=== PATIENT | female | born 1960 | race Caucasian/White ===

== ENCOUNTER 2018-09-28 08:53 | Inpatient (IN) | payer MEDICAID, SELFPAY ==
[2018-09-28] VITALS (32 sets, daily range): BP systolic 98–123; BP diastolic 48–86; PULSE 101–116; RESP 12–26; TEMP 36.4–37.6; O2SAT 93–100; BMI 28.3; BMI 30.1
[2018-09-28] MEDS: 0.9% Normal Saline 1,000 ML 1000 ML IV (09:18)
[2018-09-28 09:33] LABS: Absolute Lymphocyte Count 1.28 X10^3/ul (0.83-4.51); Absolute Neutrophil Count 3.4 X10^3/uL (2.0-7.7); Basophil# 0.02 X10^3/uL; Basophil% 0.4 % (0-1); Eosinophil# 0.06 X10^3/uL; Eosinophils% 1.1 % (0-5); Hematocrit 12.3 % (37-47); Hemoglobin 3.5 g/dl (12.0-15.0); Lymphocyte # 1.28 X10^3/ul (4.0); Lymphocyte % 23.2 % (19-41); Mean Corp Hgb Conc 28.5 g/gl (32-36); Mean Corpuscular Hgb 27.6 pg (27.0-32.0); Mean Corpuscular Volume 96.9 fL (81-99); Monocyte# 0.67 X10^3/uL; Monocyte% 12.1 % (0-10); Neutrophil # 3.36 X10^3/uL (2.7-7.7); Neutrophil % 60.8 % (47-70); Platelet Count 246 K/mm3 (150-450); RBC Distribution Width CV 21.1 % (11.6-14.6); RBC Distribution Width SD 72.6 fl (35.1-43.9); Red Blood Count 1.27 M/mm3 (4.2-5.4); White Blood Count 5.5 K/mm3 (4.4-11.0)
[2018-09-28 09:34] LABS: Differential Indicated SCAN CRITERIA MET; POSITIVE COUNT YES; POSITIVE DIFFERENTIAL NO; POSITIVE MORPHOLOGY YES
[2018-09-28 09:53] LABS: ALB/GLOB Ratio 0.3 RATIO (0.9-2.4); AST(SGOT) 17 U/L (15-37); Alanine Aminotransfer ALT/SGPT 12 U/L (13-56); Albumin, Serum 2.1 g/dL (3.2-5.0); Alkaline Phosphatase 119 U/L (45-117); Anion Gap 10 (5-15); BUN 9 mg/dL (7-18); BUN/Creat Ratio 10.1 RATIO (10-20); Calcium,Total 8.8 mg/dL (8.5-10.1); Chloride 101 mmol/L (98-107); Creatinine, Serum 0.89 mg/dL (0.55-1.02); EST Glomerular Filtration Rate 69 mL/min (>60); Est Glom Filt Rate - Afr Amer 83 mL/min (>60); Estimated Creatinine Clearance 57.69 ml/min; Globulin 6.6 g/dL (2.2-4.2); Glucose 105 mg/dL (74-106); Potassium 3.6 mmol/L (3.5-5.1); Protein, Total 8.7 g/dL (6.4-8.2); Sodium Level 137 mmol/L (136-145)
--- NOTE | 2018-09-28 09:57 | PCM.HP.STD ---
Problem List (1) Severe anemia Status: Acute (2) Iron deficiency anemia Status: Chronic Qualifiers: Iron deficiency anemia type: unspecified iron deficiency Qualified Code(s): D50.9 - Iron deficiency anemia, unspecified History of Present Illness Date of Admission: 09/28/18 Chief Complaint: Fatigued, weakness, decreased Hgb The patient is a 57 y/o F w/ PMHx: Remote Fe deficiency anemia noting regularly taking supplementation, menopausal associated night sweats otherwise per her report healthy who presents to the [facility] ED on 09/28/18 with history of progressively worsening fatigue, weakness, pale pallor, dyspnea with exertion since May with UC evaluation at that time and rx given for outpatient CBC which she had completed on 09/27/18 secondary to her worsening symptoms with call back to her noting severe anemia and recommendation to present to the ED. patient denied any recent hematuria, hemoptysis, dark black stools or red blood per rectum. She denies having had endoscopy evaluation prior but has been on Fe supplementation in the past. In the ED work-up included T 98, heart rate 116, BP 122/54, respiratory rate 18, 99% on room air, CBC with WBC 5.5, hemoglobin 3.1, platelet 246, CMP unremarkable aside alk phos 119, stool guaiac negative, type and cross performed per ED with 4 unit PRBC requested. In the ED patient administered normal saline. Past Medical History Past Medical History (Chronic Problems): Chronic Problems Iron deficiency anemia (Chronic) Allergies No Known Allergies Allergy (Verified 09/28/18 08:56) Home Medications: Ambulatory Orders Medication Instructions Recorded Iron 09/28/18 Multivitamin [Multiple Vitamins] 1 each PO 09/28/18 Surgical History: - - x2. 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 Smoking Status: Never smoker Tobacco Use: Non-smoker Alcohol: None Drugs: None - *Family History Maternal History Items: - - She denies any marked maternal or paternal family history including heart disease, diabetes, cancer. Paternal History Items: - - She denies any marked maternal or paternal family history including heart disease, diabetes, cancer. Review of Systems Constitutional: Reports: Malaise, Weakness, Fatigue. Denies: Chills, Fever, Weight Change HEENT: Denies: Head Aches, Sinus Congestion, Sinus Drainage Cardiovascular: Denies: Chest Pain, Palpitations Respiratory: Reports: Shortness of breath upon exertion. Denies: Cough, Shortness of breath at rest, Sputum production Gastrointestinal: Denies: Abdominal Pain, Nausea, Vomiting Genitourinary: Denies: Dysuria Musculoskeletal: Denies: Joint Pain, Joint Tenderness Skin: Denies: Rash, Wounds Neurological: Denies: Numbness, Tingling, Focal weakness Psychiatric: Denies: Anxiety, Depression, Homicidal Ideations, Suicidal Ideations Hematologic/ Lymphatic: Reports: Anemia. Denies: Easy Bruising, Easy Bleeding VTE Information - Inpt Only VTE Present on Admission: No VTE Mechan Device Prophylaxis: SCD's VTE Pharm Prophylaxis ordered?: No Reason prophylaxis not ordered:: Medical Contraindication Patient Problems: Active and Suspected Problems Severe anemia (Acute) Subjective: Seated upright in the ICU bed, pale pallor, fatigued appearance, NAD otherwise. Objective: Physical Examination: General: awake, alert, oriented x 3 and cooperative, seated upright in the ICU bed in no apparent distress, fatigued appearance. Skin: pale color, turgor, no icterus, cyanosis. HEENT: AT/NC, EOMI, PERRLA, MMM, no carotid bruits or JVD noted. Lungs: CTA bilaterally, moderate effort, mild decrease BL bases, no rales, ronchi or wheezing. Heart: Tachycardic with regular rhythm; no gallop, rub audible. Abdomen: soft, obese, NTTP, ND, normal BS, no HSM. Extremities: no cyanosis, clubbing, or edema. Neurological: patient awake, alert, oriented x 3; cognitive function intact; pupils equally reactive to light and accomodation; cranial nerves II-XII grossly normal, moving all 4 extremities, no focal deficits, strength moderately to severely globally decreased given acute presentation. Psychiatric: affect appears mildly flat, fatigued, no acute evidence of depressive or anxiety feelings. - Physical Exam Vital Signs Temp Pulse Resp BP Pulse Ox 98.8 F 112 H 18 110/57 L 98 09/28/18 09:08 09/28/18 09:08 09/28/18 09:08 09/28/18 09:08 09/28/18 09:08 Oxygen Delivery Method Room Air Weight: 160 lb Body Mass Index (BMI) 28.3 Microbiology Past 72 Hours 09/28/18 09:15 Stool Occult Blood (KG) - Final Stool Laboratory Tests Past 24 Hrs 09/28/18 09/28/18 09/28/18 09:15 09:15 09:15 WBC 5.5 RBC 1.27 L Hgb 3.5 L* Hct 12.3 L MCV 96.9 MCH 27.6 MCHC 28.5 L RDW 21.1 H RDW Differential 72.6 H Plt Count 246 MPV 8.0 Immature Gran % (Auto) 2.400 H Neut % (Auto) 60.8 Lymph % (Auto) 23.2 [place] % (Auto) 12.1 H Eos % (Auto) 1.1 Baso % (Auto) 0.4 Absolute Neuts (auto) 3.4 Absolute Lymphs (auto) 1.28 Total Counted Pending Sodium 137 Potassium 3.6 Chloride 101 Carbon Dioxide 26.0 Anion Gap 10 BUN 9 Creatinine 0.89 Estim Creat Clear Calc 57.69 Est GFR (MDRD) Af Amer 83 Est GFR (MDRD) Non-Af 69 BUN/Creatinine Ratio 10.1 Glucose 105 Calcium 8.8 Total Bilirubin 0.70 AST 17 ALT 12 L Alkaline Phosphatase 119 H Total Protein 8.7 H Albumin 2.1 L Globulin 6.6 H Albumin/Globulin Ratio 0.3 L Blood Type Cancelled Antibody Screen Cancelled Crossmatch See Detail 09/28/18 09:35 WBC RBC Hgb Hct MCV MCH MCHC RDW RDW Differential Plt Count MPV Immature Gran % (Auto) Neut % (Auto) Lymph % (Auto) [place] % (Auto) Eos % (Auto) Baso % (Auto) Absolute Neuts (auto) Absolute Lymphs (auto) Total Counted Sodium Potassium Chloride Carbon Dioxide Anion Gap BUN Creatinine Estim Creat Clear Calc Est GFR (MDRD) Af Amer Est GFR (MDRD) Non-Af BUN/Creatinine Ratio Glucose Calcium Total Bilirubin AST ALT Alkaline Phosphatase Total Protein Albumin Globulin Albumin/Globulin Ratio Blood Type Pending Antibody Screen Pending Crossmatch See Detail Assessment/Plan All Active Problems Severe anemia (Acute) The patient is a 57 y/o F w/ PMHx: Remote Fe deficiency anemia noting regularly taking supplementation, menopausal associated night sweats otherwise per her report healthy who presents to the [facility] ED on 09/28/18 with history of progressively worsening fatigue, weakness, pale pallor, dyspnea with exertion since May with UC evaluation at that time and rx given for outpatient CBC,completed on 09/27/18, Hgb 3.5. (1) Acute Normocytic Anemia, Possible secondary to GI Bleed and Underlying Severe Fe Deficiency Anemia although Possible Hemolysis: Given VS, only noted tachycardia with her severe anemia suspect ongoing slow decrease otherwise would have expected worsened appearance. Admission Hgb 3.5, will admit to ICU per facility protocol, maintain on IVFs, obtain serial H+H q 6 hours, continue 4 u PRBC administration, maintain on IV PPI. Allow clears initially until evaluation per Surgery for consideration for endoscopies with additionally Oncology/Hematology evaluation. ICU consultation per ICU protocol. Fe panel, ferritin, vitamin B12, folic acid and retic count pending prior to initiation of transfusions. (2) Obesity: Weight loss and lifestyle changes encouraged. (3) GERD: IV PPI. (4) DVT Prophylaxis: SCDs, defer chemoprophylaxis given acute presentation #1. Code Visit Inpatient E&M: 23180 Init Hosp L3
[2018-09-28 10:02] LABS: Anisocytosis 2+; Hypochromasia 3+; Microcytosis RARE; Platelet Estimate ADEQUATE (ADEQ); Polychromasia RARE
--- NOTE | 2018-09-28 10:04 | ED.DCSUM_ITS ---
- ER Visit Summary Date of Service: 09/28/18 Chief Complaint: [Anemia] History of Present Illness: The patient is a 57 F presents to the emergency department with complaint of fatigue. Patient's had fatigue and exertional dyspnea for the last 4-5 months. Patient states she was seen at urgent care for 5 months ago and had blood work ordered however she just followed up and went to have her blood drawn yesterday. Patient was noted to have a hemoglobin of 3.5 and therefore was instructed to come to the emergency department. Patient denies any blood in her stool or black tarry stools. Patient states she does not eat much red meat. Patient denied history of anemia in the past. She denies any vaginal bleeding or bleeding in the urine. 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 She denies any weight loss. No family history of colon cancer.] Physical Examination: [HEENT-PERRLA, EOMI. Cranial nerves II through XII grossly intact. TMs clear. Mucous membranes moist. No adenopathy. Cardiovascular-regular rate and rhythm without murmur or ectopy Lungs-clear to auscultation, chest wall stable without crepitus or subcu emphysema Abdomen-normoactive bowel sounds, soft, nontender, no rebound or rigidity, no peritoneal signs. Rectal exam-no masses palpated in the rectal vault and she had brown stool that was Hemoccult negative. Extremities-intact ?4, normal range of motion, normal pulses, atraumatic] Test Results: [CBC with differential obtained showed a white blood cell count of 5.5, hemoglobin 3.5, hematocrit 12.3, platelets 246. Chemistries were unremarkable. LFTs unremarkable.] Emergency Department Course and Treatment: Patient was typed and crossed for 4 units packed red blood cells] Treatment Plan: [Admit for blood transfusions and further evaluation of her anemia.] Disposition: [Admit] Impression: [Anemia] This note was generated with [employer] dictation software. It may contain incorrect words, spelling, and punctuation that were not noted in review of the chart prior to signing ED Disposition - Plan for ED Patient: Chief Complaint: Abn Labs Referrals: Care Physician,No Primary [Primary Care Provider] -
[2018-09-28 11:04] LABS: Hematocrit 10.9 % (37-47); Hemoglobin 3.1 g/dl (12.0-15.0)
[2018-09-28 11:34] LABS: Ferritin 174 ng/mL (8-252); Iron 82 ug/dL (50-170); Iron Binding Capacity,Total 278 ug/dL (250-450); PERCENT IRON SATURATION 29.5 % (15.0-55.0)
--- NOTE | 2018-09-28 11:45 | NURSING ---
to engineering laboratory technician per bed mother present
[2018-09-28 12:01] LABS: Vitamin B12 905 pg/mL (211-911)
--- NOTE | 2018-09-28 12:51 | CON.PCM_ITS ---
Reason for Consult Date of Consultation: 09/28/18 Reason for Consultation: Blood loss anemia History of Present Illness: The patient is a 57-year-old female, with a history as outlined below, who presented to the emergency department on September 28 with gradually worsening fatigue. The patient states she initially noticed her symptoms beginning in May. Apparently she was evaluated in an urgent care and blood work was ordered. However, the patient did not have her blood drawn until just recently. She denies a history of prior gastrointestinal bleeding. She has never undergone an upper or lower endoscopy previously. She states that her bowel movements have been normal and denies the presence of bright red blood per rectum, melena, hematochezia or hematemesis. A CBC drawn as a consequence of the aforementioned blood work revealed a hemoglobin of 3.5. The patient does have a documented hemoglobin of 8.7 in October 2015 in our system. She reports that she has become so fatigued that she has been unable to keep up with her two year-old granddaughter. On presentation to the emergency department, the patient was noted to be afebrile and hemodynamically stable. She was, nevertheless tachycardic. She was maintaining appropriate oxygen saturations on room air. A repeat CBC did reveal a hemoglobin of 3.1 g/dL with normocytic blood indices. Chemistry profile was largely unrevealing. Iron studies were within normal limits. The patient did receive 1 L of supplemental IV fluid hydration. She was started on Protonix twice daily and underwent a type and screen for 4 units of packed red blood cells. The patient was subsequently transferred to the medical intensive care unit for ongoing management. Past Medical History Past Medical History (Chronic Problems): Chronic Problems Iron deficiency anemia (Chronic) Allergies No Known Allergies Allergy (Verified 09/28/18 08:56) Home Medications: Ambulatory Orders Medication Instructions Recorded Iron 09/28/18 Multivitamin [Multiple Vitamins] 1 each PO 09/28/18 Venlafaxine HCl [Venlafaxine HCl 75 mg PO DAILY 09/28/18 ER] Smoking Status: Never smoker - *Family History Maternal History Items: - - She denies any marked maternal or paternal family history including heart disease, diabetes, cancer. Paternal History Items: - - She denies any marked maternal or paternal family history including heart disease, diabetes, cancer. Review of Systems Constitutional: Reports: Weakness, Fatigue Eyes: Denies: Blurred vision, Double vision HEENT: Denies: Head Aches, Sinus Congestion, Sinus Drainage Cardiovascular: Denies: Chest Pain, Palpitations Respiratory: Denies: Cough, Shortness of breath at rest, Sputum production Gastrointestinal: Denies: Abdominal Pain, Nausea, Vomiting Genitourinary: Denies: Dysuria Musculoskeletal: Denies: Joint Pain, Joint Tenderness Skin: Denies: Rash, Wounds Neurological: Denies: Numbness, Tingling, Focal weakness Psychiatric: Denies: Anxiety, Depression, Homicidal Ideations, Suicidal Ideations Hematologic/ Lymphatic: Reports: Anemia. Denies: Hx of blood transfusion Patient Problems: Active and Suspected Problems Severe anemia (Acute) Objective: The patient's most recent lab work, culture data and imaging studies have all been personally reviewed. - Physical Exam General: Alert, Oriented x3, Cooperative, No apparent distress HEENT: Atraumatic, PERRLA, Normocephalic Oral: No Gingival or Mucosal Lesions/ Ulcerations Neck: Supple, No Nodes, Trachea Midline Lungs: Normal air movement, No rhonchi, No wheeze, No rales Cardiovascular: Normal S1, Normal S2, No murmurs, Tachycardic Abdomen: Bowel Sounds Present, Soft, Non Tender Extremities: No clubbing, No cyanosis, No edema Skin: No rashes, No breakdown Musculoskeletal: No Tenderness to Palpation of Joints or Extremities, No Muscle Wasting Lymphatic: No Cervical, Supraclavicular, or Inguinal Adenopathy Neurological: Cranial nerves II-XII grossly intact, Neuro grossly intact Psych/Mental Status: Alert and oriented to time, place, person, mood and affect Vital Signs Temp Pulse Resp BP Pulse Ox 36.7 C 106 H 18 105/66 97 09/28/18 11:22 09/28/18 12:00 09/28/18 12:00 09/28/18 12:00 09/28/18 12:00 Oxygen Delivery Method Room Air Weight: 169 lb 15.622 oz Body Mass Index (BMI) 30.1 Intake and Output for Last 24 Hours 09/26/18 09/27/18 09/28/18 23:59 23:59 23:59 Intake Total 400 / 400 Output Total 0 / 0 Balance 400 / 400 Microbiology Past 72 Hours 09/28/18 09:15 Stool Occult Blood (KG) - Final Stool Laboratory Tests Past 24 Hrs 09/28/18 09/28/18 09/28/18 09:15 09:15 09:15 WBC 5.5 RBC 1.27 L Hgb 3.5 L* Hct 12.3 L MCV 96.9 MCH 27.6 MCHC 28.5 L RDW 21.1 H RDW Differential 72.6 H Plt Count 246 MPV 8.0 Immature Gran % (Auto) 2.400 H Neut % (Auto) 60.8 Lymph % (Auto) 23.2 [place] % (Auto) 12.1 H Eos % (Auto) 1.1 Baso % (Auto) 0.4 Absolute Neuts (auto) 3.4 Absolute Lymphs (auto) 1.28 Total Counted Not Reportable Diff Path Review May foll Platelet Estimate ADEQUATE Polychromasia RARE Hypochromasia 3+ Anisocytosis 2+ Microcytosis RARE Sodium 137 Potassium 3.6 Chloride 101 Carbon Dioxide 26.0 Anion Gap 10 BUN 9 Creatinine 0.89 Estim Creat Clear Calc 57.69 Est GFR (MDRD) Af Amer 83 Est GFR (MDRD) Non-Af 69 BUN/Creatinine Ratio 10.1 Glucose 105 Calcium 8.8 Iron TIBC Iron Saturation Ferritin Total Bilirubin 0.70 AST 17 ALT 12 L Alkaline Phosphatase 119 H Total Protein 8.7 H Albumin 2.1 L Globulin 6.6 H Albumin/Globulin Ratio 0.3 L Vitamin B12 Folate Blood Type Cancelled Antibody Screen Cancelled Crossmatch See Detail 09/28/18 09/28/18 09/28/18 09:15 09:15 09:35 WBC RBC Hgb Hct MCV MCH MCHC RDW RDW Differential Plt Count MPV Immature Gran % (Auto) Neut % (Auto) Lymph % (Auto) [place] % (Auto) Eos % (Auto) Baso % (Auto) Absolute Neuts (auto) Absolute Lymphs (auto) Total Counted Diff Path Review Platelet Estimate Polychromasia Hypochromasia Anisocytosis Microcytosis Sodium Potassium Chloride Carbon Dioxide Anion Gap BUN Creatinine Estim Creat Clear Calc Est GFR (MDRD) Af Amer Est GFR (MDRD) Non-Af BUN/Creatinine Ratio Glucose Calcium Iron 82 TIBC 278 Iron Saturation 29.5 Ferritin 174 Total Bilirubin AST ALT Alkaline Phosphatase Total Protein Albumin Globulin Albumin/Globulin Ratio Vitamin B12 905 Folate 46.30 Blood Type AB POSITIVE Antibody Screen NEGATIVE Crossmatch See Detail 09/28/18 10:00 WBC RBC Hgb 3.1 L* Hct 10.9 L MCV MCH MCHC RDW RDW Differential Plt Count MPV Immature Gran % (Auto) Neut % (Auto) Lymph % (Auto) [place] % (Auto) Eos % (Auto) Baso % (Auto) Absolute Neuts (auto) Absolute Lymphs (auto) Total Counted Diff Path Review Platelet Estimate Polychromasia Hypochromasia Anisocytosis Microcytosis Sodium Potassium Chloride Carbon Dioxide Anion Gap BUN Creatinine Estim Creat Clear Calc Est GFR (MDRD) Af Amer Est GFR (MDRD) Non-Af BUN/Creatinine Ratio Glucose Calcium Iron TIBC Iron Saturation Ferritin Total Bilirubin AST ALT Alkaline Phosphatase Total Protein Albumin Globulin Albumin/Globulin Ratio Vitamin B12 Folate Blood Type Antibody Screen Crossmatch Assessment/Plan Active and Suspected Problems Severe anemia (Acute) RECOMMENDATIONS: 1. Agree with blood transfusions. Goal to achieve and maintain a hemoglobin of 7 g/dL. 2. Check reticulocyte panel prior to initiation of transfusion. 3. Continue PPI therapy as ordered. 4. Await evaluation by general surgery. 5. Maintain appropriate IV access. 6. Patient to be maintained n.p.o. for now. IMPRESSIONS: 1. Anemia Unclear etiology for the patient's presenting anemia. Her iron studies appear to be normal. She reports no history of prior gastrointestinal hemorrhage. In addition, she has normocytic blood indices. Plan at this time will include transfusion of packed red blood cells to achieve a hemoglobin of 7 g/dL or greater. The patient will be continued on a PPI twice daily. Serial H&H's will be monitored. Appropriate peripheral IV access will be established. Consultation has been placed to general surgery and consideration for potential endoscopy. 2. Obesity Weight loss through dietary modification and a graded exercise regimen is strongly encouraged. This note was generated with [employer] software. It may contain incorrect words, spelling, and punctuation that were not noted in checking the note before signing. Code Visit Inpatient E&M: 90746 Init Hosp L3
[2018-09-28 13:19] LABS: Immature Platelet Fraction 2.2 % (1.0-7.9)
--- NOTE | 2018-09-28 14:41 | ONC.CONS.INP ---
Subjective Date of Service:: 09/28/18 Chief Complaint: Anemia History of Present Illness: Ms. Bill Braswell is a pleasant 57 year old woman who developed fatigue May 2018. As a result she presented to a local urgent care and received orders for lab work which included a CBC, which she just now completed. Found to have a Hgb of just above 3 and patient was encouraged to seek immediate medical attention at [facility] ED. Upon presentation, Hgb 3.5 and expected exertional dyspnea. Specifically she denies weight loss, dysphagia, hematemesis, CP, abd pain, changes in her bowel habits, melena/hematochezia and swelling/pain of her extremities. Has never undergone screening cscope or upper endoscopy. Admits she was evaluated in ED in approx 2015 with c/o palpitations and was found to be anemic at that time. As a result, she began taking otc iron supplements per self. She does not have a pcp. Endorses 1.5 year h/o drenching night sweats, modestly controlled with low dose Effexor (provided by her gyn physician) but otherwise no outstanding complaints. Other screenings up to date. Family history negative for ca and hematologic disorders. Past Medical History: Chronic Problems Iron deficiency anemia (Chronic) Past Medical/Surgical History: Past Medical History - Most Recent Inpatient Visit Past Medical History Start: 09/28/18 10:25 Text: Status: Complete Freq: ONCE Protocol: Document 09/28/18 10:25 LW (Rec: 09/28/18 10:46 LW [id number]) BMI Required to complete PMH What is Patient's BMI 28.3 Neurologic Medical History Hx Stroke/TIA No Hx Dementia/Alzheimer's No Hx Parkinson's Disease No Hx Seizures No Hx Multiple Sclerosis No Hx Migraines No Cardiac Medical History VTE Present on Admission No Hx of Deep Vein Thrombosis/VTE/PE No Hx Hypertension No Hx Chest Pain/Angina No Hx Heart Attack No Hx Cardiac Surgery/Stents/Etc. No Hx Heart Failure No Hx Pacemaker/AICD No Hx Irregular Heartbeat and/or Afib No Hx Anticoagulant Therapy No Query Text:(Coumadin, Aspirin, Plavix, Xarelto, etc.) Hx Pain in Legs when Walking/Leg Cramps No Respiratory Medical History Hx COPD No Hx Emphysema No Hx Smoking No Smoking Status Never smoker Hx Smoking Exposure No Hx Tobacco Use in last 12 months Yes Sent to [facility] Yes Hx Sleep Apnea No Do you snore loudly (louder than talking No or can be heard through closed doors)? Do you often feel tired/ fatigued/ No sleepy during daytime? Has anyone observed you stop breathing No during sleep? STOP Results Negative GI Medical History Hx Ulcer No Hx Hepatitis No Hx Cirrhosis No Hx GI Bleed No Hx Unplanned Weight Loss No Genitourinary Medical History Indwelling Catheter in Place on Arrival/ No Admission Hx Renal Disease No Hx Dialysis No Musculoskeletal History Hx Arthritis No Hx Rheumatoid Arthritis No Endocrine Medical History Hx Diabetes No Hx Thyroid Disease No Hematologic Medical History Hx of Blood Transfusion No Hx of Transfusion in last 3 Months No Ever experience any problems with No transfusion(s)? Hx of Preganancy in last 3 Months No Nurse Filling Out Transfusion & LWOHLFORD Questions: Date: 09/28/18 Time: 10:41 Psycho/Social Medical History Hx Depression No Hx Anxiety No Hx Behavior Disorder No Hx Alcohol Use No Hx Substance Use No Other Medical History Hx Blood Disorders No Hx Anemia Yes Hx Cancer No Hx Drug Resistant Organism No Wound/Pressure Injury Present on Arrival No /Admission Query Text:If yes, chart assessment in Shift/Clinical Findings Central Line/PICC/VAD Present on Arrival No /Admission Antibiotics within last 7 days? No Methicillin Resistant Staphylococcus aureus Screening Active MRSA No Risk for Readmission Number of Risk Factors 1 At Risk for Readmission Patient is Not at Risk Patient is eligible for Call Back N Maternal Family History: - - She denies any marked maternal or paternal family history including heart disease, diabetes, cancer. Paternal Family History: - - She denies any marked maternal or paternal family history including heart disease, diabetes, cancer. - Social History Smoking Status: Never smoker Allergies/Adverse Reactions: Allergy/AdvReac Type Severity Reaction Status Date / Time No Known Allergies Allergy Verified 09/28/18 08:56 Review of Systems Constitutional:: Reports: Weakness, Fatigue, Sweats - see HPI. Denies: Fever, Weight loss, Appetite change, Chills Cardiovascular:: Reports: Dyspnea on exertion - she describes as mild. Denies: Chest pain, Palpitations, Orthopnea, PND, Shortness of breath Respiratory: Denies: Cough, Hemoptysis, Shortness of Breath, Wheezing Gastrointestinal:: Denies: Abdominal pain, Nausea, Vomiting, Diarrhea, Constipation, Melena, Hematochezia, Gas/bloating, Reflux, Dysphagia Genitourinary: Denies: Dysuria, Hematuria, Abnormal vaginal bleeding, Flank pain Musculoskeletal:: Denies: Back pain, Myalgia, Arthralgia Skin: Denies: Rash, Skin Changes, Wounds Neurological:: Denies: Headache, Dizziness, Numbness, Tingling, Visual changes, Tinnitus, Hearing loss Psychiatric: Denies: Anxiety, Depression, Homicidal Ideations, Suicidal Ideations Vital Signs Height 5 ft 3 in Weight: 169 lb 15.622 oz Weight in Pounds 170.0 lbs Pulse Ox 99 Temperature 97.5 F Pulse Rate [Bilateral Radial] 112 Pulse Rate 106 Respiratory Rate 17 Blood Pressure [BP] 115/62 Blood Pressure [Right Arm] 110/57 Blood Pressure 107/48 Blood Pressure Position [BP] Semi-Fowlers Blood Pressure Position Semi-Fowlers - Physical Exam General: Alert, Oriented x3, No apparent distress, - - pale HEENT: Atraumatic, Normocephalic Oropharynx:: Negative for: Dry mucosa, Ulcerated lesions Neck:: Supple, Trachea midline. Negative for: JVD, bilateral Cardiac:: Regular rhythm, Normal S1, Normal S2, Tachycardia. Negative for: Murmur Lungs: Clear to auscultation, Excusion symmetrical. Negative for: Rhonchi, Wheezes Abdomen:: Bowel sounds x 4, Soft, Non-tender, Non-distended. Negative for: Hepatosplenomegaly Extremities:: Negative for: Cyanosis, Edema Neurological: Neuro grossly intact Skin:: Negative for: Lesions, Rash, Petechiae, Ecchymosis Psychiatric:: Appropriate affect, Euthymic Lymphatics:: Negative for: Cervical lymphadenopathy, Supraclavicular lymphadenopathy, Axillary lymphadenopathy Laboratory Data: Microbiology 09/28/18 09:15 Stool Occult Blood (KG) - Final Stool Laboratory Tests 09/28/18 09/28/18 09/28/18 Range/Units 10:00 10:00 09:35 WBC (4.4-11.0) K/mm3 RBC (4.2-5.4) M/mm3 Hgb 3.1 L* (12.0-15.0) g/dl Hct 10.9 L (37-47) % MCV (81-99) fL MCH (27.0-32.0) pg MCHC (32-36) g/gl RDW (11.6-14.6) % RDW Differential (35.1-43.9) fl Plt Count (150-450) K/mm3 MPV (6.2-12.0) fl Immature Gran % (Auto) (0.0-0.9) % Neut % (Auto) (47-70) % Lymph % (Auto) (19-41) % [place] % (Auto) (0-10) % Eos % (Auto) (0-5) % Baso % (Auto) (0-1) % Absolute Neuts (auto) (2.0-7.7) X10^3/uL Absolute Lymphs (auto) (0.83-4.51) X10^3/ul Total Counted Diff Path Review Platelet Estimate (ADEQ) Immature Plt Fraction 2.2 (1.0-7.9) % Polychromasia Hypochromasia Anisocytosis Microcytosis Retic Count 4.50 H (0.5-1.5) % Immature Retic Fraction 32.40 H (3.00-15.90) % Retic Hgb Equivalent 24.0 L (30-35) pg Sodium (136-145) mmol/L Potassium (3.5-5.1) mmol/L Chloride (98-107) mmol/L Carbon Dioxide (21.0-32.0) mmol/L Anion Gap (5-15) BUN (7-18) mg/dL Creatinine (0.55-1.02) mg/dL Estim Creat Clear Calc ml/min Est GFR (MDRD) Af Amer (>60) mL/min Est GFR (MDRD) Non-Af (>60) mL/min BUN/Creatinine Ratio (10-20) RATIO Glucose (74-106) mg/dL Calcium (8.5-10.1) mg/dL Iron (50-170) ug/dL TIBC (250-450) ug/dL Iron Saturation (15.0-55.0) % Ferritin (8-252) ng/mL Total Bilirubin (0.20-1.00) mg/dL AST (15-37) U/L ALT (13-56) U/L Alkaline Phosphatase (45-117) U/L Total Protein (6.4-8.2) g/dL Albumin (3.2-5.0) g/dL Globulin (2.2-4.2) g/dL Albumin/Globulin Ratio (0.9-2.4) RATIO Vitamin B12 (211-911) pg/mL Folate (3.1-55.4) ng/mL Blood Type AB POSITIVE Antibody Screen NEGATIVE Crossmatch See Detail 09/28/18 09/28/18 09/28/18 Range/Units 09:15 09:15 09:15 WBC (4.4-11.0) K/mm3 RBC (4.2-5.4) M/mm3 Hgb (12.0-15.0) g/dl Hct (37-47) % MCV (81-99) fL MCH (27.0-32.0) pg MCHC (32-36) g/gl RDW (11.6-14.6) % RDW Differential (35.1-43.9) fl Plt Count (150-450) K/mm3 MPV (6.2-12.0) fl Immature Gran % (Auto) (0.0-0.9) % Neut % (Auto) (47-70) % Lymph % (Auto) (19-41) % [place] % (Auto) (0-10) % Eos % (Auto) (0-5) % Baso % (Auto) (0-1) % Absolute Neuts (auto) (2.0-7.7) X10^3/uL Absolute Lymphs (auto) (0.83-4.51) X10^3/ul Total Counted Diff Path Review Platelet Estimate (ADEQ) Immature Plt Fraction (1.0-7.9) % Polychromasia Hypochromasia Anisocytosis Microcytosis Retic Count (0.5-1.5) % Immature Retic Fraction (3.00-15.90) % Retic Hgb Equivalent (30-35) pg Sodium (136-145) mmol/L Potassium (3.5-5.1) mmol/L Chloride (98-107) mmol/L Carbon Dioxide (21.0-32.0) mmol/L Anion Gap (5-15) BUN (7-18) mg/dL Creatinine (0.55-1.02) mg/dL Estim Creat Clear Calc ml/min Est GFR (MDRD) Af Amer (>60) mL/min Est GFR (MDRD) Non-Af (>60) mL/min BUN/Creatinine Ratio (10-20) RATIO Glucose (74-106) mg/dL Calcium (8.5-10.1) mg/dL Iron 82 (50-170) ug/dL TIBC 278 (250-450) ug/dL Iron Saturation 29.5 (15.0-55.0) % Ferritin 174 (8-252) ng/mL Total Bilirubin (0.20-1.00) mg/dL AST (15-37) U/L ALT (13-56) U/L Alkaline Phosphatase (45-117) U/L Total Protein (6.4-8.2) g/dL Albumin (3.2-5.0) g/dL Globulin (2.2-4.2) g/dL Albumin/Globulin Ratio (0.9-2.4) RATIO Vitamin B12 905 (211-911) pg/mL Folate 46.30 (3.1-55.4) ng/mL Blood Type Cancelled Antibody Screen Cancelled Crossmatch See Detail 09/28/18 09/28/18 Range/Units 09:15 09:15 WBC 5.5 (4.4-11.0) K/mm3 RBC 1.27 L (4.2-5.4) M/mm3 Hgb 3.5 L* (12.0-15.0) g/dl Hct 12.3 L (37-47) % MCV 96.9 (81-99) fL MCH 27.6 (27.0-32.0) pg MCHC 28.5 L (32-36) g/gl RDW 21.1 H (11.6-14.6) % RDW Differential 72.6 H (35.1-43.9) fl Plt Count 246 (150-450) K/mm3 MPV 8.0 (6.2-12.0) fl Immature Gran % (Auto) 2.400 H (0.0-0.9) % Neut % (Auto) 60.8 (47-70) % Lymph % (Auto) 23.2 (19-41) % [place] % (Auto) 12.1 H (0-10) % Eos % (Auto) 1.1 (0-5) % Baso % (Auto) 0.4 (0-1) % Absolute Neuts (auto) 3.4 (2.0-7.7) X10^3/uL Absolute Lymphs (auto) 1.28 (0.83-4.51) X10^3/ul Total Counted Not Reportable Diff Path Review May foll Platelet Estimate ADEQUATE (ADEQ) Immature Plt Fraction (1.0-7.9) % Polychromasia RARE Hypochromasia 3+ Anisocytosis 2+ Microcytosis RARE Retic Count (0.5-1.5) % Immature Retic Fraction (3.00-15.90) % Retic Hgb Equivalent (30-35) pg Sodium 137 (136-145) mmol/L Potassium 3.6 (3.5-5.1) mmol/L Chloride 101 (98-107) mmol/L Carbon Dioxide 26.0 (21.0-32.0) mmol/L Anion Gap 10 (5-15) BUN 9 (7-18) mg/dL Creatinine 0.89 (0.55-1.02) mg/dL Estim Creat Clear Calc 57.69 ml/min Est GFR (MDRD) Af Amer 83 (>60) mL/min Est GFR (MDRD) Non-Af 69 (>60) mL/min BUN/Creatinine Ratio 10.1 (10-20) RATIO Glucose 105 (74-106) mg/dL Calcium 8.8 (8.5-10.1) mg/dL Iron (50-170) ug/dL TIBC (250-450) ug/dL Iron Saturation (15.0-55.0) % Ferritin (8-252) ng/mL Total Bilirubin 0.70 (0.20-1.00) mg/dL AST 17 (15-37) U/L ALT 12 L (13-56) U/L Alkaline Phosphatase 119 H (45-117) U/L Total Protein 8.7 H (6.4-8.2) g/dL Albumin 2.1 L (3.2-5.0) g/dL Globulin 6.6 H (2.2-4.2) g/dL Albumin/Globulin Ratio 0.3 L (0.9-2.4) RATIO Vitamin B12 (211-911) pg/mL Folate (3.1-55.4) ng/mL Blood Type Antibody Screen Crossmatch Assessment and Plan 57 year old woman with relatively unremarkable PMH presenting with severe anemia. 1. Severe anemia- As evidenced by Hgb 3.5, normocytic. Other lines are preserved. Surprisingly, iron studies reveal adequate iron stores and retic count is high indicating aplastic anemia is unlikely, thus hemolysis is on the list of differentials. Orders placed for direct Harley, haptoglobin, LDH. Certainly await surgical recommendations for direction visualization via upper and lower GI. 2. Elevated globulin level- total protein and globulin level are both elevated. Will obtain serum protein electrophoresis with immunofixation and serum free light chain assay. No hypercalcemia or renal dysfunction is noted. Case discussed with Dr. Diaz who was also in agreement with aforementioned plan. Lindsey Andrews, MSN, [employer], AOCNP Medications: Prescriptions This Visit Medication Instructions Recorded Iron 09/28/18 Multivitamin [Multiple Vitamins] 1 each PO 09/28/18 Medications Added to Medication List This Visit Category Date Time Status 0.9% Saline Lock Med 09/28/18 11:30 Active 5 - 15 ml IV UD PRN Magnesium Hydroxide [Milk Of Magnesia] Med 09/28/18 10:27 Active 30 ml PO DAILY PRN PRN Ondansetron [Zofran] Med 09/28/18 10:27 Active 4 mg IV Q8H PRN PRN Pantoprazole Sodium [Protonix] 40 mg Med 09/28/18 11:00 Active 0.9% Normal Saline 100 ml IV Q12 proMETHazine [Phenergan] Med 09/28/18 10:27 Active 12.5 mg IV Q6H PRN PRN Primary Care Provider: No Primary Care Phys Referring Provider:
--- NOTE | 2018-09-28 16:10 | PCM.PN.BLA ---
Progress Note Plan for upper and lower endoscopy
[2018-09-28] MEDS: Venlafaxine XR 75 MG Capsule PO (20:08)
[2018-09-28] MEDS: 0.9% NaCl Peripheral Flush Adult/Peds IV (21:07)
[2018-09-29] VITALS (25 sets, daily range): BP systolic 108–129; BP diastolic 51–66; PULSE 93–106; RESP 10–20; TEMP 36.7–37.4; O2SAT 93–100
[2018-09-29 00:18] LABS: Hematocrit 20.2 % (37-47); Hemoglobin 6.3 g/dl (12.0-15.0)
[2018-09-29] MEDS: 0.9% NaCl Peripheral Flush Adult/Peds IV (01:03)
[2018-09-29 03:15] LABS: LDH 197 U/L (84-246)
--- NOTE | 2018-09-29 06:56 | PN_ITS ---
Subjective: The patient was seen and examined at the bedside this morning. Events from the last 24 hours have been reviewed. The patient is currently afebrile, hemodynamically stable and maintaining appropriate oxygen saturations on room air. The patient was transfused 4 units of packed red blood cells yesterday. Her last hemoglobin check revealed a level of 6.3 g/dL. She is currently receiving an additional 2 units of packed red blood cells. There are tentative plans for both upper and lower endoscopies tomorrow morning. Objective: The patient's most recent lab work, culture data and imaging studies have all been personally reviewed. General: Alert, Oriented x3, Cooperative, No apparent distress HEENT: Atraumatic, PERRLA, Normocephalic Oral: No Gingival or Mucosal Lesions/ Ulcerations Neck: Supple, No Nodes, Trachea Midline Lungs: Normal air movement, No rhonchi, No wheeze, No rales Cardiovascular: Regular rate, Regular Rhythm, Normal S1, Normal S2, No murmurs Abdomen: Bowel Sounds Present, Soft, Non Tender Extremities: No clubbing, No cyanosis, No edema Skin: No breakdown Musculoskeletal: No Tenderness to Palpation of Joints or Extremities, No Muscle Wasting Lymphatic: No Cervical, Supraclavicular, or Inguinal Adenopathy Neurological: Cranial nerves II-XII grossly intact, Neuro grossly intact Psych/Mental Status: Alert and oriented to time, place, person, mood and affect Vital Signs Temp Pulse Resp BP Pulse Ox 36.9 C 97 14 118/63 95 09/29/18 06:30 09/29/18 06:30 09/29/18 06:30 09/29/18 06:30 09/29/18 06:30 Oxygen Delivery Method Room Air Weight: 170 lb 10.205 oz Body Mass Index (BMI) 30.1 Intake and Output for Last 24 Hours 09/27/18 09/28/18 09/29/18 23:59 23:59 23:59 Intake Total 2985 / 2985 600 / 600 Output Total 1450 / 1450 500 / 500 Balance 1535 / 1535 100 / 100 Labs (Last 48 Hours) 09/28/18 09/28/18 09/28/18 09:15 09:15 09:15 WBC 5.5 RBC 1.27 L Hgb 3.5 L* Hct 12.3 L MCV 96.9 MCH 27.6 MCHC 28.5 L RDW 21.1 H RDW Differential 72.6 H Plt Count 246 MPV 8.0 Immature Gran % (Auto) 2.400 H Neut % (Auto) 60.8 Lymph % (Auto) 23.2 [place] % (Auto) 12.1 H Eos % (Auto) 1.1 Baso % (Auto) 0.4 Absolute Neuts (auto) 3.4 Absolute Lymphs (auto) 1.28 Total Counted Not Reportable Diff Path Review May foll Platelet Estimate ADEQUATE Immature Plt Fraction Polychromasia RARE Hypochromasia 3+ Anisocytosis 2+ Microcytosis RARE Retic Count Immature Retic Fraction Retic Hgb Equivalent Haptoglobin Sodium 137 Potassium 3.6 Chloride 101 Carbon Dioxide 26.0 Anion Gap 10 BUN 9 Creatinine 0.89 Estim Creat Clear Calc 57.69 Est GFR (MDRD) Af Amer 83 Est GFR (MDRD) Non-Af 69 BUN/Creatinine Ratio 10.1 Glucose 105 Calcium 8.8 Iron TIBC Iron Saturation Ferritin Total Bilirubin 0.70 AST 17 ALT 12 L Alkaline Phosphatase 119 H Lactate Dehydrogenase Total Protein 8.7 H Total Protein (PEP) Albumin 2.1 L Globulin 6.6 H Albumin/Globulin Ratio 0.3 L Vitamin B12 Folate IgG IgA IgM Albumin (SERENA) Albumin/Globulin (SERENA) Aihjq-8-Nedlnvyoy SERENA Kppnn-4-Koafzyhmq SERENA Beta-Globulins (SERENA) Gamma Globulins (SERENA) SERENA M-Nestor Free [place] LC, Quant Free Lambda LC, Quant Free [place]/Lambda Ratio Blood Type Cancelled Antibody Screen Cancelled Direct Antiglob Test Crossmatch See Detail 09/28/18 09/28/18 09/28/18 09:15 09:15 09:35 WBC RBC Hgb Hct MCV MCH MCHC RDW RDW Differential Plt Count MPV Immature Gran % (Auto) Neut % (Auto) Lymph % (Auto) [place] % (Auto) Eos % (Auto) Baso % (Auto) Absolute Neuts (auto) Absolute Lymphs (auto) Total Counted Diff Path Review Platelet Estimate Immature Plt Fraction Polychromasia Hypochromasia Anisocytosis Microcytosis Retic Count Immature Retic Fraction Retic Hgb Equivalent Haptoglobin Sodium Potassium Chloride Carbon Dioxide Anion Gap BUN Creatinine Estim Creat Clear Calc Est GFR (MDRD) Af Amer Est GFR (MDRD) Non-Af BUN/Creatinine Ratio Glucose Calcium Iron 82 TIBC 278 Iron Saturation 29.5 Ferritin 174 Total Bilirubin AST ALT Alkaline Phosphatase Lactate Dehydrogenase Total Protein Total Protein (PEP) Albumin Globulin Albumin/Globulin Ratio Vitamin B12 905 Folate 46.30 IgG IgA IgM Albumin (SERENA) Albumin/Globulin (SERENA) Hdbhd-3-Jspsbutpq SERENA Wrjog-9-Swaeljjnx SERENA Beta-Globulins (SERENA) Gamma Globulins (SERENA) SERENA M-[place] Free [place] LC, Quant Free Lambda LC, Quant Free [place]/Lambda Ratio Blood Type AB POSITIVE Antibody Screen NEGATIVE Direct Antiglob Test Crossmatch See Detail 09/28/18 09/28/18 09/28/18 09:35 10:00 10:00 WBC RBC Hgb 3.1 L* Hct 10.9 L MCV MCH MCHC RDW RDW Differential Plt Count MPV Immature Gran % (Auto) Neut % (Auto) Lymph % (Auto) [place] % (Auto) Eos % (Auto) Baso % (Auto) Absolute Neuts (auto) Absolute Lymphs (auto) Total Counted Diff Path Review Platelet Estimate Immature Plt Fraction 2.2 Polychromasia Hypochromasia Anisocytosis Microcytosis Retic Count 4.50 H Immature Retic Fraction 32.40 H Retic Hgb Equivalent 24.0 L Haptoglobin Sodium Potassium Chloride Carbon Dioxide Anion Gap BUN Creatinine Estim Creat Clear Calc Est GFR (MDRD) Af Amer Est GFR (MDRD) Non-Af BUN/Creatinine Ratio Glucose Calcium Iron TIBC Iron Saturation Ferritin Total Bilirubin AST ALT Alkaline Phosphatase Lactate Dehydrogenase Total Protein Total Protein (PEP) Albumin Globulin Albumin/Globulin Ratio Vitamin B12 Folate IgG IgA IgM Albumin (SERENA) Albumin/Globulin (SERENA) Htcic-0-Xwkbydqpp SERENA Ybdab-2-Mdjmyyirb SERENA Beta-Globulins (SERENA) Gamma Globulins (SERENA) SERENA M-[place] Free [place] LC, Quant Free Lambda LC, Quant Free [place]/Lambda Ratio Blood Type Antibody Screen Direct Antiglob Test Crossmatch See Detail 09/28/18 09/29/18 09/29/18 10:00 00:05 00:05 WBC RBC Hgb 6.3 L Hct 20.2 L MCV MCH MCHC RDW RDW Differential Plt Count MPV Immature Gran % (Auto) Neut % (Auto) Lymph % (Auto) [place] % (Auto) Eos % (Auto) Baso % (Auto) Absolute Neuts (auto) Absolute Lymphs (auto) Total Counted Diff Path Review Platelet Estimate Immature Plt Fraction Polychromasia Hypochromasia Anisocytosis Microcytosis Retic Count Immature Retic Fraction Retic Hgb Equivalent Haptoglobin Sodium Potassium Chloride Carbon Dioxide Anion Gap BUN Creatinine Estim Creat Clear Calc Est GFR (MDRD) Af Amer Est GFR (MDRD) Non-Af BUN/Creatinine Ratio Glucose Calcium Iron TIBC Iron Saturation Ferritin Total Bilirubin AST ALT Alkaline Phosphatase Lactate Dehydrogenase 197 Total Protein Total Protein (PEP) Albumin Globulin Albumin/Globulin Ratio Vitamin B12 Folate IgG IgA IgM Albumin (SERNEA) Albumin/Globulin (SERENA) Xbkbz-3-Ezlwklvig SERENA Vjojt-7-Tglrhwefz SERENA Beta-Globulins (SERENA) Gamma Globulins (SERENA) SERENA M-[place] Free [place] LC, Quant Free Lambda LC, Quant Free [place]/Lambda Ratio Blood Type Antibody Screen Direct Antiglob Test NEG w/POLYSPECIFIC Crossmatch 09/29/18 00:05 WBC RBC Hgb Hct MCV MCH MCHC RDW RDW Differential Plt Count MPV Immature Gran % (Auto) Neut % (Auto) Lymph % (Auto) [place] % (Auto) Eos % (Auto) Baso % (Auto) Absolute Neuts (auto) Absolute Lymphs (auto) Total Counted Diff Path Review Platelet Estimate Immature Plt Fraction Polychromasia Hypochromasia Anisocytosis Microcytosis Retic Count Immature Retic Fraction Retic Hgb Equivalent Haptoglobin Pending Sodium Potassium Chloride Carbon Dioxide Anion Gap BUN Creatinine Estim Creat Clear Calc Est GFR (MDRD) Af Amer Est GFR (MDRD) Non-Af BUN/Creatinine Ratio Glucose Calcium Iron TIBC Iron Saturation Ferritin Total Bilirubin AST ALT Alkaline Phosphatase Lactate Dehydrogenase Total Protein Total Protein (PEP) Pending Albumin Globulin Albumin/Globulin Ratio Vitamin B12 Folate IgG Pending IgA Pending IgM Pending Albumin (SERENA) Pending Albumin/Globulin (SERENA) Pending Elzva-2-Bflzcccbv SERENA Pending Ponmn-8-Djnfyysrr SERENA Pending Beta-Globulins (SERENA) Pending Gamma Globulins (SERENA) Pending SERENA M-[place] Pending Free [place] LC, Quant Pending Free Lambda LC, Quant Pending Free [place]/Lambda Ratio Pending Blood Type Antibody Screen Direct Antiglob Test Crossmatch Microbiology 09/28/18 09:15 Stool Stool Occult Blood (KG) - Final Medical Necessity - Tobacco Use Smoking Status: Never smoker Tobacco Use: Non-smoker Assessment/Plan All Active Problems Severe anemia (Acute) RECOMMENDATIONS: 1. Agree with blood transfusions. Goal to achieve and maintain a hemoglobin of 7 g/dL. 2. Continue PPI therapy as ordered. 3. Planned endoscopy tomorrow morning 4. Maintain appropriate IV access. 5. Recheck H&H at 1400 hrs. IMPRESSIONS: 1. Anemia Unclear etiology for the patient's presenting anemia. Her iron studies appear to be normal. She reports no history of prior gastrointestinal hemorrhage. In addition, she has normocytic blood indices. Plan at this time will include transfusion of packed red blood cells to achieve a hemoglobin of 7 g/dL or greater. The patient will be continued on a PPI twice daily. Appropriate peripheral IV access will be continued. There are plans for the patient to undergo both lower and upper endoscopies tomorrow morning. We will recheck her H&H today at 1400 hrs. 2. Obesity Weight loss through dietary modification and a graded exercise regimen is strongly encouraged. This note was generated with [employer] dictation software. It may contain incorrect words, spelling, and punctuation that were not noted in checking the note before signing. Code Visit Inpatient E&M: 01376 Subs Hosp L3
--- NOTE | 2018-09-29 06:57 | PCM.PN.HOSP ---
Patient Problems: Active and Suspected Problems Severe anemia (Acute) Subjective: Patient with no acute events overnight per self and per nursing report. This morning hemoglobin had improved with an additional 2 unit PRBC currently ongoing with repeat hemoglobin following. Patient appearance improved, less pale pallor. Patient states she feels less weak. Patient denies fevers, chills, nausea, emesis, abdominal pain, chest pain or dyspnea. Objective: Physical Examination: General: awake, alert, oriented x 3 and cooperative, seated upright in the ICU bed in no apparent distress. Skin: improved color, turgor, no icterus, cyanosis. HEENT: AT/NC, EOMI, PERRLA, MMM. Lungs: CTA bilaterally, moderate effort, mild decrease BL bases, no rales, ronchi or wheezing. Heart: Regular rate and rhythm; no gallop, rub audible. Abdomen: soft, obese, NTTP, ND, normal BS. Extremities: no cyanosis, clubbing, or edema. Neurological: patient awake, alert, oriented x 3; cognitive function intact; pupils equally reactive to light and accomodation; cranial nerves II-XII grossly normal, moving all 4 extremities, no focal deficits, strength improved, mildly globally decreased. Psychiatric: affect appears improved, less fatigued, no acute evidence of depressive or anxiety feelings. Vitals/I&O's: Vital Signs Temp Pulse Resp BP Pulse Ox 98.2 F 98 20 H 119/63 95 09/29/18 06:56 09/29/18 06:56 09/29/18 06:56 09/29/18 06:56 09/29/18 06:56 Oxygen Delivery Method Room Air Weight: 170 lb 10.205 oz Body Mass Index (BMI) 30.1 Intake and Output for Last 24 Hours 09/27/18 09/28/18 09/29/18 23:59 23:59 23:59 Intake Total 2985 / 2985 1000 / 1000 Output Total 1450 / 1450 500 / 500 Balance 1535 / 1535 500 / 500 Microbiology Past 72 Hours 09/28/18 09:15 Stool Stool Occult Blood (KG) - Final Laboratory Results 09/28/18 09:15: WBC 5.5, RBC 1.27 L, Hgb 3.5 L*, Hct 12.3 L, MCV 96.9, MCH 27.6, MCHC 28.5 L, RDW 21.1 H, RDW Differential 72.6 H, Plt Count 246, MPV 8.0, Immature Gran % (Auto) 2.400 H, Neut % (Auto) 60.8, Lymph % (Auto) 23.2, [place] % (Auto) 12.1 H, Eos % (Auto) 1.1, Baso % (Auto) 0.4, Absolute Neuts (auto) 3.4, Absolute Lymphs (auto) 1.28, Total Counted Not Reportable, Diff Path Review May foll, Platelet Estimate ADEQUATE, Polychromasia RARE, Hypochromasia 3+, Anisocytosis 2+, Microcytosis RARE 09/28/18 09:15: Sodium 137, Potassium 3.6, Chloride 101, Carbon Dioxide 26.0, Anion Gap 10, BUN 9, Creatinine 0.89, Estim Creat Clear Calc 57.69, Est GFR (MDRD) Af Amer 83, Est GFR (MDRD) Non-Af 69, BUN/Creatinine Ratio 10.1, Glucose 105, Calcium 8.8, Total Bilirubin 0.70, AST 17, ALT 12 L, Alkaline Phosphatase 119 H, Total Protein 8.7 H, Albumin 2.1 L, Globulin 6.6 H, Albumin/Globulin Ratio 0.3 L 09/28/18 09:15: Blood Type Cancelled, Antibody Screen Cancelled, Crossmatch See Detail 09/28/18 09:15: Vitamin B12 905 09/28/18 09:15: Iron 82, TIBC 278, Iron Saturation 29.5, Ferritin 174, Folate 46.30 09/28/18 09:35: Blood Type AB POSITIVE, Antibody Screen NEGATIVE, Crossmatch See Detail 09/28/18 09:35: Crossmatch See Detail 09/28/18 10:00: Hgb 3.1 L*, Hct 10.9 L 09/28/18 10:00: Immature Plt Fraction 2.2, Retic Count 4.50 H, Immature Retic Fraction 32.40 H, Retic Hgb Equivalent 24.0 L 09/28/18 10:00: Direct Antiglob Test NEG w/POLYSPECIFIC 09/29/18 00:05: Hgb 6.3 L, Hct 20.2 L 09/29/18 00:05: Lactate Dehydrogenase 197 09/29/18 00:05: Haptoglobin Pending, Total Protein (PEP) Pending, IgG Pending, IgA Pending, IgM Pending, Albumin (SERENA) Pending, Albumin/Globulin (SERENA) Pending, Dmpbk-2-Imddmxkje SERENA Pending, Zywfq-0-Wieyimlen SERENA Pending, Beta-Globulins (SERENA) Pending, Gamma Globulins (SERENA) Pending, SERENA M-Nestor Pending, Free [place] LC, Quant Pending, Free Lambda LC, Quant Pending, Free [place]/Lambda Ratio Pending Current Medications Pantoprazole Sodium 40 mg/ (Sodium Chloride) 110 mls @ 330 mls/hr IV Q12 MICHI Last Admin: 09/28/18 21:07 Dose: 330 mls/hr Magnesium Hydroxide (Milk Of Magnesia) 30 ml PO DAILY PRN PRN PRN Reason: Constipation Ondansetron HCl (Zofran) 4 mg IV Q8H PRN PRN PRN Reason: NAUSEA Promethazine HCl (Phenergan) 12.5 mg IV Q6H PRN PRN PRN Reason: NAUSEA/VOMITING Sodium Chloride () 5 - 15 ml IV UD PRN PRN Reason: SALINE FLUSH Last Admin: 09/29/18 01:03 Dose: 10 ml Venlafaxine HCl (Effexor Xr) 75 mg PO DAILY@2200 [facility] Last Admin: 09/28/18 20:08 Dose: 75 mg Medical Necessity - Tobacco Use Smoking Status: Never smoker Tobacco Use: Non-smoker Assessment/Plan All Active Problems Severe anemia (Acute) The patient is a 57 y/o F w/ PMHx: Remote Fe deficiency anemia noting regularly taking supplementation, menopausal associated night sweats otherwise per her report healthy who presents to the [facility] ED on 09/28/18 with history of progressively worsening fatigue, weakness, pale pallor, dyspnea with exertion since May with UC evaluation at that time and rx given for outpatient CBC,completed on 09/27/18, Hgb 3.5. (1) Acute Normocytic Anemia, Possible secondary to GI Bleed, History of Fe Deficiency Anemia although Possible Hemolysis: Given VS, only noted tachycardia with her severe anemia suspect ongoing slow decrease otherwise would have expected worsened appearance. Admission Hgb 3.5, admitted to ICU per facility protocol, maintain on IVFs, serial H+H q 6 hours, 4 u PRBC administration initiated upon admission, follow-up Hgb 6.3, receiving an additional 2 u PRBC currently, maintain on IV PPI. Surgery consulted w/ planned endoscopy 09/30/18. Fe panel, ferritin not severe appearing. Retic count not low. Normal level vitamin B12, folic acid. Given these findings Oncology obtained direct Harley, haptoglobin, LDH and well as PEP w/ immunofixation, serum free light chair assay secondary to concurrently elevated globin levels. Given improvement, will transfer to [place] w/ telemetry from ICU status. (2) Obesity: Weight loss and lifestyle changes encouraged. (3) GERD: IV PPI. (4) DVT Prophylaxis: SCDs, defer chemoprophylaxis given acute presentation #1. Code Visit Inpatient E&M: 22230 Subs Hosp L2
--- NOTE | 2018-09-29 07:03 | PN_ITS ---
Patient Problems: Active and Suspected Problems Severe anemia (Acute) Subjective: Patient with no acute events overnight per self and per nursing report. This morning hemoglobin had improved with an additional 2 unit PRBC currently ongoing with repeat hemoglobin following. Patient appearance improved, less pale pallor. Patient states she feels less weak. Patient denies fevers, chills, nausea, emesis, abdominal pain, chest pain or dyspnea. Objective: Physical Examination: General: awake, alert, oriented x 3 and cooperative, seated upright in the ICU bed in no apparent distress. Skin: improved color, turgor, no icterus, cyanosis. HEENT: AT/NC, EOMI, PERRLA, MMM. Lungs: CTA bilaterally, moderate effort, mild decrease BL bases, no rales, ronchi or wheezing. Heart: Regular rate and rhythm; no gallop, rub audible. Abdomen: soft, obese, NTTP, ND, normal BS. Extremities: no cyanosis, clubbing, or edema. Neurological: patient awake, alert, oriented x 3; cognitive function intact; pupils equally reactive to light and accomodation; cranial nerves II-XII grossly normal, moving all 4 extremities, no focal deficits, strength improved, mildly globally decreased. Psychiatric: affect appears improved, less fatigued, no acute evidence of depressive or anxiety feelings. Vitals/I&O's: Vital Signs Temp Pulse Resp BP Pulse Ox 98.2 F 98 20 H 119/63 95 09/29/18 06:56 09/29/18 06:56 09/29/18 06:56 09/29/18 06:56 09/29/18 06:56 Oxygen Delivery Method Room Air Weight: 170 lb 10.205 oz Body Mass Index (BMI) 30.1 Intake and Output for Last 24 Hours 09/27/18 09/28/18 09/29/18 23:59 23:59 23:59 Intake Total 2985 / 2985 1000 / 1000 Output Total 1450 / 1450 500 / 500 Balance 1535 / 1535 500 / 500 Microbiology Past 72 Hours 09/28/18 09:15 Stool Stool Occult Blood (KG) - Final Laboratory Results 09/28/18 09:15: WBC 5.5, RBC 1.27 L, Hgb 3.5 L*, Hct 12.3 L, MCV 96.9, MCH 27.6, MCHC 28.5 L, RDW 21.1 H, RDW Differential 72.6 H, Plt Count 246, MPV 8.0, Immature Gran % (Auto) 2.400 H, Neut % (Auto) 60.8, Lymph % (Auto) 23.2, [place] % (Auto) 12.1 H, Eos % (Auto) 1.1, Baso % (Auto) 0.4, Absolute Neuts (auto) 3.4, Absolute Lymphs (auto) 1.28, Total Counted Not Reportable, Diff Path Review May foll, Platelet Estimate ADEQUATE, Polychromasia RARE, Hypochromasia 3+, Anisocytosis 2+, Microcytosis RARE 09/28/18 09:15: Sodium 137, Potassium 3.6, Chloride 101, Carbon Dioxide 26.0, Anion Gap 10, BUN 9, Creatinine 0.89, Estim Creat Clear Calc 57.69, Est GFR (MDRD) Af Amer 83, Est GFR (MDRD) Non-Af 69, BUN/Creatinine Ratio 10.1, Glucose 105, Calcium 8.8, Total Bilirubin 0.70, AST 17, ALT 12 L, Alkaline Phosphatase 119 H, Total Protein 8.7 H, Albumin 2.1 L, Globulin 6.6 H, Albumin/Globulin Ratio 0.3 L 09/28/18 09:15: Blood Type Cancelled, Antibody Screen Cancelled, Crossmatch See Detail 09/28/18 09:15: Vitamin B12 905 09/28/18 09:15: Iron 82, TIBC 278, Iron Saturation 29.5, Ferritin 174, Folate 46.30 09/28/18 09:35: Blood Type AB POSITIVE, Antibody Screen NEGATIVE, Crossmatch See Detail 09/28/18 09:35: Crossmatch See Detail 09/28/18 10:00: Hgb 3.1 L*, Hct 10.9 L 09/28/18 10:00: Immature Plt Fraction 2.2, Retic Count 4.50 H, Immature Retic Fraction 32.40 H, Retic Hgb Equivalent 24.0 L 09/28/18 10:00: Direct Antiglob Test NEG w/POLYSPECIFIC 09/29/18 00:05: Hgb 6.3 L, Hct 20.2 L 09/29/18 00:05: Lactate Dehydrogenase 197 09/29/18 00:05: Haptoglobin Pending, Total Protein (PEP) Pending, IgG Pending, IgA Pending, IgM Pending, Albumin (SERENA) Pending, Albumin/Globulin (SERENA) Pending, Pihma-1-Icgzfaxhc SERENA Pending, Vkvxd-5-Jidmkuube SERENA Pending, Beta-Globulins (SERENA) Pending, Gamma Globulins (SERENA) Pending, SERENA M-Nestor Pending, Free [place] LC, Quant Pending, Free Lambda LC, Quant Pending, Free [place]/Lambda Ratio Pendi ng Current Medications Pantoprazole Sodium 40 mg/ (Sodium Chloride) 110 mls @ 330 mls/hr IV Q12 MICHI Last Admin: 09/28/18 21:07 Dose: 330 mls/hr Magnesium Hydroxide (Milk Of Magnesia) 30 ml PO DAILY PRN PRN PRN Reason: Constipation Ondansetron HCl (Zofran) 4 mg IV Q8H PRN PRN PRN Reason: NAUSEA Promethazine HCl (Phenergan) 12.5 mg IV Q6H PRN PRN PRN Reason: NAUSEA/VOMITING Sodium Chloride () 5 - 15 ml IV UD PRN PRN Reason: SALINE FLUSH Last Admin: 09/29/18 01:03 Dose: 10 ml Venlafaxine HCl (Effexor Xr) 75 mg PO DAILY@2200 [facility] Last Admin: 09/28/18 20:08 Dose: 75 mg Medical Necessity - Tobacco Use Smoking Status: Never smoker Tobacco Use: Non-smoker Assessment/Plan All Active Problems Severe anemia (Acute) The patient is a 57 y/o F w/ PMHx: Remote Fe deficiency anemia noting regularly taking supplementation, menopausal associated night sweats otherwise per her report healthy who presents to the [facility] ED on 09/28/18 with history of progressively worsening fatigue, weakness, pale pallor, dyspnea with exertion si may with UC evaluation at that time and rx given for outpatient CBC,completed on 09/27/18, Hgb 3.5. (1) Acute Normocytic Anemia, Possible secondary to GI Bleed, History of Fe Deficiency Anemia although Possible Hemolysis: Given VS, only noted tachycardia with her severe anemia suspect ongoing slow decrease otherwise would have expected worsened appearance. Admission Hgb 3.5, admitted to ICU per facility protocol, maintain on IVFs, serial H+H q 6 hours, 4 u PRBC administration initiated upon admission, follow-up Hgb 6.3, receiving an additional 2 u PRBC currently, maintain on IV PPI. Surgery consulted w/ planned endoscopy 09/30/18. Fe panel, ferritin not severe appearing. Retic count not low. Normal level vitamin B12, folic acid. Given these findings Oncology obtained direct [place], h aptoglobin, LDH and well as PEP w/ immunofixation, serum free light chair assay secondary to concurrently elevated globin levels. Given improvement, will transfer to [place] w/ telemetry from ICU status. (2) Obesity: Weight loss and lifestyle changes encouraged. (3) GERD: IV PPI. (4) DVT Prophylaxis: SCDs, defer chemoprophylaxis given acute presentation #1. Code Visit Inpatient E&M: 31436 Subs Hosp L2
[2018-09-29 07:57] LABS: Hematocrit 24.4 % (37-47)
[2018-09-29 08:09] LABS: Anion Gap 10 (5-15); BUN 9 mg/dL (7-18); BUN/Creat Ratio 11.1 RATIO (10-20); Calcium,Total 8.3 mg/dL (8.5-10.1); Chloride 105 mmol/L (98-107); Creatinine, Serum 0.81 mg/dL (0.55-1.02); EST Glomerular Filtration Rate 77 mL/min (>60); Est Glom Filt Rate - Afr Amer 93 mL/min (>60); Estimated Creatinine Clearance 63.39 ml/min; Glucose 100 mg/dL (74-106); Potassium 3.5 mmol/L (3.5-5.1); Sodium Level 141 mmol/L (136-145)
--- NOTE | 2018-09-29 09:46 | PCM.CONS.GEN ---
Problem List (1) Severe anemia Status: Acute Reason for Consult Date of Consultation: 09/29/18 Reason for Consultation: Anemia History of Present Illness: The patient is a 57 year old F who presented to the emergency room after having an outpatient labs show severe anemia of 3.1 hemoglobin. The patient reports that she was feeling dizzy and tired. She reports that she has never had a colonoscopy or EGD. She is not having any blood in her stool. She has no black tarry stools. She is having no abdominal pain. She is not vomiting any blood. Past Medical History Past Medical History (Chronic Problems): Chronic Problems Iron deficiency anemia (Chronic) Allergies No Known Allergies Allergy (Verified 09/28/18 08:56) Home Medications: Ambulatory Orders Medication Instructions Recorded Iron 09/28/18 Multivitamin [Multiple Vitamins] 1 each PO 09/28/18 Venlafaxine HCl [Venlafaxine HCl 75 mg PO DAILY 09/28/18 ER] Surgical History: - - x2. 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 Smoking Status: Never smoker Tobacco Use: Non-smoker Alcohol: None Drugs: None - *Family History Maternal History Items: - - She denies any marked maternal or paternal family history including heart disease, diabetes, cancer. Paternal History Items: - - She denies any marked maternal or paternal family history including heart disease, diabetes, cancer. Review of Systems Constitutional: Denies: Anorexia, Chills, Fever HEENT: Denies: Difficulty Swallowing Cardiovascular: Denies: Chest Pain Respiratory: Denies: Cough Gastrointestinal: Denies: Abdominal Pain, Hematemesis, Hematochezia, Nausea, Melena, Vomiting Genitourinary: Denies: Dysuria Musculoskeletal: Denies: Joint stiffness Skin: Denies: Jaundice Neurological: Denies: Balance problems Hematologic/ Lymphatic: Reports: Anemia. Denies: Easy Bruising Patient Problems: Active and Suspected Problems Severe anemia (Acute) - Physical Exam General: Alert, Oriented x3, Cooperative, No apparent distress HEENT: Atraumatic Neck: Supple Lungs: Clear to auscultation, Normal air movement, No rales Cardiovascular: Regular rate, Regular Rhythm Abdomen: Soft, Non Tender, Non-Distended Extremities: No clubbing Skin: No rashes Musculoskeletal: No Muscle Wasting Neurological: Cranial nerves II-XII grossly intact Psych/Mental Status: Normal Affect Vital Signs Temp Pulse Resp BP Pulse Ox 98.2 F 96 17 122/66 H 97 09/29/18 06:56 09/29/18 07:56 09/29/18 07:56 09/29/18 07:56 09/29/18 07:56 Oxygen Delivery Method Room Air Weight: 170 lb 10.205 oz Body Mass Index (BMI) 30.1 Intake and Output for Last 24 Hours 09/27/18 09/28/18 09/29/18 23:59 23:59 23:59 Intake Total 2985 / 2985 1000 / 1000 Output Total 1450 / 1450 500 / 500 Balance 1535 / 1535 500 / 500 Microbiology Past 72 Hours 09/28/18 09:15 Stool Occult Blood (KG) - Final Stool Laboratory Tests Past 24 Hrs 09/28/18 09/28/18 09/28/18 09:15 09:15 09:15 Hgb Hct Total Counted Not Reportable Diff Path Review May foll Platelet Estimate ADEQUATE Immature Plt Fraction Polychromasia RARE Hypochromasia 3+ Anisocytosis 2+ Microcytosis RARE Retic Count Immature Retic Fraction Retic Hgb Equivalent Haptoglobin Sodium 137 Potassium 3.6 Chloride 101 Carbon Dioxide 26.0 Anion Gap 10 BUN 9 Creatinine 0.89 Estim Creat Clear Calc 57.69 Est GFR (MDRD) Af Amer 83 Est GFR (MDRD) Non-Af 69 BUN/Creatinine Ratio 10.1 Glucose 105 Calcium 8.8 Iron TIBC Iron Saturation Ferritin Total Bilirubin 0.70 AST 17 ALT 12 L Alkaline Phosphatase 119 H Lactate Dehydrogenase Total Protein 8.7 H Total Protein (PEP) Albumin 2.1 L Globulin 6.6 H Albumin/Globulin Ratio 0.3 L Vitamin B12 905 Folate IgG IgA IgM Albumin (SERENA) Albumin/Globulin (SERENA) Mygfu-9-Pwdetnhug SERENA Qevtv-7-Boczhbndj SERENA Beta-Globulins (SERENA) Gamma Globulins (SERENA) SERENA M-Nestor Free [place] LC, Quant Free Lambda LC, Quant Free [place]/Lambda Ratio Blood Type Antibody Screen Direct Antiglob Test Crossmatch 09/28/18 09/28/18 09/28/18 09:15 09:35 09:35 Hgb Hct Total Counted Diff Path Review Platelet Estimate Immature Plt Fraction Polychromasia Hypochromasia Anisocytosis Microcytosis Retic Count Immature Retic Fraction Retic Hgb Equivalent Haptoglobin Sodium Potassium Chloride Carbon Dioxide Anion Gap BUN Creatinine Estim Creat Clear Calc Est GFR (MDRD) Af Amer Est GFR (MDRD) Non-Af BUN/Creatinine Ratio Glucose Calcium Iron 82 TIBC 278 Iron Saturation 29.5 Ferritin 174 Total Bilirubin AST ALT Alkaline Phosphatase Lactate Dehydrogenase Total Protein Total Protein (PEP) Albumin Globulin Albumin/Globulin Ratio Vitamin B12 Folate 46.30 IgG IgA IgM Albumin (SERENA) Albumin/Globulin (SERENA) Scgvn-0-Arhdinwnw SERENA Sxzvt-4-Agurbfhzu SERENA Beta-Globulins (SERENA) Gamma Globulins (SERENA) SERENA M-Nestor Free [place] LC, Quant Free Lambda LC, Quant Free [place]/Lambda Ratio Blood Type AB POSITIVE Antibody Screen NEGATIVE Direct Antiglob Test Crossmatch See Detail See Detail 09/28/18 09/28/18 09/28/18 10:00 10:00 10:00 Hgb 3.1 L* Hct 10.9 L Total Counted Diff Path Review Platelet Estimate Immature Plt Fraction 2.2 Polychromasia Hypochromasia Anisocytosis Microcytosis Retic Count 4.50 H Immature Retic Fraction 32.40 H Retic Hgb Equivalent 24.0 L Haptoglobin Sodium Potassium Chloride Carbon Dioxide Anion Gap BUN Creatinine Estim Creat Clear Calc Est GFR (MDRD) Af Amer Est GFR (MDRD) Non-Af BUN/Creatinine Ratio Glucose Calcium Iron TIBC Iron Saturation Ferritin Total Bilirubin AST ALT Alkaline Phosphatase Lactate Dehydrogenase Total Protein Total Protein (PEP) Albumin Globulin Albumin/Globulin Ratio Vitamin B12 Folate IgG IgA IgM Albumin (SERENA) Albumin/Globulin (SERENA) Sghge-2-Bugfxfxpq SERENA Kgwnv-2-Uzmqwltkw SERENA Beta-Globulins (SERENA) Gamma Globulins (SERENA) SERENA M-[place]estor Free [place] LC, Quant Free Lambda LC, Quant Free [place]/Lambda Ratio Blood Type Antibody Screen Direct Antiglob Test NEG w/POLYSPECIFIC Crossmatch 09/29/18 09/29/18 09/29/18 00:05 00:05 00:05 Hgb 6.3 L Hct 20.2 L Total Counted Diff Path Review Platelet Estimate Immature Plt Fraction Polychromasia Hypochromasia Anisocytosis Microcytosis Retic Count Immature Retic Fraction Retic Hgb Equivalent Haptoglobin Pending Sodium Potassium Chloride Carbon Dioxide Anion Gap BUN Creatinine Estim Creat Clear Calc Est GFR (MDRD) Af Amer Est GFR (MDRD) Non-Af BUN/Creatinine Ratio Glucose Calcium Iron TIBC Iron Saturation Ferritin Total Bilirubin AST ALT Alkaline Phosphatase Lactate Dehydrogenase 197 Total Protein Total Protein (PEP) Pending Albumin Globulin Albumin/Globulin Ratio Vitamin B12 Folate IgG Pending IgA Pending IgM Pending Albumin (SERENA) Pending Albumin/Globulin (SERENA) Pending Qybrm-4-Tpwjutpvn SERENA Pending Rqbhj-5-Upwjottma SERENA Pending Beta-Globulins (SERENA) Pending Gamma Globulins (SERENA) Pending SERENA M-Nestor Pending Free [place] LC, Quant Pending Free Lambda LC, Quant Pending Free [place]/Lambda Ratio Pending Blood Type Antibody Screen Direct Antiglob Test Crossmatch 09/29/18 09/29/18 07:45 07:45 Hgb 8.0 L Hct 24.4 L Total Counted Diff Path Review Platelet Estimate Immature Plt Fraction Polychromasia Hypochromasia Anisocytosis Microcytosis Retic Count Immature Retic Fraction Retic Hgb Equivalent Haptoglobin Sodium 141 Potassium 3.5 Chloride 105 Carbon Dioxide 26.0 Anion Gap 10 BUN 9 Creatinine 0.81 Estim Creat Clear Calc 63.39 Est GFR (MDRD) Af Amer 93 Est GFR (MDRD) Non-Af 77 BUN/Creatinine Ratio 11.1 Glucose 100 Calcium 8.3 L Iron TIBC Iron Saturation Ferritin Total Bilirubin AST ALT Alkaline Phosphatase Lactate Dehydrogenase Total Protein Total Protein (PEP) Albumin Globulin Albumin/Globulin Ratio Vitamin B12 Folate IgG IgA IgM Albumin (SERENA) Albumin/Globulin (SERENA) Pfomb-8-Zseumwjhw SERENA Guzxr-6-Rgyxncttq SERENA Beta-Globulins (SERENA) Gamma Globulins (SERENA) SERENA M-Nestor Free [place] LC, Quant Free Lambda LC, Quant Free [place]/Lambda Ratio Blood Type Antibody Screen Direct Antiglob Test Crossmatch Assessment/Plan All Active Problems Severe anemia (Acute) 57-year-old female with severe anemia 1. Patient has severe anemia. She received 6 units of blood and her hemoglobin trevor by 5 g. She is not having any active signs of bleeding but she has never had an upper or lower endoscopy and I was consulted to rule out GI malignancy. 2. Plan for EGD and colonoscopy tomorrow. We will bowel prep this afternoon. 3. I explained endoscopy in detail to the patient. I explained the risks including but not limited to stroke or heart attack with anesthesia, perforation of the GI tract, bleeding, infection. I explained that any of these could necessitate further emergency surgery. The patient understands and all questions were answered sufficiently. The patient wishes to proceed with procedure. Sam Garnica MD Pager: [facility] [address] [place] [address] [address] [place] [address] Office:
--- NOTE | 2018-09-29 09:49 | CON.PCM_ITS ---
Problem List (1) Severe anemia Status: Acute Reason for Consult Date of Consultation: 09/29/18 Reason for Consultation: Anemia History of Present Illness: The patient is a 57 year old F who presented to the emergency room after having an outpatient labs show severe anemia of 3.1 hemoglobin. The patient reports that she was feeling dizzy and tired. She reports that she has never had a colonoscopy or EGD. She is not having any blood in her stool. She has no black tarry stools. She is having no abdominal pain. She is not vomiting any blood. Past Medical History Past Medical History (Chronic Problems): Chronic Problems Iron deficiency anemia (Chronic) Allergies No Known Allergies Allergy (Verified 09/28/18 08:56) Home Medications: Ambulatory Orders Medication Instructions Recorded Iron 09/28/18 Multivitamin [Multiple Vitamins] 1 each PO 09/28/18 Venlafaxine HCl [Venlafaxine HCl 75 mg PO DAILY 09/28/18 ER] Surgical History: - - x2. 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 Smoking Status: Never smoker Tobacco Use: Non-smoker Alcohol: None Drugs: None - *Family History Maternal History Items: - - She denies any marked maternal or paternal family history including heart disease, diabetes, cancer. Paternal History Items: - - She denies any marked maternal or paternal family history including heart disease, diabetes, cancer. Review of Systems Constitutional: Denies: Anorexia, Chills, Fever HEENT: Denies: Difficulty Swallowing Cardiovascular: Denies: Chest Pain Respiratory: Denies: Cough Gastrointestinal: Denies: Abdominal Pain, Hematemesis, Hematochezia, Nausea, Melena, Vomiting Genitourinary: Denies: Dysuria Musculoskeletal: Denies: Joint stiffness Skin: Denies: Jaundice Neurological: Denies: Balance problems Hematologic/ Lymphatic: Reports: Anemia. Denies: Easy Bruising Patient Problems: Active and Suspected Problems Severe anemia (Acute) - Physical Exam General: Alert, Oriented x3, Cooperative, No apparent distress HEENT: Atraumatic Neck: Supple Lungs: Clear to auscultation, Normal air movement, No rales Cardiovascular: Regular rate, Regular Rhythm Abdomen: Soft, Non Tender, Non-Distended Extremities: No clubbing Skin: No rashes Musculoskeletal: No Muscle Wasting Neurological: Cranial nerves II-XII grossly intact Psych/Mental Status: Normal Affect Vital Signs Temp Pulse Resp BP Pulse Ox 98.2 F 96 17 122/66 H 97 09/29/18 06:56 09/29/18 07:56 09/29/18 07:56 09/29/18 07:56 09/29/18 07:56 Oxygen Delivery Method Room Air Weight: 170 lb 10.205 oz Body Mass Index (BMI) 30.1 Intake and Output for Last 24 Hours 09/27/18 09/28/18 09/29/18 23:59 23:59 23:59 Intake Total 2985 / 2985 1000 / 1000 Output Total 1450 / 1450 500 / 500 Balance 1535 / 1535 500 / 500 Microbiology Past 72 Hours 09/28/18 09:15 Stool Occult Blood (KG) - Final Stool Laboratory Tests Past 24 Hrs 09/28/18 09/28/18 09/28/18 09:15 09:15 09:15 Hgb Hct Total Counted Not Reportable Diff Path Review May foll Platelet Estimate ADEQUATE Immature Plt Fraction Polychromasia RARE Hypochromasia 3+ Anisocytosis 2+ Microcytosis RARE Retic Count Immature Retic Fraction Retic Hgb Equivalent Haptoglobin Sodium 137 Potassium 3.6 Chloride 101 Carbon Dioxide 26.0 Anion Gap 10 BUN 9 Creatinine 0.89 Estim Creat Clear Calc 57.69 Est GFR (MDRD) Af Amer 83 Est GFR (MDRD) Non-Af 69 BUN/Creatinine Ratio 10.1 Glucose 105 Calcium 8.8 Iron TIBC Iron Saturation Ferritin Total Bilirubin 0.70 AST 17 ALT 12 L Alkaline Phosphatase 119 H Lactate Dehydrogenase Total Protein 8.7 H Total Protein (PEP) Albumin 2.1 L Globulin 6.6 H Albumin/Globulin Ratio 0.3 L Vitamin B12 905 Folate IgG IgA IgM Albumin (SERENA) Albumin/Globulin (SERENA) Jzgzp-7-Hfypbdgys SERENA Brsfm-0-Bbycltfmx SERENA Beta-Globulins (SERENA) Gamma Globulins (SERENA) SERENA M-Nestor Free Mingus LC, Quant Free Lambda LC, Quant Free Mingus/Lambda Ratio Blood Type Antibody Screen Direct Antiglob Test Crossmatch 09/28/18 09/28/18 09/28/18 09:15 09:35 09:35 Hgb Hct Total Counted Diff Path Review Platelet Estimate Immature Plt Fraction Polychromasia Hypochromasia Anisocytosis Microcytosis Retic Count Immature Retic Fraction Retic Hgb Equivalent Haptoglobin Sodium Potassium Chloride Carbon Dioxide Anion Gap BUN Creatinine Estim Creat Clear Calc Est GFR (MDRD) Af Amer Est GFR (MDRD) Non-Af BUN/Creatinine Ratio Glucose Calcium Iron 82 TIBC 278 Iron Saturation 29.5 Ferritin 174 Total Bilirubin AST ALT Alkaline Phosphatase Lactate Dehydrogenase Total Protein Total Protein (PEP) Albumin Globulin Albumin/Globulin Ratio Vitamin B12 Folate 46.30 IgG IgA IgM Albumin (SERENA) Albumin/Globulin (SERENA) Xvnsx-9-Yxwbrxopu SERENA Dgfsy-3-Dskdxfosf SERENA Beta-Globulins (SERENA) Gamma Globulins (SERENA) SERENA M-Nestor Free Mingus LC, Quant Free Lambda LC, Quant Free Mingus/Lambda Ratio Blood Type AB POSITIVE Antibody Screen NEGATIVE Direct Antiglob Test Crossmatch See Detail See Detail 09/28/18 09/28/18 09/28/18 10:00 10:00 10:00 Hgb 3.1 L* Hct 10.9 L Total Counted Diff Path Review Platelet Estimate Immature Plt Fraction 2.2 Polychromasia Hypochromasia Anisocytosis Microcytosis Retic Count 4.50 H Immature Retic Fraction 32.40 H Retic Hgb Equivalent 24.0 L Haptoglobin Sodium Potassium Chloride Carbon Dioxide Anion Gap BUN Creatinine Estim Creat Clear Calc Est GFR (MDRD) Af Amer Est GFR (MDRD) Non-Af BUN/Creatinine Ratio Glucose Calcium Iron TIBC Iron Saturation Ferritin Total Bilirubin AST ALT Alkaline Phosphatase Lactate Dehydrogenase Total Protein Total Protein (PEP) Albumin Globulin Albumin/Globulin Ratio Vitamin B12 Folate IgG IgA IgM Albumin (SERENA) Albumin/Globulin (SERENA) Awhyx-3-Bfcuhsaqi SERENA Qhsnt-8-Yxallzlkv SERENA Beta-Globulins (SERENA) Gamma Globulins (SERENA) SERENA M-Nestor Free Mingus LC, Quant Free Lambda LC, Quant Free Mingus/Lambda Ratio Blood Type Antibody Screen Direct Antiglob Test NEG w/POLYSPECIFIC Crossmatch 09/29/18 09/29/18 09/29/18 00:05 00:05 00:05 Hgb 6.3 L Hct 20.2 L Total Counted Diff Path Review Platelet Estimate Immature Plt Fraction Polychromasia Hypochromasia Anisocytosis Microcytosis Retic Count Immature Retic Fraction Retic Hgb Equivalent Haptoglobin Pending Sodium Potassium Chloride Carbon Dioxide Anion Gap BUN Creatinine Estim Creat Clear Calc Est GFR (MDRD) Af Amer Est GFR (MDRD) Non-Af BUN/Creatinine Ratio Glucose Calcium Iron TIBC Iron Saturation Ferritin Total Bilirubin AST ALT Alkaline Phosphatase Lactate Dehydrogenase 197 Total Protein Total Protein (PEP) Pending Albumin Globulin Albumin/Globulin Ratio Vitamin B12 Folate IgG Pending IgA Pending IgM Pending Albumin (SERENA) Pending Albumin/Globulin (SERENA) Pending Mgotj-8-Ycfjurdrs SERENA Pending Cayxd-2-Ifhssecjk SERENA Pending Beta-Globulins (SERENA) Pending Gamma Globulins (SERENA) Pending SERENA M-Nestor Pending Free Mingus LC, Quant Pending Free Lambda LC, Quant Pending Free Mingus/Lambda Ratio Pending Blood Type Antibody Screen Direct Antiglob Test Crossmatch 09/29/18 09/29/18 07:45 07:45 Hgb 8.0 L Hct 24.4 L Total Counted Diff Path Review Platelet Estimate Immature Plt Fraction Polychromasia Hypochromasia Anisocytosis Microcytosis Retic Count Immature Retic Fraction Retic Hgb Equivalent Haptoglobin Sodium 141 Potassium 3.5 Chloride 105 Carbon Dioxide 26.0 Anion Gap 10 BUN 9 Creatinine 0.81 Estim Creat Clear Calc 63.39 Est GFR (MDRD) Af Amer 93 Est GFR (MDRD) Non-Af 77 BUN/Creatinine Ratio 11.1 Glucose 100 Calcium 8.3 L Iron TIBC Iron Saturation Ferritin Total Bilirubin AST ALT Alkaline Phosphatase Lactate Dehydrogenase Total Protein Total Protein (PEP) Albumin Globulin Albumin/Globulin Ratio Vitamin B12 Folate IgG IgA IgM Albumin (SERENA) Albumin/Globulin (SERENA) Pbenn-9-Gurzazkbf SERENA Igdtc-6-Sjrnxfndv SERENA Beta-Globulins (SERENA) Gamma Globulins (SERENA) SERENA M-Nestor Free Mingus LC, Quant Free Lambda LC, Quant Free Mingus/Lambda Ratio Blood Type Antibody Screen Direct Antiglob Test Crossmatch Assessment/Plan All Active Problems Severe anemia (Acute) 57-year-old female with severe anemia 1. Patient has severe anemia. She received 6 units of blood and her hemoglobin trevor by 5 g. She is not having any active signs of bleeding but she has never had an upper or lower endoscopy and I was consulted to rule out GI malignancy. 2. Plan for EGD and colonoscopy tomorrow. We will bowel prep this afternoon. 3. I explained endoscopy in detail to the patient. I explained the risks including but not limited to stroke or heart attack with anesthesia, perforation of the GI tract, bleeding, infection. I explained that any of these could necessitate further emergency surgery. The patient understands and all questions were answered sufficiently. The patient wishes to proceed with procedure. Sam Garnica MD Pager: [facility] [address] [place] [address] [address] [place] [address] Office:
--- NOTE | 2018-09-29 10:37 | NURSING ---
report called to med-surg transferred per wheelchair with belongings to room 217
--- NOTE | 2018-09-29 11:39 | ONC.OV1 ---
Subjective - Chief Complaint Anemia - History of Present Illness Ms. Bill Braswell is a pleasant 57 year old woman who developed fatigue May 2018. As a result she presented to a local urgent care and received orders for lab work which included a CBC, which she just now completed. Found to have a Hgb of just above 3 and patient was encouraged to seek immediate medical attention at [facility] ED. Upon presentation, Hgb 3.5 and expected exertional dyspnea. Specifically she denies weight loss, dysphagia, hematemesis, CP, abd pain, changes in her bowel habits, melena/hematochezia and swelling/pain of her extremities. Has never undergone screening cscope or upper endoscopy. Admits she was evaluated in ED in approx 2015 with c/o palpitations and was found to be anemic at that time. As a result, she began taking otc iron supplements per self. She does not have a pcp. Endorses 1.5 year h/o drenching night sweats, modestly controlled with low dose Effexor (provided by her seconds grader) but otherwise no outstanding complaints. Other screenings up to date. Family history negative for ca and hematologic disorders. - Past Medical/Social History Social History Smoking Status Never smoker Vital Signs Height 5 ft 3 in Weight: 170 lb 10.205 oz Weight in Pounds 170.6 lbs Pulse Ox 98 Temperature 98.2 F Pulse Rate [Bilateral Radial] 112 Pulse Rate 98 Respiratory Rate 16 Blood Pressure [BP] 108/59 Blood Pressure [Right Arm] 110/57 Blood Pressure 119/63 Blood Pressure Position [BP] Semi-Fowlers Blood Pressure Position Semi-Fowlers Laboratory Data: Microbiology 09/28/18 09:15 Stool Occult Blood (KG) - Final Stool Laboratory Tests 09/29/18 09/29/18 09/29/18 Range/Units 07:45 07:45 00:05 Hgb 8.0 L (12.0-15.0) g/dl Hct 24.4 L (37-47) % Immature Plt Fraction (1.0-7.9) % Retic Count (0.5-1.5) % Immature Retic Fraction (3.00-15.90) % Retic Hgb Equivalent (30-35) pg Sodium 141 (136-145) mmol/L Potassium 3.5 (3.5-5.1) mmol/L Chloride 105 (98-107) mmol/L Carbon Dioxide 26.0 (21.0-32.0) mmol/L Anion Gap 10 (5-15) BUN 9 (7-18) mg/dL Creatinine 0.81 (0.55-1.02) mg/dL Estim Creat Clear Calc 63.39 ml/min Est GFR (MDRD) Af Amer 93 (>60) mL/min Est GFR (MDRD) Non-Af 77 (>60) mL/min BUN/Creatinine Ratio 11.1 (10-20) RATIO Glucose 100 (74-106) mg/dL Calcium 8.3 L (8.5-10.1) mg/dL Lactate Dehydrogenase 197 (84-246) U/L Vitamin B12 (211-911) pg/mL Blood Type Antibody Screen Direct Antiglob Test (NEGATIVE) Crossmatch 09/29/18 09/28/18 09/28/18 Range/Units 00:05 10:00 10:00 Hgb 6.3 L (12.0-15.0) g/dl Hct 20.2 L (37-47) % Immature Plt Fraction 2.2 (1.0-7.9) % Retic Count 4.50 H (0.5-1.5) % Immature Retic Fraction 32.40 H (3.00-15.90) % Retic Hgb Equivalent 24.0 L (30-35) pg Sodium (136-145) mmol/L Potassium (3.5-5.1) mmol/L Chloride (98-107) mmol/L Carbon Dioxide (21.0-32.0) mmol/L Anion Gap (5-15) BUN (7-18) mg/dL Creatinine (0.55-1.02) mg/dL Estim Creat Clear Calc ml/min Est GFR (MDRD) Af Amer (>60) mL/min Est GFR (MDRD) Non-Af (>60) mL/min BUN/Creatinine Ratio (10-20) RATIO Glucose (74-106) mg/dL Calcium (8.5-10.1) mg/dL Lactate Dehydrogenase (84-246) U/L Vitamin B12 (211-911) pg/mL Blood Type Antibody Screen Direct Antiglob Test NEG w/POLYSPECIFIC (NEGATIVE) Crossmatch 09/28/18 09/28/18 09/28/18 Range/Units 09:35 09:35 09:15 Hgb (12.0-15.0) g/dl Hct (37-47) % Immature Plt Fraction (1.0-7.9) % Retic Count (0.5-1.5) % Immature Retic Fraction (3.00-15.90) % Retic Hgb Equivalent (30-35) pg Sodium (136-145) mmol/L Potassium (3.5-5.1) mmol/L Chloride (98-107) mmol/L Carbon Dioxide (21.0-32.0) mmol/L Anion Gap (5-15) BUN (7-18) mg/dL Creatinine (0.55-1.02) mg/dL Estim Creat Clear Calc ml/min Est GFR (MDRD) Af Amer (>60) mL/min Est GFR (MDRD) Non-Af (>60) mL/min BUN/Creatinine Ratio (10-20) RATIO Glucose (74-106) mg/dL Calcium (8.5-10.1) mg/dL Lactate Dehydrogenase (84-246) U/L Vitamin B12 905 (211-911) pg/mL Blood Type AB POSITIVE Antibody Screen NEGATIVE Direct Antiglob Test (NEGATIVE) Crossmatch See Detail See Detail Assessment and Plan 57 year old woman with relatively unremarkable PMH presenting with severe anemia. 1. Severe anemia- As evidenced by Hgb 3.5, normocytic. Other lines are preserved. Surprisingly, iron studies reveal adequate iron stores and retic count is high indicating aplastic anemia is unlikely, thus hemolysis is on the list of differentials. Orders placed for direct Harley, haptoglobin, LDH. Certainly await surgical recommendations for direction visualization via upper and lower GI. 2. Elevated globulin level- total protein and globulin level are both elevated. Will obtain serum protein electrophoresis with immunofixation and serum free light chain assay. No hypercalcemia or renal dysfunction is noted. Case discussed with Dr. Diaz who was also in agreement with aforementioned plan. Lindsey Andrews, MSN, GUEST SERVICE HOST, AOCNP Medications: Prescriptions This Visit Medication Instructions Recorded Iron 09/28/18 Multivitamin [Multiple Vitamins] 1 each PO 09/28/18 Venlafaxine HCl [Venlafaxine HCl 75 mg PO DAILY 09/28/18 ER] Medications Added to Medication List This Visit Category Date Time Status Electrolyte Solution/Peg's [Nulytely] Med 09/29/18 14:49 Once 4,000 ml PO X1 ONE Primary Care Provider: No Primary Care Phys Referring Provider:
--- NOTE | 2018-09-29 13:10 | CASEMGMT ---
SW met w/pt in room in regard to prior level of function and any discharge needs. Pt is alert and oriented X3. PCP: None, SW gave pt a list of PCP's in area Specialists: None [facility]erred [facility]: [facility] Insurance/Prescription Coverage: [facility] Living Will/POA: daughter Inna is POA, will bring in papers when able LNOK: daughter Inna and granddaughter who is two, son who is 22 Living arrangements: Lives w/daughter and two year old granddaughter Pt was fully independent prior to this admission, no DME needed prior and no DME anticipated at discharge. Pt plans to return home at discharge. No homegoing needs are anticipated, though SW remains available should any needs arise. SW did give pt a list of PCP's in the area and encouraged pt to get established with a PCP. KATI Villegas, LEARNING STRATEGIST
--- NOTE | 2018-09-29 13:17 | NURSING ---
This RN called lab and verified that they are aware that the 1400 H&H will need to be drawn, as pt is no longer in ICU. Understanding verified.
--- NOTE | 2018-09-29 13:18 | CASEMGMT ---
POA/LW not on chart, SW asked pt, she will bring the papers in next time she is here. KATI Villegas, WATER PLANT MAINTENANCE MECHANIC
[2018-09-29 13:36] LABS: Pathologist Review Reviewed
--- NOTE | 2018-09-29 14:39 | NURSING ---
pt reports that 1400 h&h has not been drawn. This RN called lab and notified Gila that it still needs to be drawn- verbalized understanding.
[2018-09-29 15:11] LABS: Hematocrit 25.3 % (37-47); Hemoglobin 8.1 g/dl (12.0-15.0)
[2018-09-29] MEDS: Electrolyte Solution/Peg's 4000 ML PO (15:15)
--- NOTE | 2018-09-29 16:15 | ONC.PN.INPT ---
- Problem List (1) Severe anemia Status: Acute Subjective Date of Service:: 09/29/18 Anemia Ms. Bill Braswell is a pleasant 57 year old woman who developed fatigue May 2018. As a result she presented to a local urgent care and received orders for lab work which included a CBC, which she just now completed. Found to have a Hgb of just above 3 and patient was encouraged to seek immediate medical attention at [facility] ED. Upon presentation, Hgb 3.5 and expected exertional dyspnea. Specifically she denies weight loss, dysphagia, hematemesis, CP, abd pain, changes in her bowel habits, melena/hematochezia and swelling/pain of her extremities. Has never undergone screening cscope or upper endoscopy. Admits she was evaluated in ED in approx 2015 with c/o palpitations and was found to be anemic at that time. As a result, she began taking otc iron supplements per self. She does not have a pcp. Endorses 1.5 year h/o drenching night sweats, modestly controlled with low dose Effexor (provided by her clinical care manager) but otherwise no outstanding complaints. Other screenings up to date. Family history negative for ca and hematologic disorders. Upon entering patient room, she is up in chair. Reports full resolution of exertional dyspnea subsequent to 4 units PRBCs and denies any outstanding complaints since her interview yesterday. States she met with surgery and upper and lower endoscopies are planned for tomorrow morning. Past Medical History: Chronic Problems Iron deficiency anemia (Chronic) Past Medical History - Most Recent Inpatient Visit Past Medical History Start: 09/28/18 10:25 Text: Status: Complete Freq: ONCE Protocol: Document 09/28/18 10:25 LW (Rec: 09/28/18 10:46 LW [id number]) BMI Required to complete PMH What is Patient's BMI 28.3 Neurologic Medical History Hx Stroke/TIA No Hx Dementia/Alzheimer's No Hx Parkinson's Disease No Hx Seizures No Hx Multiple Sclerosis No Hx Migraines No Cardiac Medical History VTE Present on Admission No Hx of Deep Vein Thrombosis/VTE/PE No Hx Hypertension No Hx Chest Pain/Angina No Hx Heart Attack No Hx Cardiac Surgery/Stents/Etc. No Hx Heart Failure No Hx Pacemaker/AICD No Hx Irregular Heartbeat and/or Afib No Hx Anticoagulant Therapy No Query Text:(Coumadin, Aspirin, Plavix, Xarelto, etc.) Hx Pain in Legs when Walking/Leg Cramps No Respiratory Medical History Hx COPD No Hx Emphysema No Hx Smoking No Smoking Status Never smoker Hx Smoking Exposure No Hx Tobacco Use in last 12 months Yes Sent to [facility] Yes Hx Sleep Apnea No Do you snore loudly (louder than talking No or can be heard through closed doors)? Do you often feel tired/ fatigued/ No sleepy during daytime? Has anyone observed you stop breathing No during sleep? STOP Results Negative GI Medical History Hx Ulcer No Hx Hepatitis No Hx Cirrhosis No Hx GI Bleed No Hx Unplanned Weight Loss No Genitourinary Medical History Indwelling Catheter in Place on Arrival/ No Admission Hx Renal Disease No Hx Dialysis No Musculoskeletal History Hx Arthritis No Hx Rheumatoid Arthritis No Endocrine Medical History Hx Diabetes No Hx Thyroid Disease No Hematologic Medical History Hx of Blood Transfusion No Hx of Transfusion in last 3 Months No Ever experience any problems with No transfusion(s)? Hx of Preganancy in last 3 Months No Nurse Filling Out Transfusion & LWOHLFORD Questions: Date: 09/28/18 Time: 10:41 Psycho/Social Medical History Hx Depression No Hx Anxiety No Hx Behavior Disorder No Hx Alcohol Use No Hx Substance Use No Other Medical History Hx Blood Disorders No Hx Anemia Yes Hx Cancer No Hx Drug Resistant Organism No Wound/Pressure Injury Present on Arrival No /Admission Query Text:If yes, chart assessment in Shift/Clinical Findings Central Line/PICC/VAD Present on Arrival No /Admission Antibiotics within last 7 days? No Methicillin Resistant Staphylococcus aureus Screening Active MRSA No Risk for Readmission Number of Risk Factors 1 At Risk for Readmission Patient is Not at Risk Patient is eligible for Call Back N Maternal Family History: - - She denies any marked maternal or paternal family history including heart disease, diabetes, cancer. Paternal Family History: - - She denies any marked maternal or paternal family history including heart disease, diabetes, cancer. - Social History Lives: With Family - Patient lives with her daughter and granddaughter whom she helps care for. Smoking Status: Never smoker Tobacco Use: Non-smoker Alcohol: None Drugs: None Review of Systems Constitutional:: Reports: Fatigue - Improved. Denies: Fever, Sweats, Weight loss, Appetite change, Chills Cardiovascular:: Denies: Chest pain, Palpitations, Dyspnea on exertion, Orthopnea, PND, Shortness of breath Respiratory: Denies: Cough, Hemoptysis, Shortness of Breath, Wheezing Gastrointestinal:: Denies: Abdominal pain, Nausea, Vomiting, Diarrhea, Constipation, Hematochezia Genitourinary: Denies: Dysuria, Hematuria, 15, Flank pain Musculoskeletal:: Denies: Back pain, Myalgia, Arthralgia Skin: Denies: Rash, Skin Changes, Wounds Neurological:: Denies: Headache, Dizziness, Visual changes, Tinnitus, Hearing loss Psychiatric: Denies: Anxiety, Depression, Homicidal Ideations, Suicidal Ideations Vital Signs Height 5 ft 3 in Weight: 170 lb 10.205 oz Weight in Pounds 170.6 lbs Pulse Ox 98 Temperature 98.2 F Pulse Rate [Bilateral Radial] 112 Pulse Rate 93 Respiratory Rate 16 Blood Pressure [BP] 108/59 Blood Pressure [Right Arm] 110/57 Blood Pressure 119/63 Blood Pressure Position [BP] Semi-Fowlers Blood Pressure Position Semi-Fowlers - Physical Exam General: Alert, Oriented x3, No apparent distress HEENT: Atraumatic, PERRLA, EOMI, Normocephalic Oropharynx:: Negative for: Dry mucosa, Ulcerated lesions Neck:: Supple, Trachea midline. Negative for: JVD, bilateral Cardiac:: Regular rate, Regular rhythm, Normal S1, Normal S2. Negative for: Murmur Lungs: Clear to auscultation, Excusion symmetrical. Negative for: Rhonchi, Wheezes Abdomen:: Bowel sounds x 4, Soft, Non-tender, Non-distended. Negative for: Hepatosplenomegaly Extremities:: Negative for: Cyanosis, Edema Neurological: Neuro grossly intact Skin:: Negative for: Lesions, Rash, Petechiae, Ecchymosis Psychiatric:: Appropriate affect, Euthymic Lymphatics:: Negative for: Cervical lymphadenopathy, Supraclavicular lymphadenopathy, Axillary lymphadenopathy Laboratory Data: Microbiology 09/28/18 09:15 Stool Occult Blood (KG) - Final Stool Laboratory Tests 09/29/18 09/29/18 09/29/18 Range/Units 15:02 07:45 07:45 Hgb 8.1 L 8.0 L (12.0-15.0) g/dl Hct 25.3 L 24.4 L (37-47) % Diff Path Review Sodium 141 (136-145) mmol/L Potassium 3.5 (3.5-5.1) mmol/L Chloride 105 (98-107) mmol/L Carbon Dioxide 26.0 (21.0-32.0) mmol/L Anion Gap 10 (5-15) BUN 9 (7-18) mg/dL Creatinine 0.81 (0.55-1.02) mg/dL Estim Creat Clear Calc 63.39 ml/min Est GFR (MDRD) Af Amer 93 (>60) mL/min Est GFR (MDRD) Non-Af 77 (>60) mL/min BUN/Creatinine Ratio 11.1 (10-20) RATIO Glucose 100 (74-106) mg/dL Calcium 8.3 L (8.5-10.1) mg/dL Lactate Dehydrogenase (84-246) U/L Blood Type Antibody Screen Direct Antiglob Test (NEGATIVE) Crossmatch 09/29/18 09/29/18 09/28/18 Range/Units 00:05 00:05 10:00 Hgb 6.3 L (12.0-15.0) g/dl Hct 20.2 L (37-47) % Diff Path Review Sodium (136-145) mmol/L Potassium (3.5-5.1) mmol/L Chloride (98-107) mmol/L Carbon Dioxide (21.0-32.0) mmol/L Anion Gap (5-15) BUN (7-18) mg/dL Creatinine (0.55-1.02) mg/dL Estim Creat Clear Calc ml/min Est GFR (MDRD) Af Amer (>60) mL/min Est GFR (MDRD) Non-Af (>60) mL/min BUN/Creatinine Ratio (10-20) RATIO Glucose (74-106) mg/dL Calcium (8.5-10.1) mg/dL Lactate Dehydrogenase 197 (84-246) U/L Blood Type Antibody Screen Direct Antiglob Test NEG w/POLYSPECIFIC (NEGATIVE) Crossmatch 09/28/18 09/28/18 09/28/18 Range/Units 09:35 09:35 09:15 Hgb (12.0-15.0) g/dl Hct (37-47) % Diff Path Review Reviewed Sodium (136-145) mmol/L Potassium (3.5-5.1) mmol/L Chloride (98-107) mmol/L Carbon Dioxide (21.0-32.0) mmol/L Anion Gap (5-15) BUN (7-18) mg/dL Creatinine (0.55-1.02) mg/dL Estim Creat Clear Calc ml/min Est GFR (MDRD) Af Amer (>60) mL/min Est GFR (MDRD) Non-Af (>60) mL/min BUN/Creatinine Ratio (10-20) RATIO Glucose (74-106) mg/dL Calcium (8.5-10.1) mg/dL Lactate Dehydrogenase (84-246) U/L Blood Type AB POSITIVE Antibody Screen NEGATIVE Direct Antiglob Test (NEGATIVE) Crossmatch See Detail See Detail Assessment and Plan 57 year old woman with relatively unremarkable PMH presenting with severe anemia. 1. Severe anemia- Hgb 3.5, normocytic on admission. Hemoglobin 8 today subsequent to 4 units PRBCs. Other lines are preserved. Surprisingly, iron studies reveal adequate iron stores and retic count is high indicating aplastic anemia is unlikely. LDH within normal limits, antibody screen negative. It appears patient is scheduled for upper and lower endoscopies tomorrow morning. 2. Elevated globulin level- total protein and globulin level are both elevated. Serum protein electrophoresis with immunofixation and serum free light chain assay are pending. No hypercalcemia or renal dysfunction is noted. Case discussed with Dr. Diaz who was also in agreement with aforementioned plan. Lindsey Andrews, MSN, [employer], AOCNP Medications: Prescriptions This Visit Medication Instructions Recorded Iron 09/28/18 Multivitamin [Multiple Vitamins] 1 each PO 09/28/18 Venlafaxine HCl [Venlafaxine HCl 75 mg PO DAILY 09/28/18 ER] Primary Care Provider: No Primary Care Phys Referring Provider:
[2018-09-29] MEDS: Venlafaxine XR 75 MG Capsule PO (22:03)
[2018-09-29 23:31] LABS: Hematocrit 26.7 % (37-47); Hemoglobin 8.7 g/dl (12.0-15.0)
[2018-09-30] VITALS (21 sets, daily range): BP systolic 112–130; BP diastolic 53–69; PULSE 98–110; RESP 14–18; TEMP 36.7–37.3; O2SAT 92–978
--- NOTE | 2018-09-30 | MASS_PTH ---
PATIENT: TRELL DENT LOC: [facility]3 U#:[id number] AGE/SX: 57/F ROOM: MS319 RE09/28/[address]: Dr. Autumn Islas MD : [id number] BED: 1 DIS: 10/04/2018 SPEC #: [id number] RECD: 09/30/18 09:26 STATUS: WALTER CHRISTY #: [id number] DANIELA: 09/30/18 00:[address]: Sam Garnica DEPT: SURGICAL PATHOLOGY RECD BY: Maia Arnold ENTERED: 09/30/18 09:56 SP TYPE: Mass OTHR DR: MD Dr. Carroll Solorio, DO No Primary Care Phys BENJAMIN FortuneC Tissues: A - Ascending colon B - Ascending colon C - Gastric mucous membrane D - Cecum, NOS Procedures: Frozen Section (charge) Surgery Specimen Level IV Frozen (no charge) HEADER OPERATION: [place] [place] DIAGNOSIS: Anemia TISSUE SUBMITTED: A - Mass ascending colon biopsy, FS at 0920, B - Mass ascending colon, C - Gastric polyps x2, D - Cecal polyp FROZEN SECTION DIAGNOSIS A. Mass ascending colon, biopsy: Tubulovillous adenoma. Negative for carcinoma. SJ:kateryna 09/30/18 MICROSCOPIC DIAGNOSIS A. Mass ascending colon, biopsy: Tubular villous adenoma. Negative for carcinoma. B. Mass ascending colon, biopsy: Tubular villous adenoma. Negative for carcinoma. C. Gastric polyps x2, biopsy: Fragments of fundic gland polyp. See comment. D. Cecal polyp, biopsy: Fragments of tubular adenoma. Fragments of fecal material. SJ:kateryna 10/01/18 COMMENT C. Immunohistochemistry for Helicobacter pylori can be performed if clinically indicated. Please notify the Laboratory if it is needed. MICROSCOPIC DESCRIPTION Slides are reviewed. GROSS DESCRIPTION A - Received fresh for frozen section diagnosis labeled with the patient's name is a specimen designated mass ascending colon. The specimen consists of a polypoid piece of marrero-pink soft tissue measuring 1.7 x 1.5 x 1 cm. The specimen is bisected and submitted entirely for frozen section diagnosis in one cassette. B - Received in fixative is one container labeled with the patient's name and designated ascending colon mass. The specimen consists of a pink-red polyp measuring 2.5 x 1.5 x 1.2 cm. The apparent base is inked. The specimen is serially sectioned and submitted entirely in one cassette. C - Received in fixative is one container labeled with the patient's name and designated gastric polyps x2. The specimen consists of three pieces of marrero-pink polyp measuring 0.5 to 0.8 cm in greatest dimension. The largest polypoid pieces are bisected. The entire specimen is submitted in one cassette. D - Received in fixative is one container labeled with the patient's name and designated cecal polyp. The specimen consists of multiple irregular fragments of marrero-pink soft tissue mixed with fecal material that in aggregate measure 1.5 x 0.5 x 0.1 cm. The specimen is totally submitted in one cassette. / SJ:kateryna 09/30/18 TC:1 CPT: 36316 x4, 27820
--- NOTE | 2018-09-30 05:55 | EKG12_ITS ---
Test Reason : PREOP Blood Pressure : / mmHG Vent. Rate : 109 BPM Atrial Rate : 109 BPM P-R Int : 142 ms QRS Dur : 080 ms QT Int : 340 ms P-R-T Axes : 048 002 055 degrees QTc Int : 457 ms Sinus tachycardia Nonspecific ST abnormality Abnormal ECG When compared with ECG of 30-SEP-2018 05:17, MANUAL COMPARISON REQUIRED, DATA IS UNCONFIRMED Confirmed by CARA FLOREZ, KULWINDER ([id number]), legal editor ELEANOR GAMEZ ([id number]) on 10/04/2018 2:56:30 PM Referred By: No Primary Care Physician Confirmed By:KULWINDER MARROQUIN MD
[2018-09-30 06:35] LABS: International Normalized Ratio 1.1; Prothrombin Time (Protime)PT. 14.6 SECONDS (11.7-14.9)
[2018-09-30 06:40] LABS: Hematocrit 27.2 % (37-47); Hemoglobin 8.6 g/dl (12.0-15.0); Mean Corp Hgb Conc 31.6 g/gl (32-36); Mean Corpuscular Hgb 29.3 pg (27.0-32.0); Mean Corpuscular Volume 92.5 fL (81-99); Mean Platelet Vol. 8.8 fl (6.2-12.0); Platelet Count 238 K/mm3 (150-450); RBC Distribution Width CV 18.3 % (11.6-14.6); RBC Distribution Width SD 53.8 fl (35.1-43.9); Red Blood Count 2.94 M/mm3 (4.2-5.4); White Blood Count 4.5 K/mm3 (4.4-11.0)
[2018-09-30 06:43] LABS: Differential Indicated MANUAL DIFF; POSITIVE COUNT YES; POSITIVE DIFFERENTIAL NO; POSITIVE MORPHOLOGY YES
[2018-09-30 06:49] LABS: BUN 10 mg/dL (7-18); Calcium,Total 8.4 mg/dL (8.5-10.1); Chloride 106 mmol/L (98-107); Creatinine, Serum 0.77 mg/dL (0.55-1.02); EST Glomerular Filtration Rate 82 mL/min (>60); Est Glom Filt Rate - Afr Amer 99 mL/min (>60); Estimated Creatinine Clearance 66.68 ml/min; Glucose 91 mg/dL (74-106); Potassium 3.1 mmol/L (3.5-5.1); Sodium Level 141 mmol/L (136-145)
[2018-09-30 06:50] LABS: Anion Gap 9 (5-15)
--- NOTE | 2018-09-30 07:00 | PN_ITS ---
Patient Problems: Active and Suspected Problems Severe anemia (Acute) Subjective: The patient was seen and examined at the bedside this morning. Events from the last 24 hours have been reviewed. The patient is currently afebrile, hemodynamically stable and maintaining appropriate oxygen saturations on room air. The patient has been transfused a total of 6 units of packed red blood cells to date. She did have a presenting hemoglobin of 3.5 g/dL, which has increased to 8.6 g/dL this morning. Potassium is low at 3.1. Objective: The patient's most recent lab work, culture data and imaging studies have all been personally reviewed. - Physical Exam General: Alert, Cooperative, No apparent distress HEENT: Atraumatic, PERRLA, Normocephalic Oral: No Gingival or Mucosal Lesions/ Ulcerations Neck: Supple, No Nodes, Trachea Midline Lungs: Normal air movement, No rhonchi, No wheeze, No rales Cardiovascular: Regular rate, Regular Rhythm, Normal S1, Normal S2, No murmurs Abdomen: Bowel Sounds Present, Soft, Non Tender Extremities: No clubbing, No cyanosis, No edema Skin: No breakdown Musculoskeletal: No Tenderness to Palpation of Joints or Extremities, No Muscle Wasting Lymphatic: No Cervical, Supraclavicular, or Inguinal Adenopathy Neurological: Cranial nerves II-XII grossly intact, Neuro grossly intact Psych/Mental Status: Alert and oriented to time, place, person, mood and affect Vital Signs Temp Pulse Resp BP Pulse Ox 37.1 C 106 H 16 120/53 L 96 09/30/18 02:04 09/30/18 04:00 09/30/18 02:04 09/30/18 02:04 09/30/18 02:04 Oxygen Delivery Method Room Air Weight: 176 lb 5.917 oz Body Mass Index (BMI) 30.1 Intake and Output for Last 24 Hours 09/28/18 09/29/18 09/30/18 23:59 23:59 23:59 Intake Total 2985 / 2985 6020 / 6020 0 / 0 Output Total 1450 / 1450 500 / 500 Balance 1535 / 1535 5520 / 5520 0 / 0 Microbiology Past 72 Hours 09/28/18 09:15 Stool Occult Blood (KG) - Final Stool Laboratory Tests Past 24 Hrs 12/04/18 12/04/18 12/05/18 09:15 09:35 07:45 WBC RBC Hgb Hct MCV MCH MCHC RDW RDW Differential Plt Count MPV Neut % (Auto) Absolute Neuts (auto) Total Counted Diff Path Review Reviewed PT INR Sodium 141 Potassium 3.5 Chloride 105 Carbon Dioxide 26.0 Anion Gap 10 BUN 9 Creatinine 0.81 Estim Creat Clear Calc 63.39 Est GFR (MDRD) Af Amer 93 Est GFR (MDRD) Non-Af 77 BUN/Creatinine Ratio 11.1 Glucose 100 Calcium 8.3 L Crossmatch See Detail 09/29/18 09/29/18 09/29/18 07:45 15:02 23:18 WBC RBC Hgb 8.0 L 8.1 L 8.7 L Hct 24.4 L 25.3 L 26.7 L MCV MCH MCHC RDW RDW Differential Plt Count MPV Neut % (Auto) Absolute Neuts (auto) Total Counted Diff Path Review PT INR Sodium Potassium Chloride Carbon Dioxide Anion Gap BUN Creatinine Estim Creat Clear Calc Est GFR (MDRD) Af Amer Est GFR (MDRD) Non-Af BUN/Creatinine Ratio Glucose Calcium Crossmatch 09/30/18 09/30/18 09/30/18 05:55 05:55 05:55 WBC 4.5 RBC 2.94 L Hgb 8.6 L Hct 27.2 L MCV 92.5 MCH 29.3 MCHC 31.6 L RDW 18.3 H RDW Differential 53.8 H Plt Count 238 MPV 8.8 Neut % (Auto) Not Reportable Absolute Neuts (auto) Not Reportable Total Counted Pending Diff Path Review PT 14.6 INR 1.1 Sodium 141 Potassium 3.1 L Chloride 106 Carbon Dioxide 26.0 Anion Gap 9 BUN 10 Creatinine 0.77 Estim Creat Clear Calc 66.68 Est GFR (MDRD) Af Amer 99 Est GFR (MDRD) Non-Af 82 BUN/Creatinine Ratio 13.0 Glucose 91 Calcium 8.4 L Crossmatch Medical Necessity - Tobacco Use Smoking Status: Never smoker Tobacco Use: Non-smoker Assessment/Plan All Active Problems Severe anemia (Acute) RECOMMENDATIONS: 1. Monitor H&H daily. Transfuse for a hemoglobin less than 7 g/dL. 2. Continue PPI therapy as ordered. 3. Planned endoscopy this morning. 4. Maintain appropriate IV access. 5. Potassium repletion as ordered. Check serum magnesium level. IMPRESSIONS: 1. Anemia Unclear etiology for the patient's presenting anemia. Her iron studies appear to be normal. She reports no history of prior gastrointestinal hemorrhage. In addition, she has normocytic blood indices. The patient has now been transfused a total of 6 units of packed red blood cells throughout her hospital admission. Her hemoglobin has stabilized at this point. She is currently scheduled to undergo an upper and lower endoscopy this morning. Plan to continue to check H&H daily. Transfuse if hemoglobin drops below 7 g/dL. Continue twice daily PPI therapy. Continue appropriate peripheral IV access. 2. Hypokalemia Electrolyte repletion has been ordered. We will also check magnesium level as well. 3. Obesity Weight loss through dietary modification and a graded exercise regimen is strongly encouraged. This note was generated with [employer] dictation software. It may contain incorrect words, spelling, and punctuation that were not noted in checking the note before signing. Code Visit Inpatient E&M: 34553 Subs Hosp L2
[2018-09-30 07:11] LABS: Magnesium 2.1 mg/dL (1.6-2.6)
[2018-09-30 07:28] LABS: Anisocytosis 1+; Eosinophil 3 % (0-5); Hypochromasia 1+; Lymphocyte 21 % (19-41); Metamyelocyte 2 % (0-1); Monocyte 7 % (0-10); Neutrophil-Band 3 % (0-5); Neutrophil-Segmented 64 % (47-70); Platelet Estimate ADEQUATE (ADEQ); Polychromasia 1+; Total Cells Counted 100 (MANUAL DIFF)
[2018-09-30 07:30] LABS: Absolute Lymphocyte Count 0.95 X10^3/ul (0.83-4.51)
--- NOTE | 2018-09-30 07:35 | PN_ITS ---
Patient Problems: Active and Suspected Problems Severe anemia (Acute) Subjective: Patient with no acute events overnight per self and per nursing report. Patient underwent endoscopy this AM per Dr. Lyons to with noted ascending colon mass nearly at the hepatic flexure with biopsies obtained and possibility of obtaining path in the next 24 hours. Per discussion with Dr. sepulveda patient will undergo CT of the abdomen and pelvis and CEA will be obtained today for possible staging for operative intervention. Surgeon preference for continuation of clears only at this time in case any noted free air on the imaging. Patient currently noting that she does feel bloated and has some mild discomfort in the right lower quadrant but otherwise no acute complaints. Patient denies fevers, chills, nausea, emesis, chest pain or dyspnea. Objective: Physical Examination: General: awake, alert, oriented x 3 and cooperative, seated upright in the PACU bed, in no apparent distress. Skin: improved color, turgor, no icterus, cyanosis. HEENT: AT/NC, EOMI, PERRLA, dry MM. Lungs: CTA bilaterally, moderate effort, mild decrease BL bases, no rales, ronchi or wheezing. Heart: Regular rate and rhythm; no gallop, rub audible. Abdomen: soft, obese,mildly to moderately descended with recent endoscopies, mild TTP generalized, RLQ primarily, mildly hyperactive BS. Extremities: no cyanosis, clubbing, or edema. Neurological: patient awake, alert, oriented x 3; cognitive function intact; pupils equally reactive to light and accomodation; cranial nerves II-XII grossly normal, moving all 4 extremities, no focal deficits, strength currently moderately globally decreased given recent intervention. Psychiatric: affect appears fatigued, tearful occasionally with discussions of colon mass, no acute evidence of anxiety feelings. Vitals/I&O's: Vital Signs Temp Pulse Resp BP Pulse Ox 98.8 F 106 H 16 120/53 L 95 09/30/18 02:04 09/30/18 04:00 09/30/18 02:04 09/30/18 02:04 09/30/18 07:33 Oxygen Delivery Method Room Air Weight: 176 lb 5.917 oz Body Mass Index (BMI) 30.1 Intake and Output for Last 24 Hours 09/28/18 09/29/18 09/30/18 23:59 23:59 23:59 Intake Total 2985 / 2985 6020 / 6020 0 / 0 Output Total 1450 / 1450 500 / 500 Balance 1535 / 1535 5520 / 5520 0 / 0 Microbiology Past 72 Hours 09/28/18 09:15 Stool Stool Occult Blood (KG) - Final Laboratory Results 09/28/18 09:15: Diff Path Review Reviewed 09/29/18 07:45: Sodium 141, Potassium 3.5, Chloride 105, Carbon Dioxide 26.0, Anion Gap 10, BUN 9, Creatinine 0.81, Estim Creat Clear Calc 63.39, Est GFR (MDRD) Af Amer 93, Est GFR (MDRD) Non-Af 77, BUN/Creatinine Ratio 11.1, Glucose 100, Calcium 8.3 L 09/29/18 07:45: Hgb 8.0 L, Hct 24.4 L 09/29/18 15:02: Hgb 8.1 L, Hct 25.3 L 09/29/18 23:18: Hgb 8.7 L, Hct 26.7 L 09/30/18 05:55: WBC 4.5, RBC 2.94 L, Hgb 8.6 L, Hct 27.2 L, MCV 92.5, MCH 29.3, MCHC 31.6 L, RDW 18.3 H, RDW Differential 53.8 H, Plt Count 238, MPV 8.8, Neut % (Auto) Not Reportable, Absolute Neuts (auto) 3.0, Absolute Lymphs (auto) 0.95, Total Counted 100, Neutrophils % (Manual) 64, Band Neutrophils % 3, Lymphocytes % (Manual) 21, Monocytes % (Manual) 7, Eosinophils % (Manual) 3, Metamyelocytes % 2 H, Diff Path Review May foll, Platelet Estimate ADEQUATE, Polychromasia 1+, Hypochromasia 1+, Anisocytosis 1+ 09/30/18 05:55: Sodium 141, Potassium 3.1 L, Chloride 106, Carbon Dioxide 26.0, Anion Gap 9, BUN 10, Creatinine 0.77, Estim Creat Clear Calc 66.68, Est GFR (MDRD) Af Amer 99, Est GFR (MDRD) Non-Af 82, BUN/Creatinine Ratio 13.0, Glucose 91, Calcium 8.4 L 09/30/18 05:55: PT 14.6, INR 1.1 09/30/18 05:55: Magnesium 2.1 Current Medications Pantoprazole Sodium 40 mg/ (Sodium Chloride) 110 mls @ 330 mls/hr IV Q12 MICHI Last Admin: 09/29/18 22:03 Dose: 330 mls/hr Potassium Chloride (Kcl 10meq/100ml) 10 meq in 100 mls @ 100 mls/hr IV BOLUS Q1H MICHI Stop: 09/30/18 11:29 Magnesium Hydroxide (Milk Of Magnesia) 30 ml PO DAILY PRN PRN PRN Reason: Constipation Ondansetron HCl (Zofran) 4 mg IV Q8H PRN PRN PRN Reason: NAUSEA Promethazine HCl (Phenergan) 12.5 mg IV Q6H PRN PRN PRN Reason: NAUSEA/VOMITING Sodium Chloride () 5 - 15 ml IV UD PRN PRN Reason: SALINE FLUSH Last Admin: 09/29/18 01:03 Dose: 10 ml Venlafaxine HCl (Effexor Xr) 75 mg PO DAILY@2200 MICHI Last Admin: 09/29/18 22:03 Dose: 75 mg Medical Necessity - Tobacco Use Smoking Status: Never smoker Tobacco Use: Non-smoker Assessment/Plan All Active Problems Severe anemia (Acute) The patient is a 57 y/o F w/ PMHx: Remote Fe deficiency anemia noting regularly taking supplementation, menopausal associated night sweats otherwise per her report healthy who presents to the [facility] ED on 09/28/18 with history of progressively worsening fatigue, weakness, pale pallor, dyspnea with exertion since May with UC evaluation at that time and rx given for outpatient CBC,completed on 09/27/18, Hgb 3.5. (1) Acute Normocytic Anemia, Possible secondary to GI Bleed, History of Fe Deficiency Anemia although Possible Hemolysis w/ Ascending Colon Mass: Admission admission, given VS w/ only noted tachycardia with her severe anemia suspect ongoing slow decrease otherwise would have expected worsened appearance. Admission Hgb 3.5, admitted to ICU per facility protocol initially with transiti on to MS w/ telemetry following Hgb improvement after PRBC and repeat HH stable, s/p 6 u PRBC, Hgb 8.6, will continue to obtain CBC q AM, currently s/p endoscopies per Dr. Garnica w/ newly found ascending colon mass status post aggressive biopsies and pending CT abdomen pelvis as well as CEA with possibility of pathology return within 24 hours for staging for operative intervention. Per discussions with Dr. sepulveda patient will maintain on clear liquids pending imaging secondary to aggressiveness of biopsies with possibility of perforation, continue IV PPI. Fe panel, ferritin not severe appearing. Retic count not low. Normal level vitamin B12, folic acid. Given these findings, Oncology obtained direct Harley pending, haptoglobin pending, LDH normal level, and well as PEP w/ immunofixation pending, serum free light chair assay pending secondary to concurrently elevated globin levels. (2) Obesity: Weight loss and lifestyle changes encouraged. (3) GERD: IV PPI. (4) DVT Prophylaxis: SCDs, defer chemoprophylaxis given acute presentation #1. Code Visit Inpatient E&M: 60041 Subs Hosp L3
--- NOTE | 2018-09-30 07:45 | EKG12_ITS ---
Test Reason : A Blood Pressure : / mmHG Vent. Rate : 107 BPM Atrial Rate : 107 BPM P-R Int : 164 ms QRS Dur : 088 ms QT Int : 336 ms P-R-T Axes : 050 021 050 degrees QTc Int : 448 ms Sinus tachycardia Nonspecific ST abnormality Abnormal ECG Confirmed by CARA FLOREZ, KULWINDER ([id number]), photo editor ELEANOR GAMEZ ([id number]) on 10/08/2018 11:12:33 AM Referred By: No Primary Care Physician Confirmed By:KULWINDER MARROQUIN MD
--- NOTE | 2018-09-30 09:19 | CT_ITS ---
STUDY: CT ABDOMEN AND PELVIS WITH CONTRAST REASON FOR EXAM: Female, 57 years old. Mass of the ascending colon on colonoscopy. RADIATION DOSAGE (If Supplied By Facility): CTDIvol = ( 11.28 ) mGy, DLP = ( 622.19 ) mGycm TECHNIQUE: Transaxial images were obtained from the dome of the diaphragm to the symphysis pubis with oral contrast. 100 ml of Isovue 300 contrast was administered. Sagittal and coronal images were reconstructed. Individualized dose optimization techniques were used for this CT. COMPARISON: None. FINDINGS: Bilateral lower lung consolidation. Small pleural effusions. The visualized portions of the heart are within normal limits. There is hepatomegaly with diffuse hepatic enlargement. There is a solitary gallstone. There is severe splenomegaly. Normal pancreas. Normal bilateral adrenal glands. Normal right kidney. Normal left kidney. Normal visualized stomach. Normal small intestine. Wall thickening consistent with mass of the right colon, series 2 images 69/118 through 72/118. There is non-visualization of the appendix. Normal abdominal aorta. Normal inferior vena cava. There is retroperitoneal lymphadenopathy with enlarged nodes greater than 10-15mm in the short axis. There is 2.6 cm left para-aortic node, series 2 image 46/118. Normal urinary bladder. Calcified uterine fibroid. Mild fluid in the abdomen and pelvis. Normal abdominal wall. Normal osseous structures. CT/Abdomen/Pelvis WITH Contrast IMPRESSION: Wall thickening of the right colon consistent with described mass. No obstruction. Retroperitoneal lymphadenopathy. Hepatosplenomegaly. Cholelithiasis. No biliary dilatation. Free fluid. There are pleural effusions and lower lung consolidation.. Electronically Signed: Yogesh Ervin MD at 14:50 EST , Service support ,
--- NOTE | 2018-09-30 09:24 | OP.ENDO_ITS ---
Patient Name: Bill Braswell Procedure Date: 09/30/2018 7:29 AM Date of : 1960 Age: 57 Procedure: Upper GI endoscopy Indications: Unexplained iron deficiency anemia Providers: Sam Garnica MD Referring MD: No Primary Care Physician Medicines: Monitored Anesthesia Care Patient Profile: This is a 57 year old female. Refer to note in patient chart for documentation of history and physical. Complications: No immediate complications. Estimated blood loss: Minimal. Procedure: Pre-Anesthesia Assessment: - Prior to the procedure, a History and Physical was performed, and patient medications and allergies were reviewed. The patient's tolerance of previous anesthesia was also reviewed. The risks and benefits of the procedure and the sedation options and risks were discussed with the patient. All questions were answered, and informed consent was obtained. Prior Anticoagulants: The patient has taken no previous anticoagulant or antiplatelet agents. After reviewing the risks and benefits, the patient was deemed in satisfactory condition to undergo the procedure. After obtaining informed consent, the endoscope was passed under direct vision. Throughout the procedure, the patient's blood pressure, pulse, and oxygen saturations were monitored continuously. The gastroscope was introduced through the mouth, and advanced to the second part of duodenum. The upper GI endoscopy was accomplished without difficulty. The patient tolerated the procedure well. Scope In: 8:14:18 AM Scope Out: 8:20:10 AM Total Procedure Duration Time 0 hours 5 minutes 52 seconds Findings: Multiple pedunculated polyps with no bleeding and no stigmata of recent bleeding were found in the stomach. 2 of these polyps were removed with a hot snare. Resection and retrieval were complete. The exam was otherwise without abnormality. Impression: - Multiple gastric polyps. Resected and retrieved. - The examination was otherwise normal. Recommendation: - [facility]. - Clear liquid diet. - Continue present medications. - Await pathology results. Procedure Code(s): --- Professional --- 95077, Esophagogastroduodenoscopy, flexible, transoral; with removal of tumor(s), polyp(s), or other lesion(s) by snare technique Diagnosis Code(s): --- Professional --- K31.7, Polyp of stomach and duodenum D50.9, Iron deficiency anemia, unspecified CPT copyright 2017 [employer]. All rights reserved. The codes documented in this report are preliminary and upon nursery technician review may be revised to meet current compliance requirements. Sam Garnica MD 09/30/2018 9:24:28 AM This report has been signed electronically. Number of Addenda: 0 Note Initiated On: 09/30/2018 7:29 AM
--- NOTE | 2018-09-30 09:33 | OP.ENDO_ITS ---
Patient Name: Bill Braswell Procedure Date: 09/30/2018 8:21 AM Date of : 1960 Age: 57 Procedure: Colonoscopy Indications: Unexplained iron deficiency anemia Providers: Sam Garnica MD Referring MD: No Primary Care Physician Medicines: Monitored Anesthesia Care Patient Profile: This is a 57 year old female. Refer to note in patient chart for documentation of history and physical. Last Colonoscopy: none. The patient's first colonoscopy is today. Complications: No immediate complications. Estimated blood loss: Minimal. Procedure: Pre-Anesthesia Assessment: - Prior to the procedure, a History and Physical was performed, and patient medications and allergies were reviewed. The patient's tolerance of previous anesthesia was also reviewed. The risks and benefits of the procedure and the sedation options and risks were discussed with the patient. All questions were answered, and informed consent was obtained. Prior Anticoagulants: The patient has taken no previous anticoagulant or antiplatelet agents. After reviewing the risks and benefits, the patient was deemed in satisfactory condition to undergo the procedure. After I obtained informed consent, the scope was passed under direct vision. Throughout the procedure, the patient's blood pressure, pulse, and oxygen saturations were monitored continuously. The Colonoscope was introduced through the anus and advanced to the cecum, identified by the appendiceal orifice, ileocecal valve and palpation. The colonoscopy was performed without difficulty. The patient tolerated the procedure well. The quality of the bowel preparation was adequate. Scope In: 8:22:54 AM Scope Withdrawal Time 0 hours 27 minutes 48 seconds Scope Out: 9:08:28 AM Total Procedure Duration Time 0 hours 45 minutes 34 seconds Findings: A polyp was found in the cecum. The polyp was removed with a hot snare. Resection and retrieval were complete. A fungating non-obstructing large mass was found in the distal ascending colon. The mass was partially circumferential (involving one-half of the lumen circumference). No bleeding was present. This was biopsied with a hot snare for histology. For location marking, two hemostatic clips were successfully placed. There was no bleeding during, or at the end, of the procedure. Area was tattooed with an injection of Denisa ink. The exam was otherwise without abnormality. Impression: - One polyp in the cecum, removed with a hot snare. Resected and retrieved. - Likely malignant tumor in the distal ascending colon. Biopsied. Clips were placed. Tattooed. - The examination was otherwise normal. Recommendation: - [facility]. - Clear liquid diet. - Await pathology results. - Repeat colonoscopy after studies are complete for surveillance based on pathology results. - Perform CT scan (computed tomography) of the abdomen with contrast today. - Continue present medications. Procedure Code(s): --- Professional --- 80989, Colonoscopy, flexible; with removal of tumor(s), polyp(s), or other lesion(s) by snare technique 28467, 51, Colonoscopy, flexible; with directed submucosal injection(s), any substance Diagnosis Code(s): --- Professional --- D12.0, Benign neoplasm of cecum D49.0, Neoplasm of unspecified behavior of digestive system D50.9, Iron deficiency anemia, unspecified CPT copyright 2017 [employer]. All rights reserved. The codes documented in this report are preliminary and upon diesel mechanic helper review may be revised to meet current compliance requirements. Sma Garnica MD 09/30/2018 9:32:58 AM This report has been signed electronically. Number of Addenda: 0 Note Initiated On: 09/30/2018 8:21 AM
[2018-09-30 10:24] LABS: Pathologist Review Reviewed
[2018-09-30] MEDS: 0.9% NaCl Peripheral Flush Adult/Peds IV ×2 (13:55→18:55)
--- NOTE | 2018-09-30 14:54 | PCM.PN.SRG ---
Patient Problems: Active and Suspected Problems Severe anemia (Acute) Subjective: Patient doing well after colonoscopy - Physical Exam General: Alert, Oriented x3, Cooperative Neck: No JVD Lungs: Normal air movement Cardiovascular: Regular rate, Regular Rhythm Abdomen: Soft, Non Tender, Non-Distended Extremities: No clubbing Neurological: Cranial nerves II-XII grossly intact Psych/Mental Status: Normal Affect Vital Signs Temp Pulse Resp BP Pulse Ox 98.5 F 110 H 18 115/60 92 09/30/18 11:14 09/30/18 11:17 09/30/18 11:14 09/30/18 11:14 09/30/18 11:14 Oxygen Flow Rate (L/min) 3 Oxygen Delivery Method Room Air Weight: 176 lb 5.917 oz Body Mass Index (BMI) 30.1 Intake and Output for Last 24 Hours 09/28/18 09/29/18 09/30/18 23:59 23:59 23:59 Intake Total 2985 / 2985 6020 / 6020 1373 / 1373 Output Total 1450 / 1450 500 / 500 630 / 630 Balance 1535 / 1535 5520 / 5520 743 / 743 Microbiology Past 72 Hours 09/28/18 09:15 Stool Occult Blood (KG) - Final Stool Laboratory Tests Past 24 Hrs 09/29/18 09/29/18 09/29/18 00:05 15:02 23:18 WBC RBC Hgb 8.1 L 8.7 L Hct 25.3 L 26.7 L MCV MCH MCHC RDW RDW Differential Plt Count MPV Neut % (Auto) Absolute Neuts (auto) Absolute Lymphs (auto) Total Counted Neutrophils % (Manual) Band Neutrophils % Lymphocytes % (Manual) Monocytes % (Manual) Eosinophils % (Manual) Metamyelocytes % Diff Path Review Platelet Estimate Polychromasia Hypochromasia Anisocytosis PT INR Sodium Potassium Chloride Carbon Dioxide Anion Gap BUN Creatinine Estim Creat Clear Calc Est GFR (MDRD) Af Amer Est GFR (MDRD) Non-Af BUN/Creatinine Ratio Glucose Calcium Magnesium Carcinoembryonic Ag Pending 09/30/18 09/30/18 09/30/18 05:55 05:55 05:55 WBC 4.5 RBC 2.94 L Hgb 8.6 L Hct 27.2 L MCV 92.5 MCH 29.3 MCHC 31.6 L RDW 18.3 H RDW Differential 53.8 H Plt Count 238 MPV 8.8 Neut % (Auto) Not Reportable Absolute Neuts (auto) 3.0 Absolute Lymphs (auto) 0.95 Total Counted 100 Neutrophils % (Manual) 64 Band Neutrophils % 3 Lymphocytes % (Manual) 21 Monocytes % (Manual) 7 Eosinophils % (Manual) 3 Metamyelocytes % 2 H Diff Path Review Reviewed Platelet Estimate ADEQUATE Polychromasia 1+ Hypochromasia 1+ Anisocytosis 1+ PT 14.6 INR 1.1 Sodium 141 Potassium 3.1 L Chloride 106 Carbon Dioxide 26.0 Anion Gap 9 BUN 10 Creatinine 0.77 Estim Creat Clear Calc 66.68 Est GFR (MDRD) Af Amer 99 Est GFR (MDRD) Non-Af 82 BUN/Creatinine Ratio 13.0 Glucose 91 Calcium 8.4 L Magnesium Carcinoembryonic Ag 09/30/18 05:55 WBC RBC Hgb Hct MCV MCH MCHC RDW RDW Differential Plt Count MPV Neut % (Auto) Absolute Neuts (auto) Absolute Lymphs (auto) Total Counted Neutrophils % (Manual) Band Neutrophils % Lymphocytes % (Manual) Monocytes % (Manual) Eosinophils % (Manual) Metamyelocytes % Diff Path Review Platelet Estimate Polychromasia Hypochromasia Anisocytosis PT INR Sodium Potassium Chloride Carbon Dioxide Anion Gap BUN Creatinine Estim Creat Clear Calc Est GFR (MDRD) Af Amer Est GFR (MDRD) Non-Af BUN/Creatinine Ratio Glucose Calcium Magnesium 2.1 Carcinoembryonic Ag Clinical Impression(s) from Imaging Studies Abdomen/Pelvis CT 09/30/18 09:19 IMPRESSION: Wall thickening of the right colon consistent with described mass. No obstruction. Retroperitoneal lymphadenopathy. Hepatosplenomegaly. Cholelithiasis. No biliary dilatation. Free fluid. There are pleural effusions and lower lung consolidation.. Electronically Signed: Yogesh Ervin MD at 14:50 EST , Service support , Medical Necessity - Tobacco Use Smoking Status: Never smoker Tobacco Use: Non-smoker Assessment/Plan All Active Problems Severe anemia (Acute) 57-year-old female with right colonic mass and anemia 1. I perform an EGD and colonoscopy on the patient this morning. The patient had small gastric polyps. In the colon the patient had a large right colonic mass. Majority of this mass was taken with hot snare and half was sent for frozen section and half was sent for permanent. 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 The permanent section should be coming back tomorrow morning. The mass was very large and I was unable to fully remove this. 2. Patient had CT scan and the mass was localized in the distal ascending colon. The patient had retroperitoneal lymphadenopathy as well as hepatosplenomegaly. No metastasis noted. 3. I showed the patient's the photos of the mass and I explained that I was unable to fully remove it endoscopically. I explained that I would recommend right hemicolectomy for full excision of this whether it comes back as tubovillous adenoma or malignancy. I explained that since she was prepped and her hemoglobin adequately responded I could do this tomorrow. I also explained that I could do it next week electively if she did not want to have surgery immediately. The patient would rather have surgery during this hospitalization. 4. I explained laparoscopic assisted right hemicolectomy to the patient in detail. I explained the risks benefits and alternatives to this procedure. I explained the risks including but not limited to bleeding, infection, anastomotic leak, conversion to open, injury to surrounding organs such as the bowels, liver, spleen, duodenum, bladder and ureter. The patient understands the risks and is willing to proceed with surgery tomorrow. 5. I will order 1 more unit to be transfused to get her hemoglobin as close to 10 as possible for surgery. She may have clears today and n.p.o. after midnight. CEA level was ordered to be drawn prior to surgery. Sam Garnica MD Pager: [facility] [address] [place] [address], [address] [place] [address] Office:
--- NOTE | 2018-09-30 15:05 | PN.SURG_ITS ---
Patient Problems: Active and Suspected Problems Severe anemia (Acute) Subjective: Patient doing well after colonoscopy - Physical Exam General: Alert, Oriented x3, Cooperative Neck: No JVD Lungs: Normal air movement Cardiovascular: Regular rate, Regular Rhythm Abdomen: Soft, Non Tender, Non-Distended Extremities: No clubbing Neurological: Cranial nerves II-XII grossly intact Psych/Mental Status: Normal Affect Vital Signs Temp Pulse Resp BP Pulse Ox 98.5 F 110 H 18 115/60 92 09/30/18 11:14 09/30/18 11:17 09/30/18 11:14 09/30/18 11:14 09/30/18 11:14 Oxygen Flow Rate (L/min) 3 Oxygen Delivery Method Room Air Weight: 176 lb 5.917 oz Body Mass Index (BMI) 30.1 Intake and Output for Last 24 Hours 09/28/18 09/29/18 09/30/18 23:59 23:59 23:59 Intake Total 2985 / 2985 6020 / 6020 1373 / 1373 Output Total 1450 / 1450 500 / 500 630 / 630 Balance 1535 / 1535 5520 / 5520 743 / 743 Microbiology Past 72 Hours 09/28/18 09:15 Stool Occult Blood (KG) - Final Stool Laboratory Tests Past 24 Hrs 09/29/18 09/29/18 09/29/18 00:05 15:02 23:18 WBC RBC Hgb 8.1 L 8.7 L Hct 25.3 L 26.7 L MCV MCH MCHC RDW RDW Differential Plt Count MPV Neut % (Auto) Absolute Neuts (auto) Absolute Lymphs (auto) Total Counted Neutrophils % (Manual) Band Neutrophils % Lymphocytes % (Manual) Monocytes % (Manual) Eosinophils % (Manual) Metamyelocytes % Diff Path Review Platelet Estimate Polychromasia Hypochromasia Anisocytosis PT INR Sodium Potassium Chloride Carbon Dioxide Anion Gap BUN Creatinine Estim Creat Clear Calc Est GFR (MDRD) Af Amer Est GFR (MDRD) Non-Af BUN/Creatinine Ratio Glucose Calcium Magnesium Carcinoembryonic Ag Pending 09/30/18 09/30/18 09/30/18 05:55 05:55 05:55 WBC 4.5 RBC 2.94 L Hgb 8.6 L Hct 27.2 L MCV 92.5 MCH 29.3 MCHC 31.6 L RDW 18.3 H RDW Differential 53.8 H Plt Count 238 MPV 8.8 Neut % (Auto) Not Reportable Absolute Neuts (auto) 3.0 Absolute Lymphs (auto) 0.95 Total Counted 100 Neutrophils % (Manual) 64 Band Neutrophils % 3 Lymphocytes % (Manual) 21 Monocytes % (Manual) 7 Eosinophils % (Manual) 3 Metamyelocytes % 2 H Diff Path Review Reviewed Platelet Estimate ADEQUATE Polychromasia 1+ Hypochromasia 1+ Anisocytosis 1+ PT 14.6 INR 1.1 Sodium 141 Potassium 3.1 L Chloride 106 Carbon Dioxide 26.0 Anion Gap 9 BUN 10 Creatinine 0.77 Estim Creat Clear Calc 66.68 Est GFR (MDRD) Af Amer 99 Est GFR (MDRD) Non-Af 82 BUN/Creatinine Ratio 13.0 Glucose 91 Calcium 8.4 L Magnesium Carcinoembryonic Ag 09/30/18 05:55 WBC RBC Hgb Hct MCV MCH MCHC RDW RDW Differential Plt Count MPV Neut % (Auto) Absolute Neuts (auto) Absolute Lymphs (auto) Total Counted Neutrophils % (Manual) Band Neutrophils % Lymphocytes % (Manual) Monocytes % (Manual) Eosinophils % (Manual) Metamyelocytes % Diff Path Review Platelet Estimate Polychromasia Hypochromasia Anisocytosis PT INR Sodium Potassium Chloride Carbon Dioxide Anion Gap BUN Creatinine Estim Creat Clear Calc Est GFR (MDRD) Af Amer Est GFR (MDRD) Non-Af BUN/Creatinine Ratio Glucose Calcium Magnesium 2.1 Carcinoembryonic Ag Clinical Impression(s) from Imaging Studies Abdomen/Pelvis CT 09/30/18 09:19 IMPRESSION: Wall thickening of the right colon consistent with described mass. No obstruction. Retroperitoneal lymphadenopathy. Hepatosplenomegaly. Cholelithiasis. No biliary dilatation. Free fluid. There are pleural effusions and lower lung consolidation.. Electronically Signed: Yogesh Ervin MD at 14:50 EST , Service support , Medical Necessity - Tobacco Use Smoking Status: Never smoker Tobacco Use: Non-smoker Assessment/Plan All Active Problems Severe anemia (Acute) 57-year-old female with right colonic mass and anemia 1. I perform an EGD and colonoscopy on the patient this morning. The patient had small gastric polyps. In the colon the patient had a large right colonic mass. Majority of this mass was taken with hot snare and half was sent for frozen section and half was sent for permanent. 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 The permanent section should be coming back tomorrow morning. The mass was very large and I was unable to fully remove this. 2. Patient had CT scan and the mass was localized in the distal ascending colon. The patient had retroperitoneal lymphadenopathy as well as hepatosplenomegaly. No metastasis noted. 3. I showed the patient's the photos of the mass and I explained that I was unable to fully remove it endoscopically. I explained that I would recommend right hemicolectomy for full excision of this whether it comes back as tubovillous adenoma or malignancy. I explained that since she was prepped and her hemoglobin adequately responded I could do this tomorrow. I also explained that I could do it next week electively if she did not want to have surgery immediately. The patient would rather have surgery during this hospitalization. 4. I explained laparoscopic assisted right hemicolectomy to the patient in detail. I explained the risks benefits and alternatives to this procedure. I explained the risks including but not limited to bleeding, infection, anastomotic leak, conversion to open, injury to surrounding organs such as the bowels, liver, spleen, duodenum, bladder and ureter. The patient understands the risks and is willing to proceed with surgery tomorrow. 5. I will order 1 more unit to be transfused to get her hemoglobin as close to 10 as possible for surgery. She may have clears today and n.p.o. after midnight. CEA level was ordered to be drawn prior to surgery. Sam Garnica MD Pager: [facility] [address] [place] [address], [address] [place] [address] Office:
--- NOTE | 2018-09-30 16:00 | ONC.PN.INPT ---
- Problem List (1) Severe anemia Status: Acute Subjective Date of Service:: 09/30/18 Anemia Patient underwent EGD and colonoscopy earlier this morning. Gastric polyps were noted along with a large fungating colonic mass located in the distal ascending colon. She is aware of this finding. Plans colectomy tomorrow per Dr. Hill. Reports mild bloating although is passing gas. Past Medical History: Chronic Problems Iron deficiency anemia (Chronic) Past Medical History - Most Recent Inpatient Visit Past Medical History Start: 09/28/18 10:25 Text: Status: Complete Freq: ONCE Protocol: Document 09/28/18 10:25 LW (Rec: 09/28/18 10:46 LW [id number]) BMI Required to complete PMH What is Patient's BMI 28.3 Neurologic Medical History Hx Stroke/TIA No Hx Dementia/Alzheimer's No Hx Parkinson's Disease No Hx Seizures No Hx Multiple Sclerosis No Hx Migraines No Cardiac Medical History VTE Present on Admission No Hx of Deep Vein Thrombosis/VTE/PE No Hx Hypertension No Hx Chest Pain/Angina No Hx Heart Attack No Hx Cardiac Surgery/Stents/Etc. No Hx Heart Failure No Hx Pacemaker/AICD No Hx Irregular Heartbeat and/or Afib No Hx Anticoagulant Therapy No Query Text:(Coumadin, Aspirin, Plavix, Xarelto, etc.) Hx Pain in Legs when Walking/Leg Cramps No Respiratory Medical History Hx COPD No Hx Emphysema No Hx Smoking No Smoking Status Never smoker Hx Smoking Exposure No Hx Tobacco Use in last 12 months Yes Sent to [facility] Yes Hx Sleep Apnea No Do you snore loudly (louder than talking No or can be heard through closed doors)? Do you often feel tired/ fatigued/ No sleepy during daytime? Has anyone observed you stop breathing No during sleep? STOP Results Negative GI Medical History Hx Ulcer No Hx Hepatitis No Hx Cirrhosis No Hx GI Bleed No Hx Unplanned Weight Loss No Genitourinary Medical History Indwelling Catheter in Place on Arrival/ No Admission Hx Renal Disease No Hx Dialysis No Musculoskeletal History Hx Arthritis No Hx Rheumatoid Arthritis No Endocrine Medical History Hx Diabetes No Hx Thyroid Disease No Hematologic Medical History Hx of Blood Transfusion No Hx of Transfusion in last 3 Months No Ever experience any problems with No transfusion(s)? Hx of Preganancy in last 3 Months No Nurse Filling Out Transfusion & LWOHLFORD Questions: Date: 09/28/18 Time: 10:41 Psycho/Social Medical History Hx Depression No Hx Anxiety No Hx Behavior Disorder No Hx Alcohol Use No Hx Substance Use No Other Medical History Hx Blood Disorders No Hx Anemia Yes Hx Cancer No Hx Drug Resistant Organism No Wound/Pressure Injury Present on Arrival No /Admission Query Text:If yes, chart assessment in Shift/Clinical Findings Central Line/PICC/VAD Present on Arrival No /Admission Antibiotics within last 7 days? No Methicillin Resistant Staphylococcus aureus Screening Active MRSA No Risk for Readmission Number of Risk Factors 1 At Risk for Readmission Patient is Not at Risk Patient is eligible for Call Back N Maternal Family History: - - She denies any marked maternal or paternal family history including heart disease, diabetes, cancer. Paternal Family History: - - She denies any marked maternal or paternal family history including heart disease, diabetes, cancer. - Social History Lives: With Family - Patient lives with her daughter and granddaughter whom she helps care for. Smoking Status: Never smoker Tobacco Use: Non-smoker Alcohol: None Drugs: None Review of Systems Constitutional:: Denies: Fever, Sweats, Weight loss, Appetite change, Chills Cardiovascular:: Denies: Chest pain, Palpitations, Dyspnea on exertion, Orthopnea, PND, Shortness of breath Respiratory: Denies: Cough, Hemoptysis, Shortness of Breath, Wheezing Gastrointestinal:: Denies: Abdominal pain, Nausea, Vomiting, Diarrhea, Constipation, Hematochezia Genitourinary: Denies: Dysuria, Hematuria, 15, Flank pain Musculoskeletal:: Denies: Back pain, Myalgia, Arthralgia Skin: Denies: Rash, Skin Changes, Wounds Neurological:: Denies: Headache, Dizziness, Numbness, Tingling, Visual changes, Tinnitus, Hearing loss Psychiatric: Denies: Anxiety, Depression, Homicidal Ideations, Suicidal Ideations Vital Signs Height 5 ft 3 in Weight: 176 lb 5.917 oz Weight in Pounds 176.4 lbs Pulse Ox 92 Temperature 98.5 F Pulse Rate [Bilateral Radial] 112 Pulse Rate 110 Respiratory Rate 18 Blood Pressure [BP] 126/66 Blood Pressure [Right Arm] 110/57 Blood Pressure 115/60 Blood Pressure Position [BP] Semi-Fowlers Blood Pressure Position Semi-Fowlers - Physical Exam General: Alert, Oriented x3, No apparent distress HEENT: Atraumatic, Normocephalic Oropharynx:: Negative for: Dry mucosa, Ulcerated lesions Neck:: Supple, Trachea midline. Negative for: JVD, bilateral Cardiac:: Regular rate, Regular rhythm, Normal S1, Normal S2. Negative for: Murmur Lungs: Clear to auscultation, Excusion symmetrical. Negative for: Rhonchi, Wheezes Abdomen:: Bowel sounds x 4, Soft, Non-tender, Non-distended. Negative for: Hepatosplenomegaly Extremities:: Negative for: Cyanosis, Edema Neurological: Neuro grossly intact Skin:: Negative for: Lesions, Rash, Petechiae, Ecchymosis Psychiatric:: Appropriate affect, Euthymic Lymphatics:: Negative for: Cervical lymphadenopathy, Supraclavicular lymphadenopathy, Axillary lymphadenopathy Laboratory Data: Microbiology 09/28/18 09:15 Stool Occult Blood (KG) - Final Stool Laboratory Tests 09/30/18 09/30/18 09/30/18 Range/Units 05:55 05:55 05:55 WBC (4.4-11.0) K/mm3 RBC (4.2-5.4) M/mm3 Hgb (12.0-15.0) g/dl Hct (37-47) % MCV (81-99) fL MCH (27.0-32.0) pg MCHC (32-36) g/gl RDW (11.6-14.6) % RDW Differential (35.1-43.9) fl Plt Count (150-450) K/mm3 MPV (6.2-12.0) fl Neut % (Auto) Absolute Neuts (auto) (2.0-7.7) X10^3/uL Absolute Lymphs (auto) (0.83-4.51) X10^3/ul Total Counted (MANUAL DIFF) Neutrophils % (Manual) (47-70) % Band Neutrophils % (0-5) % Lymphocytes % (Manual) (19-41) % Monocytes % (Manual) (0-10) % Eosinophils % (Manual) (0-5) % Metamyelocytes % (0-1) % Diff Path Review Platelet Estimate (ADEQ) Polychromasia Hypochromasia Anisocytosis PT 14.6 (11.7-14.9) SECONDS INR 1.1 Sodium 141 (136-145) mmol/L Potassium 3.1 L (3.5-5.1) mmol/L Chloride 106 (98-107) mmol/L Carbon Dioxide 26.0 (21.0-32.0) mmol/L Anion Gap 9 (5-15) BUN 10 (7-18) mg/dL Creatinine 0.77 (0.55-1.02) mg/dL Estim Creat Clear Calc 66.68 ml/min Est GFR (MDRD) Af Amer 99 (>60) mL/min Est GFR (MDRD) Non-Af 82 (>60) mL/min BUN/Creatinine Ratio 13.0 (10-20) RATIO Glucose 91 (74-106) mg/dL Calcium 8.4 L (8.5-10.1) mg/dL Magnesium 2.1 (1.6-2.6) mg/dL Crossmatch 09/30/18 09/29/18 09/28/18 Range/Units 05:55 23:18 09:35 WBC 4.5 (4.4-11.0) K/mm3 RBC 2.94 L (4.2-5.4) M/mm3 Hgb 8.6 L 8.7 L (12.0-15.0) g/dl Hct 27.2 L 26.7 L (37-47) % MCV 92.5 (81-99) fL MCH 29.3 (27.0-32.0) pg MCHC 31.6 L (32-36) g/gl RDW 18.3 H (11.6-14.6) % RDW Differential 53.8 H (35.1-43.9) fl Plt Count 238 (150-450) K/mm3 MPV 8.8 (6.2-12.0) fl Neut % (Auto) Not Reportable Absolute Neuts (auto) 3.0 (2.0-7.7) X10^3/uL Absolute Lymphs (auto) 0.95 (0.83-4.51) X10^3/ul Total Counted 100 (MANUAL DIFF) Neutrophils % (Manual) 64 (47-70) % Band Neutrophils % 3 (0-5) % Lymphocytes % (Manual) 21 (19-41) % Monocytes % (Manual) 7 (0-10) % Eosinophils % (Manual) 3 (0-5) % Metamyelocytes % 2 H (0-1) % Diff Path Review Reviewed Platelet Estimate ADEQUATE (ADEQ) Polychromasia 1+ Hypochromasia 1+ Anisocytosis 1+ PT (11.7-14.9) SECONDS INR Sodium (136-145) mmol/L Potassium (3.5-5.1) mmol/L Chloride (98-107) mmol/L Carbon Dioxide (21.0-32.0) mmol/L Anion Gap (5-15) BUN (7-18) mg/dL Creatinine (0.55-1.02) mg/dL Estim Creat Clear Calc ml/min Est GFR (MDRD) Af Amer (>60) mL/min Est GFR (MDRD) Non-Af (>60) mL/min BUN/Creatinine Ratio (10-20) RATIO Glucose (74-106) mg/dL Calcium (8.5-10.1) mg/dL Magnesium (1.6-2.6) mg/dL Crossmatch See Detail Diagnostic Data: Diagnostic Data Abdomen/Pelvis CT 09/30/18 09:19 IMPRESSION: Wall thickening of the right colon consistent with described mass. No obstruction. Retroperitoneal lymphadenopathy. Hepatosplenomegaly. Cholelithiasis. No biliary dilatation. Free fluid. There are pleural effusions and lower lung consolidation.. Electronically Signed: Yogesh Ervin MD at 14:50 EST , Service support , Assessment and Plan 57 year old woman with relatively unremarkable PMH presenting with severe anemia. 1. Severe anemia-when today 8.6 EGD revealed multiple gastric polyps. Pathology pending. Colonoscopy showed large fungating mass in the distal ascending colon. Plans colectomy tomorrow morning. CEA pending. 2. Elevated globulin level- total protein and globulin level are both elevated. Serum protein electrophoresis with immunofixation and serum free light chain assay are still pending. No hypercalcemia or renal dysfunction is noted. Recommended patient follow-up with Dr. Diaz at [facility] upon discharge in approximately 3 weeks. Lindsey Andrews, MSN, [employer], AOCNP Medications: Prescriptions This Visit Medication Instructions Recorded Iron 09/28/18 Multivitamin [Multiple Vitamins] 1 each PO 09/28/18 Venlafaxine HCl [Venlafaxine HCl 75 mg PO DAILY 09/28/18 ER] Primary Care Provider: No Primary Care Phys Referring Provider:
[2018-09-30 20:06] LABS: Albumin 2.4 g/dL (2.9-4.4); Alpha-1-Globulins 0.4 g/dL (0.0-0.4); Alpha-2-Globulins 0.8 g/dL (0.4-1.0); Free Kappa Light Chains 1176.5 mg/L (3.3-19.4); Free Lambda Light Chains 2.6 mg/L (5.7-26.3); Gamma Globulin 2.8 g/dL (0.4-1.8); PROEL- TOTAL PROTEIN 7.2 g/dL (6.0-8.5)
[2018-09-30] MEDS: Venlafaxine XR 75 MG Capsule PO (22:11)
[2018-10-01] VITALS (13 sets, daily range): BP systolic 120–149; BP diastolic 53–77; PULSE 98–107; RESP 16–18; TEMP 36.1–36.9; O2SAT 94–97; BMI 30.2
--- NOTE | 2018-10-01 | IMM_PTH ---
PATIENT: TRELL DENT LOC: MS3 U#:[id number] AGE/SX: 57/F ROOM: DC319 RE09/28/[address]: Dr. Autumn Islas MD : 1960 BED: 1 DIS: 10/04/2018 SPEC #: [id number] RECD: 10/05/18 14:07 STATUS: WALTER REQ #: [id number] DANIELA: 10/01/18 00:[address]: Sam Garnica DEPT: IMMUNOHISTOCHEMISTRY RECD BY: Maia Arnold ENTERED: 10/05/18 14:08 SP TYPE: IMMUNO OTHR DR: MD Dr. Autumn Joaquin MD Dr. Autumn L White, MD Dr. Derek Brown, DO No Primary Care Phys JAMILA Fortune Tissues: Right colon Procedures: BCL-2 (add) BCL-6 (add) CD10 (add) CD138 (add) CD20 (add) CD23 (add) CD43 (add) CD45 (add) CD5 (add) CD79A (add) CYCLIN (add) KI-67 (add) MUM1 (add) CD3 (initial) Comments: @ Ordering doctor for CD3 edited from to @ by RGOJODIE at 10/05/18 1418 @ Ordering doctor for CD138. edited from to @ by RGOJODIE at 10/05/18 1418 @ Ordering doctor for CD20. edited from to @ by RGOJODIE at 10/05/18 1418 @ Ordering doctor for CD45. edited from to @ by LESLIE at 10/05/18 1418 @ Ordering doctor for CD5. edited from to @ by RGOJODIE at 10/05/18 141 @ Ordering doctor for CD79A. edited from to DR.ACALAB Arnett by LESLIE at 10/05/18 1412 @ Submitting doctor edited from to @ by RGOOD at 10/05/18 1413 PHYSICIAN & [place] [id number] SPECIMEN INFORMATION: Tissue Source: Right colon Clinical Info: Anemia Specimen Number: [id number] #8 CPT code: 98631, 01455 x13 METHODOLOGY: Deparaffinized sections of prefer/formalin-fixed tissue or PAP/DQ stained slides are incubated with monoclonal/polyclonal antibodies/oligonucleotide probes. Localization is made via biotin free immunoperoxidase method. Appropriate controls are performed and reacted as expected. Results on target cell population are indicated in the following table: RESULTS: ANTIBODY / CLONE RESULT Block 8 CD3 (PS1) negative CD5 (SP10) negative CD20 (L26) positive CD79a (11E3) positive CD45 (RP2/18) positive CD138 (B-A38) negative CD23 (1B12) positive, focal CD10 (56C6) negative BCL-2 (bcl-2/100/D5) positive BCL-6 (NV463B/A8) negative CD43 (L60) negative Cyclin D1/BCL-1 (SP4) negative MUM1 (MRQ-43) positive, <50% Ki-67 (30-9) positive, low These tests were developed and their performance characteristics determined by [facility]. They may not have been cleared or approved by the U.S. Food and Drug Administration. The FDA has determined that such clearance or approval is not necessary. INTERPRETATION: Right colon, hemicolectomy: Lymph node - consistent with involvement by non-Hodgkin B-cell lymphoma, low grade. See comment. Comment: IHC profile and morphology do not favor small lymphocytic lymphoma, mantle cell lymphoma or follicular lymphoma. By exclusion, this may represent marginal zone lymphoma or lymphoplasmacytic lymphoma. Clinical correlation is necessary. This case has been reviewed in consultation with Dr. Martin who concurs with the above diagnosis.. SJ:kateryna 10/07/18
--- NOTE | 2018-10-01 | COL_PTH ---
PATIENT: TRELL DENT LOC: MS3 U#:[id number] AGE/SX: 57/F ROOM: MS319 RE09/28/[address]: Dr. Autumn Islas MD : 1960 BED: 1 DIS: 10/04/2018 SPEC #: [id number] RECD: 10/01/18 12:08 STATUS: WALTER REGlenn #: [id number] DANIELA: 10/01/18 00:[address]: Sam Garnica DEPT: SURGICAL PATHOLOGY RECD BY: Rashard Inman ENTERED: 10/04/18 08:51 SP TYPE: COLON OTHR DR: MD Dr. Autumn Joaquin MD Dr. Autumn L White, MD Dr. 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 Lymph nodes - consistent with involvement by non-Hodgkin B-cell lymphoma, low-grade type. Appendix with focal hyperplastic changes. See comment. SJ:kateryna 10/07/18 COMMENT Thirteen lymph nodes are identified. Lymphocytic infiltrates are also noted in the perinodal adipose tissue. Lymphocytes are predominantly small in morphology. Significant plasmacytic infiltrates are not seen. Immunohistochemistry ([id number]) supports the above diagnosis. The Immunohistochemistry and morphology does not favor small lymphocytic lymphoma, mantle cell lymphoma or follicular lymphoma. By exclusion, this may represent marginal zone lymphoma or lymphoplasmacytic lymphoma.. Please make reference to previous specimen ([id number] A & B) mass ascending colon with diagnosis of tubulovillous adenoma and (D) cecal polyp with diagnosis of fragments of tubular adenoma. Clinical correlation and appropriate follow up are necessary. This case is discussed with Drs. Garnica and Emily 10/07/18. Case has been reviewed in consultation with Dr. Martin who concurs with the above diagnosis. IDC:AM MICROSCOPIC DESCRIPTION Slides are reviewed. GROSS DESCRIPTION Received in fixative is one container labeled with the patient's name and designated right colon. The specimen consists of a right hemicolectomy specimen consisting of cecum with ascending colon and attached adipose tissue, segment of small intestine and appendix. The cecum with ascending colon measures 17 cm in length. The small segment of small intestine measures 3 cm in length and the appendix measures 6 cm in length. Both resection margins are stapled. 5 cm away from the ileocecal valve and 12 cm away from the distal resection margin there is a pink, congested polypoid mass measuring 2.5 x 1 x 1 cm. Two metallic clips are noted adjacent to this mass. The rest of the mucosa is unremarkable. The pericolonic adipose tissue is fixed in lymph node revealing solution. More dictation will follow after additional fixation. / SJ:kateryna 10/01/18 Sections of the appendix reveal pinpoint lumen. Sections of the polypoid lesion reveal it is limited into the lumen. Invasion into the underlying bowel wall is not identified. Sections of the pericolonic adipose tissue reveal multiple lymph nodes. The largest lymph node measures 4.0 cm in greatest dimension. Insecticide Sprayer sections are submitted in 16 cassettes as follows: 1 - proximal and distal resections margins, 2 - appendix, 35 - entire polyp, 6 - motor vehicle field representative section of ileocecal valve, small intestine and large intestine, 7 - one bisected lymph node, 8-12 - largest lymph node, entirely submitted, 13 & 14 - multiple lymph nodes, 15 & 16 - possible lymph nodes. / SJ:kateryna 10/04/18 TC:0 CPT: 06130
[2018-10-01 06:02] LABS: Anion Gap 10 (5-15); BUN 8 mg/dL (7-18); BUN/Creat Ratio 10.3 RATIO (10-20); Calcium,Total 8.7 mg/dL (8.5-10.1); Chloride 107 mmol/L (98-107); Creatinine, Serum 0.77 mg/dL (0.55-1.02); EST Glomerular Filtration Rate 81 mL/min (>60); Est Glom Filt Rate - Afr Amer 99 mL/min (>60); Estimated Creatinine Clearance 66.68 ml/min; Glucose 88 mg/dL (74-106); Potassium 3.7 mmol/L (3.5-5.1); Sodium Level 141 mmol/L (136-145)
[2018-10-01 06:03] LABS: Partial Thromboplast Time 27.6 Seconds (24.1-36.2)
[2018-10-01 06:35] LABS: Basophil# 0.02 X10^3/uL; Basophil% 0.4 % (0-1); Eosinophil# 0.08 X10^3/uL; Eosinophils% 1.8 % (0-5); Hematocrit 29.5 % (37-47); Hemoglobin 9.2 g/dl (12.0-15.0); Lymphocyte % 17.9 % (19-41); Mean Corp Hgb Conc 31.2 g/gl (32-36); Mean Corpuscular Hgb 29.3 pg (27.0-32.0); Mean Corpuscular Volume 93.9 fL (81-99); Mean Platelet Vol. 8.9 fl (6.2-12.0); Monocyte# 0.51 X10^3/uL; Monocyte% 11.4 % (0-10); Neutrophil # 2.96 X10^3/uL (2.7-7.7); Platelet Count 215 K/mm3 (150-450); RBC Distribution Width SD 55.8 fl (35.1-43.9); Red Blood Count 3.14 M/mm3 (4.2-5.4); White Blood Count 4.5 K/mm3 (4.4-11.0)
[2018-10-01 06:51] LABS: POSITIVE COUNT YES; POSITIVE DIFFERENTIAL NO; POSITIVE MORPHOLOGY YES
--- NOTE | 2018-10-01 07:17 | PCM.PN.HOSP ---
Patient Problems: Active and Suspected Problems Mass of colon (Acute) Severe anemia (Acute) Subjective: Patient with no acute events overnight per self and per nursing report. Patient notes abdominal discomfort following endoscopy as well as abdominal distention have resolved. Discussed plan of care for the day and patient understands planned operative intervention this morning per Dr. Garnica to for hemicolectomy. Discussed pulmonary pathology which appears benign at this time but final is pending and she understands this. Discussed that suspect anemia is secondary to an alternate etiology and this workup is ongoing. Patient denies fevers, chills, nausea, emesis, abdominal pain, chest pain or dyspnea. Objective: Physical Examination: General: awake, alert, oriented x 3 and cooperative, seated upright in bed in no apparent distress. Skin: normal color, turgor, no icterus, cyanosis. HEENT: AT/NC, EOMI, PERRLA, MMM. Lungs: CTA bilaterally, moderate effort, mild decrease BL bases, no rales, ronchi or wheezing. Heart: Regular rate and rhythm; no gallop, rub audible. Abdomen: soft, obese, NTTP, ND, mildly hyperactive BS. Extremities: no cyanosis, clubbing, or edema. Neurological: patient awake, alert, oriented x 3; cognitive function intact; pupils equally reactive to light and accomodation; cranial nerves II-XII grossly normal, moving all 4 extremities, no focal deficits, strength mildly globally decreased. Psychiatric: affect appears mildly fatigued, no acute evidence of depressive or anxiety feelings. Vitals/I&O's: Vital Signs Temp Pulse Resp BP Pulse Ox 97.9 F 106 H 18 135/59 H 96 10/01/18 04:18 10/01/18 04:59 10/01/18 04:18 10/01/18 04:18 10/01/18 04:18 Oxygen Flow Rate (L/min) 3 Oxygen Delivery Method Room Air Weight: 176 lb 5.917 oz Body Mass Index (BMI) 30.1 Intake and Output for Last 24 Hours 09/29/18 09/30/18 10/01/18 23:59 23:59 23:59 Intake Total 6020 / 6020 2042 / 2042 510 / 510 Output Total 500 / 500 630 / 630 Balance 5520 / 5520 1412 / 1412 510 / 510 Microbiology Past 72 Hours 09/28/18 09:15 Stool Stool Occult Blood (KG) - Final Laboratory Results 09/28/18 09:35: Crossmatch See Detail 09/29/18 00:05: Carcinoembryonic Ag Pending 09/30/18 05:55: Absolute Neuts (auto) 3.0, Absolute Lymphs (auto) 0.95, Total Counted 100, Neutrophils % (Manual) 64, Band Neutrophils % 3, Lymphocytes % (Manual) 21, Monocytes % (Manual) 7, Eosinophils % (Manual) 3, Metamyelocytes % 2 H, Diff Path Review Reviewed, Platelet Estimate ADEQUATE, Polychromasia 1+, Hypochromasia 1+, Anisocytosis 1+ 10/01/18 05:20: WBC 4.5, RBC 3.14 L, Hgb 9.2 L, Hct 29.5 L, MCV 93.9, MCH 29.3, MCHC 31.2 L, RDW 18.0 H, RDW Differential 55.8 H, Plt Count 215, MPV 8.9, Immature Gran % (Auto) 2.500 H, Neut % (Auto) 66.0, Lymph % (Auto) 17.9 L, [place] % (Auto) 11.4 H, Eos % (Auto) 1.8, Baso % (Auto) 0.4, Absolute Neuts (auto) 3.0, Absolute Lymphs (auto) 0.80 L, Total Counted Not Reportable, Diff Path Review February10/01/18 05:20: Sodium 141, Potassium 3.7, Chloride 107, Carbon Dioxide 24.0, Anion Gap 10, BUN 8, Creatinine 0.77, Estim Creat Clear Calc 66.68, Est GFR (MDRD) Af Amer 99, Est GFR (MDRD) Non-Af 81, BUN/Creatinine Ratio 10.3, Glucose 88, Calcium 8.7 10/01/18 05:20: APTT 27.6 Current Medications Pantoprazole Sodium 40 mg/ (Sodium Chloride) 110 mls @ 330 mls/hr IV Q12 MICHI Last Admin: 09/30/18 22:11 Dose: 330 mls/hr Magnesium Hydroxide (Milk Of Magnesia) 30 ml PO DAILY PRN PRN PRN Reason: Constipation Ondansetron HCl (Zofran) 4 mg IV Q8H PRN PRN PRN Reason: NAUSEA Promethazine HCl (Phenergan) 12.5 mg IV Q6H PRN PRN PRN Reason: NAUSEA/VOMITING Sodium Chloride () 5 - 15 ml IV UD PRN PRN Reason: SALINE FLUSH Last Admin: 09/30/18 18:55 Dose: 10 ml Venlafaxine HCl (Effexor Xr) 75 mg PO DAILY@2200 MICHI Last Admin: 09/30/18 22:11 Dose: 75 mg Medical Necessity - Tobacco Use Smoking Status: Never smoker Tobacco Use: Non-smoker Assessment/Plan All Active Problems Mass of colon (Acute) Severe anemia (Acute) The patient is a 57 y/o F w/ PMHx: Remote Fe deficiency anemia noting regularly taking supplementation, menopausal associated night sweats otherwise per her report healthy who presents to the [facility] ED on 09/28/18 with history of progressively worsening fatigue, weakness, pale pallor, dyspnea with exertion since May with UC evaluation at that time and rx given for outpatient CBC,completed on 09/27/18, Hgb 3.5. (1) Acute Normocytic Anemia, Possible secondary to GI Bleed, History of Fe Deficiency Anemia although Possible Hemolysis w/ Ascending Colon Mass: Admission admission, given VS w/ only noted tachycardia with her severe anemia suspect ongoing slow decrease otherwise would have expected worsened appearance. Admission Hgb 3.5, admitted to ICU per facility protocol initially with transition to MS w/ telemetry following Hgb improvement after PRBC and repeat HH stable, s/p 6 u PRBC, Hgb 8.6 and additional 1 u following endoscopy findings w/ planned OR on 09/30/18, Hgb 9.2. 09/30/18 Endoscopies w/ noted R sided large colonic mass consistent with tubovillous adenoma with no malignancy with permanent section likely returning this AM. CT scan obtained w/ mass localized to the distal ascending colon with retroperitoneal lymphadenopathy as well as hepatosplenomegaly. Planned 10/01/18 AM lap hemicolectomy. Fe panel, ferritin not severe appearing. Retic count not low. Normal level vitamin B12, folic acid. Given these findings, Oncology obtained direct Har[place] pending, haptoglobin pending, LDH normal level, and well as PEP w/ immunofixation pending, serum free light chair assay pending secondary to concurrently elevated globin levels. Discussed these plans and also recent discussions w/ Surgery and Hem/Onc re: anemia, felt likely alternate etiology for her anemia concurrently with ongoing evaluation. IV PPI. (2) Obesity: Weight loss and lifestyle changes encouraged. (3) GERD: IV PPI. (4) DVT Prophylaxis: SCDs, defer chemoprophylaxis given acute presentation #1. Code Visit Inpatient E&M: 22791 Subs Hosp L2
--- NOTE | 2018-10-01 07:30 | PCM.PROGNOTE ---
Patient Problems: Active and Suspected Problems Severe anemia (Acute) Subjective: The patient was seen and examined at the bedside this morning. Events from the last 24 hours have been reviewed. The patient is currently afebrile, hemodynamically stable and maintaining appropriate oxygen saturations on room air. The patient did undergo both upper and lower endoscopies yesterday. She was noted to have small gastric polyps along with a large right colonic mass. Currently, there are tentative plans for the patient to be taken for laparoscopic hemicolectomy this morning. Her blood counts remain stable. Objective: The patient's most recent lab work, culture data and imaging studies have all been personally reviewed. - Physical Exam General: Alert, Cooperative, No apparent distress HEENT: Atraumatic, PERRLA, Normocephalic Oral: Moist Mucosa, No Gingival or Mucosal Lesions/ Ulcerations Neck: Supple, No Nodes, Trachea Midline Lungs: Normal air movement, No rhonchi, No wheeze, No rales Cardiovascular: Regular rate, Regular Rhythm, Normal S1, Normal S2, No murmurs Abdomen: Bowel Sounds Present, Soft, Non Tender Extremities: No clubbing, No cyanosis, No edema Skin: No breakdown Musculoskeletal: No Tenderness to Palpation of Joints or Extremities, No Muscle Wasting Lymphatic: No Cervical, Supraclavicular, or Inguinal Adenopathy Neurological: Cranial nerves II-XII grossly intact, Neuro grossly intact Psych/Mental Status: Normal Affect, Appropriate Vital Signs Temp Pulse Resp BP Pulse Ox 36.6 C 106 H 18 135/59 H 96 10/01/18 04:18 10/01/18 04:59 10/01/18 04:18 10/01/18 04:18 10/01/18 04:18 Oxygen Flow Rate (L/min) 3 Oxygen Delivery Method Room Air Weight: 176 lb 5.917 oz Body Mass Index (BMI) 30.1 Intake and Output for Last 24 Hours 09/29/18 09/30/18 10/01/18 23:59 23:59 23:59 Intake Total 6020 / 6020 2042 / 2042 510 / 510 Output Total 500 / 500 630 / 630 Balance 5520 / 5520 1412 / 1412 510 / 510 Microbiology Past 72 Hours 09/28/18 09:15 Stool Occult Blood (KG) - Final Stool Laboratory Tests Past 24 Hrs 09/28/18 09/29/18 09/30/18 09:35 00:05 05:55 WBC RBC Hgb Hct MCV MCH MCHC RDW RDW Differential Plt Count MPV Immature Gran % (Auto) Neut % (Auto) Lymph % (Auto) [place] % (Auto) Eos % (Auto) Baso % (Auto) Absolute Neuts (auto) 3.0 Absolute Lymphs (auto) 0.95 Total Counted 100 Neutrophils % (Manual) 64 Band Neutrophils % 3 Lymphocytes % (Manual) 21 Monocytes % (Manual) 7 Eosinophils % (Manual) 3 Metamyelocytes % 2 H Diff Path Review Reviewed Platelet Estimate ADEQUATE Polychromasia 1+ Hypochromasia 1+ Anisocytosis 1+ APTT Sodium Potassium Chloride Carbon Dioxide Anion Gap BUN Creatinine Estim Creat Clear Calc Est GFR (MDRD) Af Amer Est GFR (MDRD) Non-Af BUN/Creatinine Ratio Glucose Calcium Carcinoembryonic Ag Pending Crossmatch See Detail 10/01/18 10/01/18 10/01/18 05:20 05:20 05:20 WBC 4.5 RBC 3.14 L Hgb 9.2 L Hct 29.5 L MCV 93.9 MCH 29.3 MCHC 31.2 L RDW 18.0 H RDW Differential 55.8 H Plt Count 215 MPV 8.9 Immature Gran % (Auto) 2.500 H Neut % (Auto) 66.0 Lymph % (Auto) 17.9 L [place] % (Auto) 11.4 H Eos % (Auto) 1.8 Baso % (Auto) 0.4 Absolute Neuts (auto) 3.0 Absolute Lymphs (auto) 0.80 L Total Counted Not Reportable Neutrophils % (Manual) Band Neutrophils % Lymphocytes % (Manual) Monocytes % (Manual) Eosinophils % (Manual) Metamyelocytes % Diff Path Review May foll Platelet Estimate Polychromasia Hypochromasia Anisocytosis APTT 27.6 Sodium 141 Potassium 3.7 Chloride 107 Carbon Dioxide 24.0 Anion Gap 10 BUN 8 Creatinine 0.77 Estim Creat Clear Calc 66.68 Est GFR (MDRD) Af Amer 99 Est GFR (MDRD) Non-Af 81 BUN/Creatinine Ratio 10.3 Glucose 88 Calcium 8.7 Carcinoembryonic Ag Crossmatch Clinical Impression(s) from Imaging Studies Abdomen/Pelvis CT 09/30/18 09:19 IMPRESSION: Wall thickening of the right colon consistent with described mass. No obstruction. Retroperitoneal lymphadenopathy. Hepatosplenomegaly. Cholelithiasis. No biliary dilatation. Free fluid. There are pleural effusions and lower lung consolidation.. Electronically Signed: Yogesh Ervin MD at 14:50 EST , Service support , Medical Necessity - Tobacco Use Smoking Status: Never smoker Tobacco Use: Non-smoker Assessment/Plan All Active Problems Mass of colon (Acute) Severe anemia (Acute) RECOMMENDATIONS: 1. Monitor H&H daily. Transfuse for a hemoglobin less than 7 g/dL. 2. Continue PPI therapy as ordered. 3. Planned surgical intervention this morning. 4. Maintain appropriate IV access. IMPRESSIONS: 1. Anemia Likely related to colonic mass noted on lower endoscopy. However, her iron studies appear to be normal. She reports no history of prior gastrointestinal hemorrhage. In addition, she has normocytic blood indices. The patient has now been transfused a total of 6 units of packed red blood cells throughout her hospital admission. Her hemoglobin has stabilized at this point. She is currently scheduled to undergo a laparoscopic hemicolectomy this morning. Plan to continue to check H&H daily. Transfuse if hemoglobin drops below 7 g/dL. Continue twice daily PPI therapy. Continue appropriate peripheral IV access. 2. Obesity Weight loss through dietary modification and a graded exercise regimen is strongly encouraged. This note was generated with [employer] dictation software. It may contain incorrect words, spelling, and punctuation that were not noted in checking the note before signing. DISPOSITION: Given the lack of ongoing ICU/pulmonary needs, will sign off. Please call with any additional questions. Code Visit Inpatient E&M: 47237 Subs Hosp L2
--- NOTE | 2018-10-01 09:07 | NURSING ---
Report given to Daily in AC- pt off floor for surgery with Dr. Garnica.
[2018-10-01] MEDS: Bupiv/Epi 0.5% Mpf 30 ML Vial (11:10)
[2018-10-01 11:42] LABS: Haptoglobin 198 mg/dL (34-200); Immunoglobulin A 13 mg/dL (87-352); Immunoglobulin G 198 mg/dL (700-1600); Immunoglobulin M 3874 mg/dL (26-217)
--- NOTE | 2018-10-01 11:45 | PCM.OPRPT ---
Problem List (1) Severe anemia Status: Acute Report of Operation Date of Procedure: 10/01/18 Pre-Operative Diagnosis: Right colon mass Post-Operative Diagnosis: Same Surgery/Procedure Performed:: Laparoscopic right berta-colectomy Specimen's removed: Right colon Estimated Blood Loss (mL): Minimal Description of Procedure: Patient was brought back to the operating room and general anesthesia was induced. A Tenorio catheter was placed. The abdomen was prepped and draped in usual sterile fashion. A midline incision was made just superior to the emboli been down to the fascia. The fascia was elevated and incised and a finger sweep was performed. A balloon port was placed in the abdomen and the abdomen was insufflated to 15 mmHg. A left lower quadrant 5 mm port was placed under direct visualization as well as the suprapubic 5 mm port. The abdomen was inspected and the patient had severe hepatosplenomegaly but the liver and spleen appeared normal in contour and color. There was no peritoneal studding. Next the tattooed portion of the right colon was elevated and the peritoneal attachments laterally were lysed. Once the colon was mobilized laterally it was reflected medially. The hepatic flexure was also mobilized. Next a scalpel was used to make a midline incision from the umbilical incision down to just below the umbilicus. The incision was deepened down to the fascia using electrocautery and the fascia was incised. Next a large wound protector was placed into the abdomen. The right colon was delivered into the incision. The colon appeared adequately mobilized. The right middle colic was identified and just distal to this a small window was made below the transverse colon and the transverse colon was stapled with a linear stapler. Next the terminal ileum was identified and approximately 10 cm proximal to the ileocecal valve a window was made in the mesentery and the terminal ileum was stapled with a linear stapler. Next the peritoneum was scored down to the origin of the right colic vessel and back up to the transverse colon window. The Enseal was used to take the mesentery of the hepatic flexure and terminal ileum until the right colic pedicle was reached. The patient had lymphadenopathy around the pedicle of the right colon. The right colic vein was identified and suture-ligated. The artery was then isolated and suture ligated in the same fashion. There was a very large lymph node that was also taken adjacent to the vessels. The specimen was sent for pathology. Next anastomosis was fashioned. A small window was made in the antimesenteric side of the staple line of the small bowel as well as on the tenia of the transverse colon. Each piece of the SPENCER stapler was placed into the respective part of the bowel and the antimesenteric side of the small bowel was stapled to the tenia of the transverse colon. The inside of the anastomosis was inspected and there was no bleeding. Next the staple lines were brought together and stapled across with a TL 60 stapler to complete the anastomosis. There is good hemostasis and a good sized lumen was palpated. Next a suture was placed just distal to the staple line from the tenia to the antimesenteric small bowel with 3-0 silk. Next the abdomen was irrigated and suctioned dry. The mesentery was reapproximated with a running 3-0 Vicryl suture. The omentum was placed down into the pelvis covering the anterior abdominal wall and it appeared that there was good hemostasis. Next the fascia was closed with running #1 PDS suture from either side meeting in the middle. Next the incision was irrigated copiously and anesthetized with Marcaine. Next the midline incision was closed with interrupted 4-0 Monocryl sutures as was the suprapubic port and the left lower quadrant port. All incisions were closed with Steri-Strips and bandaged. The Tenorio was removed at the end of the case. The patient tolerated the procedure well and was brought back in stable condition. - Admit VTE Documentation VTE Mechan Device Prophylaxis: SCD's
[2018-10-01 12:03] LABS: Carcinoembryonic Antigen 0.6
[2018-10-01] MEDS: 0.9% NaCl Peripheral Flush Adult/Peds IV (12:51)
[2018-10-01] MEDS: Morphine 2 MG/ML Syringe IV (12:51)
--- NOTE | 2018-10-01 12:58 | NURSING ---
full bag of NS running- and used for new order 100cc/hr. Infusing at this time.
[2018-10-01 14:10] LABS: Pathologist Review Reviewed
[2018-10-01] MEDS: Venlafaxine XR 75 MG Capsule PO (20:54)
[2018-10-01] MEDS: HYDROcodone Bitartrate/Apap 5/325 Tablet PO (20:54)
--- NOTE | 2018-10-01 20:55 | NURSING ---
pt ambulated in hallway x1 lap with this RN.
[2018-10-01] MEDS: 0.9% Normal Saline 1,000 ML 100 ML IV (23:44)
[2018-10-02] MEDS: HYDROcodone Bitartrate/Apap 5/325 Tablet PO ×3 (02:05→21:13)
[2018-10-02 02:07] VITALS: BP 138/69; PULSE 105; RESP 18; TEMP 36.8; O2SAT 94
[2018-10-02 07:29] VITALS: O2SAT 98
[2018-10-02 07:53] LABS: Absolute Neutrophil Count 3.9 X10^3/uL (2.0-7.7); Basophil# 0.01 X10^3/uL; Basophil% 0.2 % (0-1); Eosinophil# 0.02 X10^3/uL; Eosinophils% 0.4 % (0-5); Hematocrit 31.7 % (37-47); Hemoglobin 9.7 g/dl (12.0-15.0); Lymphocyte % 11.5 % (19-41); Mean Corp Hgb Conc 30.6 g/gl (32-36); Mean Corpuscular Hgb 28.5 pg (27.0-32.0); Mean Corpuscular Volume 93.2 fL (81-99); Mean Platelet Vol. 8.7 fl (6.2-12.0); Monocyte# 0.59 X10^3/uL; Monocyte% 11.3 % (0-10); Neutrophil # 3.94 X10^3/uL (2.7-7.7); Neutrophil % 75.8 % (47-70); Platelet Count 209 K/mm3 (150-450); RBC Distribution Width CV 17.6 % (11.6-14.6); RBC Distribution Width SD 57.7 fl (35.1-43.9); White Blood Count 5.2 K/mm3 (4.4-11.0)
[2018-10-02 08:05] LABS: Differential Indicated SCAN CRITERIA MET; POSITIVE COUNT NO; POSITIVE DIFFERENTIAL YES; POSITIVE MORPHOLOGY NO
[2018-10-02 08:09] LABS: Anion Gap 10 (5-15); BUN 11 mg/dL (7-18); BUN/Creat Ratio 13.7 RATIO (10-20); Calcium,Total 8.4 mg/dL (8.5-10.1); Chloride 108 mmol/L (98-107); EST Glomerular Filtration Rate 78 mL/min (>60); Est Glom Filt Rate - Afr Amer 95 mL/min (>60); Estimated Creatinine Clearance 61.36 ml/min; Glucose 103 mg/dL (74-106); Potassium 3.6 mmol/L (3.5-5.1); Sodium Level 142 mmol/L (136-145)
[2018-10-02 08:54] LABS: Differential Comment SCANNED
--- NOTE | 2018-10-02 09:44 | PCM.PN.HOSP ---
Patient Problems: Active and Suspected Problems Severe anemia (Acute) Subjective: Patient doing well, notes pain improved, more so when she is up and ambulating. She notes minimal flatus and no bowel movement since operative intervention. She states still some mild abdominal distention but this has been improving. Discussed recent evaluations including operative interventions as well as pending oncology/otology workup and noted that Dr. Diaz would be here to review labs with her and further plan of care. Pending evaluation per surgery this morning for possible diet advancement. Patient denies fevers, chills, nausea, emesis, abdominal pain, chest pain or dyspnea. Objective: Physical Examination: General: awake, alert, oriented x 3 and cooperative, seated upright in bed in no apparent distress. Skin: normal color, turgor, no icterus, cyanosis except noted incision, clean bandage currently in place, no drainage. HEENT: AT/NC, EOMI, PERRLA, MMM. Lungs: Mildly diminished bases, moderate effort, no rales, ronchi or wheezing. Heart: Regular rate and rhythm; no gallop, rub audible. Abdomen: soft, expected TTP near incision, dressing in place, no marked drainage, mildly distended, mildly hypoactive BS. Extremities: no cyanosis, clubbing, or edema. Neurological: patient awake, alert, oriented x 3; cognitive function intact; pupils equally reactive to light and accomodation; cranial nerves II-XII grossly normal, moving all 4 extremities, no focal deficits, strength moderately globally decreased. Psychiatric: affect appears normal, no acute evidence of depressive or anxiety feelings. Vitals/I&O's: Vital Signs Temp Pulse Resp BP Pulse Ox 98.3 F 105 H 18 138/69 H 98 10/02/18 02:07 10/02/18 02:07 10/02/18 02:07 10/02/18 02:07 10/02/18 07:29 Oxygen Flow Rate (L/min) 2 Oxygen Delivery Method Nasal Cannula Weight: 170 lb 10.205 oz Body Mass Index (BMI) 30.2 Intake and Output for Last 24 Hours 09/30/18 10/01/18 10/02/18 23:59 23:59 23:59 Intake Total 2042 / 2042 5083 / 5083 880 / 880 Output Total 630 / 630 600 / 600 700 / 700 Balance 1412 / 1412 4483 / 4483 180 / 180 Laboratory Results 09/29/18 00:05: Haptoglobin 198, Total Protein (PEP) 7.2, IgG 198 L, IgA 13 L, IgM 3874 H, Immunofixation Screen Comment, Albumin (SERENA) 2.4 L, Albumin/Globulin (SERENA) 0.6 L, [id number] SERENA 0.4, Zczfl-[id number] SERENA 0.8, Beta-Globulins (SERENA) 0.7, Gamma Globulins (SERENA) 4.8 H, SERENA M-[place] 2.6 H, SERENA Comments Comment, Free [place] LC, Quant 1176.5 H, Free Lambda LC, Quant 2.6 L, Free [place]/Lambda Ratio 452.50 H 09/29/18 00:05: Carcinoembryonic Ag 0.6 10/01/18 05:20: Diff Path Review Reviewed 10/02/18 07:06: WBC 5.2, RBC 3.40 L, Hgb 9.7 L, Hct 31.7 L, MCV 93.2, MCH 28.5, MCHC 30.6 L, RDW 17.6 H, RDW Differential 57.7 H, Plt Count 209, MPV 8.7, Immature Gran % (Auto) 0.800, Neut % (Auto) 75.8 H, Lymph % (Auto) 11.5 L, [place] % (Auto) 11.3 H, Eos % (Auto) 0.4, Baso % (Auto) 0.2, Absolute Neuts (auto) 3.9, Absolute Lymphs (auto) 0.60 L, Total Counted Not Reportable, Differential Comment SCANNED 10/02/18 07:06: Sodium 142, Potassium 3.6, Chloride 108 H, Carbon Dioxide 24.0, Anion Gap 10, BUN 11, Creatinine 0.80, Estim Creat Clear Calc 61.36, Est GFR (MDRD) Af Amer 95, Est GFR (MDRD) Non-Af 78, BUN/Creatinine Ratio 13.7, Glucose 103, Calcium 8.4 L Current Medications Acetaminophen (Tylenol) 650 mg PO Q6H PRN PRN PRN Reason: PAIN Hydrocodone Bitart/Acetaminophen ([place] 5mg-325mg) 1 - 2 tablet PO Q4H PRN PRN PRN Reason: SEVERE PAIN (6-10/10) Last Admin: 10/02/18 02:05 Dose: 2 tablet Pantoprazole Sodium 40 mg/ (Sodium Chloride) 110 mls @ 330 mls/hr IV Q12 MICHI Last Admin: 10/01/18 20:54 Dose: 330 mls/hr Sodium Chloride () 1,000 mls @ 100 mls/hr IV .Q10H MICHI Last Admin: 10/01/18 23:44 Dose: 100 mls/hr Magnesium Hydroxide (Milk Of Magnesia) 30 ml PO DAILY PRN PRN PRN Reason: Constipation Morphine Sulfate () 2 - 4 mg IV Q2H PRN PRN PRN Reason: SEVERE PAIN (6-10/10) Last Admin: 10/01/18 12:51 Dose: 2 mg Morphine Sulfate () 2 - 4 mg IV Q2H PRN PRN PRN Reason: SEVERE PAIN (6-10/10) Ondansetron HCl (Zofran) 4 mg IV Q8H PRN PRN PRN Reason: NAUSEA Promethazine HCl (Phenergan) 12.5 mg IV Q6H PRN PRN PRN Reason: NAUSEA/VOMITING Sodium Chloride () 5 - 15 ml IV UD PRN PRN Reason: SALINE FLUSH Last Admin: 10/01/18 12:51 Dose: 10 ml Venlafaxine HCl (Effexor Xr) 75 mg PO DAILY@2200 MICHI Last Admin: 10/01/18 20:54 Dose: 75 mg Medical Necessity - Tobacco Use Smoking Status: Never smoker Tobacco Use: Non-smoker Assessment/Plan All Active Problems Mass of colon (Acute) Severe anemia (Acute) The patient is a 57 y/o F w/ PMHx: Remote Fe deficiency anemia noting regularly taking supplementation, menopausal associated night sweats otherwise per her report healthy who presents to the [facility] ED on 09/28/18 with history of progressively worsening fatigue, weakness, pale pallor, dyspnea with exertion since May with UC evaluation at that time and rx given for outpatient CBC,completed on 09/27/18, Hgb 3.5. (1) Acute Normocytic Anemia, History of Fe Deficiency Anemia although Possible Hemolysis w/ Ascending Colon Mass, pathology currently c/w Tubovillous Adenoma: Admission admission, given VS w/ only noted tachycardia with her severe anemia suspect ongoing slow decrease otherwise would have expected worsened appearance. Admission Hgb 3.5, admitted to ICU per facility protocol initially with transition to MS w/ telemetry following Hgb improvement after PRBC and repeat HH stable, s/p 6 u PRBC, Hgb 8.6 and additional 1 u following endoscopy findings w/ planned OR on 09/30/18, Hgb 9.20-->07/03/18 Hgb 9.7, stable. 09/30/18 Endoscopies w/ noted R sided large colonic mass consistent with tubovillous adenoma with no malignancy with permanent section likely returning this AM. CT scan obtained w/ mass localized to the distal ascending colon with retroperitoneal lymphadenopathy as well as hepatosplenomegaly. 10/01/18 AM lap hemicolectomy, tolerating clears well, awaiting AM surgery evaluation for possible further diet advancement. Patent up and ambulating, pain controlled. Hematology evaluation w/ Fe panel, ferritin not severe appearing, retic count not low, normal level vitamin B12, folic acid, LDH normal level, haptoglobin normal, PEP w/ immunofixation pending scan to follow w/ SERENA M spike 2.6, IgG and IgA low with elevated IgM 3874, serum free light chair assay w/ free kappa/lambda ratio elevated 452.50. Discussed these results w/ Hem/Oncology and noted plan to await Surgical Pathology and follow-up on PEP final results this coming week in the office. Possible discharge this weekend pending surgery re-evaluation given this Oncology plan. If patient has increased flatus through day per discussion with Dr. Garnica would consider transition to fulls. Discharge plan once appropriate would be follow-up Oncology 1 week, follow-up surgery 2 weeks. (2) Obesity: Weight loss and lifestyle changes encouraged. (3) GERD: IV PPI-->oral PPI. (4) DVT Prophylaxis: SCDs, defer chemoprophylaxis given acute presentation #1. Code Visit Inpatient E&M: 89050 Subs Hosp L2
--- NOTE | 2018-10-02 09:48 | PN_ITS ---
Patient Problems: Active and Suspected Problems Severe anemia (Acute) Subjective: Patient doing well, notes pain improved, more so when she is up and ambulating. She notes minimal flatus and no bowel movement since operative intervention. She states still some mild abdominal distention but this has been improving. Discussed recent evaluations including operative interventions as well as pending oncology/otology workup and noted that Dr. Diaz would be here to review labs with her and further plan of care. Pending evaluation per surgery this morning for possible diet advancement. Patient denies fevers, chills, nausea, emesis, abdominal pain, chest pain or dyspnea. Objective: Physical Examination: General: awake, alert, oriented x 3 and cooperative, seated upright in bed in no apparent distress. Skin: normal color, turgor, no icterus, cyanosis except noted incision, clean bandage currently in place, no drainage. HEENT: AT/NC, EOMI, PERRLA, MMM. Lungs: Mildly diminished bases, moderate effort, no rales, ronchi or wheezing. Heart: Regular rate and rhythm; no gallop, rub audible. Abdomen: soft, expected TTP near incision, dressing in place, no marked drainage, mildly distended, mildly hypoactive BS. Extremities: no cyanosis, clubbing, or edema. Neurological: patient awake, alert, oriented x 3; cognitive function intact; pupils equally reactive to light and accomodation; cranial nerves II-XII grossly normal, moving all 4 extremities, no focal deficits, strength moderately quang bally decreased. Psychiatric: affect appears normal, no acute evidence of depressive or anxiety feelings. Vitals/I&O's: Vital Signs Temp Pulse Resp BP Pulse Ox 98.3 F 105 H 18 138/69 H 98 10/02/18 02:07 10/02/18 02:07 10/02/18 02:07 10/02/18 02:07 10/02/18 07:29 Oxygen Flow Rate (L/min) 2 Oxygen Delivery Method Nasal Cannula Weight: 170 lb 10.205 oz Body Mass Index (BMI) 30.2 Intake and Output for Last 24 Hours 09/30/18 10/01/18 10/02/18 23:59 23:59 23:59 Intake Total 2042 / 2042 5083 / 5083 880 / 880 Output Total 630 / 630 600 / 600 700 / 700 Balance 1412 / 1412 4483 / 4483 180 / 180 Laboratory Results 09/29/18 00:05: Haptoglobin 198, Total Protein (PEP) 7.2, IgG 198 L, IgA 13 L, IgM 3874 H, Immunofixation Screen Comment, Albumin (SERENA) 2.4 L, Albumin/Globulin (SERENA) 0.6 L, Uohmj-4-Bgvhynxyc SERENA 0.4, Nbplg-5-Nwtpalvsp SERENA 0.8, Beta- Globulins (SERENA) 0.7, Gamma Globulins (SERENA) 4.8 H, SERENA M-[place] 2.6 H, SERENA Comments Comment, Free [place] LC, Quant 1176.5 H, Free Lambda LC, Quant 2.6 L, Free [place]/Lambda Ratio 452.50 H 09/29/18 00:05: Carcinoembryonic Ag 0.6 10/01/18 05:20: Diff Path Review Reviewed 10/02/18 07:06: WBC 5.2, RBC 3.40 L, Hgb 9.7 L, Hct 31.7 L, MCV 93.2, MCH 28.5, MCHC 30.6 L, RDW 17.6 H, RDW Differential 57.7 H, Plt Count 209, MPV 8.7, Immature Gran % (Auto) 0.800, Neut % (Auto) 75.8 H, Lymph % (Auto) 11.5 L, [place] % (Auto) 11.3 H, Eos % (Auto) 0.4, Baso % (Auto) 0.2, Absolute Neuts (auto) 3.9, Absolute Lymphs (auto) 0.60 L, Total Counted Not Reportable, Differential Comment SCANNED 10/02/18 07:06: Sodium 142, Potassium 3.6, Chloride 108 H, Carbon Dioxide 24.0, Anion Gap 10, BUN 11, Creatinine 0.80, Estim Creat Clear Calc 61.36, Est GFR (MDRD) Af Amer 95, Est GFR (MDRD) Non-Af 78, BUN/Creatinine Ratio 13.7, Glucose 103, Calcium 8.4 L Current Medications Acetaminophen (Tylenol) 650 mg PO Q6H PRN PRN PRN Reason: PAIN Hydrocodone Bitart/Acetaminophen ([place] 5mg-325mg) 1 - 2 tablet PO Q4H PRN PRN PRN Reason: SEVERE PAIN (6-10/10) Last Admin: 10/02/18 02:05 Dose: 2 tablet Pantoprazole Sodium 40 mg/ (Sodium Chloride) 110 mls @ 330 mls/hr IV Q12 MICHI Last Admin: 10/01/18 20:54 Dose: 330 mls/hr Sodium Chloride () 1,000 mls @ 100 mls/hr IV .Q10H MICHI Last Admin: 10/01/18 23:44 Dose: 100 mls/hr Magnesium Hydroxide (Milk Of Magnesia) 30 ml PO DAILY PRN PRN PRN Reason: Constipation Morphine Sulfate () 2 - 4 mg IV Q2H PRN PRN PRN Reason: SEVERE PAIN (6-10/10) Last Admin: 10/01/18 12:51 Dose: 2 mg Morphine Sulfate () 2 - 4 mg IV Q2H PRN PRN PRN Reason: SEVERE PAIN (6-10/10) Ondansetron HCl (Zofran) 4 mg IV Q8H PRN PRN PRN Reason: NAUSEA Promethazine HCl (Phenergan) 12.5 mg IV Q6H PRN PRN PRN Reason: NAUSEA/VOMITING Sodium Chloride () 5 - 15 ml IV UD PRN PRN Reason: SALINE FLUSH Last Admin: 10/01/18 12:51 Dose: 10 ml Venlafaxine HCl (Effexor Xr) 75 mg PO DAILY@2200 MICHI Last Admin: 10/01/18 20:54 Dose: 75 mg Medical Necessity - Tobacco Use Smoking Status: Never smoker Tobacco Use: Non-smoker Assessment/Plan All Active Problems Mass of colon (Acute) Severe anemia (Acute) The patient is a 57 y/o F w/ PMHx: Remote Fe deficiency anemia noting regularly taking supplementation, menopausal associated night sweats otherwise per her report healthy who presents to the [facility] ED on 09/28/18 with history of progressively worsening fatigue, weakness, pale pallor, dyspnea with exertion since May with UC evaluation at that time and rx given for outpatient CBC,completed on 09/27/18, Hgb 3.5. (1) Acute Normocytic Anemia, History of Fe Deficiency Anemia although Possible Hemolysis w/ Ascending Colon Mass, pathology currently c/w Tubovillous Adenoma: Admission admission, given VS w/ only noted tachycardia with her severe anemia suspect ongoing slow decrease otherwise would have expected worsened appearance. Admission Hgb 3.5, admitted to ICU per facility protocol initially with transition to [place] w/ telemetry following Hgb improvement after PRBC and repeat HH stable, s/p 6 u PRBC, Hgb 8.6 and additional 1 u following endoscopy findings w/ planned OR on 09/30/18, Hgb 9.20-->07/03/18 Hgb 9.7, stable. 09/30/18 Endoscopies w/ noted R sided large colonic mass consistent with tubovillous adenoma with no malignancy with permanent section likely returning this AM. CT scan obtained w/ mass localized to the distal ascending colon with retroperitoneal lymphadenopathy as well as hepatosplenomegaly. 10/01/18 AM lap hemicolectomy, tolerating clears well, awaiting AM surgery evaluation for possible further diet advancement. Patent up and ambulating, pain controlled. Hematology evaluation w/ Fe panel, ferritin not severe appearing, retic count not low, normal level vitamin B12, folic acid, LDH normal level, haptoglobin normal, PEP w/ i mmunofixation pending scan to follow w/ SERENA M spike 2.6, IgG and IgA low with elevated IgM 3874, serum free light chair assay w/ free kappa/lambda ratio elevated 452.50. Discussed these results w/ Hem/Oncology and noted plan to await Surgical Pathology and follow-up on PEP final results this coming week in the office. Possible discharge this weekend pending surgery re-evaluation given this Oncology plan. If patient has increased flatus through day per discussion with Dr. Garnica would consider transition to fulls. Discharge plan once appropriate would be follow-up Oncology 1 week, follow-up surgery 2 weeks. (2) Obesity: Weight loss and lifestyle changes encouraged. (3) GERD: IV PPI-->oral PPI. (4) DVT Prophylaxis: SCDs, defer chemoprophylaxis given acute presentation #1. Code Visit Inpatient E&M: 74240 Subs Hosp L2
[2018-10-02 10:00] VITALS: BP 135/68; PULSE 108; RESP 18; TEMP 37; O2SAT 98
[2018-10-02] MEDS: Pantoprazole Sodium 20 MG Tablet PO ×2 (10:07→21:13)
--- NOTE | 2018-10-02 11:31 | CASEMGMT ---
SW spoke w/pt in regard to how she is doing, given the new diagnosis. Pt states she is doing well, all things considered. She states that it's just life, one more blip in the road. Pt states has had a difficult 4 months, so this is just one more thing to deal with. Pt offered support to pt, pt states feels she is doing okay at this time. SW explained that when she follow up with oncology, if she needs anything from SW to let them know and one of us can follow up w/her. Pt states understanding. No further needs anticipated at this time. KATI Villegas, [employer]
[2018-10-02] MEDS: 0.9% Normal Saline 1,000 ML 80 ML IV ×2 (12:11→21:13)
[2018-10-02 14:43] VITALS: BP 121/70; PULSE 102; RESP 18; TEMP 36.7; O2SAT 98
[2018-10-02] MEDS: Venlafaxine XR 75 MG Capsule PO (21:13)
[2018-10-02 21:17] VITALS: BP 133/67; PULSE 106; RESP 18; TEMP 36.9; O2SAT 96
[2018-10-03 03:20] VITALS: BP 135/63; PULSE 100; RESP 18; TEMP 36.5; O2SAT 94
--- NOTE | 2018-10-03 06:43 | PN_ITS ---
Patient Problems: Active and Suspected Problems Severe anemia (Acute) Subjective: The patient is a 57 y/o F w/ PMHx: Remote Fe deficiency anemia noting regularly taking supplementation, menopausal associated night sweats otherwise per her report healthy who presents to the [facility] ED on 09/28/18 with history of progressively worsening fatigue, weakness, pale pallor, dyspnea with exertion since May with UC evaluation at that time and rx given for outpatient CBC,completed on 09/27/18, Hgb 3.5. Admission admission, given VS w/ only noted tachycardia with her severe anemia suspect ongoing slow decrease otherwise would have expected worsened appearance. Admission Hgb 3.5, admitted to ICU per facility protocol initially with transition to [place] w/ telemetry following Hgb improvement after PRBC and repeat HH stable, s/p 6 u PRBC, Hgb 8.6 and additional 1 u following endoscopy findings w/ planned OR on 09/30/18, Hgb 9.20-->07/03/18 Hgb 9.7, stable. 09/30/18 Endoscopies w/ noted R sided large colonic mass consistent with tubovillous adenoma with no malignancy with permanent section likely returning this AM. CT scan obtained w/ mass localized to the distal ascending colon with retroperitoneal lymphadenopathy as well as hepatosplenomegaly. 10/01/18 AM lap hemicolectomy, tolerating clears well, awaiting AM surgery evaluation for possible further diet advancement. Patent up and ambulating, pain controlled. Hematology evaluation w/ Fe panel, ferritin not severe appearing, retic count not low, normal level vitamin B12, folic acid, LDH normal level, haptoglobin normal, PEP w/ immunofixation pending scan to follow w/ SERENA M spike 2.6, IgG and IgA low with elevated IgM 3874, serum free light chair assay w/ free kappa/lambda ratio elevated 452.50. Discussed these results w/ Hem/Oncology and noted plan to await Surgical Pathology and follow-up on PEP final results this coming week in the office. Possible discharge this weekend p ending surgery re-evaluation given this Oncology plan. If patient has increased flatus per discussion with Dr. Garnica would consider transition to fulls and further diet advancement; however, no marked flatus, awaiting prior to diet increase. Discharge plan once appropriate would be follow-up Oncology 1 week, follow-up surgery 2 weeks. Patient with no acute events overnight per self and per nursing report. Patient is tolerating clears without event. Patient denies any improvement in flatus. She has been up and ambulating. Patient eager for discharge to home but understands need to await improvement of bowel function with then diet advancement and toleration prior to discharge to home. Patient denies fevers, chills, nausea, emesis, worsened abdominal pain, chest pain or dyspnea. Objective: Physical Examination: General: awake, alert, oriented x 3 and cooperative, seated upright in bed in no apparent distress. Skin: normal color, turgor, no icterus, cyanosis except noted incision, clean bandage currently in place, no drainage. HEENT: AT/NC, EOMI, PERRLA, MMM. Lungs: Mildly diminished bases, moderate effort, no rales, ronchi or wheezing. Heart: Regular rate and rhythm; no gallop, rub audible. Abdomen: soft, expected TTP near incision, dressing in place, no drainage, improved lessened distention, hyperactive BS. Extremities: no cyanosis, clubbing, or edema. Neurological: patient awake, alert, oriented x 3; cognitive function intact; pupils equally reactive to light and accomodation; cranial nerves II-XII grossly normal, moving all 4 extremities, no focal deficits, strength improving, mildly to moderately globally decreased. Psychiatric: affect appears normal, no acute evidence of depressive or anxiety feelings. Vitals/I&O's: Vital Signs Temp Pulse Resp BP Pulse Ox 97.7 F L 100 18 135/63 H 94 10/03/18 03:20 10/03/18 03:20 10/03/18 03:20 10/03/18 03:20 10/03/18 03:20 Oxygen Flow Rate (L/min) 2 Oxygen Delivery Method Room Air Weight: 170 lb 10.205 oz Body Mass Index (BMI) 30.2 Intake and Output for Last 24 Hours 10/01/18 10/02/18 10/03/18 23:59 23:59 23:59 Intake Total 5083 / 5083 4551 / 4551 250 / 250 Output Total 600 / 600 1300 / 1300 Balance 4483 / 4483 3251 / 3251 250 / 250 Laboratory Results 10/02/18 07:06: WBC 5.2, RBC 3.40 L, Hgb 9.7 L, Hct 31.7 L, MCV 93.2, MCH 28.5, MCHC 30.6 L, RDW 17.6 H, RDW Differential 57.7 H, Plt Count 209, MPV 8.7, Immature Gran % (Auto) 0.800, Neut % (Auto) 75.8 H, Lymph % (Auto) 11.5 L, [place] % (Auto) 11.3 H, Eos % (Auto) 0.4, Baso % (Auto) 0.2, Absolute Neuts (auto) 3.9, Absolute Lymphs (auto) 0.60 L, Total Counted Not Reportable, Differential Comment SCANNED 10/02/18 07:06: Sodium 142, Potassium 3.6, Chloride 108 H, Carbon Dioxide 24.0, Anion Gap 10, BUN 11, Creatinine 0.80, Estim Creat Clear Calc 61.36, Est GFR (MDRD) Af Amer 95, Est GFR (MDRD) Non-Af 78, BUN/Creatinine Ratio 13.7, Glucose 103, Calcium 8.4 L 10/03/18 06:00: Sodium Pending, Potassium Pending, Chloride Pending, Carbon Dioxide Pending, Anion Gap Pending, BUN Pending, Creatinine Pending, Est GFR (MDRD) Af Amer Pending, Est GFR (MDRD) Non-Af Pending, BUN/Creatinine Ratio Pending, Glucose Pending, Calcium Pending Current Medications Acetaminophen (Tylenol) 650 mg PO Q6H PRN PRN PRN Reason: PAIN Hydrocodone Bitart/Acetaminophen ([place] 5mg-325mg) 1 - 2 tablet PO Q4H PRN PRN PRN Reason: SEVERE PAIN (6-10/10) Last Admin: 10/02/18 21:13 Dose: 2 tablet Sodium Chloride () 1,000 mls @ 80 mls/hr IV .[id number] MICHI Last Admin: 10/02/18 21:13 Dose: 80 mls/hr Magnesium Hydroxide (Milk Of Magnesia) 30 ml PO DAILY PRN PRN PRN Reason: Constipation Morphine Sulfate () 2 - 4 mg IV Q2H PRN PRN PRN Reason: SEVERE PAIN (6-10/10) Last Admin: 10/01/18 12:51 Dose: 2 mg Morphine Sulfate () 2 - 4 mg IV Q2H PRN PRN PRN Reason: SEVERE PAIN (6-10/10) Ondansetron HCl (Zofran) 4 mg IV Q8H PRN PRN PRN Reason: NAUSEA Pantoprazole Sodium (Protonix) 20 mg PO BID [facility] Last Admin: 10/02/18 21:13 Dose: 20 mg Promethazine HCl (Phenergan) 12.5 mg IV Q6H PRN PRN PRN Reason: NAUSEA/VOMITING Sodium Chloride () 5 - 15 ml IV UD PRN PRN Reason: SALINE FLUSH Last Admin: 10/01/18 12:51 Dose: 10 ml Venlafaxine HCl (Effexor Xr) 75 mg PO DAILY@2200 [facility] Last Admin: 10/02/18 21:13 Dose: 75 mg Medical Necessity - Tobacco Use Smoking Status: Never smoker Tobacco Use: Non-smoker Assessment/Plan All Active Problems Mass of colon (Acute) Severe anemia (Acute) The patient is a 57 y/o F w/ PMHx: Remote Fe deficiency anemia noting regularly taking supplementation, menopausal associated night sweats otherwise per her report healthy who presents to the [facility] ED on 09/28/18 with history of progressively worsening fatigue, weakness, pale pallor, dyspnea with exertion since May with UC evaluation at that time and rx given for outpatient CBC,completed on 09/27/18, Hgb 3.5. (1) Acute Normocytic Anemia, History of Fe Deficiency Anemia although Possible Hemolysis w/ Ascending Colon Mass, pathology currently c/w Tubovillous Adenoma: Admission admission, given VS w/ only noted tachycardia with her severe anemia suspect ongoing slow decrease otherwise would have expected worsened appearance. Admission Hgb 3.5, admitted to ICU per facility protocol initially with transition to [place] w/ telemetry following Hgb improvement after PRBC and repeat HH stable, s/p 6 u PRBC, Hgb 8.6 and additional 1 u following endoscopy findings w/ planned OR on 09/30/18, Hgb 9.20-->07/03/18 Hgb 9.7, stable-->10/03/18 Hgb pending. 09/30/18 Endoscopies w/ noted R sided large colonic mass consistent with tubovillous adenoma with no malignancy with permanent section likely returning this AM. CT scan obtained w/ mass localized to the distal ascending colon with retroperitoneal lymphadenopathy as well as hepatosplenomegaly. 12/7/18 AM lap hemicolectomy, tolerating clears well, awaiting AM surgery evaluation for possible further diet advancement. Patent up and ambulating, pain controlled. Hematology evaluation w/ Fe panel, ferritin not severe appearing, retic count not low, normal level vitamin B12, folic acid, LDH normal level, haptoglobin normal, PEP w/ immunofixation pending scan to follow w/ SERENA M spike 2.6, IgG and IgA low with elevated IgM 3874, serum free light chair assay w/ free kappa/lambda ratio elevated 452.50. Discussed these results w/ Hem/Oncology and noted plan to await Surgical Pathology and follow-up on PEP final results this coming week in the office. Discharge plan once appropriate would be follow-up Oncology 1 week, follow-up surgery 2 weeks. Minimal flatus, not improved, will continue clears until improved with then diet advancement and if tolerated once appropriate to discharge to home. (2) Obesity: Weight loss and lifestyle changes encouraged. (3) GERD: IV PPI-->oral PPI. (4) DVT Prophylaxis: SCDs, defer chemoprophylaxis given acute presentation #1, stable currently, ambulating well. Code Visit Inpatient E&M: 39283 Subs Hosp L2
[2018-10-03 06:52] VITALS: O2SAT 97
[2018-10-03 06:53] LABS: Absolute Lymphocyte Count 0.88 X10^3/ul (0.83-4.51); Absolute Neutrophil Count 3.3 X10^3/uL (2.0-7.7); Basophil# 0.02 X10^3/uL; Basophil% 0.4 % (0-1); Hematocrit 32.1 % (37-47); Hemoglobin 10.1 g/dl (12.0-15.0); Lymphocyte # 0.88 X10^3/ul (4.0); Mean Corp Hgb Conc 31.5 g/gl (32-36); Mean Corpuscular Hgb 29.2 pg (27.0-32.0); Mean Corpuscular Volume 92.8 fL (81-99); Mean Platelet Vol. 8.9 fl (6.2-12.0); Monocyte# 0.56 X10^3/uL; Monocyte% 11.4 % (0-10); Neutrophil # 3.31 X10^3/uL (2.7-7.7); Neutrophil % 67.6 % (47-70); Platelet Count 218 K/mm3 (150-450); RBC Distribution Width CV 17.4 % (11.6-14.6); RBC Distribution Width SD 57.3 fl (35.1-43.9); Red Blood Count 3.46 M/mm3 (4.2-5.4); White Blood Count 4.9 K/mm3 (4.4-11.0)
[2018-10-03 06:54] LABS: Differential Indicated SCAN CRITERIA MET; POSITIVE COUNT NO; POSITIVE DIFFERENTIAL NO; POSITIVE MORPHOLOGY YES
[2018-10-03 07:04] LABS: Anion Gap 9 (5-15); BUN 8 mg/dL (7-18); BUN/Creat Ratio 11.6 RATIO (10-20); Calcium,Total 8.5 mg/dL (8.5-10.1); Chloride 106 mmol/L (98-107); Creatinine, Serum 0.69 mg/dL (0.55-1.02); EST Glomerular Filtration Rate 93 mL/min (>60); Est Glom Filt Rate - Afr Amer 113 mL/min (>60); Estimated Creatinine Clearance 71.15 ml/min; Glucose 79 mg/dL (74-106); Potassium 3.5 mmol/L (3.5-5.1); Sodium Level 138 mmol/L (136-145)
[2018-10-03 08:01] LABS: Differential Comment SCANNED
--- NOTE | 2018-10-03 08:18 | PCM.PN.SRG ---
Patient Problems: Active and Suspected Problems Severe anemia (Acute) Subjective: Patient is tolerating clears, denies any flatus, pain controlled with pain meds, ambulating - Physical Exam Lungs: Normal air movement Abdomen: Soft, Distended - Mild, Tender - Near incision, appropriate, incisions clean dry and intact Extremities: No clubbing, No cyanosis, No edema Vital Signs Temp Pulse Resp BP Pulse Ox 97.7 F L 100 18 135/63 H 97 10/03/18 03:20 10/03/18 03:20 10/03/18 03:20 10/03/18 03:20 10/03/18 06:52 Oxygen Flow Rate (L/min) 2 Oxygen Delivery Method Nasal Cannula Weight: 170 lb 10.205 oz Body Mass Index (BMI) 30.2 Intake and Output for Last 24 Hours 10/01/18 10/02/18 10/03/18 23:59 23:59 23:59 Intake Total 5083 / 5083 4551 / 4551 250 / 250 Output Total 600 / 600 1300 / 1300 Balance 4483 / 4483 3251 / 3251 250 / 250 Laboratory Tests Past 24 Hrs 10/02/18 10/03/18 10/03/18 07:06 06:00 06:00 WBC 4.9 RBC 3.46 L Hgb 10.1 L Hct 32.1 L MCV 92.8 MCH 29.2 MCHC 31.5 L RDW 17.4 H RDW Differential 57.3 H Plt Count 218 MPV 8.9 Immature Gran % (Auto) 0.600 Neut % (Auto) 67.6 Lymph % (Auto) 18.0 L [place] % (Auto) 11.4 H Eos % (Auto) 2.0 Baso % (Auto) 0.4 Absolute Neuts (auto) 3.3 Absolute Lymphs (auto) 0.88 Total Counted Not Reportable Not Reportable Differential Comment SCANNED SCANNED Sodium 138 Potassium 3.5 Chloride 106 Carbon Dioxide 23.0 Anion Gap 9 BUN 8 Creatinine 0.69 Estim Creat Clear Calc 71.15 Est GFR (MDRD) Af Amer 113 Est GFR (MDRD) Non-Af 93 BUN/Creatinine Ratio 11.6 Glucose 79 Calcium 8.5 Medical Necessity - Tobacco Use Smoking Status: Never smoker Tobacco Use: Non-smoker Assessment/Plan All Active Problems Mass of colon (Acute) Severe anemia (Acute) 57-year-old female status post right hemicolectomy due to a tubulovillous adenoma, retroperitoneal lymphadenopathy 1. Patient is doing well tolerating clears. Await flatus then okay to advance diet 2. Continue ambulation 3. Continue pain control Myrna Fletcher M.D. Pager: [phone] [facility] [address] [place] [address], [address] [place] [id number] Office: [phone]
--- NOTE | 2018-10-03 08:21 | PCM.PN.BLA ---
Progress Note Late entry from yesterday AM. Postop 1 status post right berta-colectomy due to tubulovillous adenoma. Patient was doing well tolerated some clears pain was controlled with pain meds, no flatus. Positive ambulation, abdomen soft, nondistended, appropriately tender near incision, incision dressed clean dry and intact, no peritoneal signs Continue clears await flatus.
[2018-10-03 08:47] VITALS: BP 132/66; PULSE 113; RESP 18; TEMP 37.1; O2SAT 93
[2018-10-03] MEDS: 0.9% Normal Saline 1,000 ML 80 ML IV ×2 (08:56→21:39)
[2018-10-03] MEDS: Pantoprazole Sodium 20 MG Tablet PO ×2 (08:58→22:07)
[2018-10-03 14:45] VITALS: BP 133/68; PULSE 105; RESP 16; TEMP 36.9; O2SAT 97
[2018-10-03] MEDS: Venlafaxine XR 75 MG Capsule PO (22:07)
[2018-10-03 22:08] VITALS: BP 124/58; PULSE 109; RESP 18; TEMP 37.1; O2SAT 95
[2018-10-04 04:00] VITALS: BP 135/69; PULSE 105; RESP 16; TEMP 36.7; O2SAT 95
[2018-10-04 06:08] LABS: Absolute Lymphocyte Count 0.63 X10^3/ul (0.83-4.51); Absolute Neutrophil Count 2.4 X10^3/uL (2.0-7.7); Basophil# 0.01 X10^3/uL; Basophil% 0.3 % (0-1); Eosinophil# 0.08 X10^3/uL; Eosinophils% 2.1 % (0-5); Hematocrit 30.1 % (37-47); Hemoglobin 9.2 g/dl (12.0-15.0); Lymphocyte # 0.63 X10^3/ul (4.0); Lymphocyte % 16.6 % (19-41); Mean Corp Hgb Conc 30.6 g/gl (32-36); Mean Corpuscular Hgb 28.8 pg (27.0-32.0); Mean Corpuscular Volume 94.4 fL (81-99); Mean Platelet Vol. 8.8 fl (6.2-12.0); Monocyte# 0.62 X10^3/uL; Monocyte% 16.4 % (0-10); Neutrophil # 2.42 X10^3/uL (2.7-7.7); Neutrophil % 63.8 % (47-70); Platelet Count 210 K/mm3 (150-450); RBC Distribution Width SD 55.6 fl (35.1-43.9); Red Blood Count 3.19 M/mm3 (4.2-5.4); White Blood Count 3.8 K/mm3 (4.4-11.0)
[2018-10-04 06:14] LABS: POSITIVE COUNT NO; POSITIVE DIFFERENTIAL NO; POSITIVE MORPHOLOGY NO
[2018-10-04 06:31] VITALS: O2SAT 94
[2018-10-04 06:35] LABS: Anion Gap 10 (5-15); BUN 5 mg/dL (7-18); BUN/Creat Ratio 7.9 RATIO (10-20); Calcium,Total 8.3 mg/dL (8.5-10.1); Chloride 107 mmol/L (98-107); Creatinine, Serum 0.63 mg/dL (0.55-1.02); EST Glomerular Filtration Rate 103 mL/min (>60); Est Glom Filt Rate - Afr Amer 125 mL/min (>60); Estimated Creatinine Clearance 77.92 ml/min; Glucose 95 mg/dL (74-106); Potassium 2.9 mmol/L (3.5-5.1); Sodium Level 142 mmol/L (136-145)
--- NOTE | 2018-10-04 08:12 | PN.SURG_ITS ---
Patient Problems: Active and Suspected Problems Severe anemia (Acute) Subjective: Patient is passing flatus and she is not having any abdominal pain requiring narcotics. No nausea or vomiting and tolerating clear liquids. - Physical Exam General: Alert, Oriented x3, Cooperative Lungs: Normal air movement Cardiovascular: Regular rate, Regular Rhythm Abdomen: Soft, Non Tender, Non-Distended, - - Incisions are clean dry and intact Vital Signs Temp Pulse Resp BP Pulse Ox 98.1 F 105 H 16 135/69 H 94 10/04/18 04:00 10/04/18 04:00 10/04/18 04:00 10/04/18 04:00 10/04/18 06:31 Oxygen Flow Rate (L/min) 2 Oxygen Delivery Method Room Air Weight: 170 lb 10.205 oz Body Mass Index (BMI) 30.2 Intake and Output for Last 24 Hours 10/02/18 10/03/18 10/04/18 23:59 23:59 23:59 Intake Total 4551 / 4551 1734 / 1734 2171 / 2171 Output Total 1300 / 1300 Balance 3251 / 3251 1734 / 1734 2171 / 2171 Laboratory Tests Past 24 Hrs 10/04/18 10/04/18 05:47 05:47 WBC 3.8 L RBC 3.19 L Hgb 9.2 L Hct 30.1 L MCV 94.4 MCH 28.8 MCHC 30.6 L RDW 17.0 H RDW Differential 55.6 H Plt Count 210 MPV 8.8 Immature Gran % (Auto) 0.800 Neut % (Auto) 63.8 Lymph % (Auto) 16.6 L [place] % (Auto) 16.4 H Eos % (Auto) 2.1 Baso % (Auto) 0.3 Absolute Neuts (auto) 2.4 Absolute Lymphs (auto) 0.63 L Total Counted Not Reportable Sodium 142 Potassium 2.9 L Chloride 107 Carbon Dioxide 25.0 Anion Gap 10 BUN 5 L Creatinine 0.63 Estim Creat Clear Calc 77.92 Est GFR (MDRD) Af Amer 125 Est GFR (MDRD) Non-Af 103 BUN/Creatinine Ratio 7.9 L Glucose 95 Calcium 8.3 L Medical Necessity - Tobacco Use Smoking Status: Never smoker Tobacco Use: Non-smoker Assessment/Plan All Active Problems Mass of colon (Acute) Severe anemia (Acute) 57-year-old female status post right berta-colectomy 1. Patient is doing well today. I will advance her diet. She is okay for discharge from my standpoint. 2. Follow-up with me in 2 weeks. Okay to shower. Okay to drive as long is not taking narcotics. No lifting over 20 pounds for 4 weeks. Sam Garnica MD Pager: [facility] [address] [place] [address] [address] [place] [address] Office:
[2018-10-04] MEDS: Pantoprazole Sodium 20 MG Tablet PO (08:38)
[2018-10-04] MEDS: 0.9% Normal Saline 1,000 ML 80 ML IV (08:40)
[2018-10-04 08:46] VITALS: BP 137/68; PULSE 101; RESP 18; TEMP 36.8; O2SAT 94
--- NOTE | 2018-10-04 09:20 | PCM.DC ---
- Discharge Diagnoses Current Active Problems: Current Active and Chronic Problems Severe anemia (Acute) Iron deficiency anemia (Chronic) Reason(s) for Visit for Discharge Instructions: Anemia, status post hemicolectomy You will use the following diet at home:: Regular Your food should be the consistency of: Regular Your liquids should be the consistency of: Regular/Thin Discharge Activity: Return to Normal Activity, May Not Drive, May not drive while taking narcotic pain medications., May Shower, - - No lifting over 20 pounds for 4 weeks. Call your doctor if your incision/area has: Continuous Slow Oozing, Sudden Increased Bleeding, Increased Pain/ Swelling, Increased Redness Call your doctor if you observe: Fever of 101 or Higher, Coldness, Increased Pain, Shortness of breath, Chest pain, Uncontrolled pain Additional Instructions: Continue to advance your diet every 2 days until you are eating a regular diet. Continue wound instructions per Dr. Garnica's recommendations. Continue to take your medications. Use narcotic medications only if in severe pain. May take tylenol 500mg-1000mg up to 3x/day. Continue to remain active. Follow-up with Dr. Garnica as scheduled. You need to have a primary care doctor- choose from the list given. You will need repeat blood work to follow-up on your potassium levels. Allergies/Adverse Reactions: Allergies No Known Allergies Allergy (Verified 09/28/18 08:56) Medications to take at Discharge Iron 09/28/18 Multivitamin [Multiple Vitamins] 1 each PO 09/28/18 Venlafaxine HCl [Venlafaxine HCl ER] 75 mg PO DAILY 09/28/18 Bisacodyl [Dulcolax] 5 mg PO DAILY PRN #30 tablet 10/04/18 Ferrous Sulfate 325 mg PO BIDCM #60 tablet 10/04/18 Hydrocodone Bitart/Apap 5-325 [[place] 5/325] 1 tablet PO Q4H PRN PRN 5 Days #20 tablet 10/04/18 Pantoprazole Sodium [Protonix] 20 mg PO BID #60 tablet 10/04/18 Senna/Docusate Sodium [Senokot-S] 1 tablet PO BID PRN #60 tablet 10/04/18 The following prescriptions were given: Hydrocodone Bitart/Apap 5-325 [[place] 5/325] 1 tablet PO Q4H PRN PRN 5 Days #20 tablet PRN Reason: Severe Pain (6-10) Bisacodyl [Dulcolax] 5 mg PO DAILY PRN #30 tablet PRN Reason: Constipation Ferrous Sulfate 325 mg PO BIDCM #60 tablet Pantoprazole Sodium [Protonix] 20 mg PO BID #60 tablet Senna/Docusate Sodium [Senokot-S] 1 tablet PO BID PRN #60 tablet PRN Reason: Constipation Orders to be completed after discharge: Basic Metabolic Profile (BMP) Time Frame: 3 Days, Location: Laboratory Basic Metabolic Profile (BMP) Time Frame: 2 Weeks, Location: Laboratory CBC W/Diff, Automated Time Frame: 2 Weeks, Location: Laboratory Primary Care Physician: Care Physician,No Primary [Primary Care Provider] - Please follow up with your Primary Care Physician in: within 1-2 weeks; choose from list given Test Results: Test results from this visit will be discussed in further detail at your follow-up appointment, if applicable. Please Follow Up With: Sam Garnica MD When: within 2 weeks; call for appointment Proposed Discharge Date: 10/04/18
--- NOTE | 2018-10-04 09:31 | PCM.DC.SUM ---
Discharge Date and Diagnosis - Problem List Patient Problems: Active and Suspected Problems Severe anemia (Acute) Date of Admission: 09/28/18 Date of Discharge: 10/04/18 - Primary Discharge Diagnosis Active and Suspected Problems Severe anemia (Acute) Tubulovillous adenoma Status post hemicolectomy - Secondary Discharge Diagnosis Chronic Problems Iron deficiency anemia (Chronic) GERD Obesity Hospital Course and Treatment Imaging Results: Clinical Impression(s) from Imaging Studies Abdomen/Pelvis CT 09/30/18 09:19 IMPRESSION: Wall thickening of the right colon consistent with described mass. No obstruction. Retroperitoneal lymphadenopathy. Hepatosplenomegaly. Cholelithiasis. No biliary dilatation. Free fluid. There are pleural effusions and lower lung consolidation.. Electronically Signed: Yogesh Ervin MD at 14:50 EST , Service support , General surgery Oncology Operations: - - Laparoscopic right hemicolectomy Summary of Care Provided: The patient is a 57 year old F past medical history of iron deficiency anemia, on oral supplement who comes in with complaints of progressively worsening fatigue and weakness. Patient denied any recent hematuria, hemoptysis, dark stools or bright red bleeding per rectum. Her hemoglobin in the emergency room was 3.1. Her globulin level was elevated on admission also. She was transfused with 6 units of packed RBCs. Was consulted. Patient was managed initially in ICU. Had an EGD and colonoscopy done. Findings show small gastric polyps. There was a large right colonic mass. CT scan of the abdomen showed a colonic mass in the distal ascending colon. She had retroperitoneal lymph adenopathy as well as hepatosplenomegaly. Patient underwent a laparoscopic right hemicolectomy on 10/01/18. Pathology showed a tubulovillous adenoma. 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 Oncology was consulted. Patient will follow up with them in the outpatient in 2 weeks possible bone marrow biopsy. Patient was found to be hypokalemic on day of discharge, potassium was replaced, she would need to follow-up on [facility] within 3 days. She will follow-up with general surgery in 2 weeks Patient Problems: Active and Suspected Problems Severe anemia (Acute) Subjective: On the day of discharge, patient denied any pain. Denied any fever or chills. No diarrhea or nausea or vomiting. - Physical Exam General: Alert, Oriented x3, Cooperative, No apparent distress HEENT: Atraumatic, PERRLA, EOMI, Normocephalic Oral: Moist Mucosa Neck: Supple, No JVD, Negative Carotid Bruits Lungs: Clear to auscultation, Normal air movement Cardiovascular: Regular rate, Regular Rhythm, Normal S1, Normal S2, No murmurs Abdomen: Bowel Sounds Present, Soft, Non-Distended, No Hepato-splenomegaly, Tender - antoinette-incisional area, midline incision with mild erythema, no discharge, steri-strips in situ Extremities: No edema Skin: No rashes, No breakdown Musculoskeletal: No Tenderness to Palpation of Joints or Extremities Lymphatic: No Cervical, Supraclavicular, or Inguinal Adenopathy Neurological: Cranial nerves II-XII grossly intact, Neuro grossly intact Psych/Mental Status: Normal Affect, Appropriate Vital Signs Temp Pulse Resp BP Pulse Ox 98.2 F 101 H 18 137/68 H 94 10/04/18 08:46 10/04/18 08:46 10/04/18 08:46 10/04/18 08:46 10/04/18 08:46 Oxygen Flow Rate (L/min) 2 Oxygen Delivery Method Room Air Weight: 77.4 kg Body Mass Index (BMI) 30.2 Intake and Output for Last 24 Hours 10/02/18 10/03/18 10/04/18 23:59 23:59 23:59 Intake Total 4551 / 4551 1734 / 1734 2171 / 2171 Output Total 1300 / 1300 Balance 3251 / 3251 1734 / 1734 2171 / 2171 Laboratory Tests Past 24 Hrs 10/04/18 10/04/18 05:47 05:47 WBC 3.8 L RBC 3.19 L Hgb 9.2 L Hct 30.1 L MCV 94.4 MCH 28.8 MCHC 30.6 L RDW 17.0 H RDW Differential 55.6 H Plt Count 210 MPV 8.8 Immature Gran % (Auto) 0.800 Neut % (Auto) 63.8 Lymph % (Auto) 16.6 L [place] % (Auto) 16.4 H Eos % (Auto) 2.1 Baso % (Auto) 0.3 Absolute Neuts (auto) 2.4 Absolute Lymphs (auto) 0.63 L Total Counted Not Reportable Sodium 142 Potassium 2.9 L Chloride 107 Carbon Dioxide 25.0 Anion Gap 10 BUN 5 L Creatinine 0.63 Estim Creat Clear Calc 77.92 Est GFR (MDRD) Af Amer 125 Est GFR (MDRD) Non-Af 103 BUN/Creatinine Ratio 7.9 L Glucose 95 Calcium 8.3 L Discharge Diet: No Restrictions Discharge Activity: Return to Normal Activity, May Not Drive, May not drive while taking narcotic pain medications., May Shower, - - No lifting over 20 pounds for 4 weeks. Call your doctor if your incision/area has: Continuous Slow Oozing, Sudden Increased Bleeding, Increased Pain/ Swelling, Increased Redness Call your doctor if you observe: Fever of 101 or Higher, Coldness, Increased Pain, Shortness of breath, Chest pain, Uncontrolled pain Home Medications: Medications to take at Discharge Iron 09/28/18 Multivitamin [Multiple Vitamins] 1 each PO 09/28/18 Venlafaxine HCl [Venlafaxine HCl ER] 75 mg PO DAILY 09/28/18 Bisacodyl [Dulcolax] 5 mg PO DAILY PRN #30 tablet 10/04/18 Ferrous Sulfate 325 mg PO BIDCM #60 tablet 10/04/18 Hydrocodone Bitart/Apap 5-325 [[place] 5/325] 1 tablet PO Q4H PRN PRN 5 Days #20 tablet 10/04/18 Pantoprazole Sodium [Protonix] 20 mg PO BID #60 tablet 10/04/18 Senna/Docusate Sodium [Senokot-S] 1 tablet PO BID PRN #60 tablet 10/04/18 Following Prescrptions Were Given to Patient: Hydrocodone Bitart/Apap 5-325 [[place] 5/325] 1 tablet PO Q4H PRN PRN 5 Days #20 tablet PRN Reason: Severe Pain (-08/04) Bisacodyl [Dulcolax] 5 mg PO DAILY PRN #30 tablet PRN Reason: Constipation Ferrous Sulfate 325 mg PO BIDCM #60 tablet Pantoprazole Sodium [Protonix] 20 mg PO BID #60 tablet Senna/Docusate Sodium [Senokot-S] 1 tablet PO BID PRN #60 tablet PRN Reason: Constipation Other Amb Orders: Basic Metabolic Profile (BMP) Time Frame: 3 Days, Location: Laboratory Basic Metabolic Profile (BMP) Time Frame: 2 Weeks, Location: Laboratory CBC W/Diff, Automated Time Frame: 2 Weeks, Location: Laboratory Primary Care Physician: Care Physician,No Primary [Primary Care Provider] - Please follow up with your Primary Care Physician in: within 1-2 weeks; choose from list given Please Follow Up With: Sam Garnica MD When: within 2 weeks; call for appointment Disposition: Home Minutes spent on discharge:: 40 Patient Condition:: Stable Medical Necessity - Tobacco Use Smoking Status: Never smoker Tobacco Use: Non-smoker Meaningful Use Info Meaningful Use Diagnoses (Choose all that apply): None applicable Code Visit Inpatient E&M: 27665 Disch Hosp
--- NOTE | 2018-10-04 11:02 | ONC.PN.INPT ---
- Problem List (1) Splenomegaly Status: Acute (2) Macroglobulinemia of [place] Status: Acute (3) Mass of colon Status: Acute (4) Severe anemia Status: Acute (5) Iron deficiency anemia Status: Chronic Qualifiers: Iron deficiency anemia type: unspecified iron deficiency Qualified Code(s): D50.9 - Iron deficiency anemia, unspecified Subjective Date of Service:: 10/04/18 Anemia Patient presented with severe symptomatic anemia, hemoglobin 3 g/dl and was started on oral iron prior to admission for a diagnosis of iron deficiency anemia. Workup in the hospital revealed: 1. Colonoscopy revealed a large right colon mass, biopsy showed tubulovillous adenoma. Patient underwent right hemicolectomy October 01, 2018 pathology is pending. 2. No laboratory evidence for hemolysis and iron studies (on oral iron replacement started prior to admission) showed no evidence of residual iron deficiency. 3. SPEP SPIF revealed an IgM monoclonal protein with an M spike of 2.6 g /DL. #4 CT abdomen revealed splenomegaly and retroperitoneal lymphadenopathy. Past Medical History: Chronic Problems Iron deficiency anemia (Chronic) Past Medical History - Most Recent Inpatient Visit Past Medical History Start: 09/28/18 10:25 Text: Status: Complete Freq: ONCE Protocol: Document 09/28/18 10:25 LW (Rec: 09/28/18 10:46 LW [id number]) BMI Required to complete PMH What is Patient's BMI 28.3 Neurologic Medical History Hx Stroke/TIA No Hx Dementia/Alzheimer's No Hx Parkinson's Disease No Hx Seizures No Hx Multiple Sclerosis No Hx Migraines No Cardiac Medical History VTE Present on Admission No Hx of Deep Vein Thrombosis/VTE/PE No Hx Hypertension No Hx Chest Pain/Angina No Hx Heart Attack No Hx Cardiac Surgery/Stents/Etc. No Hx Heart Failure No Hx Pacemaker/AICD No Hx Irregular Heartbeat and/or Afib No Hx Anticoagulant Therapy No Query Text:(Coumadin, Aspirin, Plavix, Xarelto, etc.) Hx Pain in Legs when Walking/Leg Cramps No Respiratory Medical History Hx COPD No Hx Emphysema No Hx Smoking No Smoking Status Never smoker Hx Smoking Exposure No Hx Tobacco Use in last 12 months Yes Sent to [facility] Yes Hx Sleep Apnea No Do you snore loudly (louder than talking No or can be heard through closed doors)? Do you often feel tired/ fatigued/ No sleepy during daytime? Has anyone observed you stop breathing No during sleep? STOP Results Negative GI Medical History Hx Ulcer No Hx Hepatitis No Hx Cirrhosis No Hx GI Bleed No Hx Unplanned Weight Loss No Genitourinary Medical History Indwelling Catheter in Place on Arrival/ No Admission Hx Renal Disease No Hx Dialysis No Musculoskeletal History Hx Arthritis No Hx Rheumatoid Arthritis No Endocrine Medical History Hx Diabetes No Hx Thyroid Disease No Hematologic Medical History Hx of Blood Transfusion No Hx of Transfusion in last 3 Months No Ever experience any problems with No transfusion(s)? Hx of Preganancy in last 3 Months No Nurse Filling Out Transfusion & LWOHLFORD Questions: Date: 09/28/18 Time: 10:41 Psycho/Social Medical History Hx Depression No Hx Anxiety No Hx Behavior Disorder No Hx Alcohol Use No Hx Substance Use No Other Medical History Hx Blood Disorders No Hx Anemia Yes Hx Cancer No Hx Drug Resistant Organism No Wound/Pressure Injury Present on Arrival No /Admission Query Text:If yes, chart assessment in Shift/Clinical Findings Central Line/PICC/VAD Present on Arrival No /Admission Antibiotics within last 7 days? No Methicillin Resistant Staphylococcus aureus Screening Active MRSA No Risk for Readmission Number of Risk Factors 1 At Risk for Readmission Patient is Not at Risk Patient is eligible for Call Back N Maternal Family History: - - She denies any marked maternal or paternal family history including heart disease, diabetes, cancer. Paternal Family History: - - She denies any marked maternal or paternal family history including heart disease, diabetes, cancer. - Social History Lives: With Family - Patient lives with her daughter and granddaughter whom she helps care for. Smoking Status: Never smoker Tobacco Use: Non-smoker Alcohol: None Drugs: None Review of Systems Constitutional:: Reports: Weakness, Fatigue - Much improved after blood transfusion Cardiovascular:: Reports: Dyspnea on exertion - Much improved after blood transfusion. Denies: Chest pain, Palpitations, Orthopnea, PND, Shortness of breath Respiratory: Reports: Shortness of breath upon exertion. Denies: Cough, Hemoptysis, Shortness of Breath, Wheezing Gastrointestinal:: Reports: Abdominal pain - As expected from recent abdominal surgery Skin: Denies: Rash, Skin Changes, Wounds Vital Signs Height 5 ft 2.99 in Weight: 77.4 kg Weight in Pounds 170.6 lbs Pulse Ox 94 Temperature 98.2 F Pulse Rate [Bilateral Radial] 112 Pulse Rate 101 Respiratory Rate 18 Blood Pressure [BP] 126/66 Blood Pressure [Right Arm] 110/57 Blood Pressure 137/68 Blood Pressure Position [BP] Semi-Fowlers Blood Pressure Position Semi-Fowlers - Physical Exam General: Alert, Oriented x3, No apparent distress, - - Overweight ECOG 1-2 Laboratory Data: Laboratory Tests 10/04/18 10/04/18 Range/Units 05:47 05:47 WBC 3.8 L (4.4-11.0) K/mm3 RBC 3.19 L (4.2-5.4) M/mm3 Hgb 9.2 L (12.0-15.0) g/dl Hct 30.1 L (37-47) % MCV 94.4 (81-99) fL MCH 28.8 (27.0-32.0) pg MCHC 30.6 L (32-36) g/gl RDW 17.0 H (11.6-14.6) % RDW Differential 55.6 H (35.1-43.9) fl Plt Count 210 (150-450) K/mm3 MPV 8.8 (6.2-12.0) fl Immature Gran % (Auto) 0.800 (0.0-0.9) % Neut % (Auto) 63.8 (47-70) % Lymph % (Auto) 16.6 L (19-41) % [place] % (Auto) 16.4 H (0-10) % Eos % (Auto) 2.1 (0-5) % Baso % (Auto) 0.3 (0-1) % Absolute Neuts (auto) 2.4 (2.0-7.7) X10^3/uL Absolute Lymphs (auto) 0.63 L (0.83-4.51) X10^3/ul Total Counted Not Reportable Sodium 142 (136-145) mmol/L Potassium 2.9 L (3.5-5.1) mmol/L Chloride 107 (98-107) mmol/L Carbon Dioxide 25.0 (21.0-32.0) mmol/L Anion Gap 10 (5-15) BUN 5 L (7-18) mg/dL Creatinine 0.63 (0.55-1.02) mg/dL Estim Creat Clear Calc 77.92 ml/min Est GFR (MDRD) Af Amer 125 (>60) mL/min Est GFR (MDRD) Non-Af 103 (>60) mL/min BUN/Creatinine Ratio 7.9 L (10-20) RATIO Glucose 95 (74-106) mg/dL Calcium 8.3 L (8.5-10.1) mg/dL Diagnostic Data: Diagnostic Data Abdomen/Pelvis CT 09/30/18 09:19 IMPRESSION: Wall thickening of the right colon consistent with described mass. No obstruction. Retroperitoneal lymphadenopathy. Hepatosplenomegaly. Cholelithiasis. No biliary dilatation. Free fluid. There are pleural effusions and lower lung consolidation.. Electronically Signed: Yogesh Ervin MD at 14:50 EST , Service support , Assessment and Plan 57-year-old female who presented with severe symptomatic anemia and found to have: 1. A large premalignant (at least) tubulovillous adenoma (as per biopsy) of the right colon status post right hemicolectomy October 01, 2018, final pathology on the resection is pending. 2. 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 Patient needs a bone marrow biopsy. She is still too sensitive to lay down in the left lateral position or a prone position from her recent surgery for a CT guided bone marrow biopsy and therefore this will be scheduled in an outpatient in approximately 2 weeks from now. 3. Severe anemia probably due to bone marrow involvement with lymphoplasmacytic lymphoma and treated iron deficiency anemia. Patient has been transfused and was instructed to continue with oral iron supplement 1 tablet daily at least 3 months. Patient was seen impression and plan discussed Medications: Prescriptions This Visit Medication Instructions Recorded Iron 09/28/18 Multivitamin [Multiple Vitamins] 1 each PO 09/28/18 Venlafaxine HCl [Venlafaxine HCl 75 mg PO DAILY 09/28/18 ER] Bisacodyl [Dulcolax] 5 mg PO DAILY PRN #30 tablet 10/04/18 Ferrous Sulfate 325 mg PO BIDCM #60 tablet 10/04/18 Hydrocodone Bitart/Apap 5-325 1 tablet PO Q4H PRN PRN 5 Days #20 10/04/18 [[place] 5/325] tablet Pantoprazole Sodium [Protonix] 20 mg PO BID #60 tablet 10/04/18 Senna/Docusate Sodium [Senokot-S] 1 tablet PO BID PRN #60 tablet 10/04/18 Medications Added to Medication List This Visit Category Date Time Status Potassium Chloride IVPB [KCl 10Meq/100Ml] Med 10/04/18 08:00 Active 10 meq in 100 ml IV BOLUS Q1H Primary Care Provider: No Primary Care Phys Referring Provider:
[2018-10-04 12:28] VITALS: BP 127/65; PULSE 99; RESP 18; TEMP 36.9; O2SAT 97
== END 2018-10-04 12:50 | disposition home or self-care (01) | DRG 950 ==
LOC: ED 09:38 → ICU 10:08 → MS2 09-29 10:58 → MS3 10-01 17:36
PROVIDERS: Anesthesiology; Internal Medicine Critical Care Medicine; Nurse Practitioner Family; Surgery; Admitting Provider Family Medicine; Emergency Provider Emergency Medicine; Visit Provider Internal Medicine
PROC: 0DJD8ZZ Inspection of Lower Intestinal Tract, Via Natural or Artificial Opening Endoscopic (ICD-10-PCS; CPT 45378; principal; 2018-09-30 07:55)
PROC: 0DTF4ZZ Resection of Right Large Intestine, Percutaneous Endoscopic Approach (ICD-10-PCS; CPT 44205; principal; 2018-10-01 09:10)
DX: D64.9 Anemia, unspecified (principal); K21.9 Gastro-esophageal reflux disease without esophagitis; E66.9 Obesity, unspecified; K31.7 Polyp of stomach and duodenum; D12.2 Benign neoplasm of ascending colon; K63.5 Polyp of colon; Z68.30 Body mass index [BMI] 30.0-30.9, adult; E87.6 Hypokalemia
CPT/HCPCS: 36415; 74177; 80048; 80053; 82274; 82378; 82607; 82728; 82746; 82784; 83010; 83540; 83550; 83615; 83735; 83883; 84165; 85014; 85018; 85025; 85045; 85610; 85730; 86334; 86850; 86880; 86900; 86920; 86922; 88305; 88307; 88309; 88331; 88341; 88342; 93005; 97802; 99285; 99406; J7030; J7040; P9016; Q9967; A4216; A4648; C1760; J2405

== ENCOUNTER → 2018-10-15 15:15 | Outpatient (CLI) | payer MEDICAID, SELFPAY ==
[2018-10-07 12:05] VITALS: BMI 30.2
== END ==
PROVIDERS: Referring Provider Surgery; Visit Provider Surgery
DX: T81.49XA Infection following a procedure, other surgical site, initial encounter (principal)
CPT/HCPCS: 87070; 87075; 87205

== ENCOUNTER → 2018-10-18 09:28 | Outpatient (CLI) | payer MEDICAID, SELFPAY ==
[2018-10-07 12:05] VITALS: BMI 30.2
[2018-10-18 09:54] LABS: Absolute Lymphocyte Count 1.28 X10^3/ul (0.83-4.51); Absolute Neutrophil Count 3.6 X10^3/uL (2.0-7.7); Basophil# 0.04 X10^3/uL; Basophil% 0.7 % (0-1); Eosinophil# 0.17 X10^3/uL; Eosinophils% 2.8 % (0-5); Hemoglobin 9.6 g/dl (12.0-15.0); Lymphocyte # 1.28 X10^3/ul (4.0); Lymphocyte % 21.2 % (19-41); Mean Corpuscular Hgb 28.8 pg (27.0-32.0); Mean Corpuscular Volume 93.1 fL (81-99); Mean Platelet Vol. 8.3 fl (6.2-12.0); Monocyte# 0.92 X10^3/uL; Monocyte% 15.2 % (0-10); Neutrophil # 3.56 X10^3/uL (2.7-7.7); Neutrophil % 58.9 % (47-70); Platelet Count 386 K/mm3 (150-450); RBC Distribution Width CV 15.8 % (11.6-14.6); RBC Distribution Width SD 53.3 fl (35.1-43.9); Red Blood Count 3.33 M/mm3 (4.2-5.4)
[2018-10-18 09:56] LABS: POSITIVE COUNT NO; POSITIVE DIFFERENTIAL NO; POSITIVE MORPHOLOGY YES
[2018-10-18 09:57] LABS: Differential Indicated SCAN CRITERIA MET
[2018-10-18 10:25] LABS: Anion Gap 10 (5-15); BUN 14 mg/dL (7-18); BUN/Creat Ratio 13.3 RATIO (10-20); Calcium,Total 9.5 mg/dL (8.5-10.1); Chloride 100 mmol/L (98-107); Creatinine, Serum 1.05 mg/dL (0.55-1.02); EST Glomerular Filtration Rate 57 mL/min (>60); Est Glom Filt Rate - Afr Amer 69 mL/min (>60); Glucose 120 mg/dL (74-106); Potassium 4.1 mmol/L (3.5-5.1); Sodium Level 139 mmol/L (136-145)
[2018-10-18 17:41] LABS: Xtra Tube EP Lab EXTRA TUBE
== END ==
PROVIDERS: Referring Provider Internal Medicine; Visit Provider Internal Medicine
DX: D50.9 Iron deficiency anemia, unspecified (principal); E87.6 Hypokalemia
CPT/HCPCS: 36415; 80048; 85025

== ENCOUNTER → 2018-10-29 08:40 | Outpatient (CLI) | payer MEDICAID, SELFPAY ==
[2018-10-07 12:05] VITALS: BMI 30.2
[2018-10-29] VITALS (10 sets, daily range): BP systolic 98–115; BP diastolic 34–72; PULSE 97–113; RESP 12–20; O2SAT 95–100; BMI 27.4
--- NOTE | 2018-10-29 | BMB_PTH ---
PATIENT: TRELL DENT LOC: CT U#:[id number] AGE/SX: 64/F ROOM: RE10/29/[address]: Dr. Montana Diaz MD : [id number] BED: DIS: SPEC #: [id number] RECD: 10/29/18 11:22 STATUS: JAMEHardeep REGlenn #: [id number] DANIELA: 10/29/18 00:[address]: Montana Diaz DEPT: BONE MARROW RECD BY: William Desai ENTERED: 10/29/18 11:22 SP TYPE: BMB OT DR: No Primary Care Phys Tissues: A - Bone marrow, NOS B - Bone marrow, NOS C - Bone marrow, NOS Procedures: Decalcification bone/plaque Bone Marrow Aspiration Special Stain Group II PAS Stain (control) Retic (control) Iron Stain (control) [place] Stain (control) Bone Marrow Core Biopsy Iron Stain Bone Marrow HEADER OPERATION: Bone marrow biopsy and aspiration PRE-OP DIAGNOSIS: 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 Bone marrow biopsy, right hip: Atypical lymphocytic population consistent with low-grade B-cell lymphoproliferative disorder. See comment. B. Bone marrow biopsy, right hip, aspiration: Mostly blood with rare maturing bone marrow elements. C. Bone marrow biopsy, right hip, aspiration: Markedly hemodilute specimen, aspicular with scattered maturing bone marrow elements. AM:kateryna 11/03/18 COMMENT Sections show a minute fragment of hypercellular bone marrow (80-90%). Immunohistochemistry ([id number]) reveals a significant population of cells staining for CD45, CD20, CD79a and BCL-2. BCL-6 is negative. MUM1 is positive in a small minority (10%) of the cells. CD23 shows focal positivity. CD138 shows scattered plasma cells but no definite collection of plasma cells is seen. CD15 and CD30 are negative. 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 A typical phenotype for CLL/SLL, mantle cell lymphoma or follicular center cell lymphoma is not detected. The peripheral smear is reviewed as is as reported. Flow cytometry analysis reveals rare dim/partial CD5 positive, CD10 negative, clonal B cell population which is consistent with a monoclonal B cell population of nonspecific phenotype. The complete flow cytometry analysis report is viewable in patient's EMR. Reticulin stain with matched control reveals increased reticulin fibers. Iron stain with matched control reveals the presence of stainable iron. PAS stain with matched control supports the above diagnosis. Reference is made to the patient's right colectomy ([id number]) in which lymph nodes contain lymphoproliferative disorder consistent with non-Hodgkin's B-cell lymphoma, low grade lymphoma. Case has been reviewed in consultation with Dr. Brooks who concurs with the above diagnosis. IDC:JACINTA BONE MARROW STUDY Slides are reviewed. BONE MARROW GROSS A - Received is a container labeled with the patient's name and designated bone marrow right hip. The specimen consists of multiple fragments of blood clot mixed with minute fragments of bone measuring in aggregate 1 x 0.5 x 0.1 cm. The specimen is totally submitted in one cassette after decalcification. B - Received labeled with the patient's name and designated bone marrow right hip is a specimen that consists of approximately 5 cc of bloody fluid that is submitted for cell block preparation. C - Also received are 16 unstained and 1 peripheral stained slides. The unstained slides are submitted for appropriate staining. Also received are two green top tubes which are sent to our reference lab for flow and cytogenetics. / JACINTA:kateryna 10/29/18 TC:? CPT: 90198, 33725, 11653 x2, 75295 x3, 19966 ADDENDUM ADDENDUM ADDENDUM ADDENDUM ADDENDUM ADDENDUM ADDENDUM ADDENDUM ADDENDUM 11/10/2018 14:11 ADDENDUM 11/10/2018 14:11 ADDENDUM 11/10/2018 14:11 ADDENDUM 11/10/2018 14:11 ADDENDUM 11/10/2018 14:11 CYTOGENETICS REPORT FROM [facility] CYTOGENETIC RESULT: [id number]] INTERPRETATION: Normal female karyotype was observed in twenty metaphases analyzed. Please see complete report in e-chart or EMR for further details
--- NOTE | 2018-10-29 | IMM_PTH ---
PATIENT: TRELL DENT LOC: CT U#:[id number] AGE/SX: 64/F ROOM: RE10/29/[address]: Dr. Montana Diaz MD : 1960 BED: DIS: SPEC #: [id number] RECD: 11/01/18 10:27 STATUS: WALTER REQ #: [id number] DANIELA: 10/29/18 00:[address]: Montana Diaz DEPT: IMMUNOHISTOCHEMISTRY RECD BY: Maia Arnold ENTERED: 11/01/18 10:31 SP TYPE: IMMUNO OTHR DR: No Primary Care Phys Tissues: A - Bone marrow of iliac crest Procedures: BCL-2 (add) BCL-6 (add) CD10 (add) CD138 (add) CD15 (add) CD20 (add) CD23 (add) CD30 (add) CD43 (add) CD45 (add) CD5 (add) CD79A (add) CYCLIN (add) KAPPA (add) KI-67 (add) LAMBDA (add) MUM1 (add) C-MYC (add) CD3 (initial) PHYSICIAN & [place] [id number] SPECIMEN INFORMATION: Tissue Source: A - Bone marrow core Clinical Info: 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 Localization is made via biotin free immunoperoxidase method. Appropriate controls are performed and reacted as expected. Results on target cell population are indicated in the following table: RESULTS: ANTIBODY / CLONE RESULT Block A CD3 (PS1) positive CD5 (SP10) positive CD10 (56C6) negative CD15 (MMA) negative CD20 (L26) positive CD23 (1B12) negative, focal CD30 ([place]-H2) negative CD43 (L60) positive CD45 (RP2/18) positive CD79a (11E3) positive CD138 (B-A38) negative BCL-2 (bcl-2/100/D5) positive, focal BCL-6 (WN810N/A8) negative [place] D1/BCL-1 (SP4) negative MUM1 (MRQ-43) positive, 10% [place] (polyclonal) negative Lambda (polyclonal) negative C-MYC (Y69) negative Ki-67 (30-9) positive These tests were developed and their performance characteristics determined by [facility]. They may not have been cleared or approved by the U.S. Food and Drug Administration. The FDA has determined that such clearance or approval is not necessary. INTERPRETATION: A. 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 AM:kateryna 11/03/18 Comment: Please see previous surgical specimen [id number] / [id number]. Case has been reviewed in consultation with Dr. Brooks who concurs with the above diagnosis. IDC:[id number]
--- NOTE | 2018-10-29 08:53 | CT_ITS ---
PROCEDURE: CT GUIDED BONE marrow biopsy of the right posterior iliac bone. DATE: October 29, 2018 INDICATION: Female, 57 years old. History of lymphoma. PHYSICIAN: Dung Meek M.D. RADIATION DOSAGE (If Supplied By Facility): CTDIvol = ( 15 ) mGy, DLP = ( 360.31 ) mGycm. Individualized dose optimization techniques were utilized. PROCEDURE: The risks, benefits, and alternatives to the procedure were explained to the patient. The specific risk of hemorrhage requiring further treatment or intervention was detailed and accepted. Follow-up instructions were discussed with the patient as well. Written informed consent was obtained. The patient was brought into the CT suite and placed in the prone position. . An appropriate entry site was identified. The overlying skin was prepped and draped in the usual sterile fashion. 1% lidocaine was administered subcutaneously for local anesthesia. Conscious sedation protocol was performed. Conscious sedation was started at 10:03 AM and terminated at 10:23 AM. The patient received 2 mg of Versed and 50 mcg of fentanyl intravenously. The patient was monitored by the department nurse. Under CT guidance, a a bone marrow aspirate and bone marrow biopsy of the posterior aspect of the right iliac bone was performed. The specimens were then placed in the appropriate fluid and transported to the laboratory for analysis. Hemostasis was obtained. The patient tolerated the procedure well without immediate complications. CT/Biopsy/Inj or Needle Placement IMPRESSION: Successful CT guided bone marrow biopsy, as described above. The patient tolerated the procedure well. Electronically Signed: Dung Meek MD at 10:49 EST Tel [phone], Service support ,
[2018-10-29 09:00] LABS: Absolute Lymphocyte Count 1.18 X10^3/ul (0.83-4.51); Basophil# 0.03 X10^3/uL; Basophil% 0.6 % (0-1); Differential Indicated SCAN CRITERIA MET; Eosinophil# 0.09 X10^3/uL; Eosinophils% 1.8 % (0-5); Hematocrit 26.4 % (37-47); Hemoglobin 8.1 g/dl (12.0-15.0); Lymphocyte # 1.18 X10^3/ul (4.0); Lymphocyte % 23.2 % (19-41); Mean Corp Hgb Conc 30.7 g/gl (32-36); Mean Corpuscular Hgb 28.7 pg (27.0-32.0); Mean Corpuscular Volume 93.6 fL (81-99); Mean Platelet Vol. 8.2 fl (6.2-12.0); Monocyte# 0.71 X10^3/uL; POSITIVE COUNT NO; POSITIVE DIFFERENTIAL NO; POSITIVE MORPHOLOGY YES; Platelet Count 332 K/mm3 (150-450); RBC Distribution Width CV 16.8 % (11.6-14.6); RBC Distribution Width SD 57.1 fl (35.1-43.9); Red Blood Count 2.82 M/mm3 (4.2-5.4); White Blood Count 5.1 K/mm3 (4.4-11.0)
[2018-10-29 09:14] LABS: ALB/GLOB Ratio 0.3 RATIO (0.9-2.4); AST(SGOT) 15 U/L (15-37); Alanine Aminotransfer ALT/SGPT 20 U/L (13-56); Albumin, Serum 2.3 g/dL (3.2-5.0); Alkaline Phosphatase 187 U/L (45-117); Anion Gap 8 (5-15); BUN 13 mg/dL (7-18); BUN/Creat Ratio 14.4 RATIO (10-20); Chloride 103 mmol/L (98-107); EST Glomerular Filtration Rate 68 mL/min (>60); Est Glom Filt Rate - Afr Amer 83 mL/min (>60); Globulin 6.7 g/dL (2.2-4.2); Glucose 111 mg/dL (74-106); Potassium 3.5 mmol/L (3.5-5.1); Sodium Level 139 mmol/L (136-145)
[2018-10-29] MEDS: fentaNYL 100 MCG/2 ML Ampul IV (10:02)
[2018-10-29] MEDS: Midazolam 2 MG/2 ML Syringe IV (10:03)
[2018-10-30 16:11] LABS: HEPATITIS B SURFACE AG Negative (Negative); Hepatitis B Core AB IgM Negative (Negative); Hepatitis B Core Ab Total Negative (Negative); Hepatitis Be Ab Negative (Negative); Hepatitis Be Ag Negative (Negative); Hepatitis C Ab <0.1 s/co ratio (0.0-0.9)
[2018-11-01 08:15] LABS: Hep B Surface Antibodies Non Reactive (.)
[2018-11-01 14:06] LABS: Albumin 2.9 g/dL (2.9-4.4); Alpha-1-Globulins 0.5 g/dL (0.0-0.4); Alpha-2-Globulins 1.2 g/dL (0.4-1.0); PROEL- TOTAL PROTEIN 8.3 g/dL (6.0-8.5)
[2018-11-01 16:21] LABS: Immunoglobulin A 8 mg/dL (87-352); Immunoglobulin G 219 mg/dL (700-1600); Immunoglobulin M 4347 mg/dL (26-217)
== END ==
PROVIDERS: Referring Provider Internal Medicine Hematology & Oncology; Visit Provider Internal Medicine Hematology & Oncology
DX: C85.90 Non-Hodgkin lymphoma, unspecified, unspecified site (principal); C88.0 Waldenstrom macroglobulinemia; D50.9 Iron deficiency anemia, unspecified; R16.1 Splenomegaly, not elsewhere classified
CPT/HCPCS: 38221; 36415; 77012; 80053; 82784; 84165; 85025; 86334; 86704; 86705; 86706; 86707; 86803; 87340; 87350; 88305; 88311; 88313; 88341; 88342; 99156; 99157; J7040; A4216

== ENCOUNTER 2018-11-10 08:35 | Day surgery (SDC) | payer MEDICAID, SELFPAY ==
[2018-11-08 13:38] VITALS: BMI 27.8
[2018-11-10 08:55] VITALS: BP 103/60; PULSE 125; RESP 16; TEMP 37.2; O2SAT 100; BMI 28.0
--- NOTE | 2018-11-10 09:49 | PCM.HP.STD ---
Problem List (1) Encounter for adjustment or management of vascular access device Status: Acute (2) Lymphoma Status: Acute Qualifiers: Lymphoma type: unspecified type Lymphoma site: unspecified region Qualified Code(s): C85.90 - Non-Hodgkin lymphoma, unspecified, unspecified site History of Present Illness Date of Admission: 11/10/18 Chief Complaint: Need for vascular access for chemotherapy The patient is a 57 year old F who is here for vascular access port placement. The patient has lymphoma and is requiring chemotherapy. Past Medical History Past Medical History (Chronic Problems): Chronic Problems (Last Reviewed 11/08/18 @ 13:53 by Radha Black) Iron deficiency anemia (Chronic) Medical History: Medical History (Last Reviewed 11/08/18 @ 13:53 by Radha Black) Lymphoma (Acute) C85.90 Mass of colon (Resolved) K63.9 Large villous adenoma, status post right hemicolectomy September 2018 Macroglobulinemia of Waldenstrom (Acute) C88.0 Splenomegaly (Acute) R16.1 Anemia D64.9 Allergies No Known Allergies Allergy (Verified 11/09/18 15:24) Home Medications: Ambulatory Orders Medication Instructions Recorded Multivitamin [Multiple Vitamins] 1 ea PO DAILY 09/28/18 Venlafaxine HCl [Venlafaxine HCl 75 mg PO DAILY 09/28/18 ER] Pantoprazole Sodium [Protonix] 20 mg PO BID #60 tab 10/04/18 Ferrous Sulfate 325 mg PO DAILY 10/07/18 Surgical History: Surgical History (Last Reviewed 11/08/18 @ 13:53 by Radha Black) History of section Z98.891 S/P right hemicolectomy Z90.49 Surgical History: - - x2. Right hemicolectomy Psychiatric History: No pertinent psych hx DIP BRAZIER History: No pertinent DIP BRAZIER history Smoking Status: Never smoker - *Family History Maternal Family History: Family History (Last Updated 11/08/18 @ 13:55 by Radha Black) Other no prevalent family history History Items: - Paternal Family History: Family History (Last Updated 11/08/18 @ 13:55 by Radha Black) Other no prevalent family history History Items: - Review of Systems Constitutional: Denies: Anorexia, Chills, Fever HEENT: Denies: Difficulty Swallowing Cardiovascular: Denies: Chest Pain Respiratory: Denies: Cough Gastrointestinal: Denies: Abdominal Pain Genitourinary: Denies: Dysuria Musculoskeletal: Denies: Joint Tenderness Neurological: Denies: Balance problems Psychiatric: Denies: Depression VTE Information - Inpt Only VTE Present on Admission: No VTE Mechan Device Prophylaxis: SCD's Patient Problems: Active and Suspected Problems (Last Reviewed 11/08/18 @ 13:53 by Radha Black) Encounter for adjustment or management of vascular access device (Acute) Lymphoma (Acute) Severe anemia (Acute) Macroglobulinemia of Waldenstrom (Acute) Splenomegaly (Acute) - Physical Exam General: Alert, Oriented x3, Cooperative HEENT: Atraumatic, PERRLA, EOMI Neck: No JVD Lungs: Normal air movement Cardiovascular: Regular rate, Regular Rhythm Abdomen: Soft, Non Tender, Non-Distended Vital Signs Temp Pulse Resp BP Pulse Ox 98.9 F 125 H 16 103/60 100 11/10/18 08:55 11/10/18 08:55 11/10/18 08:55 11/10/18 08:55 11/10/18 08:55 Oxygen Delivery Method Room Air Weight: 158 lb 1.143 oz Body Mass Index (BMI) 28.0 Assessment/Plan All Active Problems (Last Reviewed 11/08/18 @ 13:53 by Radha Black) Encounter for adjustment or management of vascular access device (Acute) Lymphoma (Acute) Severe anemia (Acute) Mass of colon (Resolved) Macroglobulinemia of Waldenstrom (Acute) Splenomegaly (Acute) 57-year-old female with lymphoma and need for vascular access port 1. I explained the procedure in detail with the patient. I expand the risks including but not limited to bleeding, infection, pneumothorax, line infection, DVT. The patient consents to proceed with procedure. The patient is getting a blood transfusion tomorrow and I will leave the port accessed for that. Sam Garnica MD Pager: [facility] [address] [place] [address], [address] [place] [address] Office:
--- NOTE | 2018-11-10 09:52 | HP.PCM_ITS ---
Problem List (1) Encounter for adjustment or management of vascular access device Status: Acute (2) Lymphoma Status: Acute Qualifiers: Lymphoma type: unspecified type Lymphoma site: unspecified region Qualified Code(s): C85.90 - Non-Hodgkin lymphoma, unspecified, unspecified site History of Present Illness Date of Admission: 11/10/18 Chief Complaint: Need for vascular access for chemotherapy The patient is a 57 year old F who is here for vascular access port placement. The patient has lymphoma and is requiring chemotherapy. Past Medical History Past Medical History (Chronic Problems): Chronic Problems (Last Reviewed 11/08/18 @ 13:53 by Radha Black) Iron deficiency anemia (Chronic) Medical History: Medical History (Last Reviewed 11/08/18 @ 13:53 by Radha Black) Lymphoma (Acute) C85.90 Mass of colon (Resolved) K63.9 Large villous adenoma, status post right hemicolectomy September 2018 Macroglobulinemia of Waldenstrom (Acute) C88.0 Splenomegaly (Acute) R16.1 Anemia D64.9 Allergies No Known Allergies Allergy (Verified 11/09/18 15:24) Home Medications: Ambulatory Orders Medication Instructions Recorded Multivitamin [Multiple Vitamins] 1 ea PO DAILY 09/28/18 Venlafaxine HCl [Venlafaxine HCl 75 mg PO DAILY 09/28/18 ER] Pantoprazole Sodium [Protonix] 20 mg PO BID #60 tab 10/04/18 Ferrous Sulfate 325 mg PO DAILY 10/07/18 Surgical History: Surgical History (Last Reviewed 11/08/18 @ 13:53 by Radha Black) History of section Z98.891 S/P right hemicolectomy Z90.49 Surgical History: - - x2. Right hemicolectomy Psychiatric History: No pertinent psych hx [employer]ATE History: No pertinent [employer] history Smoking Status: Never smoker - *Family History Maternal Family History: Family History (Last Updated 11/08/18 @ 13:55 by Radha Black) Other no prevalent family history History Items: - Paternal Family History: Family History (Last Updated 11/08/18 @ 13:55 by Radha Black) Other no prevalent family history History Items: - Review of Systems Constitutional: Denies: Anorexia, Chills, Fever HEENT: Denies: Difficulty Swallowing Cardiovascular: Denies: Chest Pain Respiratory: Denies: Cough Gastrointestinal: Denies: Abdominal Pain Genitourinary: Denies: Dysuria Musculoskeletal: Denies: Joint Tenderness Neurological: Denies: Balance problems Psychiatric: Denies: Depression VTE Information - Inpt Only VTE Present on Admission: No VTE Mechan Device Prophylaxis: SCD's Patient Problems: Active and Suspected Problems (Last Reviewed 11/08/18 @ 13:53 by Radha Black) Encounter for adjustment or management of vascular access device (Acute) Lymphoma (Acute) Severe anemia (Acute) Macroglobulinemia of Waldenstrom (Acute) Splenomegaly (Acute) - Physical Exam General: Alert, Oriented x3, Cooperative HEENT: Atraumatic, PERRLA, EOMI Neck: No JVD Lungs: Normal air movement Cardiovascular: Regular rate, Regular Rhythm Abdomen: Soft, Non Tender, Non-Distended Vital Signs Temp Pulse Resp BP Pulse Ox 98.9 F 125 H 16 103/60 100 11/10/18 08:55 11/10/18 08:55 11/10/18 08:55 11/10/18 08:55 11/10/18 08:55 Oxygen Delivery Method Room Air Weight: 158 lb 1.143 oz Body Mass Index (BMI) 28.0 Assessment/Plan All Active Problems (Last Reviewed 11/08/18 @ 13:53 by Radha Black) Encounter for adjustment or management of vascular access device (Acute) Lymphoma (Acute) Severe anemia (Acute) Mass of colon (Resolved) Macroglobulinemia of Waldenstrom (Acute) Splenomegaly (Acute) 57-year-old female with lymphoma and need for vascular access port 1. I explained the procedure in detail with the patient. I expand the risks including but not limited to bleeding, infection, pneumothorax, line infection, DVT. The patient consents to proceed with procedure. The patient is getting a blood transfusion tomorrow and I will leave the port accessed for that. Sam Garnica MD Pager: [facility] [address] [place] [address], [address] [place] [address] Office:
[2018-11-10] MEDS: Cefazolin 2 GM in 0.9% Normal Saline 100 ML IV (10:10)
[2018-11-10] MEDS: Bupiv/Epi 0.5% Mpf 30 ML Vial (10:23)
[2018-11-10 10:48] VITALS: BP 103/60; BP 85/49; PULSE 95; RESP 16; TEMP 36.3; O2SAT 97
--- NOTE | 2018-11-10 10:52 | OP.PCM_ITS ---
Problem List (1) Encounter for adjustment or management of vascular access device Status: Acute (2) Lymphoma Status: Acute Qualifiers: Lymphoma type: unspecified type Lymphoma site: unspecified region Qualified Code(s): C85.90 - Non-Hodgkin lymphoma, unspecified, unspecified site Report of Operation Date of Procedure: 11/10/18 Pre-Operative Diagnosis: Lymphoma need for vascular access port for chemotherapy Post-Operative Diagnosis: Same Surgery/Procedure Performed:: Ultrasound-guided and fluoroscopy-guided right chest port placement using right IJ Description of Procedure: After obtaining informed consent patient was brought back to the operating room MAC anesthesia was induced and the right chest and neck were prepped in normal sterile fashion. Ultrasound was used to evaluate both IJs and the right IJ was selected. Next, using a needle, the right IJ was accessed and a guidewire was passed on into the superior vena cava under fluoroscopy guidance. A small incision was made over the puncture site and the dilator introducer was placed over the guidewire. Next this was capped and the pocket was made for the port. 1% lidocaine with epinephrine was injected in the proposed port site. An incision was made with scalpel. Electrocautery was used to make a pocket under the skin and subcutaneous tissue. Hemostasis was obtained. Next, the catheter was tunneled up to the neck incision site and placed through the introducer. The peel-away introducer was removed and the position of the catheter was confirmed on fluoroscopy. Next, the catheter was trimmed and attached to the port with the locking device. Interrupted 2-0 Vicryl sutures were used to anchor the port to the chest wall and then the port was placed inside the pocket. The pocket was then flushed with saline and the port irrigated with saline. There was good blood return and the port flushed easily. The port was accessed and caps were placed on the catheter and it was flushed with saline. Next, heparin was injected into the port. The skin was closed with subcutaneous interrupted 3-0 Vicryl sutures. A single 3-0 Vicryl sutures placed under the skin at the neck incision site. Steri-Strips were placed as well as op sites. Patient tolerated procedure well, was taken to PACU in stable condition. Chest x-ray will be obtained. Grafts/Implants Used: 8 [place] PowerPort - Admit VTE Documentation VTE Present on Admission: No VTE Mechan Device Prophylaxis: SCD's
--- NOTE | 2018-11-10 10:53 | RAD_ITS ---
STUDY: X-RAY CHEST REASON FOR EXAM: Female, 57 years old. Post line placement TECHNIQUE: Single AP portable view of the chest. COMPARISON: Chest x-ray October 30, 2015 FINDINGS: There is a right-sided Port-A-Cath with its tip in the region of the superior vena cava projecting just above the level of the pulmonary artery on the right. The lungs are clear and expanded. There is no demonstrated pleural abnormality. No pneumothorax. There is borderline cardiomegaly. Normal mediastinum and reji. Normal visualized pulmonary arteries. Normal visualized aortic arch and descending thoracic aorta. Normal visualized thoracic spine. Normal visualized ribs, clavicles, and shoulders. There is no demonstrated abnormality of the visualized soft tissue structures of the upper abdomen. RAD/CXR for Line Placement IMPRESSION: There is a right-sided Port-A-Cath with its tip in the region of the superior vena cava projecting just above the level of the pulmonary artery on the right. No pneumothorax. Electronically Signed: Tasneem Fernandez MD at 12:54 EST , Service support ,
--- NOTE | 2018-11-10 10:53 | DCINST_ITS ---
Discharge Diet: No Restrictions - Pain medication may cause nausea. You should typically eat light foods as you take your pain medication. Discharge Activity: Return to Normal Activity, May Shower - with your bandage in place in 1-2 days after surgery. DO NOT SHOWER WHEN YOUR PORT IS ACCESSED. Call your doctor if your incision/area has: Continuous Slow Oozing, Sudden Increased Bleeding, Increased Pain/ Swelling, Increased Redness Call your doctor if you observe: Fever of 101 or Higher Remove Dressing in (days):: 3 - When you remove the bandage, leave the steri- strips intact until they fall off. Allergies/Adverse Reactions: Allergies No Known Allergies Allergy (Verified 11/09/18 15:24) Medications to take at Discharge Multivitamin [Multiple Vitamins] 1 ea PO DAILY 09/28/18 Venlafaxine HCl [Venlafaxine HCl ER] 75 mg PO DAILY 09/28/18 Pantoprazole Sodium [Protonix] 20 mg PO BID #60 tab 10/04/18 Ferrous Sulfate 325 mg PO DAILY 10/07/18 Primary Care Physician: Care Physician,No Primary [Primary Care Provider] - Test Results: Test results from this visit will be discussed in further detail at your follow- up appointment, if applicable. Please Follow Up With: Sam Garnica MD When: Please call to schedule 2 week follow up appointment. [phone]
[2018-11-10 10:55] VITALS: BP 103/60; BP 83/42; PULSE 90; RESP 16; O2SAT 99
[2018-11-10 11:00] VITALS: BP 103/60; BP 91/53; PULSE 90; RESP 16; O2SAT 97
[2018-11-10 11:05] VITALS: BP 103/60; BP 88/49; PULSE 92; RESP 16; TEMP 36.7; O2SAT 95
[2018-11-10 13:18] VITALS: BP 103/60
== END 2018-11-10 13:20 | disposition home or self-care (01) ==
LOC: SDC 08:36 → AC 08:37
PROVIDERS: Referring Provider Surgery; Visit Provider Surgery
PROC: (CPT 36561; principal; 2018-11-10 10:05)
DX: Z45.2 Encounter for adjustment and management of vascular access device (principal); C85.90 Non-Hodgkin lymphoma, unspecified, unspecified site; D50.9 Iron deficiency anemia, unspecified
CPT/HCPCS: 00532; 36561; 71045; 77001; J7120; C1788

== ENCOUNTER → 2019-02-21 08:05 | Outpatient (CLI) | payer MEDICAID, SELFPAY ==
[2019-01-10 10:01] VITALS: BMI 28.1
[2019-02-14 09:14] VITALS: BMI 29.7
--- NOTE | 2019-02-21 08:07 | CT_ITS ---
STUDY: CT ABDOMEN AND PELVIS WITH CONTRAST REASON FOR EXAM: Female, 58 years old. Restaging non-Hodgkin's lymphoma RADIATION DOSAGE (If Supplied By Facility): CTDIvol = ( 14.76 ) mGy, DLP = ( 1851.65 ) mGycm TECHNIQUE: Transaxial images were obtained from the dome of the diaphragm to the symphysis pubis without oral contrast. 100mL IV Isovue 300 was administered. Sagittal and coronal images were reconstructed. Individualized dose optimization techniques were used for this CT. COMPARISON: CT dated 10/25/[address] abdomen and pelvis dated 09/30/2018 FINDINGS: The visualized lung bases are unremarkable. The visualized portions of the heart are within normal limits. Normal liver. Stable gallstone without evidence of acute cholecystitis. Normal spleen. Normal pancreas. Normal bilateral adrenal glands. Normal right kidney. Normal left kidney. Normal visualized stomach. Normal small intestine. Postsurgical changes of the right hemicolon with chain sutures in the right lower quadrant There is non-visualization of the appendix. There is diffuse atherosclerotic calcification of the abdominal aorta, without a demonstrated aneurysm. Normal inferior vena cava. Previously identified bulky retroperitoneal lymphadenopathy as compared to exam from September 2018 has significantly decreased in size and appearance. There remain several mildly prominent lymph nodes however. This represents favorable response to treatment Normal urinary bladder. There are prostatic calcifications. Normal abdominal wall. Normal osseous structures. CT/Abdomen/Pelvis W IV Cont ONLY IMPRESSION: Demonstration of significant favorable response to treatment as compared to exam from September 2018. Previously identified bulky retroperitoneal lymphadenopathy has essentially resolved several small lymph nodes remaining. Remainder is essentially within normal limits Electronically Signed: Luther Lira DO at 8:49 EDT Tel , Service support ,
--- NOTE | 2019-02-21 08:07 | CT_ITS ---
HISTORY: Restaging NHL on chemotherapy, immunotherapy. Non-smoker, partial colectomy, x 2. EXAMINATION: CT Soft Tissue Neck W/ Contrast TECHNIQUE: Helically acquired images were obtained of the neck following IV contrast. A radiation dose optimization technique was used for this scan. IV Contrast dosage and agent: 100mL Isovue 300 COMPARISON: PET/CT 10/25/2018 report but not images FINDINGS: No cervical lymph node enlargement or suspicious lesion. The parotid and submandibular glands are symmetrical and show no CT abnormality. Negative tonsils and tongue base. Laryngeal and pharyngeal structures show no CT abnormality. The trachea is midline. Thyroid gland is not enlarged. 5 mm rounded hypodense nodule, upper pole right thyroid lobe. C4-5 through C6-7 disc space narrowing. C6-7 posterior disc-osteophyte complex with foraminal narrowing on the left at this level secondary to uncovertebral spurring. Right internal jugular Port-A-Cath in place. CT/Soft Tissue Neck WITH Contrast IMPRESSION: 1. No cervical lymph node enlargement, acute disease, or suspicious lesion. 2. Right thyroid lobe subcentimeter nodule. 3. Lower cervical degenerative disc disease and spondylosis. Individualized dose optimization techniques were used for this CT. at 0531 Reported and signed by: Jeff Chaves MD Electronically Signed: Jeff Chaves, at 5:30 EDT Tel , Service support ,
--- NOTE | 2019-02-21 08:07 | CT_ITS ---
HISTORY: Restaging NHL on chemotherapy, immunotherapy. Non-smoker, partial colectomy, x 2. EXAMINATION: CT Chest W/ Contrast TECHNIQUE: Helically acquired images were obtained of the chest following IV contrast. A radiation dose optimization technique was used for this scan. IV Contrast dosage and agent: 100mL Isovue 300 COMPARISON: PET/CT 10/25/2018 FINDINGS: Focal infiltrate, atelectasis, or scar which is pleural-based within the superior segment of the left lower lobe. This area is roughly wedge-shaped and previous pulmonary infarct would also be included in the differential. The left lower lobe finding is new compared to previous PET CT. The lungs are otherwise clear. No central obstructing lesion seen. No pulmonary nodule or mass identified. No pleural effusion. No hilar, mediastinal, or axillary lymph node enlargement. No central or major PE. Thoracic aorta is normal in caliber. No pericardial effusion. Right jugular Port-A-Cath in place. Bones: Mild dorsal kyphosis. No acute osseous abnormality. No suspicious bony lesion seen. CT/Chest WITH Contrast IMPRESSION: 1. Superior segment left lower lobe focal infiltrate, atelectasis, or scar. This finding is new compared to previous and could be reassessed with follow-up CT chest in 4-6 months. 2. No lymphadenopathy or suspicious lesion seen. Individualized dose optimization techniques were used for this CT. at 0820 Reported and signed by: Jeff Chaves MD Electronically Signed: Jeff Chaves, at 8:19 EDT Tel , Service support ,
== END ==
PROVIDERS: Referring Provider Internal Medicine Hematology & Oncology; Visit Provider Internal Medicine Hematology & Oncology
DX: C88.0 Waldenstrom macroglobulinemia (principal); C85.90 Non-Hodgkin lymphoma, unspecified, unspecified site
CPT/HCPCS: 70491; 71260; 74177; 85025; Q9967; A4216

== ENCOUNTER → 2019-07-21 13:18 | Outpatient (CLI) | payer MEDICAID, SELFPAY ==
[2019-04-21 08:38] VITALS: BMI 32.5
--- NOTE | 2019-07-21 13:00 | CT_ITS ---
STUDY: CT CHEST WITH CONTRAST REASON FOR EXAM: Female, 58 years old. Follow-up chemotherapy for lymphoma RADIATION DOSAGE (If Supplied By Facility): CTDIvol = ( 13.91 ) mGy, DLP = ( 1487.67 ) mGycm TECHNIQUE: Transaxial imaging was performed following intravenous administration of IV Isovue 300 100mL. Individualized dose optimization techniques were used for this CT. COMPARISON: Prior study of 02/21/2019 FINDINGS: There is a right-sided Mediport with catheter tip at the atriocaval junction. The lungs are normal. There has been complete interval resolution of previously noted left lower lobe focal infiltrate/atelectasis. There is interval resolution of left pleural nodularity seen previously. Normal heart and pericardium. There is a precarinal node measuring 9 mm in short axis. This is stable in the interval. Normal hilar regions. Normal enhanced pulmonary arteries. Normal aorta arch and descending thoracic aorta. There is mild endplate spondylosis of the thoracic spine. Abdominal findings are reported separately. CT/Chest WITH Contrast IMPRESSION: 1. There has been complete interval resolution of previously noted left lower lobe focal infiltrate/atelectasis. 2. There is interval resolution of left pleural nodularity seen previously. 3. There is a precarinal node measuring 9 mm in short axis, stable in the interval. There is no new hilar or mediastinal adenopathy. 4. Right-sided MediPort with catheter tip at the atriocaval junction. Electronically Signed: Dk Hernandez MD at 18:44 EDT , Service support ,
--- NOTE | 2019-07-21 13:00 | CT_ITS ---
STUDY: CT ABDOMEN AND PELVIS WITH CONTRAST REASON FOR EXAM: Female, 58 years old. Follow-up chemotherapy for lymphoma RADIATION DOSAGE (If Supplied By Facility): CTDIvol = ( 13.91 ) mGy, DLP = ( 1487.67 ) mGycm TECHNIQUE: Transaxial images were obtained from the dome of the diaphragm to the symphysis pubis without oral contrast. IV Isovue 300 100mL was administered. Sagittal and coronal images were reconstructed. Individualized dose optimization techniques were used for this CT. COMPARISON: Prior study of 02/21/2019 FINDINGS: Chest findings are reported separately. Normal liver. There is a solitary gallstone. The spleen is borderline in size. Normal pancreas. Normal bilateral adrenal glands. Normal right kidney. Normal left kidney. Normal visualized stomach. Normal small intestine. Status post right hemicolectomy changes are noted. There is non-visualization of the appendix. There are calcified plaques of the abdominal aorta. Normal inferior vena cava. There is mild hazy density of the retroperitoneal fat. No pathologically enlarged retroperitoneal nodes are identified. Several subcentimeter retroperitoneal nodes are seen appearing similar to the previous study. Normal urinary bladder. Uterine calcifications are noted consistent with degenerative fibroids. There is a small umbilical hernia containing fat. Normal osseous structures. CT/Abdomen/Pelvis W IV Cont ONLY IMPRESSION: 1. Cholelithiasis. 2. The spleen is borderline in size. 3. Status post right hemicolectomy. 4. There is mild hazy density of the retroperitoneal fat. No pathologically enlarged retroperitoneal nodes are identified. There are several subcentimeter retroperitoneal nodes appearing similar to the previous study. 5. Uterine calcifications consistent with degenerative fibroids. 6. Small fat-containing umbilical hernia. Electronically Signed: Dk Hernandez MD at 18:36 EDT , Service support ,
[2019-07-21] MEDS: 0.9% Saline Lock 10 ML Syringe IV (13:27)
== END ==
PROVIDERS: Referring Provider Internal Medicine Hematology & Oncology; Visit Provider Internal Medicine Hematology & Oncology
DX: C85.90 Non-Hodgkin lymphoma, unspecified, unspecified site (principal)
CPT/HCPCS: 71260; 74177; 80053; 82607; 82728; 82784; 83540; 83550; 83615; 83883; 84165; 85025; 86334; Q9967; A4216

== ENCOUNTER 2019-10-03 05:18 | Inpatient (IN) | payer MEDICAID, SELFPAY ==
[2019-07-26 10:57] VITALS: BMI 35.4
[2019-10-03] VITALS (14 sets, daily range): BP systolic 108–157; BP diastolic 48–107; PULSE 75–123; RESP 15–24; TEMP 36.8–37.3; O2SAT 93–100; BMI 37.6; BMI 37.3; BMI 37.4
--- NOTE | 2019-10-03 05:27 | EKG12_ITS ---
Test Reason : CP REPEAT Blood Pressure : / mmHG Vent. Rate : 095 BPM Atrial Rate : 095 BPM P-R Int : 152 ms QRS Dur : 086 ms QT Int : 354 ms P-R-T Axes : 051 013 042 degrees QTc Int : 444 ms Normal sinus rhythm Normal ECG When compared with ECG of 13-DEC-2018 16:25, No significant change was found Confirmed by CARA FLOREZ, KULWINDER ([id number]), order editor ELEANOR GAMEZ ([id number]) on 10/03/2019 9:07:18 AM Referred By: Angeles Morley Confirmed By:KULWINDER MARROQUIN MD
--- NOTE | 2019-10-03 05:28 | ED.VISSUMM ---
- ER Visit Summary Date of Service: 10/03/19 Chief Complaint: Chest pain History of Present Illness: The patient is a 58 F presenting with chest pain. This started 20 minutes prior to arrival. She has left-sided chest pain. She has associated diaphoresis and shortness of breath. She denies dizziness or syncope. Denies radiation. She states the pain does get worse when she takes a deep breath. No history of PE. She does have history of non-Hodgkin's lymphoma which has been in remission since December. She follows with Dr. Ulloa. She is not a smoker. She states she has had intermittent cough and cold symptoms over the past 3 months. She denies fever or chills. Physical Examination: Vitals are stable. Patient is afebrile. Alert no acute distress. HEENT exam is unremarkable. Neck is supple. Lungs are clear and equal bilaterally. Heart is regular and tachycardic Abdomen is soft nontender nondistended. Extremities are unremarkable. Skin is warm and dry. No focal neurologic deficit. Remainder of exam is unremarkable. Emergency Department Course and Treatment: Patient was given aspirin, morphine, Zofran. EKG is sinus tachycardia rate of 118. CBC, chemistries unremarkable other than potassium 3.3, glucose 121. Troponin is negative. CTA chest shows there is no demonstrated pulmonary embolism. Normal thoracic aorta and visualized great vessels. There is no demonstrated aortic dissection. Normal heart and pericardium. There is mediastinal and hilar lymphadenopathy. There are multifocal bilateral pulmonary infiltrates predominantly at the lung bases. There is NO pleural effusion or pneumothorax. Blood cultures were sent. She was given Rocephin and Zithromax IV. Discussed with the hospitalist for admission. Disposition: Admission Impression: Pneumonia, chest pain This note was generated with [employer] dictation software. It may contain incorrect words, spelling, and punctuation that were not noted in review of the chart prior to signing ED Disposition - Plan for ED Patient: Referrals: Care Physician,No Primary [Primary Care Provider] -
[2019-10-03] MEDS: Aspirin 81 MG TAB.CHEW 324 MG PO (05:36)
[2019-10-03] MEDS: Ondansetron 4 MG/2 ML Vial IV (05:37)
[2019-10-03] MEDS: Morphine 4 MG/ML Syringe IV (05:40)
[2019-10-03 05:55] LABS: Absolute Lymphocyte Count 0.33 X10^3/uL (0.83-4.51); Absolute Neutrophil Count 8.9 X10^3/uL (2.0-7.7); Basophil# 0.02 X10^3/uL; Basophil% 0.2 % (0-1); Eosinophil# 0.16 X10^3/uL; Eosinophils% 1.6 % (0-5); Hematocrit 37.1 % (37-47); Hemoglobin 12.5 g/dL (12.0-15.0); Lymphocyte # 0.33 X10^3/ul (4.0); Lymphocyte % 3.3 % (19-41); Mean Corp Hgb Conc 33.7 g/dL (32-36); Mean Corpuscular Hgb 30.9 pg (27.0-32.0); Mean Corpuscular Volume 91.6 fL (81-99); Mean Platelet Vol. 9.4 fl (6.2-12.0); Monocyte# 0.63 X10^3/uL; Monocyte% 6.2 % (0-10); NRBC Flagged by Analyzer 0 % (0-5); Neutrophil # 8.91 X10^3/uL (2.7-7.7); Neutrophil % 88.1 % (47-70); POSITIVE DIFFERENTIAL YES; Platelet Count 199 K/mm3 (150-450); RBC Distribution Width CV 12.9 % (11.6-14.6); RBC Distribution Width SD 43.3 fl (35.1-43.9); Red Blood Count 4.05 M/mm3 (4.2-5.4); White Blood Count 10.1 K/mm3 (4.4-11.0)
[2019-10-03 06:09] LABS: Differential Indicated SCAN CRITERIA MET
[2019-10-03 06:11] LABS: Anion Gap 5 (5-15); BUN 15 mg/dL (7-18); BUN/Creat Ratio 22.6 RATIO (10-20); Calcium,Total 8.5 mg/dL (8.5-10.1); Chloride 106 mmol/L (98-107); Creatinine, Serum 0.66 mg/dL (0.55-1.02); EST Glomerular Filtration Rate 97 mL/min (>60); Est Glom Filt Rate - Afr Amer 117 mL/min (>60); Estimated Creatinine Clearance 76.86 ml/min; Glucose 121 mg/dL (74-106); Potassium 3.3 mmol/L (3.5-5.1); Sodium Level 140 mmol/L (136-145)
--- NOTE | 2019-10-03 06:16 | CT_ITS ---
STUDY: CTA CHEST REASON FOR EXAM: Female, 58 years old. Chest pain RADIATION DOSAGE (If Supplied By Facility): CTDIvol = ( 10.38 ) mGy, DLP = ( 450.09 ) mGycm TECHNIQUE: The examination was performed with the intravenous administration of 100ml isovue 370. Post-processing of the angiographic images was performed, with multiplanar reformation and 3D reconstruction. Individualized dose optimization techniques were used for this CT. COMPARISON: None. FINDINGS: Normal enhancement of the main pulmonary artery and right and left pulmonary arteries. Normal enhancement of the bilateral peripheral pulmonary arteries. There is no demonstrated pulmonary embolism. Normal thoracic aorta and visualized great vessels. There is no demonstrated aortic dissection. Normal heart and pericardium. There is mediastinal and hilar lymphadenopathy. Normal visualized trachea and bronchi. The lungs are well expanded. There are multifocal bilateral pulmonary infiltrates predominantly at the lung bases. There is NO pleural effusion or pneumothorax. Normal chest wall structures. Normal osseous structures. Normal visualized upper abdomen. CT/CTA Chest W/WO Contrast IMPRESSION: There is no demonstrated pulmonary embolism. Normal thoracic aorta and visualized great vessels. There is no demonstrated aortic dissection. Normal heart and pericardium. There is mediastinal and hilar lymphadenopathy. There are multifocal bilateral pulmonary infiltrates predominantly at the lung bases. There is NO pleural effusion or pneumothorax. Electronically Signed: Misael Samano MD at 6:57 EST , Service support ,
[2019-10-03] MEDS: Ceftriaxone 1 GM/50 ML BAG IV (07:44)
--- NOTE | 2019-10-03 08:40 | HP.PCM_ITS ---
Problem List (1) Chest pain Status: Acute (2) Community acquired pneumonia Status: Acute (3) Lymphoma Status: Chronic Qualifiers: (4) Macroglobulinemia of Waldenstrom Status: Chronic (5) Splenomegaly Status: Chronic History of Present Illness Date of Admission: 10/03/19 Chief Complaint: Chest pain. The patient is a 58 year old F patient with past medical history as mentioned above presented to the emergency room because of chest pain. Today morning around 5 AM, she woke up from sleep complaining of chest pain, left-sided chest pain, underneath her left breast, pain comes on when she takes a deep breath, associated with mild shortness of breath as well as cough, 7 out of 10 in severity, improves with expiration. She stated that she has been having upper respiratory symptoms for the last week including sinus congestion, cough with clear sputum as well as mild shortness of breath. She denied fever or chills. She denied palpitation, dizziness or lightheadedness. At this time, she is chest pain-free and she mentioned that her pain goes away when she exhales. In the emergency department, she was afebrile, slightly tachycardic, blood pressure was stable, pulse ox was 95% on room air. Routine blood work was remarkable for potassium of 3.3, otherwise normal. EKG revealed normal sinus rhythm, normal W[place] interval, normal QRS and no acute med changes. Troponin was negative. Chest x- ray revealed faint bilateral basal infiltrate. CTA chest done and showed no PE or dissection, revealed bilateral multifocal infiltrate at the lung bases. She is being admitted for community-acquired pneumonia and atypical pleuritic chest pain. Past Medical History Past Medical History (Chronic Problems): Chronic Problems (Last Updated 10/03/19 @ 08:39 by Angeles Morley MD) Neutropenia (Chronic) Lymphoma (Chronic) Macroglobulinemia of Waldenstrom (Chronic) Splenomegaly (Chronic) Medical History: Medical History (Last Updated 10/03/19 @ 08:39 by Angeles Morley MD) Lymphoma (Chronic) C85.90 Macroglobulinemia of Waldenstrom (Chronic) C88.0 Splenomegaly (Chronic) R16.1 Anemia D64.9 Mass of colon (Inactive) K63.9 Large villous adenoma, status post right hemicolectomy September 2018 Allergies No Known Allergies Allergy (Verified 07/26/19 10:55) Home Medications: Ambulatory Orders Medication Instructions Recorded Multivitamin [Multiple Vitamins] 1 ea PO DAILY 09/28/18 Surgical History: Surgical History (Last Reviewed 07/26/19 @ 10:55 by Radha Black) History of section Z98.891 PORT PLACEMENT 11-10-18 S/P right hemicolectomy Z90.49 Surgical History: colectomy, - - x2. Right hemicolectomy Psychiatric History: No pertinent psych hx [employer] History: No pertinent [employer] history Lives: Spouse/ Significant Other Smoking Status: Never smoker Alcohol: Occasional Drugs: None - *Family History Maternal Family History: Family History (Last Reviewed 07/26/19 @ 10:55 by Radha Black) Other no prevalent family history History Items: No pertinent history, - Paternal Family History: Family History (Last Reviewed 07/26/19 @ 10:55 by Radha Black) Other no prevalent family history History Items: No pertinent history, - Review of Systems Constitutional: Denies: Anorexia, Chills, Fever, Weakness Eyes: Denies: Blurred vision, Double vision, Drainage, Redness HEENT: Reports: Nasal Congestion. Denies: Difficulty Hearing, Ear Pain, Eye Pain, Sore Throat Cardiovascular: Reports: Chest Pain. Denies: Chest Pressure, Chest Tightness, Edema, Heaviness, Light Headedness, Orthopnea, Palpitations, Paroxysmal Noc. D yspnea, Syncope Respiratory: Reports: Cough, Pleuritic Pain, Shortness of Breath, Sputum production. Denies: Wheezing Gastrointestinal: Denies: Abdominal Pain, Constipation, Diarrhea, Nausea, Vomiting Genitourinary: Denies: Dysuria, Frequency, Hematuria Musculoskeletal: Denies: Arm Pain, Back Pain, Foot Pain Skin: Denies: Dryness, Rash Neurological: Denies: Balance problems, Blurred vision, Double vision, Change in Speech, Slurred speech, Confusion, Incoordination, Numbness, Tingling Psychiatric: Denies: Anxiety, Depression Endocrine: Denies: Change in Body Habitus, Polydipsia, Polyuria VTE Information - Inpt Only VTE Present on Admission: No VTE Mechan Device Prophylaxis: None VTE Pharm Prophylaxis ordered?: Yes Patient Problems: Active and Suspected Problems (Last Updated 10/03/19 @ 08:39 by Angeles Morley MD) Chest pain (Acute) Community acquired pneumonia (Acute) - Physical Exam Vitals/I&O's: Vital Signs Temp Pulse Resp BP Pulse Ox 98.4 F 75 18 109/53 L 95 10/03/19 08:13 10/03/19 08:13 10/03/19 08:13 10/03/19 08:13 10/03/19 08:13 Oxygen Flow Rate (L/min) 2 Oxygen Delivery Method Room Air Weight: 210 lb 15.718 oz Body Mass Index (BMI) 37.3 Intake and Output for Last 24 Hours 10/01/19 10/02/19 10/03/19 23:59 23:59 23:59 Intake Total 50 / 50 Balance 50 / 50 General: Alert, Oriented x3, Cooperative, No apparent distress HEENT: Atraumatic, PERRLA, EOMI, Normocephalic Oral: Moist Mucosa, No Gingival or Mucosal Lesions/ Ulcerations Neck: Supple, No JVD, Negative Carotid Bruits, Trachea Midline, Thyroid Normal Size and Texture Lungs: No wheeze, Diminished, Rales, Rhonchi, - - Diminished breath sounds bilateral, bilateral faint basilar crackles more on the right base. Cardiovascular: Regular rate, Regular Rhythm, Normal S1, Normal S2, PMI Normal Abdomen: Bowel Sounds Present, Soft, Non Tender, Non-Distended, No Hepato- splenomegaly, Obese Extremities: No clubbing, No cyanosis, No edema Skin: No rashes, No breakdown Lymphatic: No Cervical, Supraclavicular, or Inguinal Adenopathy Neurological: Cranial nerves II-XII grossly intact, Motor Exam 5/5 strength throughout Psych/Mental Status: Normal Affect, Appropriate, Alert and oriented to time, place, person, mood and affect Laboratory Results 10/03/19 05:35: WBC 10.1, RBC 4.05 L, Hgb 12.5, Hct 37.1, MCV 91.6, MCH 30.9, MCHC 33.7, RDW Std Deviation 43.3, RDW Coeff of Lois 12.9, Plt Count 199, MPV 9.4, Immature Gran % (Auto) 0.600, Neut % (Auto) 88.1 H, Lymph % (Auto) 3.3 L, Hartley % (Auto) 6.2, Eos % (Auto) 1.6, Baso % (Auto) 0.2, Absolute Neuts (auto) 8.9 H, Absolute Lymphs (auto) 0.33 L, Nucleated RBC % 0 10/03/19 05:35: Sodium 140, Potassium 3.3 L, Chloride 106, Carbon Dioxide 29.0, Anion Gap 5, BUN 15, Creatinine 0.66, Estim Creat Clear Calc 76.86, Est GFR (MDRD) Af Amer 117, Est GFR (MDRD) Non-Af 97, BUN/Creatinine Ratio 22.6 H, Glucose 121 H, Calcium 8.5, Troponin I < 0.015 Clinical Impression(s) from Imaging Studies Chest CTA 10/03/19 06:16 IMPRESSION: There is no demonstrated pulmonary embolism. Normal thoracic aorta and visualized great vessels. There is no demonstrated aortic dissection. Normal heart and pericardium. There is mediastinal and hilar lymphadenopathy. There are multifocal bilateral pulmonary infiltrates predominantly at the lung bases. There is NO pleural effusion or pneumothorax. Electronically Signed: Misael Samano MD at 6:57 EST , Service support , Chest X-Ray 10/03/19 15:45 IMPRESSION: Bilateral infiltrates. Electronically Signed: Misael Samano MD at 6:10 EST , Service support , Assessment/Plan All Active Problems (Last Updated 10/03/19 @ 08:39 by Angeles Morley MD) Chest pain (Acute) Community acquired pneumonia (Acute) This is a 58 years old female patient presented to the emergency room because of chest pain as well as symptoms of URTI, cough and mild shortness of breath over the last several days and she was found to have bilateral basal infiltrate on chest x-ray as well as CTA chest and she is being admitted for community- acquired pneumonia. #1 bilateral community-acquired pneumonia: Chest x-ray and CTA chest reviewed. Patient has been afebrile, no leukocytosis but she does have neutrophilia. She has been having URTI symptoms for the last several days because 1 of her grandkids got sick. No sepsis or severe sepsis. Plan: Admit to PCU, cardiac monitoring, blood culture, sputum culture, start IV Rocephin and Zithromax, repeat CBC and BMP tomorrow morning, albuterol every 4 hours, incentive spirometer. #2 pleuritic chest pain: Likely due to pneumonia. EKG revealed no acute ischemic changes per troponin is negative. No history of diabetes, hypertension, hyperlipidemia or smoking and no family history of premature CAD. Plan: Cardiac monitoring, serial cardiac enzymes. At this time, no indication for further cardiac work-up unless troponins start to go up or she develops new EKG changes. 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 Stable, in remission. Last chemotherapy received was back in December,. CBC from today revealed normal WBC, normal H&H, normal platelet count. No anemia, no leukopenia and no neutropenia. Absolute neutrophil count is 8.9, actually she has neutrophilia which is likely because of pneumonia. Plan as above. #4 DVT prophylaxis consult Lovenox. This note was generated with [employer] dictation software. It may contain incorrect words, spelling, and punctuation that were not noted in checking the note before signing. Code Visit Inpatient E&M: 89046 Init Hosp L3
[2019-10-03] MEDS: 0.9% Normal Saline 1,000 ML 75 ML IV ×2 (09:03→23:22)
[2019-10-03] MEDS: Enoxaparin 40 MG/0.4 ML Syringe SC (09:12)
[2019-10-03] MEDS: Acetaminophen 325 MG Tablet 650 MG PO (09:12)
[2019-10-03] MEDS: guaiFENesin/Codeine 5 ML UDC 10 ML PO (09:14)
--- NOTE | 2019-10-03 10:14 | EKG12_ITS ---
Test Reason : CP Blood Pressure : / mmHG Vent. Rate : 118 BPM Atrial Rate : 118 BPM P-R Int : 144 ms QRS Dur : 084 ms QT Int : 326 ms P-R-T Axes : 059 012 055 degrees QTc Int : 456 ms Sinus tachycardia Otherwise normal ECG Confirmed by CARA FLOREZ, KULWINDER ([id number]), film editor supervisor ELEANOR GAMEZ ([id number]) on 10/05/2019 11:41:26 AM Referred By: Angeles Morley Confirmed By:KULWINDER MARROQUIN MD
[2019-10-03] MEDS: Albuterol 2.5 MG/3 ML VIAL.NEB. INHALATION ×3 (11:30→19:36)
--- NOTE | 2019-10-03 13:51 | CASEMGMT ---
RN CM Assessment Introduced role of RN CM to patient.? Patient is alert, oriented and able?to participate in RN CM Assessment. ?Care providers, pharmacy, and demographics verified. Presentation: CP Admit Dx: PNA, CP Re-Admit: No Barriers/Issues: None PCP: None, declined offered PCP list, states has a PCP list at her house and just needs to sign up for one. Specialists: Onc- Dr Diaz Preferred Pharmacy: [facility] Insurance: [employer] Rx Benefit:?Yes ?LNOK: Dtr Inna Dozier LW/HPOA: Has both, aware not on file at [facility], HPOA- friend Cassi Ness-does not have contact number on her currently. Living Arrangements:? Lives wiht her Dtr Inna and 3yo granddaughter ADL?s: Independent with ambulation and ADLs Transportation: Patient drives and denies any transportation issues DME: None HHC: None SNF: None Goal: Home and does not think will have any needs. Denies any questions, concerns, or issues with Dc planning at this time. Aware CM remains available for any emerging needs. DC PLAN: Home with no anticipated needs identified at this time. FLORENCE Shine
--- NOTE | 2019-10-03 15:45 | RAD_ITS ---
STUDY: X-RAY CHEST REASON FOR EXAM: Female, 58 years old. Chest pain TECHNIQUE: Frontal view COMPARISON: 07/21/2019 FINDINGS: There is a RIGHT-sided Port-A-Cath. The tip is in the superior vena cava. There are bilateral perihilar and lower lobe infiltrates. There is no demonstrated pleural abnormality. Normal size heart. Normal mediastinum and reji. Normal visualized pulmonary arteries. Normal visualized aortic arch and descending thoracic aorta. Normal visualized thoracic spine. Normal visualized ribs, clavicles, and shoulders. There is no demonstrated abnormality of the visualized soft tissue structures of the upper abdomen. RAD/Chest 1 View (Portable) IMPRESSION: Bilateral infiltrates. Electronically Signed: Misael Samano MD at 6:10 EST , Service support ,
[2019-10-04 02:14] VITALS: BP 107/58; PULSE 89; RESP 18; TEMP 36.6; O2SAT 97
[2019-10-04 03:36] VITALS: PULSE 78
[2019-10-04] MEDS: 0.9% Saline Lock 10 ML Syringe IV (05:19)
[2019-10-04 06:40] LABS: Absolute Lymphocyte Count 0.38 X10^3/uL (0.83-4.51); Basophil# 0.02 X10^3/uL; Basophil% 0.3 % (0-1); Eosinophil# 0.16 X10^3/uL; Eosinophils% 2.6 % (0-5); Hematocrit 34.1 % (37-47); Hemoglobin 11.3 g/dL (12.0-15.0); Lymphocyte # 0.38 X10^3/ul (4.0); Lymphocyte % 6.3 % (19-41); Mean Corp Hgb Conc 33.1 g/dL (32-36); Mean Corpuscular Hgb 31.1 pg (27.0-32.0); Mean Corpuscular Volume 93.9 fL (81-99); Mean Platelet Vol. 9.4 fl (6.2-12.0); Monocyte# 0.42 X10^3/uL; Monocyte% 6.9 % (0-10); NRBC Flagged by Analyzer 0 % (0-5); Neutrophil # 5.02 X10^3/uL (2.7-7.7); Neutrophil % 83.1 % (47-70); POSITIVE DIFFERENTIAL YES; Platelet Count 184 K/mm3 (150-450); RBC Distribution Width SD 44.6 fl (35.1-43.9); Red Blood Count 3.63 M/mm3 (4.2-5.4); White Blood Count 6.1 K/mm3 (4.4-11.0)
[2019-10-04 06:41] LABS: Anion Gap 2 (5-15); BUN 10 mg/dL (7-18); BUN/Creat Ratio 15.6 RATIO (10-20); Calcium,Total 8.4 mg/dL (8.5-10.1); Chloride 111 mmol/L (98-107); Creatinine, Serum 0.64 mg/dL (0.55-1.02); EST Glomerular Filtration Rate 101 mL/min (>60); Est Glom Filt Rate - Afr Amer 123 mL/min (>60); Estimated Creatinine Clearance 79.26 ml/min; Glucose 104 mg/dL (74-106); Potassium 3.8 mmol/L (3.5-5.1); Sodium Level 144 mmol/L (136-145)
[2019-10-04 06:52] LABS: Differential Indicated SCAN CRITERIA MET
[2019-10-04 07:04] VITALS: PULSE 96; RESP 18; O2SAT 95
[2019-10-04] MEDS: Albuterol 2.5 MG/3 ML VIAL.NEB. INHALATION ×2 (07:04→11:14)
[2019-10-04 07:11] VITALS: PULSE 83
--- NOTE | 2019-10-04 08:17 | PN_ITS ---
Patient Problems: Active and Suspected Problems (Last Updated 10/03/19 @ 08:39 by Angeles Morley MD) Chest pain (Acute) Community acquired pneumonia (Acute) Subjective: Chief complaint: Follow-up after admission for bilateral community-acquired pneumonia. Patient seen and examined. No acute events overnight. Today, she is feeling better but still having some cough with no sputum. Denies shortness of breath. Her vital signs are stable, afebrile. - Physical Exam Vitals/I&O's: Vital Signs Temp Pulse Resp BP Pulse Ox 98 F 78 18 107/58 L 97 10/04/19 02:14 10/04/19 03:36 10/04/19 02:14 10/04/19 02:14 10/04/19 02:14 Oxygen Flow Rate (L/min) 2 Oxygen Delivery Method Room Air Weight: 210 lb 15.718 oz Body Mass Index (BMI) 37.3 Intake and Output for Last 24 Hours 10/02/19 10/03/19 10/04/19 23:59 23:59 23:59 Intake Total 1605 / 1605 Balance 1605 / 1605 General: Alert, Oriented x3, Cooperative, No apparent distress HEENT: Atraumatic, PERRLA, EOMI, Normocephalic Oral: Moist Mucosa, No Gingival or Mucosal Lesions/ Ulcerations Neck: Supple, No JVD, Negative Carotid Bruits, Trachea Midline, Thyroid Normal Size and Texture Lungs: No rhonchi, No wheeze, Diminished, Rales, - - Decreased breath sounds at the bases, bilateral basal faint crackles. Cardiovascular: Regular rate, Regular Rhythm, Normal S1, Normal S2, PMI Normal Abdomen: Bowel Sounds Present, Soft, Non Tender, Non-Distended, No Hepato- splenomegaly Extremities: No clubbing, No cyanosis, No edema Skin: No rashes, No breakdown Lymphatic: No Cervical, Supraclavicular, or Inguinal Adenopathy Neurological: Cranial nerves II-XII grossly intact, Motor Exam 5/5 strength throughout Psych/Mental Status: Normal Affect, Appropriate, Alert and oriented to time, patrica ce, person, mood and affect Microbiology Past 72 Hours 10/03/19 11:40 Mucosa - Nose Respiratory Panel (PCR) - Final Laboratory Results 10/03/19 09:32: Troponin I < 0.015 10/03/19 12:48: Troponin I < 0.015 10/03/19 15:10: Troponin I < 0.015 10/04/19 06:10: WBC 6.1, RBC 3.63 L, Hgb 11.3 L, Hct 34.1 L, MCV 93.9, MCH 31.1, MCHC 33.1, RDW Std Deviation 44.6 H, RDW Coeff of Lois 13.0, Plt Count 184, MPV 9.4, Immature Gran % (Auto) 0.800, Neut % (Auto) 83.1 H, Lymph % (Auto) 6.3 L, [place] % (Auto) 6.9, Eos % (Auto) 2.6, Baso % (Auto) 0.3, Absolute Neuts (auto) 5.0, Absolute Lymphs (auto) 0.38 L, Nucleated RBC % 0, Differential Comment 10/04/19 06:10: Sodium 144, Potassium 3.8, Chloride 111 H, Carbon Dioxide 31.0, Anion Gap 2 L, BUN 10, Creatinine 0.64, Estim Creat Clear Calc 79.26, Est GFR (MDRD) Af Amer 123, Est GFR (MDRD) Non-Af 101, BUN/Creatinine Ratio 15.6, Glucose 104, Calcium 8.4 L Current Medications Acetaminophen (Tylenol) 650 mg PO Q6H PRN PRN PRN Reason: Pain Score 1-3/Temp > 100.7 F Last Admin: 10/03/19 09:12 Dose: 650 mg Documented by: Albuterol Sulfate (Ventolin Aerosols) 2.5 mg INHALATION Q4HWA.RT [facility] Last Admin: 10/04/19 07:04 Dose: 2.5 mg Documented by: Enoxaparin Sodium (Lovenox) 40 mg SC DAILY [facility] Last Admin: 10/03/19 09:12 Dose: 40 mg Documented by: Guaifenesin/Codeine Phosphate (Robitussin Ac) 10 ml PO Q6H PRN PRN PRN Reason: COUGH Last Admin: 10/03/19 09:14 Dose: 10 ml Documented by: Heparin Sodium (Beef Lung) () 50 units IV UD PRN PRN Reason: Port-a-Cath (VAD)Heparin Flush Ceftriaxone Sodium 2 gm/ (Sodium Chloride) 50 mls @ 100 mls/hr IV Q24 [facility] Stop: 10/10/19 10:01 Azithromycin 500 mg/ Dextrose 255 mls @ 250 mls/hr IV Q24 MICHI Stop: 10/08/19 10:01 Last Infusion: 10/03/19 10:56 Dose: Infused Documented by: Sodium Chloride () 250 mls @ 15 mls/hr IV .[id number] PRN PRN Reason: Saline Flush Ondansetron HCl (Zofran) 4 mg IV Q8H PRN PRN PRN Reason: NAUSEA/VOMITING Pseudoephedrine HCl (Sudafed) 30 mg PO Q6H PRN PRN PRN Reason: CONGESTION Senna/Docusate Sodium (Senokot-S, Dalila-Colace) 2 tablet PO BID PRN PRN PRN Reason: Constipation Sodium Chloride (0.9% Nacl (Sterile) Posiflush) 10 - 40 ml IV UD PRN PRN Reason: Port access or dressing change Sodium Chloride () 10 - 40 ml IV UD PRN PRN Reason: Port-a-Cath (VAD) Flush Last Admin: 10/04/19 05:19 Dose: 30 ml Documented by: Medical Necessity - Tobacco Use Smoking Status: Never smoker Assessment/Plan All Active Problems (Last Updated 10/03/19 @ 08:39 by Angeles Morley MD) Chest pain (Acute) Community acquired pneumonia (Acute) This is a 58 years old female patient presented to the emergency room because of chest pain as well as symptoms of URTI, cough and mild shortness of breath over the last several days and she was found to have bilateral basal infiltrate on chest x-ray as well as CTA chest and she is being admitted for community- acquired pneumonia. #1 bilateral community-acquired pneumonia: She is on IV Rocephin and Zithromax. Her vital signs are stable, afebrile. No leukocytosis. Respiratory panel for viruses were negative. Blood and sputum cultures are pending. Plan to continue same treatment, anticipate discharge home tomorrow. #2 pleuritic chest pain: Likely due to pneumonia. EKG revealed no acute ischemic changes. Troponin was negative x3. Today, she has no more chest pain. ACS ruled out. 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 Stable, in remission. Last chemotherapy received was back in December,. CBC from today revealed normal WBC, normal H&H, normal platelet count. No anemia, no leukopenia and no neutropenia. Absolute neutrophil count today is 5000, normal. Plan as above. #4 DVT prophylaxis consult Lovenox. This note was generated with [employer] dictation software. It may contain incorrect words, spelling, and punctuation that were not noted in checking the note before signing. Code Visit Inpatient E&M: 92854 Subs Hosp L2
[2019-10-04] MEDS: Enoxaparin 40 MG/0.4 ML Syringe SC (11:00)
[2019-10-04 11:14] VITALS: PULSE 90; RESP 12
--- NOTE | 2019-10-04 14:31 | PCM.DC.SUM ---
Discharge Date and Diagnosis - Problem List Patient Problems: Active and Suspected Problems (Last Updated 10/03/19 @ 08:39 by Angeles Morley MD) Chest pain (Acute) Community acquired pneumonia (Acute) Date of Admission: 10/03/19 Date of Discharge: 10/04/19 - Primary Discharge Diagnosis Active and Suspected Problems (Last Updated 10/03/19 @ 08:39 by Angeles Morley MD) #1 bilateral community-acquired pneumonia. #2 pleuritic chest pain, ACS ruled out. - Secondary Discharge Diagnosis Chronic Problems (Last Updated 10/03/19 @ 08:39 by Angeles Morley MD) Neutropenia (Chronic) Lymphoma (Chronic) Macroglobulinemia of [place] (Chronic) Splenomegaly (Chronic) Hospital Course and Treatment Imaging Results: Clinical Impression(s) from Imaging Studies Chest CTA 10/03/19 06:16 IMPRESSION: There is no demonstrated pulmonary embolism. Normal thoracic aorta and visualized great vessels. There is no demonstrated aortic dissection. Normal heart and pericardium. There is mediastinal and hilar lymphadenopathy. There are multifocal bilateral pulmonary infiltrates predominantly at the lung bases. There is NO pleural effusion or pneumothorax. Electronically Signed: Misael Samano MD at 6:57 EST , Service support , Chest X-Ray 10/03/19 15:45 IMPRESSION: Bilateral infiltrates. Electronically Signed: Misael Samano MD at 6:10 EST , Service support , Operations: None, - - Laparoscopic right hemicolectomy Procedures: EKG Summary of Care Provided: The patient is a 58 year old F patient with past medical history as mentioned above presented to the emergency room because of chest pain as well as symptoms of URTI with cough, mild shortness of breath over the last several days before admission and she was found to have bilateral basilar infiltrate on chest x-ray. Chest x-ray showed no acute findings. Troponin was negative x3. Her chest pain seemed to be pleuritic secondary to pneumonia. ACS ruled out. CTA chest done because she is a cancer patient and there was a concern that she may have PE and revealed bilateral multifocal pulmonary infiltrate mainly at the lung bases without evidence of PE or dissection. Her routine blood work was unremarkable and there was no leukocytosis. There was no evidence of sepsis or severe sepsis. 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 There was no evidence of leukopenia or neutropenia and patient remained afebrile. Patient was treated with IV Rocephin and Zithromax. She remained afebrile overnight. Today morning, I saw the patient and I recommended that she should stay 1 more night for IV antibiotics because she is a cancer patient was on chemotherapy. Later in the afternoon, patient requested that she thinks that she is good to be discharged today. I spoke with the patient and explained to her that she should stay 1 more day for IV antibiotics but she preferred to go home today. I gave her the option to prescribe antibiotics for her and she can leave the hospital AGAINST MEDICAL ADVICE. Patient agreed to leave the hospital AGAINST MEDICAL ADVICE and I prescribed Levaquin 750 mg p.o. daily for 7 days and have prescription sent to her pharmacy. Recommended follow-up with PCP as outpatient. Patient Problems: Active and Suspected Problems (Last Updated 10/03/19 @ 08:39 by Angeles Morley MD) Chest pain (Acute) Community acquired pneumonia (Acute) - Physical Exam Vitals/I&O's: Vital Signs Temp Pulse Resp BP Pulse Ox 98 F 90 12 107/58 L 95 10/04/19 02:14 10/04/19 11:14 10/04/19 11:14 10/04/19 02:14 10/04/19 07:04 Oxygen Flow Rate (L/min) 2 Oxygen Delivery Method Room Air Weight: 210 lb 15.718 oz Body Mass Index (BMI) 37.3 Intake and Output for Last 24 Hours 10/02/19 10/03/19 10/04/19 23:59 23:59 23:59 Intake Total 1605 / 1605 1571.25 / 1571.25 Balance 1605 / 1605 1571.25 / 1571.25 General: Alert, Oriented x3, Cooperative, No apparent distress HEENT: Atraumatic, PERRLA, EOMI, Normocephalic Oral: Moist Mucosa, No Gingival or Mucosal Lesions/ Ulcerations Neck: Supple, No JVD, Negative Carotid Bruits, Trachea Midline, Thyroid Normal Size and Texture Lungs: No rhonchi, No wheeze, Diminished, Rales, - - Decreased breath sounds at the bases, bilateral faint basilar crackles. Cardiovascular: Regular rate, Regular Rhythm, Normal S1, Normal S2 Abdomen: Bowel Sounds Present, Soft, Non Tender, Non-Distended, No Hepato-splenomegaly Extremities: No clubbing, No cyanosis, No edema Skin: No rashes, No breakdown Lymphatic: No Cervical, Supraclavicular, or Inguinal Adenopathy Neurological: Cranial nerves II-XII grossly intact, Motor Exam 5/5 strength throughout Psych/Mental Status: Normal Affect, Appropriate Microbiology Past 72 Hours 10/03/19 19:00 Sputum, Expectorated/Coughed Gram Stain - Final 10/03/19 11:40 Mucosa - Nose Respiratory Panel (PCR) - Final Laboratory Results 10/03/19 15:10: Troponin I < 0.015 10/04/19 06:10: WBC 6.1, RBC 3.63 L, Hgb 11.3 L, Hct 34.1 L, MCV 93.9, MCH 31.1, MCHC 33.1, RDW Std Deviation 44.6 H, RDW Coeff of Lois 13.0, Plt Count 184, MPV 9.4, Immature Gran % (Auto) 0.800, Neut % (Auto) 83.1 H, Lymph % (Auto) 6.3 L, Rolette % (Auto) 6.9, Eos % (Auto) 2.6, Baso % (Auto) 0.3, Absolute Neuts (auto) 5.0, Absolute Lymphs (auto) 0.38 L, Nucleated RBC % 0, Differential Comment 10/04/19 06:10: Sodium 144, Potassium 3.8, Chloride 111 H, Carbon Dioxide 31.0, Anion Gap 2 L, BUN 10, Creatinine 0.64, Estim Creat Clear Calc 79.26, Est GFR (MDRD) Af Amer 123, Est GFR (MDRD) Non-Af 101, BUN/Creatinine Ratio 15.6, Glucose 104, Calcium 8.4 L Current Medications Acetaminophen (Tylenol) 650 mg PO Q6H PRN PRN PRN Reason: Pain Score 1-3/Temp > 100.7 F Last Admin: 10/03/19 09:12 Dose: 650 mg Documented by: Albuterol Sulfate (Ventolin Aerosols) 2.5 mg INHALATION Q4HWA.RT [facility] Last Admin: 10/04/19 11:14 Dose: 2.5 mg Documented by: Enoxaparin Sodium (Lovenox) 40 mg SC DAILY [facility] Last Admin: 10/04/19 11:00 Dose: 40 mg Documented by: Guaifenesin/Codeine Phosphate (Robitussin Ac) 10 ml PO Q6H PRN PRN PRN Reason: COUGH Last Admin: 10/03/19 09:14 Dose: 10 ml Documented by: Heparin Sodium (Beef Lung) () 50 units IV UD PRN PRN Reason: Port-a-Cath (VAD)Heparin Flush Ceftriaxone Sodium 2 gm/ (Sodium Chloride) 50 mls @ 100 mls/hr IV Q24 [facility] Stop: 10/10/19 10:01 Last Infusion: 10/04/19 10:36 Dose: Infused Documented by: Azithromycin 500 mg/ Dextrose 255 mls @ 250 mls/hr IV Q24 [facility] Stop: 10/08/19 10:01 Last Infusion: 10/04/19 12:51 Dose: Infused Documented by: Sodium Chloride () 250 mls @ 15 mls/hr IV .[id number] PRN PRN Reason: Saline Flush Ondansetron HCl (Zofran) 4 mg IV Q8H PRN PRN PRN Reason: NAUSEA/VOMITING Pseudoephedrine HCl (Sudafed) 30 mg PO Q6H PRN PRN PRN Reason: CONGESTION Senna/Docusate Sodium (Senokot-S, Dalila-Colace) 2 tablet PO BID PRN PRN PRN Reason: Constipation Sodium Chloride (0.9% Nacl (Sterile) Posiflush) 10 - 40 ml IV UD PRN PRN Reason: Port access or dressing change Sodium Chloride () 10 - 40 ml IV UD PRN PRN Reason: Port-a-Cath (VAD) Flush Last Admin: 10/04/19 05:19 Dose: 30 ml Documented by: Home Medications: Medications to take at Discharge Multivitamin [Multiple Vitamins] 1 ea PO DAILY 09/28/18 levoFLOXacin tablet [Levaquin tablet] 750 mg PO DAILY #7 tab 10/04/19 Following Prescrptions Were Given to Patient: levoFLOXacin tablet [Levaquin tablet] 750 mg PO DAILY #7 tab Transmission Status: [facility] Care Physician: Care Physician,Hailey Primary [Primary Care Provider] - Disposition: Against Medical Advice Minutes spent on discharge:: 26 Patient Condition:: Stable Medical Necessity - Tobacco Use Smoking Status: Never smoker Meaningful Use Info Meaningful Use Diagnoses (Choose all that apply): None applicable Code Visit Inpatient E&M: 89377 Disch Hosp
== END 2019-10-04 14:50 | disposition left against medical advice (07) | DRG 139 ==
LOC: ED 05:38 → PCU 07:48
PROVIDERS: Admitting Provider Hospitalist; Emergency Provider Emergency Medicine; Referring Provider Hospitalist; Visit Provider Hospitalist
DX: J18.9 Pneumonia, unspecified organism (principal); R07.81 Pleurodynia; Z85.72 Personal history of non-Hodgkin lymphomas; Z85.79 Personal history of other malignant neoplasms of lymphoid, hematopoietic and related tissues; Z92.21 Personal history of antineoplastic chemotherapy
CPT/HCPCS: 36415; 36591; 71045; 71275; 80048; 84484; 85025; 87040; 87070; 87205; 87633; 93005; 94640; 99251; 99285; J7030; Q9967; A4216; G0463; J0696; J2405

== ENCOUNTER 2020-04-03 06:38 | Day surgery (SDC) | payer MEDICAID, SELFPAY ==
[2019-12-23 15:26] VITALS: BMI 38.0
[2020-04-03] VITALS (8 sets, daily range): BP systolic 75–144; BP diastolic 46–86; PULSE 67–87; RESP 16; TEMP 36–36.8; O2SAT 97–100; BMI 39.2
--- NOTE | 2020-04-03 07:17 | H&P.OPEN ---
History of Present Illness Date of Admission: 04/03/20 The patient is a 59 year old F is here for surveillance colonoscopy. The patient had a right hemicolectomy approximately 18 months ago. This was for a large tubovillous adenoma and at that time her lymph nodes came back positive for lymphoma. She was treated for this and has not had any issues since treatment. She is not having any blood in her stool or abdominal pain. I recommended follow-up colonoscopy 1 year after surgery and she is here for that. Past Medical/Surgical History - Planned Operation Planned Operative Procedure/s: colonoscopy Date of Operative Procedure: 04/03/20 Permit Signed: No S.O.S: No Is This Patient Having a Total Joint: No - Previous Hospitalizations/Surgeries HX Hospitalizations: No HX of Surgeries: 2 c-sections, tubal ligation, D&C hysteroscopy. 09/30/18 EGD/ COLONOSCOPY. 09/30/18 LAP ASSISTED HEMICOLECTOMY OPEN. 10/2018 port placement right chest Any Problems With Anesthesia: No You/Your Family Experience Fever (Hyperthermia) With Anes: No Cholinesterase deficiency: No - Cardiovascular Hx Chest Pain within Last 2 months: No Hx of Irregular Heartbeat and/or Afib: Yes - sinus tach per EKG Hx Heart Attack: No Hx Congestive Heart Failure: No Hx Rheumatic Fever: No Hx Hypertension: No Hx Internal Defibrillator: No Hx Pacemaker: No Hx Cardiac Catheterization: No Hx Cardiac Surgery/Stents/Etc.: No Hx Stress Test: No HX Edema: No Hx Pain in Legs when Walking/Leg Cramps: No - Respiratory Chronic Cough: No HX of Shortness of Breath: No - denies Hoarseness: No Hx Chronic Obstructive Pulmonary Disease (COPD): No Hx Asthma: No Hx Emphysema: No Hx Sleep Apnea: No CPAP: No BIPAP: No Hx Oxygen Use at Home: No Hx Respiratory Tract Infection/Cold (presently): No Do You Snore Loudly (louder than talking or can be heard): No Do You Often Feel Tired/ Fatigued/ Sleepy Dring Daytime?: No Has Anyone Observed You Stop Breathing During Sleep?: No Result (for STOP score): Negative Hx Smoking: No Smoking Status: Never smoker - Gastrointestinal Hx Gastroesophageal Reflux: No Controlled With Meds: - NA Hx Gastrointestinal Disorders: Yes - polyp/ hx hemicolectomy Hx Gastrointestinal Bleed: No Hx Ulcer: No Hx Hiatal Hernia: No Difficulty Chewing/Swallowing: No Recent Onset of Swallowing Problems: No Special diet followed at home: No Hx Unplanned Weight Loss of 20#: No HX Unplanned Weight Gain of 20#: No - Neurological Hx Seizures: No HX Syncope/Blackout Spells/Unconsciousness: No Hx CVA/Stroke: No Hx Transient Ischemic Attacks (TIA): No Hx Multiple Sclerosis: No Hx Parkinson's Disease: No Hx Head/Neck Injury: No Hx Headaches: No Hx Back Injury/Pain: No - knee pain Recent Onset of Speech Difficulty: No Restless Legs: No Does patient have nerve stimulator: No Patient instructed to have device shut off: No Rep notified?: No - Blood Disorder Hx Leukemia: No Bleeding Tendencies: No Hx Deep Vein Thrombosis: No Hx High Cholesterol: No Blood Transmitted Disease: No Hx Hepatitis: No Hx Cirrhosis: No Hx Anemia: Yes - with lymphoma/resolved Hx Blood Disorders: Yes - lymphoma/Dr Diaz/chemo/immunotherapy - Reproduction : No Is Patient Lactating: No Hx Hysterectomy: No Hx Tubal Ligation: Yes Are You Post Menopause: Yes - Genitourinary Hx Renal Disease: No Hx Dialysis: No - Musculoskeletal Hx Arthritis: No Hx Rheumatoid Arthritis: No Hx Gout: No Recent Onset of an Orthopedic Problem: No - chronic knee pain - Endocrine Hx Diabetes: No Insulin: No Thyroid Disease: No Hx Steroid Therapy: No - Psycho/Social Hx Substance Use: No Hx Alcohol Use: No Hx Anxiety: No Hx Depression: No Mental Illness: No Hx Dementia: No - Miscellaneous Hx Cancer: Yes - LYMPHOMA, dx 2018, in remission Recent Exposure to Contagious Disease: No Active MRSA: No Hx of C-Diff: No Any Loose Teeth: No Allergies No Known Allergies Allergy (Verified 03/30/20 11:35) Maternal Family History: Family History (Last Updated 12/23/19 @ 15:32 by Mala Ziegler) Mother Thyroid disorder Diabetes Other no prevalent family history No pertinent history, - Paternal Family History: Family History (Last Updated 12/23/19 @ 15:32 by Mala Ziegler) Mother Thyroid disorder Diabetes Other no prevalent family history No pertinent history, - - Discharge Is Pt Admitted From a Senior Care, or a Penitentiary: No Who Could Help: daughter After D/C, Where Do you Plan to Go: Return Home - Physical Exam Vitals/I&O's: Body Mass Index (BMI) 38.0 General: Alert, Oriented x3 Lungs: Normal air movement Cardiovascular: Regular rate, Regular Rhythm Abdomen: Soft, Non Tender, Non-Distended Laboratory Results 04/02/20 11:36: COVID-19 ([facility]) Not Detected Assessment/Plan All Active Problems (Last Reviewed 11/02/19 @ 10:35 by Radha Black) Chest pain (Acute) Community acquired pneumonia (Acute) 59-year-old female history of large tubovillous adenoma requiring right hemicolectomy 1. I explained endoscopy in detail to the patient. I explained the risks including but not limited to stroke or heart attack with anesthesia, perforation of the GI tract, bleeding, infection. I explained that any of these could necessitate further emergency surgery. The patient understands and all questions were answered sufficiently. The patient wishes to proceed with procedure. We discussed the current risks associated with COVID-19. While it is understood that there is a community spread of COVID-19, the risk of sandra COVID-19 while at [facility] ([facility]) is very low; however, the risk cannot be completely mitigated because of the community spread of the disease. We discussed in detail the risk of exposure to and/or potential harm posed by the COVID-19 virus with having a surgery/procedure at this time versus the risk of delaying the surgery/procedure. It is not possible to know either the risk of delaying the surgery or procedure or chance of getting an infection with perfect accuracy, but a joint decision was made to proceed at this time with the scheduled surgery/procedure as indicated on the consent form. Patient was notified that we will need to comply with any screening or testing [facility] wishes to perform or that surgery may be delayed for any positive results. Sam Garnica MD Pager: [facility] [address] [place] [address], [address] [place] [address] Office: Surgery Risks - Colonoscopy Risks Include but are not Limited To: Risks include but are not limited to: Bleeding, perforation requiring further surgery, inability to complete colonoscopy requiring barium enema.
--- NOTE | 2020-04-03 08:07 | OP.COLON_ITS ---
Patient Name: Bill Braswell Procedure Date: 04/03/2020 7:02 AM Date of : 1960 Age: 59 Procedure: Colonoscopy Indications: High risk colon cancer surveillance: Personal history of colonic polyps Providers: Sam Garnica MD Referring MD: Sam Garnica MD Medicines: Monitored Anesthesia Care Patient Profile: This is a 59 year old female. Refer to note in patient chart for documentation of history and physical. Last Colonoscopy: September 2018. Complications: No immediate complications. Estimated blood loss: None. Procedure: Pre-Anesthesia Assessment: - Prior to the procedure, a History and Physical was performed, and patient medications and allergies were reviewed. The patient's tolerance of previous anesthesia was also reviewed. The risks and benefits of the procedure and the sedation options and risks were discussed with the patient. All questions were answered, and informed consent was obtained. Prior Anticoagulants: The patient has taken no previous anticoagulant or antiplatelet agents. After reviewing the risks and benefits, the patient was deemed in satisfactory condition to undergo the procedure. After I obtained informed consent, the scope was passed under direct vision. Throughout the procedure, the patient's blood pressure, pulse, and oxygen saturations were monitored continuously. The Colonoscope was introduced through the anus and advanced to the ileocolonic anastomosis. The colonoscopy was performed without difficulty. The patient tolerated the procedure well. The quality of the bowel preparation was good. Scope In: 7:46:22 AM Scope Withdrawal Time 0 hours 6 minutes 2 seconds Scope Out: 8:02:40 AM Total Procedure Duration Time 0 hours 16 minutes 18 seconds Findings: The entire examined colon appeared normal on direct and retroflexion views. Impression: - The entire examined colon is normal on direct and retroflexion views. - No specimens collected. Recommendation: - Discharge patient to home. - Resume previous diet. - Continue present medications. - Repeat colonoscopy in 10 years for screening purposes. Procedure Code(s): --- Professional --- 68202, Colonoscopy, flexible; diagnostic, including collection of specimen(s) by brushing or washing, when performed (separate procedure) Diagnosis Code(s): --- Professional --- Z86.010, Personal history of colonic polyps CPT copyright 2017 [employer]. All rights reserved. The codes documented in this report are preliminary and upon die cast supervisor review may be revised to meet current compliance requirements. Sam Garnica MD 04/03/2020 8:06:48 AM This report has been signed electronically. Number of Addenda: 0 Note Initiated On: 04/03/2020 7:02 AM
--- NOTE | 2020-04-03 08:07 | OP.CCLET_ITS ---
04/03/2020 Adán Day MD [address] [place] [address] [place] [address] Re : Colonoscopy procedure for Bill Braswell Dear Dr. Day This procedure was performed on Friday, April 03, 2020. My impressions and recommendations are as follows: Impressions : - The entire examined colon is normal on direct and retroflexion views. - No specimens collected. Recommendations : - Discharge patient to home. - Resume previous diet. - Continue present medications. - Repeat colonoscopy in 10 years for screening purposes. My findings are described in the full procedure note, which is enclosed. If I can be of further assistance, please feel free to contact me at Doctor phone number(s): , Work: . Sincerely, Sam Garnica MD 04/03/2020 8:06:48 AM This report has been signed electronically.
== END 2020-04-03 09:09 | disposition home or self-care (01) ==
LOC: EN 06:38 → AC 06:38
PROVIDERS: Anesthesiology; PCP Internal Medicine; Referring Provider Surgery; Visit Provider Surgery
PROC: 0DJD8ZZ Inspection of Lower Intestinal Tract, Via Natural or Artificial Opening Endoscopic (ICD-10-PCS; CPT 45378; principal; 2020-04-03 07:55)
DX: Z12.11 Encounter for screening for malignant neoplasm of colon (principal); Z86.010 Personal history of colon polyps; K63.89 Other specified diseases of intestine; Z11.59 Encounter for screening for other viral diseases
CPT/HCPCS: 45378; 87635; G2023; J7120; A4216; J2405; U0003

== ENCOUNTER → 2020-04-05 | Outpatient (CLI) | payer MEDICAID, SELFPAY ==
[2019-12-23 15:26] VITALS: BMI 38.0
[2020-04-03 07:15] VITALS: BMI 39.2
--- NOTE | 2020-04-05 14:15 | CT_ITS ---
STUDY: CT CHEST WITH CONTRAST REASON FOR EXAM: Female, 59 years old. HX LYMPHOMA RADIATION DOSAGE (If Supplied By Facility): CTDIvol = ( 17.03 ) mGy, DLP = ( 1696.82 ) mGycm TECHNIQUE: Transaxial imaging was performed following intravenous administration of IV 100mL Isovue-370. Individualized dose optimization techniques were used for this CT. COMPARISON: 10/03/2019. FINDINGS: The lungs are normal. Trace linear scar across the right costophrenic angle. There is no demonstrated pleural abnormality. Normal heart and pericardium. Normal mediastinum. Normal hilar regions. Normal enhanced pulmonary arteries. Normal aorta arch and descending thoracic aorta. Normal osseous structures. There is no demonstrated abnormality of the visualized upper abdomen. CT/Chest WITH Contrast IMPRESSION: Within normal limits. Electronically Signed: Fish Bonner MD at 20:30 EDT , Service support ,
--- NOTE | 2020-04-05 14:15 | CT_ITS ---
STUDY: CT ABDOMEN AND PELVIS WITH CONTRAST REASON FOR EXAM: Female, 59 years old. HX LYMPHOMA RADIATION DOSAGE (If Supplied By Facility): CTDIvol = ( 17.03 ) mGy, DLP = ( 1696.82 ) mGycm TECHNIQUE: Transaxial images were obtained from the dome of the diaphragm to the symphysis pubis without oral contrast. IV 100mL Isovue-370 was administered. Sagittal and coronal images were reconstructed. Individualized dose optimization techniques were used for this CT. COMPARISON: 07/21/2019. FINDINGS: See separate report for CT of the chest. Normal liver. There is a solitary gallstone. Normal spleen. Normal pancreas. Normal bilateral adrenal glands. Normal right kidney. Normal left kidney. Evaluation of the GI tract is limited by absence of oral contrast. Cannot exclude stomach wall thickening. No dilated loops of bowel or evidence for obstruction. Cannot exclude segmental thickening of the cano of the small or large bowel. Cannot exclude enteritis or colitis. Moderate diffuse fecal retention. Previous partial right hemicolectomy. Normal abdominal aorta. Normal inferior vena cava. There is borderline retroperitoneal lymphadenopathy with enlarged nodes no greater than 10mm in the short axis diameter. Normal urinary bladder. Normal size and shape of the uterus with a stable calcified fibroid. Normal abdominal wall. Normal osseous structures. CT/Abdomen/Pelvis W IV Cont ONLY IMPRESSION: No acute abnormality. Cholelithiasis. No evidence for significant adenopathy. Electronically Signed: Fish Bonner MD at 20:42 EDT , Service support ,
[2020-04-05 14:31] LABS: CREATININE FINGERSTICK 0.9 mg/dL (0.55-1.02)
== END | disposition home or self-care (01) ==
LOC: CT 14:15
PROVIDERS: Referring Provider Internal Medicine Hematology & Oncology; Visit Provider Internal Medicine Hematology & Oncology
DX: C83.50 Lymphoblastic (diffuse) lymphoma, unspecified site (principal)
CPT/HCPCS: 71260; 74177; Q9967; A4216

== ENCOUNTER → 2020-10-02 13:34 | Outpatient (CLI) | payer MEDICAID, SELFPAY ==
[2020-04-10 13:22] VITALS: BMI 40.3
--- NOTE | 2020-10-02 13:36 | CT_ITS ---
STUDY: CT SOFT TISSUE NECK WITH CONTRAST REASON FOR EXAM: Female, 59 years old. FOLLOW UP LYMPHOMA RADIATION DOSAGE (If Supplied By Facility): CTDIvol = ( 12.49 ) mGy, DLP = ( 293.10 ) mGycm TECHNIQUE: The patient was scanned in a multi-detector CT scanner. High resolution transaxial imaging was performed following intravenous administration of IV 100mL Isovue-370. Sagittal and coronal images were reconstructed. Individualized dose optimization techniques were used for this CT. COMPARISON: Comparison is made with prior study dated 02/21/2019. FINDINGS: Normal bilateral parotid glands. Normal bilateral instrument lens grinder spaces. Normal bilateral parapharyngeal spaces. Normal bilateral carotid spaces. Normal bilateral sublingual and submandibular glands and spaces. Normal visualized nasopharynx. Normal retropharyngeal space. Normal perivertebral space. Normal visualized bilateral faucial tonsils. The visualized tongue, tongue base and oropharynx are normal. The visualized cervical lymph nodes (levels I-) are within normal size limits, and maintain normal morphology. There is no demonstrated solid or cystic mass lesion. There is no abnormal contrast enhancement. Normal epiglottis, bilateral vallecula and hypopharynx. The pre-epiglottic and paraglottic adipose spaces are normal. Normal visualized bilateral piriform sinuses, aryepiglottic folds, vocal cords, and arytenoid-cricoid articulations. Normal subglottic trachea. Stable 5 mm hypodensity in the upper pole of the right thyroid lobe. Normal visualized pulmonary apices. Normal visualized paranasal sinuses. There is multilevel degenerative changes of the cervical spine. CT/Soft Tissue Neck WITH Contrast IMPRESSION: Stable examination. No acute abnormality is seen. Electronically Signed: Dung Meek, at 14:25 EST , Service support ,
--- NOTE | 2020-10-02 13:36 | CT_ITS ---
STUDY: CT ABDOMEN AND PELVIS WITH CONTRAST REASON FOR EXAM: Female, 59 years old. FOLLOW UP LYMPHOMA RADIATION DOSAGE (If Supplied By Facility): CTDIvol = ( 23.49 ) mGy, DLP = ( 1148.75 ) mGycm TECHNIQUE: Transaxial images were obtained from the dome of the diaphragm to the symphysis pubis without oral contrast. IV 100mL Isovue-370 was administered. Sagittal and coronal images were reconstructed. Individualized dose optimization techniques were used for this CT. COMPARISON: Comparison is made with prior study dated 04/05/2020. FINDINGS: The visualized lung bases are unremarkable. The visualized portions of the heart are within normal limits. There is decreased attenuation of the liver consistent with steatosis. There is a solitary gallstone. Normal spleen. Normal pancreas. Normal bilateral adrenal glands. Normal right kidney. Normal left kidney. Normal visualized stomach. Normal small intestine. Normal colon. The appendix is visualized and appears normal. There is scattered atherosclerotic calcification of the abdominal aorta, without a demonstrated aneurysm. Normal inferior vena cava. There is borderline retroperitoneal lymphadenopathy with enlarged nodes no greater than 10mm in the short axis diameter. Normal urinary bladder. Calcified fibroid uterus. Normal abdominal wall. Normal osseous structures. CT/Abdomen/Pelvis W IV Cont ONLY IMPRESSION: Stable examination. Electronically Signed: Dung Meek, at 14:23 EST , Service support ,
--- NOTE | 2020-10-02 13:36 | CT_ITS ---
STUDY: CT CHEST WITH CONTRAST REASON FOR EXAM: Female, 59 years old. FOLLOW UP LYMPHOMA RADIATION DOSAGE (If Supplied By Facility): CTDIvol = ( 15.095 ) mGy, DLP = ( 780.60 ) mGycm TECHNIQUE: Transaxial imaging was performed following intravenous administration of IV 100mL Isovue-370. Multiplanar coronal and sagittal images were reformatted. Individualized dose optimization techniques were used for this CT. COMPARISON: Comparison is made with prior study dated 04/05/2020. FINDINGS: A right-sided portacatheter is seen with the tip in the superior vena cava. Small benign-appearing bilateral axillary lymph nodes. The lungs are normal. There is no demonstrated pleural abnormality. Normal heart and pericardium. Normal mediastinum. Normal hilar regions. Normal enhanced pulmonary arteries. Normal aorta arch and descending thoracic aorta. There are mild degenerative changes of the thoracic spine. Fatty infiltration of the liver. CT/Chest WITH Contrast IMPRESSION: No acute abnormality is seen. Electronically Signed: Dung Meek, at 14:27 EST , Service support ,
[2020-10-02 14:01] LABS: CREATININE FINGERSTICK 1.4 mg/dL (0.55-1.02)
[2020-10-02] MEDS: 0.9% Saline Lock 10 ML Syringe IV (14:05)
== END ==
PROVIDERS: Referring Provider Internal Medicine Hematology & Oncology; Visit Provider Internal Medicine Hematology & Oncology
DX: C85.90 Non-Hodgkin lymphoma, unspecified, unspecified site (principal)
CPT/HCPCS: 36415; 36591; 70491; 71260; 74177; 80053; 82784; 83615; 84165; 85025; 86334; Q9967; A4216

== ENCOUNTER → 2021-10-23 12:47 | Outpatient (CLI) | payer MEDICAID, SELFPAY ==
--- NOTE | 2021-10-23 12:48 | CT_ITS ---
STUDY: CT SOFT TISSUE NECK WITH CONTRAST REASON FOR EXAM: Female, 60 years old. surveillance RADIATION DOSAGE (If Supplied By Facility): CTDIvol = ( 12.62 ) mGy, DLP = ( 2239.44 ) mGycm TECHNIQUE: The patient was scanned in a multi-detector CT scanner. High resolution transaxial imaging was performed following intravenous administration of IV 100mL Isovue-300. Sagittal and coronal images were reconstructed. Individualized dose optimization techniques were used for this CT. COMPARISON: 10/02/2020 FINDINGS: Normal bilateral parotid glands. Normal bilateral school bus driver/custodian spaces. Normal bilateral parapharyngeal spaces. Normal bilateral carotid spaces. Normal bilateral sublingual and submandibular glands and spaces. Normal visualized nasopharynx. Normal retropharyngeal space. Normal perivertebral space. Normal visualized bilateral faucial tonsils. The visualized tongue, tongue base and oropharynx are normal. The visualized cervical lymph nodes (levels I-) are within normal size limits, and maintain normal morphology. There is no demonstrated solid or cystic mass lesion. There is no abnormal contrast enhancement. Normal epiglottis, bilateral vallecula and hypopharynx. The pre-epiglottic and paraglottic adipose spaces are normal. Normal visualized bilateral piriform sinuses, aryepiglottic folds, vocal cords, and arytenoid-cricoid articulations. Normal subglottic trachea. Normal bilateral lobes of the thyroid gland. Normal visualized pulmonary apices. Normal visualized paranasal sinuses. Normal visualized cervical spine. CT/Soft Tissue Neck WITH Contrast IMPRESSION: Normal enhanced CT examination of the soft tissues of the neck. No CT evidence of active lymphoma. Electronically Signed: Anselmo Bartlett MD at 17:08 EST Tel , Service support ,
--- NOTE | 2021-10-23 12:48 | CT_ITS ---
STUDY: CT CHEST, ABDOMEN T PELVIS WITH CONTRAST REASON FOR EXAM: Female, 60 years old. surveillance RADIATION DOSAGE (If Supplied By Facility): CTDIvol = ( 12.62 ) mGy, DLP = ( 2239.44 ) mGycm TECHNIQUE: Transaxial imaging was performed following intravenous administration of IV 100mL Isovue-300. Individualized dose optimization techniques were used for this CT. COMPARISON: 10/02/2020 FINDINGS: CHEST Right internal jugular chest port. Multiple ill-defined nodules within the right upper lobe consistent with atypical pneumonia. There is no demonstrated pleural abnormality. Normal heart and pericardium. Normal mediastinum. Normal hilar regions. Normal unenhanced pulmonary arteries. Normal aorta arch and descending thoracic aorta. Normal osseous structures. There is no demonstrated abnormality of the visualized upper abdomen. ABDOMEN The visualized lung bases are unremarkable. The visualized portions of the heart are within normal limits. Normal liver. There is a solitary gallstone. There is mild splenomegaly. Normal pancreas. Normal bilateral adrenal glands. Normal right kidney. Normal left kidney. Normal visualized stomach. Normal small intestine. Status post right hemicolectomy. Normal abdominal aorta. Normal inferior vena cava. Normal retroperitoneum. Normal abdominal wall. Normal osseous structures. PELVIS Normal urinary bladder. Normal visualized small intestine. Normal visualized colon. There is no pelvic fluid. There is no pelvic lymphadenopathy or mass lesion. Calcified degenerated fibroid in the uterus. Normal visualized pelvic arteries. Normal abdominal wall. Normal osseous structures. CT/CT Chest, Abd, Pel w/Contrast IMPRESSION: 1. No definite CT evidence of active lymphoma. However, there is mild splenomegaly. 2. Atypical right upper lobe pneumonia. 3. Cholelithiasis. 4. Status post right hemicolectomy. Electronically Signed: Anselmo Bartlett MD at 17:16 EST Tel , Service support ,
[2021-10-23] MEDS: 0.9% Saline Lock 10 ML Syringe IV (13:10)
== END ==
PROVIDERS: Referring Provider Nurse Practitioner Family; Visit Provider Nurse Practitioner Family
DX: C88.0 Waldenstrom macroglobulinemia (principal); C85.88 Other specified types of non-Hodgkin lymphoma, lymph nodes of multiple sites
CPT/HCPCS: 70491; 71260; 74177; Q9967; A4216

== ENCOUNTER 2022-05-07 16:04 | Emergency (ER) | payer MEDICAID, SELFPAY ==
[2022-05-07 16:05] VITALS: BP 139/72; PULSE 85; RESP 18; TEMP 36.7; O2SAT 97; BMI 38.9
[2022-05-07 16:22] VITALS: BP 139/72; PULSE 74; RESP 12; O2SAT 97
--- NOTE | 2022-05-07 16:26 | EDS_ITS ---
HPI History of Present Illness Chief Complaint: Chest Pain Informant: patient Onset/Context/Timing Onset: Today Activity at onset: gradual Timing: Intermittent and Lasts (Couple minutes) Quality: Positive for Aching and - (Gripping) Location: Left Chest Worsened By: Nothing Relieved By: Nothing Associated Symptoms: Negative for Nausea, Vomiting, Diaphoresis, Dyspnea, Cough, Fever, Lightheadedness, Acid Reflux or Palpitations Narrative Narrative: Patient presents with chest pain that has been intermittent throughout the day today. Patient states it started approximately 9 AM today. Patient states it lasts a couple minutes whenever it comes on. Patient describes it as aching and gripping. Patient states it is over the left upper chest. Patient states nothing makes it better nothing makes it worse. Patient denies any nausea or v omiting. Patient denies any shortness of breath or cough. Patient denies any diaphoresis. Patient denies any cardiac risk factors. Patient has a history of non-Hodgkin's lymphoma that is in remission. 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[place] Mass of colon Splenomegaly Home Medications multivitamin tab PO 1XD 05/07/22 [History Last Taken Unknown] Allergy/AdvReac Type Severity Reaction Status Date / Time No Known Allergies Allergy Verified 11/06/21 14:13 Family History Mother Thyroid disorder Diabetes Other no prevalent family history Surgical History History of section PORT PLACEMENT S/P right hemicolectomy Social History Smoking Status: Never smoker second hand exposure: No alcohol intake: never substance use type: does not use what type of physical activity do you participate in: none chiara/hindu: None seatbelt use: always do you feel safe at home: Yes ROS ROS ED Constitutional Constitutional ED: Denies chills or fever(s) Eyes Eyes: Denies blurry vision or change in vision ENT ENT ED: Denies rhinorrhea or sore throat Cardiovascular Cardiovascular: Reports chest pain; Denies palpitations Respiratory/Chest Respiratory/Chest: Denies cough or dyspnea Gastrointestinal Gastrointestinal: Denies abdominal pain, nausea or vomiting Genitourinary Genitourinary ED: Denies dysuria or hematuria Musculoskeletal Musculoskeletal: Denies back pain or neck pain Integumentary Denies abscess or rash Neurologic Neurologic: Denies headache(s) or weakness Allergic/Immunologic Allergic/Immunologic ED: Denies mouth swelling or urticaria EXAM Physical Exam Const Vital Signs: 05/07/22 16:05 05/07/22 16:22 05/07/22 16:22 Temperature 98.0 F Temperature Source Oral Pulse Rate 85 74 Respiratory Rate 18 12 Respiratory Effort Normal Blood Pressure 139/72 H 139/72 H Blood Pressure Mean 94 94 Pulse Ox 97 97 Oxygen Delivery Method Room Air Room Air 05/07/22 16:45 05/07/22 17:17 Temperature Temperature Source Pulse Rate 66 Respiratory Rate 16 Respiratory Effort Blood Pressure 126/59 H Blood Pressure Mean 81 Pulse Ox 98 Oxygen Delivery Method Room Air Room Air Positive well nourished, well developed and obese General Appearance ED: well developed and NAD Nutritional Appearance: obese HEENT normocephalic and atraumatic Eyes PERRL and EOMs intact bilaterally Neck supple and no JVD Chest Wall inspection of chest normal and palpation of chest normal Resp normal respiratory effort and clear to auscultation bilaterally Effort and Inspection: Negative for respiratory distress Cardio regular rate, regular rhythm and no murmurs GI normal to inspection, nondistended, normoactive bowel sounds, soft to palpation, non-tender and non-distended Extremity normal to inspection General Extremety ED: Negative for edema or tenderness General Extremity: Negative for edema Neuro oriented x3, CN's II-XII intact bilaterally and no sensory deficits noted Sensorium / Orientation: awake and alert Motor Exam: strength 5/5 throughout Psych mental status grossly normal Heart Score History: Slightly/Non-Suspicious ECG: Normal Age: >45 - <65 years Risk Factors: No Risk Factors Troponin: </= Normal Limit Score: 1 MDM MDM MDM Narrative Medical decision making narrative: EKG was obtained. On my interpretation, it showed a normal sinus rhythm with sinus arrhythmia with a rate of 82. OK interval, QRS interval, and QTc intervals were all normal. [place] was normal. There are no acute ST or T wave changes. Portable 1 view chest x-ray was obtained. On my interpretation, lung rodriguez are clear. There is normal cardiac silhouette. Bony thorax is normal. There is no acute process noted. Radiologist also interpreted the x-ray and agrees. CBC was within normal limits. Basic metabolic profile was essentially within normal limits. High-sensitivity troponin was normal. 2-hour repeat high-sensitivity troponin was normal. Patient has a HEART score of 1. Patient was advised that this is low risk for acute cardiac event. Patient feels better and wants to go home. Patient was instructed to follow-up with her primary care physician in 5 to 7 days for reevaluation. Patient understood and was agreeable with the plan. All questions were answered. Lab Data Attestation: I reviewed the patient's lab results. Labs: Laboratory Results - last 24 hr 05/07/22 05/07/22 05/07/22 16:25 16:25 19:15 WBC 6.2 RBC 4.76 Hgb 14.5 Hct 42.7 MCV 89.7 MCH 30.5 MCHC 34.0 RDW Std Deviation 42.8 RDW Coeff of Lois 12.9 Plt Count 151 MPV 10.7 Immature Gran % (Auto) 0.500 Neut % (Auto) 78.7 H Lymph % (Auto) 12.1 L [place] % (Auto) 7.4 Eos % (Auto) 0.8 Baso % (Auto) 0.5 Absolute Neuts (auto) 4.9 Absolute Lymphs (auto) 0.75 L Nucleated RBC % 0 Sodium 141 Potassium 3.8 Chloride 110 H Carbon Dioxide 27.0 Anion Gap 4 L BUN 26 H Creatinine 0.89 Estim Creat Clear Calc 54.91 Est GFR (MDRD) Af Amer 83 Est GFR (MDRD) Non-Af 69 BUN/Creatinine Ratio 29.3 H Glucose 102 Calcium 9.0 Troponin I High Sens 4 4 Radiography Chest X-Ray - ED: 1 View, Read by ED Physician, Read by Radiologist and No Acute Disease Diagnostic Testing: Clinical Impression(s) from Imaging Studies Chest X-Ray 05/07/22 17:00 IMPRESSION: Acute cardiopulmonary disease. Electronically Signed: Miguelangel Mccauley DO at 17:23 EDT Reading Location ID and State: [address] [place] [address] Tel [phone], Service support , EKG Initial EKG: Attestation: I personally reviewed and interpreted this EKG as follows: Interpretation: Sinus Rhythm (82) and No Acute Injury Pattern Prior EKG tracings: available for review Prior: Unchanged (10/03/2019) Discharge Plan Triage Chief Complaint: Chest Pain ED Provider: Meek Patiño Dx/Rx/DC Orders Clinical Impression: Chest pain of uncertain etiology, Lymphoma Instructions: ED Chest Pain, Uncertain Cause Prescriptions: No Action multivitamin [Multi-Vitamins] Tablet PO 1XD Primary Care Provider: Care Physician,No Primary Referrals: Adán Day MD [STAFF PHYSICIAN] - 5-7 Days Care Physician,No Primary [Primary Care Provider] - Disposition Disposition: Home, Self Care
--- NOTE | 2022-05-07 16:31 | EKG12_ITS ---
Test Reason : CHEST PAIN Blood Pressure : / mmHG Vent. Rate : 082 BPM Atrial Rate : 082 BPM P-R Int : 142 ms QRS Dur : 084 ms QT Int : 364 ms P-R-T Axes : 052 -10 033 degrees QTc Int : 425 ms Normal sinus rhythm with sinus arrhythmia Normal ECG Confirmed by JABIER FLOREZ, ABRAM ([id number]), content editor ALVIN PARRA ([id number]) on 05/09/2022 10:32:43 A M Referred By: JO Confirmed By:SERAFIN EUGENE MD
[2022-05-07] MEDS: Aspirin 81 MG TAB.CHEW 324 MG PO (16:43)
--- NOTE | 2022-05-07 17:00 | RAD_ITS ---
STUDY: X-RAY CHEST REASON FOR EXAM: Female, 61 years old. Chest pain beginning this morning. TECHNIQUE: Single AP portable view of the chest. COMPARISON: CT of the chest, 10/23/2021. Chest, 10/03/2019. FINDINGS: Stable right jugular Port-A-Cath. The lungs are clear and expanded. There is no demonstrated pleural abnormality. Normal size heart. Normal mediastinum and reji. Normal visualized pulmonary arteries. Normal visualized aortic arch and descending thoracic aorta. Normal visualized thoracic spine. Normal visualized ribs, clavicles, and shoulders. There is no demonstrated abnormality of the visualized soft tissue structures of the upper abdomen. RAD/Chest 1 View (Portable) IMPRESSION: Acute cardiopulmonary disease. Electronically Signed: Miguelangel Mccauley DO at 17:23 EDT ,
[2022-05-07 17:05] LABS: Absolute Lymphocyte Count 0.75 X10^3/uL (0.83-4.51); Absolute Neutrophil Count 4.9 X10^3/uL (2.0-7.7); Basophil# 0.03 X10^3/uL; Basophil% 0.5 % (0-1); Eosinophil# 0.05 X10^3/uL; Eosinophils% 0.8 % (0-5); Hematocrit 42.7 % (37-47); Hemoglobin 14.5 g/dL (12.0-15.0); Lymphocyte # 0.75 X10^3/ul (0.83-4.51); Lymphocyte % 12.1 % (19-41); Mean Corpuscular Hgb 30.5 pg (27.0-32.0); Mean Corpuscular Volume 89.7 fL (81-99); Mean Platelet Vol. 10.7 fl (6.2-12.0); Monocyte# 0.46 X10^3/uL; Monocyte% 7.4 % (0-10); NRBC Flagged by Analyzer 0 % (0-5); Neutrophil # 4.86 X10^3/uL (2.7-7.7); Neutrophil % 78.7 % (47-70); Platelet Count 151 K/mm3 (150-450); RBC Distribution Width CV 12.9 % (11.6-14.6); RBC Distribution Width SD 42.8 fl (35.1-43.9); Red Blood Count 4.76 M/mm3 (4.2-5.4); White Blood Count 6.2 K/mm3 (4.4-11.0)
[2022-05-07 17:17] VITALS: BP 126/59; PULSE 66; RESP 16; O2SAT 98
[2022-05-07 17:19] LABS: Anion Gap 4 (5-15); BUN 26 mg/dL (7-18); BUN/Creat Ratio 29.3 RATIO (10-20); Chloride 110 mmol/L (98-107); Creatinine, Serum 0.89 mg/dL (0.55-1.02); EST Glomerular Filtration Rate 69 mL/min (>60); Est Glom Filt Rate - Afr Amer 83 mL/min (>60); Estimated Creatinine Clearance 54.91 ml/min; Glucose 102 mg/dL (74-106); Potassium 3.8 mmol/L (3.5-5.1); Sodium Level 141 mmol/L (136-145); Troponin-I HS (w/2H Reflex) 4 pg/mL (3.0-54.0)
[2022-05-07 18:56] LABS: Reflex Troponin-HS? (from REC) Y
[2022-05-07 19:50] LABS: Troponin-I HS 4 pg/mL (3.0-54.0)
--- NOTE | 2022-05-07 20:20 | CM.ED ---
SW Note Referral Source: Case Find Referral Reason: No Primary Care Physician (PCP) SW reviewed chart and noted that patient has no PCP. SW provided patient with list of [facility] and [facility] Physician List for reference. No other issues or concerns voiced at this time. SW remains available for any additional needs. Plan: Provided patient with PCP information Yenny CIFUENTES
[2022-05-07 20:29] VITALS: BP 131/74; PULSE 71; RESP 20; O2SAT 98
== END 2022-05-07 20:31 | disposition home or self-care (01) ==
PROVIDERS: Emergency Provider Emergency Medicine; Visit Provider Emergency Medicine
DX: R07.9 Chest pain, unspecified (principal); C81.90 Hodgkin lymphoma, unspecified, unspecified site; E66.9 Obesity, unspecified
CPT/HCPCS: 36591; 71045; 80048; 84484; 85025; 93005; 99285; A4216

== ENCOUNTER 2022-05-08 23:09 | Emergency (ER) | payer MEDICAID, SELFPAY ==
[2022-05-08 23:10] VITALS: BP 152/74; PULSE 72; RESP 16; TEMP 36.4; O2SAT 100; BMI 37.5
[2022-05-08 23:21] VITALS: BP 140/89; PULSE 77; RESP 16; O2SAT 100
--- NOTE | 2022-05-08 23:26 | EDS_ITS ---
HPI History of Present Illness Chief Complaint: Palpitations Informant: patient Onset/Context/Timing Onset: Today Activity at onset: sudden Timing: Continuous Quality: Positive for - (Palpitations and dizziness) Location: Substernal Worsened By: Nothing Relieved By: Nothing Associated Symptoms: Positive for Nausea, Diaphoresis, Lightheadedness and Palpitations; Negative for Vomiting, Dyspnea, Cough, Fever or Acid Reflux Narrative Narrative: Presents with chest pain that began tonight. Patient states she got up out of her chair approximately 2 and half hours prior to arrival when she started feeling lightheaded and having palpitations. Patient states it felt like her heart was racing. Patient admits to some nausea but denies any vomiting. Patient admits to some diaphoresis that was intermittent. Patient states nothing makes her symptoms better and nothing makes them worse. Patient was seen here last night for chest pain. Patient denies any pain in her chest tonight. Patient states that the pain she had last night has been resolved. Patient does have a history of non-Hodgkin's lymphoma. 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[place] Mass of colon Splenomegaly Home Medications multivitamin tab PO 1XD 05/07/22 [History Last Taken Unknown] meclizine 25 mg tablet 25 mg PO Q8H PRN PRN Dizziness #20 tabs 05/09/22 [Rx Last Taken Unknown] Allergy/AdvReac Type Severity Reaction Status Date / Time No Known Allergies Allergy Verified 05/08/22 23:12 Family History Mother Thyroid disorder Diabetes Other no prevalent family history Surgical History History of section PORT PLACEMENT S/P right hemicolectomy Social History Smoking Status: Never smoker second hand exposure: No alcohol intake: never substance use type: does not use what type of physical activity do you participate in: none chiara/zoroastrianism: None seatbelt use: always do you feel safe at home: Yes ROS ROS ED Constitutional Constitutional ED: Denies chills or fever(s) Eyes Eyes: Denies blurry vision or change in vision ENT ENT ED: Denies rhinorrhea or sore throat Cardiovascular Cardiovascular: Reports chest pain, palpitations and racing heartbeat Respiratory/Chest Respiratory/Chest: Denies cough or dyspnea Gastrointestinal Gastrointestinal: Denies nausea or vomiting Genitourinary Genitourinary ED: Denies dysuria or hematuria Musculoskeletal Musculoskeletal: Reports back pain; Denies neck pain Integumentary Denies abscess or rash Neurologic Neurologic: Denies headache(s) or weakness Allergic/Immunologic Allergic/Immunologic ED: Denies mouth swelling or urticaria EXAM Physical Exam Const Vital Signs: 05/08/22 23:10 05/08/22 23:21 05/08/22 23:23 Temperature 97.6 F L Temperature Source Temporal Pulse Rate 72 77 Respiratory Rate 16 16 Respiratory Effort Normal Non-Labored Blood Pressure 152/74 H 140/89 H Blood Pressure Mean 100 106 Pulse Ox 100 100 Oxygen Delivery Method Room Air Room Air 05/08/22 23:59 05/09/22 01:10 Temperature Temperature Source Pulse Rate 59 L Respiratory Rate 14 Respiratory Effort Blood Pressure 120/59 L Blood Pressure Mean 79 Pulse Ox 99 Oxygen Delivery Method Room Air Room Air Positive well nourished and well developed General Appearance ED: well developed HEENT Reports moist mucous membranes Neck supple and no JVD Resp normal respiratory effort and clear to auscultation bilaterally Cardio regular rate, regular rhythm and no murmurs GI normal to inspection, nondistended, normoactive bowel sounds and non-tender Palpation: soft Extremity normal to inspection General Extremety ED: Negative for edema or tenderness General Extremity: Negative for edema Neuro oriented x3, CN's II-XII intact bilaterally and no sensory deficits noted Sensorium / Orientation: alert Motor Exam: strength 5/5 throughout Psych mental status grossly normal Skin no rashes or lesions noted Heart Score History: Moderately Suspicious ECG: Normal Age: >45 - <65 years Risk Factors: No Risk Factors Troponin: </= Normal Limit Score: 2 MDM MDM MDM Narrative Medical decision making narrative: EKG was obtained. On my interpretation, it showed a normal sinus rhythm with a rate of 62. OR interval, QRS interval, and QTc intervals were all normal. [place] was normal. There are no acute ST or T wave changes. Portable 1 view chest x- ray was obtained. On my interpretation, lung rodriguez are clear. There is normal cardiac silhouette. Bony thorax is normal. There is no acute process noted. Radiologist also interpreted the x-ray and agrees. CBC was within normal limits. Basic metabolic profile was essentially within normal limits. D-dimer was normal. High-sensitivity troponin was normal. On repeat evaluation, patient states that when she sits up she feels like she is off balance and dizzy. Patient was given a dose of meclizine. 2-hour repeat high-sensitivity troponin was obtained and was within normal limits. Patient felt better on reevaluation patient was able to sit up with no dizziness. Patient was advised that this may have been vertigo. Patient was given a prescription for meclizine. Patient was instructed to drink plenty of fluids. Patient was instructed to follow-up with her primary care physician in 5 to 7 days. Patient understood and was agreeable with plan. All questions were answered. Lab Data Attestation: I reviewed the patient's lab results. Labs: Laboratory Results - last 24 hr 05/08/22 05/08/22 05/09/22 23:55 23:55 01:00 WBC 7.8 RBC 4.55 Hgb 14.0 Hct 40.9 MCV 89.9 MCH 30.8 MCHC 34.2 RDW Std Deviation 42.8 RDW Coeff of Lois 13.0 Plt Count 141 L MPV 10.4 Immature Gran % (Auto) 0.400 Neut % (Auto) 84.1 H Lymph % (Auto) 9.0 L [place] % (Auto) 5.4 Eos % (Auto) 0.8 Baso % (Auto) 0.3 Absolute Neuts (auto) 6.5 Absolute Lymphs (auto) 0.70 L Nucleated RBC % 0 D-Dimer Quant (PE/DVT) 0.29 Sodium 142 Potassium 3.5 Chloride 109 H Carbon Dioxide 27.0 Anion Gap 6 BUN 23 H Creatinine 0.99 Estim Creat Clear Calc 49.36 Est GFR (MDRD) Af Amer 74 Est GFR (MDRD) Non-Af 61 BUN/Creatinine Ratio 23.3 H Glucose 139 H Calcium 9.0 Troponin I High Sens 4 05/09/22 02:10 WBC RBC Hgb Hct MCV MCH MCHC RDW Std Deviation RDW Coeff of Lois Plt Count MPV Immature Gran % (Auto) Neut % (Auto) Lymph % (Auto) [place] % (Auto) Eos % (Auto) Baso % (Auto) Absolute Neuts (auto) Absolute Lymphs (auto) Nucleated RBC % D-Dimer Quant (PE/DVT) Sodium Potassium Chloride Carbon Dioxide Anion Gap BUN Creatinine Estim Creat Clear Calc Est GFR (MDRD) Af Amer Est GFR (MDRD) Non-Af BUN/Creatinine Ratio Glucose Calcium Troponin I High Sens 4 Radiography Chest X-Ray - ED: 1 View, Read by ED Physician, Read by Radiologist, Normal and No Acute Disease Diagnostic Testing: Clinical Impression(s) from Imaging Studies Chest X-Ray 05/09/22 00:01 IMPRESSION: No acute cardiopulmonary abnormality. Electronically Signed: Jd Ziegler MD at 0:26 EDT , EKG Initial EKG: Attestation: I personally reviewed and interpreted this EKG as follows: Interpretation: Sinus Rhythm (62) and No Acute Injury Pattern Prior EKG tracings: available for review Prior: Unchanged (10/03/2019) Discharge Plan Triage Chief Complaint: Palpitations ED Provider: Meek Patiño Dx/Rx/DC Orders Clinical Impression: Chest pain of uncertain etiology, Vertigo Instructions: ED Chest Pain, Uncertain Cause, ED Vertigo, Unspecified Prescriptions: New meclizine 25 mg tablet 25 mg PO Q8H PRN PRN (Reason: Dizziness) Qty: 20 0RF No Action multivitamin [Multi-Vitamins] Tablet PO 1XD Primary Care Provider: Care Physician,No Primary Referrals: Adán Day MD [STAFF PHYSICIAN] - 5-7 Days Care Physician,No Primary [Primary Care Provider] - Disposition Disposition: Home, Self Care
--- NOTE | 2022-05-08 23:34 | EKG12_ITS ---
Test Reason : palpitations Blood Pressure : / mmHG Vent. Rate : 062 BPM Atrial Rate : 062 BPM P-R Int : 168 ms QRS Dur : 086 ms QT Int : 424 ms P-R-T Axes : 026 -02 023 degrees QTc Int : 430 ms Normal sinus rhythm Normal ECG Confirmed by CARA FLOREZ, KULWINDER ([id number]), newspaper or periodical editor TIERNEY LYMAN ([id number]) on 05/12/2022 11:24:54 AM Referred By: Kinjal Confirmed By:KULWINDER MARROQUIN MD
[2022-05-09] MEDS: Aspirin 81 MG TAB.CHEW 324 MG PO
--- NOTE | 2022-05-09 00:01 | RAD_ITS ---
EXAM: XR CHEST, 1 VIEW CLINICAL INDICATION: chest pain TECHNIQUE: Frontal view of the chest. This report was created using [employer] report generation technology. COMPARISON: 05/07/2022. FINDINGS: LUNGS AND PLEURAL SPACES: Unremarkable. No consolidation or edema. No pneumothorax. No effusion. HEART: Unremarkable. Cardiac silhouette not enlarged. MEDIASTINUM: Central airways and mediastinal contour are unremarkable. BONES/JOINTS: Unremarkable. SOFT TISSUES: Unremarkable. TUBES, LINES AND DEVICES: No change central line. RAD/Chest 1 View (Portable) IMPRESSION: No acute cardiopulmonary abnormality. Electronically Signed: Jd Ziegler MD at 0:26 EDT ,
[2022-05-09 00:04] LABS: Absolute Neutrophil Count 6.5 X10^3/uL (2.0-7.7); Basophil# 0.02 X10^3/uL; Basophil% 0.3 % (0-1); Eosinophil# 0.06 X10^3/uL; Eosinophils% 0.8 % (0-5); Hematocrit 40.9 % (37-47); Mean Corp Hgb Conc 34.2 g/dL (32-36); Mean Corpuscular Hgb 30.8 pg (27.0-32.0); Mean Corpuscular Volume 89.9 fL (81-99); Mean Platelet Vol. 10.4 fl (6.2-12.0); Monocyte# 0.42 X10^3/uL; Monocyte% 5.4 % (0-10); NRBC Flagged by Analyzer 0 % (0-5); Neutrophil # 6.52 X10^3/uL (2.7-7.7); Neutrophil % 84.1 % (47-70); Platelet Count 141 K/mm3 (150-450); RBC Distribution Width SD 42.8 fl (35.1-43.9); Red Blood Count 4.55 M/mm3 (4.2-5.4); White Blood Count 7.8 K/mm3 (4.4-11.0)
[2022-05-09 00:22] LABS: Anion Gap 6 (5-15); BUN 23 mg/dL (7-18); BUN/Creat Ratio 23.3 RATIO (10-20); Chloride 109 mmol/L (98-107); Creatinine, Serum 0.99 mg/dL (0.55-1.02); EST Glomerular Filtration Rate 61 mL/min (>60); Est Glom Filt Rate - Afr Amer 74 mL/min (>60); Estimated Creatinine Clearance 49.36 ml/min; Glucose 139 mg/dL (74-106); Potassium 3.5 mmol/L (3.5-5.1); Sodium Level 142 mmol/L (136-145); Troponin-I HS (w/2H Reflex) 4 pg/mL (3.0-54.0)
[2022-05-09 01:10] VITALS: BP 120/59; PULSE 59; RESP 14; O2SAT 99
[2022-05-09 01:35] LABS: D-Dimer Quantitative (DVT/PE) 0.29 FEU/ug/m (0.27-0.49)
[2022-05-09] MEDS: Meclizine HCl 25 MG Tablet PO (01:54)
[2022-05-09 02:00] LABS: Reflex Troponin-HS? (from REC) Y
[2022-05-09 02:35] LABS: Troponin-I HS 4 pg/mL (3.0-54.0)
[2022-05-09 03:06] VITALS: BP 112/71; PULSE 63; RESP 16; O2SAT 98
== END 2022-05-09 03:07 | disposition home or self-care (01) ==
PROVIDERS: Emergency Provider Emergency Medicine; Visit Provider Emergency Medicine
DX: R07.9 Chest pain, unspecified (principal); R42 Dizziness and giddiness; Z85.72 Personal history of non-Hodgkin lymphomas
CPT/HCPCS: 36591; 71045; 80048; 84484; 85025; 85379; 93005; 99285; A4216

== ENCOUNTER 2022-07-03 05:53 | Day surgery (SDC) | payer MEDICAID, SELFPAY ==
--- NOTE | 2022-07-03 | EMB_PTH ---
PATIENT: TRELL [place] [facility] [id number] AGE/SX: 61/F ROOM: RE07/03/[address]: Dr. Jody Longo DO : 1960 BED: DIS: 07/03/2022 SPEC #: [id number] RECD: 07/03/22 12:00 STATUS: WALTER CHRISTY #: [id number] DANIELA: 07/03/22 00:[address]: Jody Longo DEPT: SURGICAL PATHOLOGY RECD BY: William Desai ENTERED: 07/03/22 12:00 SP TYPE: ENDOM BX/C KETTY DR: No Primary Care Phys Tissues: Endometrium, NOS Procedures: Surgery Specimen Level IV HEADER OPERATION: Hysteroscopy, D & C Symphion, polypectomy PRE-OP DIAGNOSIS: Uterine polyp TISSUE SUBMITTED: Endometrial curettings and polyp MICROSCOPIC DIAGNOSIS Endometrial curettings and polyp: Fragments of weakly proliferative endometrium. Fragments of myometrium with changes suspicious for adenomyosis. Fragments of benign ecto- and endocervical epithelium. JACINTA:kateryna 07/04/2022 MICROSCOPIC DESCRIPTION Slides are reviewed. GROSS DESCRIPTION Received in fixative is one container labeled with the patient's name and designated endometrial curettings and polyp. The specimen consists of multiple fragments of hemorrhagic soft tissue mixed with mucoid tissue that in aggregate measure 3 x 2.5 x 0.3 cm. The specimen is totally submitted in one cassette. / JACINTA:kateryna 07/03/2022 TC:5 CPT: 57374
[2022-07-03 06:22] VITALS: BP 133/71; PULSE 81; RESP 18; TEMP 36.6; O2SAT 100; BMI 37.3
[2022-07-03] MEDS: Lactated Ringers 1,000 ML 15 ML IV (06:47)
[2022-07-03] MEDS: Lidocaine 1% (20 ml mdv) 20 ML Vial (07:46)
--- NOTE | 2022-07-03 08:01 | DCINST_ITS ---
Discharge Instructions Diet Discharge Diet: No restrictions Activity Discharge Activity: May Drive (once you are more than 24 hours out from surgery) and May Shower (once you are more than 24 hours out from surgery) May resume sexual activity in: 1 week (no tampons, intercourse, hot tubs, baths or pools for 1 week while bleeding) Weight Bearing Status: Weight bearing as tolerated Lifting Restrictions: none Dressing / Incision Call your doctor if you observe: Fever of 101 or Higher, Coldness, Increased Pain, Numbness or Tingling, Change in Color, Inability to urinate, Inability to have a bowel movement, Using more than 1 pad per hour, Shortness of breath, Dizziness, Fainting spells, Swelling in the ankles, Chest pain, Increased palpitations (irregular heartbeat), Calf discomfort and Uncontrolled pain Follow Up Care Please Follow Up With: Jody Longo DO When: 1-2 weeks Test Results: Test results from this visit will be discussed in further detail at your follow- up appointment, if applicable. Discharge Plan Admission Primary Reason for Your Visit: surgery Attending Provider: Jody Longo Primary Care Provider: Care Hailey Turk Primary Instructions Patient Instructions: Dilation and Curettage Discharge Orders/Prescriptions Prescriptions: Continued multivitamin Capsule 1 cap PO DAILY Referrals / Follow Up: Care PhysicianHailey Primary [Primary Care Provider] - Disposition Disposition (needs filled in before D/C Order can be placed): Home, Self Care
--- NOTE | 2022-07-03 08:03 | OP.PCM_ITS ---
Problems Associated Problem List Diagnoses (1) Uterine polyp: Report of Operation Date of Procedure: 07/03/22 Pre-Operative Diagnosis: Uterine polyp Post-Operative Diagnosis: As above Surgery/Procedure Performed:: Hysteroscopy, polypectomy, D&C Description of Surgical Findings:: Normal appearing uterine cavity and bilateral tubal ostia visualized. A flat endometrial polyp was noted anteriorly. Endometrium was atrophic appearing. Normal cervical canal. No uterine descent. Surgeon: Jody Longo assisted living associate: Anton Jones [id number] Type of Anesthesia: MAC Special Medications: None Specimen's removed: Endometrial polyp and endometrial curettings Drains: None Estimated Blood Loss (mL): < 50 Fluids Replaced: 500 Description of Procedure: The patient was taken to the operating room where MAC anesthesia was induced and found to be adequate. She was prepped and draped in the dorsal lithotomy position using yellowfin stirrups. A right angle retractor was placed in the vagina to expose the cervix. The anterior lip of the cervix was grasped with a single-tooth tenaculum. The cervix was serially dilated to accommodate the Symphion hysteroscope. The Symphion hysteroscope was placed into the uterine cavity, and the uterine cavity was distended with normal saline. Bilateral tubal ostia were visualized. There was a small flat polyp noted anteriorly in the uterus. The endometrium was otherwise atrophic appearing. Using the Symphion resection device the polyp was removed. The hysteroscope was then removed. Sharp curettage was performed. Endometrial curettings and endometrial polyp were sent to pathology for review. Fluid deficit was 350 cc. All instruments removed from vagina. Bleeding was hemostatic. Vaginal sweep was performed. Instrument sponge counts were correct. The patient was taken to the recovery room in stable condition. Grafts/Implants Used: None Procedure Start Time: 07:47 Procedure Stop Time: 07:57 Complications None Admit VTE Documentation VTE Present on Admission: No VTE Mechan Device Prophylaxis: SCD's
[2022-07-03 08:09] VITALS: BP 100/55; BP 133/71; PULSE 77; RESP 16; TEMP 37.2; O2SAT 97
[2022-07-03 08:15] VITALS: BP 107/61; BP 133/71; PULSE 78; RESP 18; O2SAT 97
[2022-07-03 08:20] VITALS: BP 108/60; BP 133/71; PULSE 73; RESP 18; O2SAT 100
[2022-07-03 08:25] VITALS: BP 117/67; BP 133/71; PULSE 71; RESP 18; TEMP 36.7; O2SAT 100
[2022-07-03 08:34] VITALS: BP 115/74; BP 133/71; PULSE 70; RESP 16; TEMP 37.2; O2SAT 98
[2022-07-03] MEDS: 0.9% Saline Lock 10 ML Syringe IV (08:48)
== END 2022-07-03 08:55 | disposition home or self-care (01) ==
LOC: SDC 05:53 → AC 05:55 → ACINP 07:08 → AC 07:10
PROVIDERS: Referring Provider Obstetrics & Gynecology; Visit Provider Obstetrics & Gynecology
PROC: 0UB98ZZ Excision of Uterus, Via Natural or Artificial Opening Endoscopic (ICD-10-PCS; CPT 58558; principal; 2022-07-03 07:15)
DX: N84.0 Polyp of corpus uteri (principal)
CPT/HCPCS: 58558; 86850; 86900; 86901; 88305; J7120; A4216; J2405

== ENCOUNTER 2022-10-22 12:43 | Outpatient (CLI) | payer MEDICAID, SELFPAY ==
--- NOTE | 2022-10-22 12:45 | CT_ITS ---
INDICATION: F/U LYMPHOMA IN REMISSION EXAMINATION: CT Soft Tissue Neck W/ Contrast Injection TECHNIQUE: Helically acquired images were obtained of the neck following IV contrast. A radiation dose optimization technique was used for this scan. IV Contrast dosage and agent: 100 cc Isovue 370 COMPARISON: None. FINDINGS: NASOPHARYNX: Unremarkable. SUPRAHYOID NECK: Unremarkable oropharynx, oral cavity, parapharyngeal space, and retropharyngeal space. INFRAHYOID NECK: Unremarkable larynx, hypopharynx, and supraglottis. THYROID: No focal lesions. SALIVARY GLANDS: Unremarkable. LYMPH NODES: No cervical or supraclavicular lymphadenopathy. VASCULAR STRUCTURES: Unremarkable. VISUALIZED PORTIONS OF THE ORBITS, PARANASAL SINUSES, MASTOID AIR CELLS AND SKULL BASE: Unremarkable. BONES: Unremarkable. THORACIC INLET: Clear lung apices. CT/Soft Tissue Neck WITH Contrast IMPRESSION: No evidence of lymphoma in the neck. Electronically Signed: Leonidas Bee MD at 17:00 EST ,
--- NOTE | 2022-10-22 12:45 | CT_ITS ---
INDICATION: F/U LYMPHOMA IN REMISSION EXAMINATION: CT Chest Abdomen And Pelvis W/ Contrast Injection TECHNIQUE: Images were obtained of the chest, abdomen and pelvis following IV contrast. A radiation dose optimization technique was used for this scan. IV Contrast dosage and agent: IV 100mL Isovue-370 COMPARISON: None. FINDINGS: Lungs: Unremarkable Mediastinum: The cardiomediastinal silhouette is not enlarged. No mediastinal, hilar or axillary adenopathy. The thoracic aorta is unremarkable. No obvious filling defect seen within the visualized pulmonary arteries. Pleura: Unremarkable Liver: Unremarkable Gallbladder: Few intraluminal stones seen. Spleen: Unremarkable Pancreas: Unremarkable Adrenal Glands: Unremarkable Kidneys: Unremarkable Vasculature: Mild scattered aortoiliac atherosclerotic calcifications. GI Tract: Unremarkable Lymphadenopathy: None Peritoneum: No ascites. Bladder: Unremarkable Reproductive organs: Unremarkable Bones/Soft tissues: No suspicious osseous or soft tissue lesions CT/CT Chest, Abd, Pel w/Contrast IMPRESSION: No evidence of lymphoma in the chest, abdomen or pelvis. Cholelithiasis. Electronically Signed: Leonidas Bee MD at 17:14 EST ,
[2022-10-22] MEDS: 0.9% Saline Lock 10 ML Syringe IV (13:27)
[2022-10-22 13:30] LABS: CREATININE FINGERSTICK < 0.9 mg/dL (0.55-1.02); EGFR FINGERSTICK > 60.0000 mL/min (>60)
== END 2022-10-22 23:59 | disposition home or self-care (01) ==
LOC: CT 12:44
PROVIDERS: PCP Internal Medicine; Referring Provider Internal Medicine Hematology & Oncology; Visit Provider Internal Medicine Hematology & Oncology
DX: C85.90 Non-Hodgkin lymphoma, unspecified, unspecified site (principal); C88.0 Waldenstrom macroglobulinemia
CPT/HCPCS: 36591; 70491; 71260; 74177; 80053; 82784; 83615; 84165; 85025; 86334; Q9967; A4216

== ENCOUNTER 2023-12-09 18:49 | Emergency (ER) | payer MEDICAID, SELFPAY ==
[2023-12-09 18:51] VITALS: BP 158/72; PULSE 89; RESP 16; TEMP 35.6; BMI 34.9
[2023-12-09 18:53] VITALS: BP 158/72; PULSE 89; RESP 16; TEMP 35.6
--- NOTE | 2023-12-09 18:54 | EX.ED.GENINJ ---
HPI History of Present Illness Chief Complaint: Laceration [facility] Medical History Anemia Community acquired pneumonia Lymphoma Macroglobulinemia of [place] Mass of colon Non-smoker Splenomegaly Wears glasses Wears hearing aid Home Medications multivitamin 1 cap PO DAILY 06/26/22 [History Last Taken Unknown] Allergy/AdvReac Type Severity Reaction Status Date / Time No Known Allergies Allergy Verified 12/09/23 18:50 Family History Mother Thyroid disorder Diabetes Hypertension Other no prevalent family history Surgical History History of section Hx of colonoscopy PORT PLACEMENT S/P right hemicolectomy Social History household members: none current occupational status: employed 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 Smoking Status: Never smoker Electronic Cigarette Use: not used second hand exposure: No alcohol intake: never substance use type: does not use what type of physical activity do you participate in: none chiara/zoroastrianism: None seatbelt use: always do you feel safe at home: Yes EXAM Physical Exam Const Vital Signs: 12/09/23 18:51 12/09/23 18:53 Temperature 96.0 F L 96.0 F L Temperature Source Temporal Temporal Pulse Rate 89 89 Respiratory Rate 16 16 Blood Pressure 158/72 H 158/72 H Blood Pressure Mean 100 100 MDM MDM MDM Narrative Medical decision making narrative: HISTORY OF PRESENT ILLNESS: 62-year-old female presents with lip laceration. Notes she stumbled and hit her face on the curb. She does not take blood thinners she denies any loss of consciousness. REVIEW OF SYSTEMS: Pertinent positives: Lip laceration Pertinent negatives: [] PHYSICAL EXAM: Nursing triage notes reviewed, Vital signs reviewed Primary Survey Airway: Intact Breathing: Bilateral breath sounds Circulation: Palpable bilateral femorals, Palpable bilateral radial, Palpable bilateral DP and Palpable bilateral PT Disability / Spine precautions GCS Score: Eye Openin Verbal Response: 5 Motor Response: 6 Secondary Survey Constitutional: Please see MDM Head: Atraumatic, Midface stable, NO jaw malocclusion, No Cephalohematoma, and No Lacerations noted Eye: Pupils equal round and reactive to light, Extraocular muscles intact and No periorbital ecchymosis or stepoff, no evidence of entrapment ENT: Oropharynx clear, no lacerations, no hemotympanum, no raccoon eyes or perez sign Cervical spine / Neck: No cervical spine bony tenderness, crepitance, or stepoff deformity Trachea midline Lungs: Clear to auscultation, No asymmetric rise and No crepitus, no flail chest Cardiac: Regular rate and rhythm and No murmurs Abdomen: Soft, Nontender and No rebound Pelvis: Pelvis stable to compression : No evidence of genital injury Back: No midline bony tenderness to thoracic/lumbar/sacral spines Neuro: At baseline, intact strength and sensation in bilateral upper and lower extremities. 2+ patellar reflexes bilaterally. Extremities: NO gross Deformities Psych: Normal affect Nursing triage notes reviewed, Vital signs reviewed MEDICAL DECISION MAKING: Chief Complaint: Lip laceration External records reviewed: Last ED visit in 2021 Factors affecting care: Waldenstr?m's microgram and vomiting anemia MDM Narrative: Patient was hemodynamically stable, afebrile, nontoxic-appearing. Primary secondary trauma survey showed lip laceration. No evidence of other trauma. Patient had a nonantalgic gait. Of note lip laceration did involve the vermilion border. I discussed risk of vermilion border involvement and poor cosmetic outcome. We discussed transfer to local center with plastic surgery coverage. Patient stated she was not concerned about the cosmetic result. She is alert and orient x 3 no capacity to make her medical decisions and chose to get repaired here despite risk of poor cosmetic result. Patient is greater than 16, is not on blood thinners, no seizure after injury, GCS was stable 2 hours postinjury, no Spectrobid or depressed skull fracture, no evidence of basilar skull fracture, no vomiting. Age less than 65, no retrograde amnesia and mechanism is not dangerous. CT scan of the head is not indicated at this time. Procedure: Laceration repair. The procedure was performed by myself. Indication: Wound repair Risks and benefits: risks, benefits and alternatives were discussed Consent: Consent was obtained. Wound Details: [IN approximate 1 cm linear vertical laceration through the right side of the upper lip to the milium border Anesthesia: Topical let Wound prep: Patient was prepped and draped in the usual sterile fashion. Tetanus: Updated within the last 10 years(Last Tdap documented on January 27, 2018) Irrigation Solution: Saline Wound Preparation: Cleaned with chlorhexidine The wound was explored to its base in a bloodless field. Procedure Description: applied 2, 5-0 Chromic Gut sutures Patient tolerated the procedure well with no immediate complications The patient and/or family, caregivers express understanding. The patient and/or family, caregivers agrees with the plan. Shared decision making: I will have a discussion with the patient and or visitors regarding risk/benefits of further testing or admission. They will be made aware of of the risk/benefits inherent in this decision they will be given the opportunity to voice understanding. Total critical care time today provided was at least 0 minutes. This excludes separately billable procedures. Critical care time (if documented) is secondary to the patient having high probability of clinically significant/life threatening deterioration in the patient's condition which required my urgent intervention. Impression: 1. Lip laceration Dispo: Discharge home This note was generated with [employer] dictation software. It may contain incorrect words, spelling, and punctuation that were not noted in review of the chart prior to signing. Discharge Plan Triage Chief Complaint: Laceration ED Provider: Tom Verma Dx/Rx/DC Orders Clinical Impression: Laceration of lip Instructions: ED Laceration, Lip or Mouth Prescriptions: No Action multivitamin Capsule 1 cap PO DAILY Primary Care Provider: Maira Varela Referrals: Maira Varela MD [Primary Care Provider] - Activity Restrictions/Additional Instructions: Thank you for trusting us with your care today! Please take Tylenol (2 pills, 650 mg), ibuprofen (2 pills, 400 mg) every 6 hours as needed for pain and fever control. Your sutures should absorb on their own. There is no need to return to the ED to have them removed. Please return to the emergency department if your symptoms change or worsen. Specifically you develop redness, white-yellow discharge, increasing pain. These are signs of infection. Please follow with your primary care physician for further outpatient evaluation and management. Disposition Disposition: Home, Self Care
[2023-12-09] MEDS: Lidocaine/Epi/Tetracaine 50 ML 1 APPLIC TOPICAL (19:08)
[2023-12-09 19:50] VITALS: BP 158/72; PULSE 89; RESP 16; TEMP 35.6; O2SAT 98
== END 2023-12-09 19:51 | disposition home or self-care (01) ==
PROVIDERS: Emergency Provider Emergency Medicine; PCP Internal Medicine; Visit Provider Emergency Medicine
DX: S01.511A Laceration without foreign body of lip, initial encounter (principal); W22.8XXA Striking against or struck by other objects, initial encounter
CPT/HCPCS: 12011; 99282

== ENCOUNTER → 2023-12-31 | Outpatient (CLI) | payer MEDICAID, SELFPAY ==
--- NOTE | 2023-12-31 13:40 | CT_ITS ---
INDICATION: NHL surveillance EXAMINATION: CT NECK WITH CONTRAST - CT Soft Tissue Neck W/ Contrast Injection TECHNIQUE: Helically acquired images were obtained of the neck following IV contrast. A radiation dose optimization technique was used for this scan. IV Contrast dosage and agent: 100 mL Isovue 300 RADIATION DOSAGE (If Supplied By Facility): CTDIvol = ( 13.40 ) mGy, DLP = ( 1681.19 ) mGycm COMPARISON: No relevant prior comparison study available FINDINGS: NASOPHARYNX: Unremarkable. SUPRAHYOID NECK: Unremarkable oropharynx, oral cavity, parapharyngeal space, and retropharyngeal space. INFRAHYOID NECK: Unremarkable larynx, hypopharynx, and supraglottis. THYROID: No focal lesions. SALIVARY GLANDS: Unremarkable. LYMPH NODES: No cervical or supraclavicular lymphadenopathy. VASCULAR STRUCTURES: Unremarkable. VISUALIZED PORTIONS OF THE ORBITS, PARANASAL SINUSES, MASTOID AIR CELLS AND SKULL BASE: Unremarkable. BONES: Unremarkable. THORACIC INLET: Clear lung apices. CT/Soft Tissue Neck WITH Contrast IMPRESSION: Negative CT Neck with contrast. Electronically Signed: Giorgi White MD at 0:47 EST Reading Location ID and State: [address] [place] [address] Tel , Service support ,
--- NOTE | 2023-12-31 13:40 | CT_ITS ---
STUDY: CT CHEST, ABDOMEN T PELVIS WITH CONTRAST REASON FOR EXAM: Female, 63 years old. Surveillance NHL RADIATION DOSAGE (If Supplied By Facility): CTDIvol = ( 13.40 ) mGy, DLP = ( 1681.19 ) mGycm TECHNIQUE: Transaxial imaging was performed following intravenous administration of IV 100mL Isovue-300. Individualized dose optimization techniques were used for this CT. COMPARISON: No relevant prior comparison study available FINDINGS: CHEST The lungs are unremarkable. No focal infiltrate seen. No evidence of pulmonary nodules. There is no demonstrated pleural abnormality. Normal heart and pericardium. Prominent mediastinal node measuring about 2.5 cm. Normal hilar regions. Normal unenhanced pulmonary arteries. Normal aorta arch and descending thoracic aorta. Normal osseous structures. ABDOMEN Borderline liver size. Correlation is seen. There is a solitary gallstone. Normal spleen. Normal pancreas. Normal bilateral adrenal glands. Normal right kidney. Normal left kidney. Normal visualized stomach. Normal in caliber small bowel loops. Status post right hemicolectomy. No evidence of acute diverticulitis. No evidence of abdominal aortic aneurysm. Normal inferior vena cava. Normal retroperitoneum. Small umbilical hernia containing fat. Essentially unremarkable osseous structures. PELVIS The bladder is not well distended. Uterine consistent with calcified uterine fibroids. There is no pelvic fluid. There is no pelvic lymphadenopathy or mass lesion. Normal visualized pelvic arteries. CT/CT Chest, Abd, Pel w/Contrast IMPRESSION: 1. Nonspecific single prominent mediastinal node. 2. Otherwise no evidence of adenopathy. 3. No focal acute inflammatory process. 4. Cholelithiasis. 5. Small umbilical hernia containing fat. Electronically Signed: Renny Cruz MD at 10:52 EST ,
[2023-12-31] MEDS: 0.9% Saline Lock 10 ML Syringe IV (13:50)
== END | disposition home or self-care (01) ==
LOC: CT 13:21
PROVIDERS: PCP Internal Medicine; Referring Provider Nurse Practitioner Family; Visit Provider Nurse Practitioner Family
DX: C88.0 Waldenstrom macroglobulinemia (principal); C85.90 Non-Hodgkin lymphoma, unspecified, unspecified site
CPT/HCPCS: 70491; 71260; 74177; Q9967; A4216

== ENCOUNTER 2024-12-04 06:29 | Emergency (ER) | payer MEDICAID, SELFPAY ==
[2024-12-04 06:30] VITALS: BP 170/87; PULSE 72; RESP 18; TEMP 37; O2SAT 100; BMI 38.0
--- NOTE | 2024-12-04 06:45 | EKG12_ITS ---
Test Reason : CP Blood Pressure : */* mmHG Vent. Rate : 70 BPM Atrial Rate : 70 BPM P-R Int : 164 ms QRS Dur : 86 ms QT Int : 394 ms P-R-T Axes : 10 -9 30 degrees QTcB Int : 425 ms Poor data quality, interpretation may be adversely affected Normal sinus rhythm Normal ECG Confirmed by CARA FLOREZ, KULWINDER ([id number]), brands editor TIERNEY LYMAN ([id number]) on 12/05/2024 10:55:35 AM Referred By: RADHA Confirmed By: KULWINDER MARROQUIN MD
--- NOTE | 2024-12-04 06:50 | ED.VIS.CHEST ---
HPI <Dr. Leo Reid, DO - Last Filed: 12/04/24 08:21> History of Present Illness Chief Complaint: Chest Pain Narrative Narrative: Chief complaint and HPI: Back pain. 63-year-old female with past medical history of non-Hodgkin's lymphoma in remission presents for evaluation of back pain. Patient states around 5 AM she woke up with mid thoracic back pain. She states it felt like a squeezing sensation. Per triage note it states that the patient has chest pain. She denies this to me. She states she was concerned about a heart attack as she heard that it can sometimes present with back pain. She states the pain is already improving. She denies any fever, chills, URI symptoms, shortness of breath, abdominal pain, nausea, vomiting. Denies tobacco abuse. No cardiac history. Denies a history of DVT/PE, blood clotting disorder, recent trauma or surgery, exogenous estrogen use, unilateral leg swelling, travel. Review of systems: See HPI Medications: As listed on the chart Allergies: As listed on the chart PFSH: Per chart Vital signs: As listed on the chart. Reviewed. Physical exam: Gen: A&O x3, NAD Head: Normocephalic, atraumatic Eyes: No sclera icterus, conjunctiva clear ENT: Moist mucous membranes Neck: Trachea midline, No JVD CV: RRR, no murmurs, no peripheral edema Resp: Lungs CTA BL, no w/r/c GI: Abd soft, non-distended, non-tender, no r/r/g Musc: Full ROM, no deformity, no midline spinal tenderness, mild tenderness to palpation of the paraspinal musculature of the midline thoracic Skin: Warm, dry Neuro: Alert, oriented, grossly intact, sensation intact Psych: Cooperative, appropriate mood and affect PFSH <Dr. Leo Reid, DO - Last Filed: 12/04/24 08:21> [facility] Medical History Wears hearing aid Wears glasses Non-smoker Community acquired pneumonia Lymphoma Anemia Splenomegaly Macroglobulinemia of [place] Mass of colon Home Medications ?Medication ?Instructions ?Recorded ?Last Taken ?Type multivitamin 1 cap PO DAILY 06/26/22 Unknown History Allergy/AdvReac Type Severity Reaction Status Date / Time No Known Allergies Allergy Verified 12/04/24 06:31 Family History Mother Thyroid disorder Diabetes Hypertension Other no prevalent family history Surgical History Hx of colonoscopy PORT PLACEMENT S/P right hemicolectomy History of section Social History household members: none current occupational status: employed current occupation: apartment assistant manager in [employer] Smoking Status: Never smoker Electronic Cigarette Use: not used second hand exposure: No alcohol intake: never substance use type: does not use what type of physical activity do you participate in: none chiara/evangelical: None seatbelt use: always do you feel safe at home: Yes EXAM <Dr. Leo Reid, DO - Last Filed: 12/04/24 08:21> Physical Exam Const Vital Signs: 12/04/24 06:30 12/04/24 06:30 12/04/24 07:30 Temperature 98.6 F Temperature Source Oral Pulse Rate 72 81 Respiratory Rate 18 18 Respiratory Effort Normal Non-Labored Blood Pressure 170/87 H 142/71 H Blood Pressure Mean 114 94 Pulse Ox 100 100 Oxygen Delivery Method Room Air Room Air 12/04/24 08:00 12/04/24 09:00 12/04/24 09:57 Temperature Temperature Source Pulse Rate 63 56 L 57 L Respiratory Rate 18 14 18 Respiratory Effort Blood Pressure 147/83 H 123/59 H 113/63 Blood Pressure Mean 104 80 79 Pulse Ox 98 98 97 Oxygen Delivery Method Room Air Room Air Room Air 12/04/24 11:19 Temperature 98.2 F Temperature Source Pulse Rate 65 Respiratory Rate 17 Respiratory Effort Blood Pressure 112/57 L Blood Pressure Mean 75 Pulse Ox 97 Oxygen Delivery Method <Dr. Tom Verma, DO - Last Filed: 12/04/24 17:08> Physical Exam Const Vital Signs: 12/04/24 06:30 12/04/24 06:30 12/04/24 07:30 Temperature 98.6 F Temperature Source Oral Pulse Rate 72 81 Respiratory Rate 18 18 Respiratory Effort Normal Non-Labored Blood Pressure 170/87 H 142/71 H Blood Pressure Mean 114 94 Pulse Ox 100 100 Oxygen Delivery Method Room Air Room Air 12/04/24 08:00 12/04/24 09:00 12/04/24 09:57 Temperature Temperature Source Pulse Rate 63 56 L 57 L Respiratory Rate 18 14 18 Respiratory Effort Blood Pressure 147/83 H 123/59 H 113/63 Blood Pressure Mean 104 80 79 Pulse Ox 98 98 97 Oxygen Delivery Method Room Air Room Air Room Air 12/04/24 11:19 Temperature 98.2 F Temperature Source Pulse Rate 65 Respiratory Rate 17 Respiratory Effort Blood Pressure 112/57 L Blood Pressure Mean 75 Pulse Ox 97 Oxygen Delivery Method [facility] <Dr. Leo Reid, DO - Last Filed: 12/04/24 08:21> [facility] Narrative Medical decision making narrative: 63-year-old female with past medical history of non-Hodgkin's lymphoma in remission presents for evaluation of back pain. Back pain is midthoracic and does not radiate. It is improving. Triage note states the patient was having chest pain, she declines this to me although is worried about ACS. Differential diagnosis includes but is not limited to myofascial spasm, pleurisy, ACS, PE, electrolyte abnormality, pneumonia. Aspirin ordered for pain. Laboratory workup ordered including chest x-ray. I do not think any imaging of her back is needed at this time given that she denies any trauma or injury to the back. EKG reviewed see below. Laboratory workup pending at this time. Patient signed out to oncoming physician Dr. Verma final disposition pending results. EKG: Interpreted by me/EM physician: EKG shows normal sinus rhythm without acute ischemic changes. Heart rate 70 Diagnostic: Interpreted by me/EM physician: Patient has a port in correct placement. No pneumonia, effusion, cardiomegaly, pneumothorax Impression: 1. Back pain Lab Data Labs: Laboratory Results - last 24 hr 12/04/24 12/04/24 12/04/24 07:40 09:00 09:51 WBC 5.9 RBC 4.49 Hgb 13.4 Hct 40.5 MCV 90.2 MCH 29.8 MCHC 33.1 RDW Std Deviation 42.3 RDW Coeff of Lois 12.7 Plt Count MPV 10.7 Immature Gran % (Auto) 0.200 Neut % (Auto) 80.0 H Lymph % (Auto) 13.9 L [place] % (Auto) 4.4 Eos % (Auto) 1.2 Baso % (Auto) 0.3 Absolute Neuts (auto) 4.7 Absolute Lymphs (auto) 0.82 L Nucleated RBC % 0 Differential Comment SCANNED Platelet Estimate SLT DEC RBC Morphology NORM C+C PT Cancelled 12.6 INR Cancelled 0.9 APTT Cancelled 22.1 L D-Dimer Quant (PE/DVT) Cancelled < 0.27 L Sodium 147 H Potassium 3.1 L Chloride 119 H Carbon Dioxide 23.0 Anion Gap 5 BUN 18 Creatinine 0.53 L Estim Creat Clear Calc 120.75 Est GFR (MDRD) Af Amer 149 Est GFR (MDRD) Non-Af 123 BUN/Creatinine Ratio 33.9 H Glucose 95 Calcium 6.9 L Troponin I High Sens 5 6 Radiography Diagnostic Testing: Clinical Impression(s) from Imaging Studies Chest X-Ray 12/04/24 07:53 IMPRESSION: No acute cardiopulmonary process or significant interval change. Reading Location: [facility] <Dr. Tom Verma, DO - Last Filed: 12/04/24 17:08> [facility] MDM Narrative Medical decision making narrative: 63-year-old female with past medical history of non-Hodgkin's lymphoma in remission presents for evaluation of back pain. Back pain is midthoracic and does not radiate. It is improving. Triage note states the patient was having chest pain, she declines this to me although is worried about ACS. Differential diagnosis includes but is not limited to myofascial spasm, pleurisy, ACS, PE, electrolyte abnormality, pneumonia. Aspirin ordered for pain. Laboratory workup ordered including chest x-ray. I do not think any imaging of her back is needed at this time given that she denies any trauma or injury to the back. EKG reviewed see below. Laboratory workup pending at this time. Patient signed out to oncoming physician Dr. Verma final disposition pending results. EKG: Interpreted by me/EM physician: EKG shows normal sinus rhythm without acute ischemic changes. Heart rate 70 Diagnostic: Interpreted by me/EM physician: Patient has a port in correct placement. No pneumonia, effusion, cardiomegaly, pneumothorax Impression: 1. Back pain Patient was turned over to me by Dr. Kenney @830 Brief history: 60-year-old female presents with back pain and chest pain. Physical exam: No focal cardiopulmonary normalities. No murmurs. Intact sensation L1-S1 dermatomal distributions. Intact 5/5 strength in hip flexion (T12-L3). Knee extension (L2-L4). Ankle dorsiflexion (L4-L5). Ankle plantar flexion (S1). Great toe extension (L5). 2+ patellar and Achilles DTRs. Labs and images reviewed (if obtained): EKG with normal sinus rhythm, left ax deviation, no STEMI, QT interval 425 CBC without leukocytosis, severe anemia, no thrombocytopenia. D-dimer negative No coagulopathy BMP with mild hyponatremia, hypokalemia, no anion gap, no endorgan hypoperfusion High-sensitivity troponin is negative, no evidence of myocardial ischemia x 2 I have personally reviewed the patient's chest x-ray. Chest x-ray is unremarkable for pulmonary edema, pneumothorax, pneumonia or focal cardiopulmonary abnormality. No clear life-limiting etiology could be ascertained. Specifically no sign of space-occupying lesion of the back. On my reevaluation the patient denied any back pain red flags including saddle anesthesia, loss of movement or sensation, urinary tension, bowel or bladder incontinence. Her lower extremity exam was nonfocal. Chest pain there is no sign of dissection, PE, ACS, arrhythmia, significant anemia. She did have minor electrolyte abnormalities. She is encouraged to drink electrolyte containing solution occluding Body Armor or Pedialyte. He is also encouraged to eat a healthy diet to replace these electrolytes. MDM/plan: Discharge Tom Verma DO Lab Data Labs: Laboratory Results - last 24 hr 12/04/24 12/04/24 12/04/24 07:40 09:00 09:51 WBC 5.9 RBC 4.49 Hgb 13.4 Hct 40.5 MCV 90.2 MCH 29.8 MCHC 33.1 RDW Std Deviation 42.3 RDW Coeff of Lois 12.7 Plt Count MPV 10.7 Immature Gran % (Auto) 0.200 Neut % (Auto) 80.0 H Lymph % (Auto) 13.9 L [place] % (Auto) 4.4 Eos % (Auto) 1.2 Baso % (Auto) 0.3 Absolute Neuts (auto) 4.7 Absolute Lymphs (auto) 0.82 L Nucleated RBC % 0 Differential Comment SCANNED Platelet Estimate SLT DEC RBC Morphology NORM C+C PT Cancelled 12.6 INR Cancelled 0.9 APTT Cancelled 22.1 L D-Dimer Quant (PE/DVT) Cancelled < 0.27 L Sodium 147 H Potassium 3.1 L Chloride 119 H Carbon Dioxide 23.0 Anion Gap 5 BUN 18 Creatinine 0.53 L Estim Creat Clear Calc 120.75 Est GFR (MDRD) Af Amer 149 Est GFR (MDRD) Non-Af 123 BUN/Creatinine Ratio 33.9 H Glucose 95 Calcium 6.9 L Troponin I High Sens 5 6 Radiography Diagnostic Testing: Clinical Impression(s) from Imaging Studies Chest X-Ray 12/04/24 07:53 IMPRESSION: No acute cardiopulmonary process or significant interval change. Reading Location: [facility] Discharge Plan Triage Chief Complaint: Chest Pain ED Provider: Leo Reid Dx/Rx/DC Orders Clinical Impression: Chest pain Instructions: ED Chest Pain, Uncertain Cause Prescriptions: No Action multivitamin Capsule 1 cap PO DAILY Primary Care Provider: Maira Varela Referrals: Maira Varela MD [Primary Care Provider] - Activity Restrictions/Additional Instructions: Thank you for trusting us with your care today! Please return to the emergency department if your symptoms change or worsen. Please follow with your primary care physician for further outpatient evaluation and management. Print Language: Bahamian Disposition Disposition: Home, Self Care Discharge Date/Time: 12/04/24 11:30
[2024-12-04 07:30] VITALS: BP 142/71; PULSE 81; RESP 18; O2SAT 100
--- NOTE | 2024-12-04 07:53 | RAD_ITS ---
PROCEDURE: PA and lateral chest radiographs, two views REASON FOR EXAM: Chest pain TECHNIQUE: PA and lateral chest radiographs were obtained. COMPARISON: 05/09/2022 FINDINGS: The cardiomediastinal silhouette is stable. Bones are osteopenic with mild degenerative changes in the spine. Right Esdjcj-C-Rdah remains in place. No pneumothorax, focal airspace consolidation, or pleural effusion. RAD/Chest PA and Lateral IMPRESSION: No acute cardiopulmonary process or significant interval change. Reading Location[facility]
[2024-12-04 08:00] VITALS: BP 147/83; PULSE 63; RESP 18; O2SAT 98
[2024-12-04] MEDS: Aspirin 81 MG TAB.CHEW 324 MG PO (08:08)
[2024-12-04 08:29] LABS: Absolute Lymphocyte Count 0.82 X10^3/uL (0.83-4.51); Absolute Neutrophil Count 4.7 X10^3/uL (2.0-7.7); Basophil# 0.02 X10^3/uL; Basophil% 0.3 % (0-1); Eosinophil# 0.07 X10^3/uL; Eosinophils% 1.2 % (0-5); Hematocrit 40.5 % (37-47); Hemoglobin 13.4 g/dL (12.0-15.0); Lymphocyte # 0.82 X10^3/ul (0.83-4.51); Lymphocyte % 13.9 % (19-41); Mean Corp Hgb Conc 33.1 g/dL (32-36); Mean Corpuscular Hgb 29.8 pg (27.0-32.0); Mean Corpuscular Volume 90.2 fL (81-99); Mean Platelet Vol. 10.7 fl (6.2-12.0); Monocyte# 0.26 X10^3/uL; Monocyte% 4.4 % (0-10); NRBC Flagged by Analyzer 0 % (0-5); Neutrophil # 4.71 X10^3/uL (2.7-7.7); POSITIVE COUNT YES; RBC Distribution Width CV 12.7 % (11.6-14.6); RBC Distribution Width SD 42.3 fl (35.1-43.9); Red Blood Count 4.49 M/mm3 (4.2-5.4); White Blood Count 5.9 K/mm3 (4.4-11.0)
[2024-12-04 08:37] LABS: Differential Indicated SCAN CRITERIA MET
[2024-12-04 08:38] LABS: Anion Gap 5 (5-15); BUN 18 mg/dL (7-18); BUN/Creat Ratio 33.9 RATIO (10-20); Calcium,Total 6.9 mg/dL (8.5-10.1); Chloride 119 mmol/L (98-107); Creatinine, Serum 0.53 mg/dL (0.55-1.02); EST Glomerular Filtration Rate 123 mL/min (>60); Est Glom Filt Rate - Afr Amer 149 mL/min (>60); Estimated Creatinine Clearance 120.75 ml/min; Glucose 95 mg/dL (74-106); Potassium 3.1 mmol/L (3.5-5.1); Sodium Level 147 mmol/L (136-145); Troponin-I HS (w/2H Reflex) 5 pg/mL (3.0-54.0)
[2024-12-04 09:00] VITALS: BP 123/59; PULSE 56; RESP 14; O2SAT 98
[2024-12-04 09:15] LABS: International Normalized Ratio 0.9; Prothrombin Time (Protime)PT. 12.6 SECONDS (11.7-14.9)
[2024-12-04 09:16] LABS: Partial Thromboplast Time 22.1 Seconds (24.1-36.2)
[2024-12-04 09:48] LABS: Reflex Troponin-HS? (from REC) Y
[2024-12-04 09:57] VITALS: BP 113/63; PULSE 57; RESP 18; O2SAT 97
[2024-12-04 10:00] LABS: Differential Comment SCANNED; Platelet Estimate SLT DEC (ADEQ)
[2024-12-04 10:01] LABS: Red Cell Morphology NORM C+C NORMAL (NORM C&C)
[2024-12-04 10:09] LABS: D-Dimer Quantitative (DVT/PE) < 0.27 FEU/ug/m (0.27-0.49)
[2024-12-04 10:12] LABS: Troponin-I HS 6 pg/mL (3.0-54.0)
[2024-12-04 11:19] VITALS: BP 112/57; PULSE 65; RESP 17; TEMP 36.8; O2SAT 97
== END 2024-12-04 11:30 | disposition home or self-care (01) ==
PROVIDERS: Emergency Provider Surgery; PCP Internal Medicine; Visit Provider Surgery
DX: R07.9 Chest pain, unspecified (principal); M54.6 Pain in thoracic spine; Z85.72 Personal history of non-Hodgkin lymphomas
CPT/HCPCS: 36591; 71046; 80048; 84484; 85025; 85379; 85610; 85730; 93005; 99283; A4216

== ENCOUNTER → 2025-01-12 | Outpatient (CLI) | payer MEDICAID, SELFPAY ==
--- NOTE | 2025-01-12 12:48 | CT_ITS ---
PROCEDURE: SOFT TISSUE NECK WITH CONTRAST 01/12/2025 REASON FOR EXAM: H/O NHL; B CELL LYMPHOMA, SURVEILLANCE TECHNIQUE: CT of the soft tissues of the neck from the orbits to the upper mediastinum with intravenous contrast. CONTRAST: Isovue 370 VOLUME: 100mL One or more dose reduction techniques were used (e.g., Automated exposure control, adjustment of the mA and/or kV according to patient size, use of iterative reconstruction technique). RADIATION DOSE SUMMARY: CTDlvol: 16.9 mGy DLP: 1071.79 mGycm COMPARISON: Comparison is made with prior study dated December 31, 2023. FINDINGS: A right-sided port a catheter is seen with the tip in the superior vena cava. Longer Airway: Midline and patent. Salivary glands: Unremarkable. Lymph nodes: Mild reactive enlargement of isolated left cervical lymph nodes. Thyroid: Unremarkable. Vasculature: Carotid arteries and internal jugular veins are unremarkable. Orbits: Unremarkable at visualized levels. Paranasal sinuses and mastoids: Grossly clear at visualized levels. Lung apices: Clear. Upper mediastinum: Visualized mediastinum is unremarkable. Bones: Multilevel degenerative changes of the spine. Other: CT/Soft Tissue Neck WITH Contrast IMPRESSION: Stable examination. Reading Location: [place] [id number]
--- NOTE | 2025-01-12 13:34 | CT_ITS ---
PROCEDURE: CT CHEST, ABD, PEL W/CONTRAST 01/12/2025 REASON FOR EXAM: H/O NHL;B CELL LYMPHOMA Janice follow-up examination. TECHNIQUE: Chest, abdomen and pelvis CT with intravenous contrast. Coronal and Sagittal reconstruction series were provided. One or more dose reduction techniques were used (e.g., Automated exposure control, adjustment of the mA and/or kV according to patient size, use of iterative reconstruction technique. PATIENT PREPARATION: Per protocol ORAL CONTRAST TYPE: Etiologies . CONTRAST: Is Isovue-300 VOLUME: 100mL RADIATION DOSE SUMMARY: CTDlvol: 19.91 mGy DLP: 1779 mGycm COMPARISON: Comparison is made with prior study of December 31, 2023. FINDINGS: CT CHEST: Hardware: The most important a right-sided you you can back port a catheter is seen with the tip in the superior vena cava. Seating would be able to back calculi from Lymph nodes: Stable small mediastinal lymph node. Heart and Vasculature: Coronary artery calcifications are noted. Lungs and Airways: There is not evidence of a 3.6 cm x 4.9 cm anatomy ileostomy pain infiltration in the posterior medial segment of the new right lower lobe. Underlying mass lesion can not be excluded. Also MR follow-up recommended. Pleura: Unremarkable Bones: Degenerative changes of the thoracic spine. CT ABDOMEN/PELVIS: Liver: Normal size. No mass. Gallbladder: CT and fluoro dose skeletons gallstone. Spleen: Borderline splenomegaly. Pancreas: Normal size without evidence of mass surrounding inflammation or ductal dilation. Adrenals: Unremarkable Kidneys: Unremarkable Bladder: Unremarkable Reproductive Organs: Calcified fibroid uterus. Bowel: The patient is status post right hemicolectomy. Lymph nodes: Unremarkable. Vasculature: Mild diffuse atherosclerotic calcifications are noted. Peritoneum / Retroperitoneum: No lymph nodes are seen. Bones: Mild degenerative changes of the spine. CT/CT Chest, Abd, Pel w/Contrast IMPRESSION: Essentially stable examination except for new airspace disease in the posterior medial segment of the right lower lobe. Radiographic follow-up recommended. Reading Location: [place] [id number]
[2025-01-12] MEDS: 0.9% Saline Lock 10 ML Syringe IV (13:40)
== END | disposition home or self-care (01) ==
LOC: CT 12:48
PROVIDERS: PCP Internal Medicine; Referring Provider Nurse Practitioner Family; Visit Provider Nurse Practitioner Family
DX: C88.00 Waldenstrom macroglobulinemia not having achieved remission (principal); C85.88 Other specified types of non-Hodgkin lymphoma, lymph nodes of multiple sites; R16.1 Splenomegaly, not elsewhere classified
CPT/HCPCS: 70491; 71260; 74177; Q9967; A4216

== ENCOUNTER → 2025-03-02 | Outpatient (CLI) | payer MEDICAID, SELFPAY ==
--- NOTE | 2025-03-02 14:13 | RAD_ITS ---
PROCEDURE: CHEST PA AND LATERAL 03/02/2025 REASON FOR EXAM: F/U RLL INFILTRATE SEEN ON CT CHEST 12/2024 TECHNIQUE: Frontal and lateral views of the chest. COMPARISON: CT chest 01/12/2025 FINDINGS: Hardware: Stable right port catheter. Heart: The heart size is normal. Mediastinum: The mediastinal contour is unremarkable. Lungs: No focal consolidation. The previously noted medial right lower lobe consolidative opacity has resolved. No pneumothorax. No pleural effusion. Bones: Degenerative changes are identified within the thoracic spine. RAD/Chest PA and Lateral IMPRESSION: Interval resolution previously noted right lower lobe consolidative opacity. Reading Location: [facility]
== END | disposition home or self-care (01) ==
LOC: RAD 14:12
PROVIDERS: PCP Internal Medicine; Referring Provider Internal Medicine Hematology & Oncology; Visit Provider Internal Medicine Hematology & Oncology
DX: C85.88 Other specified types of non-Hodgkin lymphoma, lymph nodes of multiple sites (principal)
CPT/HCPCS: 71046